=== PATIENT | female | born 1950 | race Caucasian/White ===

== ENCOUNTER → 2022-08-08 11:59 | Outpatient (CLI) | payer OTHER, SELFPAY | PROVIDERS: Visit Provider Registered Nurse | DX: R30.0 Dysuria (principal) | CPT/HCPCS: 87077; 87086; 87186 ==

== ENCOUNTER → 2022-08-22 11:23 | Outpatient (CLI) | payer OTHER, SELFPAY | PROVIDERS: Visit Provider Nurse Practitioner Family | DX: N39.0 Urinary tract infection, site not specified (principal); R30.0 Dysuria | CPT/HCPCS: 87086; 87210 ==

== ENCOUNTER 2022-08-23 12:19 | Observation (INO) | payer OTHER, SELFPAY ==
[2022-08-23] VITALS (126 sets, daily range): BP systolic 94–231; BP diastolic 51–109; PULSE 61–82; RESP 8–52; TEMP 37; O2SAT 91–100; BMI 25.7
--- NOTE | 2022-08-23 12:45 | DI.RAD.S_ITS ---
PROCEDURE: XR SHOULDER RT MIN 2V INDICATIONS: fall/pain/can't lift right arm TECHNIQUE: Two views of the shoulder were acquired. COMPARISON: None. FINDINGS: Bones: On the two given views of the shoulder, there are no visible fractures. Mild degenerative changes at the acromioclavicular joint. No mark glenohumeral joint dislocation. The visible right rib arcs are intact. Soft tissues: No suspicious soft tissue calcifications. IMPRESSION: No definite proximal humerus fracture on the two given views. Dictated by: Inna Wiley M.D. on 08/23/2022 at 12:49 Approved by: Inna Wiley M.D. on 08/23/2022 at 12:50
--- NOTE | 2022-08-23 12:55 | DI.RAD.S_ITS ---
PROCEDURE: XR WRIST RT MIN 3V INDICATIONS: fall with pain TECHNIQUE: Four views of the wrist were acquired. COMPARISON: None. FINDINGS: Bones: Decreased mineralization. No visible acute fractures. There is scapholunate interval widening of uncertain chronicity. There are severe arthritic changes at the 1st carpometacarpal joint with a significant osseous remodeling, subcortical cystic changes and joint space loss. Incidental note made of severe arthritic degeneration and spurring at the 3rd MCP joint. Scaphoid view: No definite scaphoid fracture. Soft tissues: No suspicious soft tissue calcifications. IMPRESSION: 1. No visible acute fractures. 2. Scapholunate interval widening is of uncertain chronicity. 3. Severe arthritic changes at the 1st CMC and 3rd MCP joints. Dictated by: Inna Wiley M.D. on 08/23/2022 at 12:50 Approved by: Inna Wiley M.D. on 08/23/2022 at 12:52
--- NOTE | 2022-08-23 12:55 | DI.RAD.S_ITS ---
PROCEDURE: XR ELBOW RT MIN 3V INDICATIONS: fall with pain TECHNIQUE: Three views of the elbow were acquired. COMPARISON: None. FINDINGS: Bones: Decreased mineralization. Soft tissues: No elbow joint effusion. No suspicious soft tissue calcifications. IMPRESSION: Intact right elbow. Dictated by: Inna Wiley M.D. on 08/23/2022 at 12:52 Approved by: Inna Wiley M.D. on 08/23/2022 at 12:53
--- NOTE | 2022-08-23 12:56 | ED.UPPEXIN ---
HPI - Extremity Injury (Upper) <DO Mayco Meyers Last Filed: 08/24/22 07:46> General Chief Complaint: Extremity Injury, Upper Stated Complaint: fell, rt shldr disloc Time Seen by Provider: 08/23/22 12:52 Source: patient Mode of arrival: Ambulatory History of Present Illness HPI narrative: 71F former smoker with noncontributory medical history presents for evaluation of injury suffered as a consequence of a fall just prior to arrival. She states that she is in a new house and was looking out her new blinds and did not see a chest in her way and tripped and fell over onto her right shoulder and now has shoulder, elbow and wrist pain. She denies any head neck or back pain. She denies prodromal symptoms such as dizziness, weakness or lightheadedness. She has severe pain in her right shoulder that is worse with range of motion and admits to pain in elbow and wrist also worse with range of motion. Related Data Home Medications Medication Instructions Recorded Confirmed doxycycline hyclate PO 08/08/22 08/08/22 fluticasone propionate 50 1 spray intranasal DAILY 08/08/22 08/08/22 mcg/actuation nasal spray,suspension hydroxyzine HCl 25 mg tablet 25 mg PO BID PRN 08/08/22 08/08/22 Previous Rx's Medication Instructions Recorded phenazopyridine 200 mg tablet 200 mg PO TID PRN pain 6 doses #6 08/08/22 (Pyridium) tabs Allergies Allergy/AdvReac Type Severity Reaction Status Date / Time hydrocodone Allergy Intermediate Hives Verified 08/23/22 14:18 hydrochlorothiazide Allergy Mild Hives Verified 08/08/22 12:08 Sulfa (Sulfonamide Allergy Mild Hives Verified 08/08/22 12:08 Antibiotics) doxycycline Allergy Hives Verified 08/23/22 12:40 cephalexin AdvReac Mild Verified 08/22/22 11:29 Review of Systems <DO Mayco Meyers Filed: 08/24/22 07:46> Review of Systems Narrative: GENERAL: Denies chills, fatigue, malaise, fever, sweats. HEENT: Denies sinus pain, ear pain, sore throat, difficulty swallowing, dizziness. RESPIRATORY: Denies dyspnea, cough, wheezing, hemoptysis, sputum. CARDIOVASCULAR: Denies chest pain, palpitations, orthopnea, edema, GASTROINTESTINAL: Denies nausea, vomiting, abdominal pain, diarrhea, constipation, melena. : Denies dysuria, frequency, incontinence, hematuria, urinary retention. MUSCULOSKELETAL: See HPI SKIN: Denies rash, skin lesions, or other NEUROLOGIC: Denies weakness, headache, numbness, change in speech, confusion, seizures, incoordination. PSYCHIATRIC: No concerning psychosocial issues. 12 point review of systems is negative except for those stated above Patient History <Mitchell Cano DO - Last Filed: 08/24/22 07:46> Medical History (Updated 08/24/22 @ 01:21 by ARELI BoydPURVI) Essential hypertension Johnathan's disease History of alcohol use History of tobacco abuse Hyperlipidemia Shoulder injury Surgical History (Updated 08/24/22 @ 01:21 by ANGEL Boyd) History of ankle surgery S/P CABG x 1 Family History (Updated 08/24/22 @ 01:25 by ANGEL Boyd) Father Hypertension Mother Hypertension CVA (cerebral vascular accident) Son Diabetes mellitus Social History (Updated 08/24/22 @ 01:26 by ANGEL Boyd) marital status: unmarried,living together details: Life partner household members: significant other housing: house Smoking Status: Former smoker alcohol intake: former substance use type: does not use well-balanced diet: daily or most days Smoking Status: Former smoker Substance Use Type: marijuana Exam <Mitchell Cano DO - Last Filed: 08/24/22 07:46> Narrative Exam Narrative: GENERAL: [71] year old patient appears stated age. Well-developed patient, in mild distress. GCS 15 HEAD: Atraumatic. Normocephalic. EYES: Pupils equal round and reactive. Extraocular motions intact. No scleral icterus. No injection or drainage. ENT: Nose without bleeding, purulent drainage. Throat without erythema, tonsillar hypertrophy or exudate. Airway patent. NECK: Trachea midline. Non tender CARDIOVASCULAR: Regular rate and rhythm without murmurs, gallops, or rubs. RESPIRATORY: Clear to auscultation. Breath sounds equal bilaterally. No wheezes, rales, or rhonchi. GASTROINTESTINAL: Abdomen soft, non-tender, nondistended. EXTREMITIES: Right posterior shoulder pain, no obvious deformity, tender to palpate, limited range of motion secondary to pain, right elbow pain and right wrist pain also tender to palpation no obvious deformity, closed, neurovascularly intact it BACK: Nontender without deformity or crepitance. No flank tenderness. NEURO: AOx3. SKIN: No rash or erythema of visible areas Initial Vital Signs Initial Vital Signs: Vital Signs Temperature 98.6 F 08/23/22 12:40 Pulse Rate 75 08/23/22 12:40 Respiratory Rate 18 08/23/22 12:40 Blood Pressure 223/109 H 08/23/22 12:40 Pulse Oximetry 99 08/23/22 12:40 Oxygen Delivery Method Room Air 08/23/22 12:40 <John Torres DO - Last Filed: 08/24/22 00:04> Initial Vital Signs Initial Vital Signs: Vital Signs Temperature 98.6 F 08/23/22 12:40 Pulse Rate 75 08/23/22 12:40 Respiratory Rate 18 08/23/22 12:40 Blood Pressure 223/109 H 08/23/22 12:40 Pulse Oximetry 99 08/23/22 12:40 Oxygen Delivery Method Room Air 08/23/22 12:40 Course <Mitchell Cano DO - Last Filed: 08/24/22 07:46> Orders Ordered: Acetaminophen (Acetaminophen 325 Mg Tablet) 650 mg PO Q6H PRN PRN Reason: Fever/Mild Pain (1-10 Al Hydrox/Mg Hydrox/Simethicone (Mag Hydrox/Alum/Simeth 30 Ml Udc) 30 ml PO Q6HR PRN PRN Reason: Dyspepsia Diclofenac Sodium (Diclofenac 1% Gel 100 Gm) 1 applic TOP QID PRN PRN Reason: Pain, (1-10 Hydralazine HCl (Hydralazine 20 Mg/Ml Vial) 20 mg IV Q6HR PRN PRN Reason: Hypertension Last Admin: 08/24/22 01:37 Dose: 20 mg Documented By: KASSANDRA Hydroxyzine Pamoate (Hydroxyzine Pamoate 25 Mg Capsule) 25 mg PO Q4HR PRN PRN Reason: Pain, Mild (1-3) Last Admin: 08/24/22 01:50 Dose: 25 mg Documented By: KASSANDRA Influenza Virus Vaccine (Influenza Hd Vaccine 0.7 Ml Syringe) 0.7 ml IM .ONCE ONE Stop: 08/24/22 09:01 Ketorolac Tromethamine (Ketorolac 10 Mg Tablet) 10 mg PO Q6HR PRN PRN Reason: Pain, Mild (1-3) Stop: 08/29/22 01:15 Labetalol HCl (Labetalol 20 Mg/4 Ml Syringe) 20 mg IV Q4HR PRN; Protocol PRN Reason: Hypertension Lidocaine (Lidocaine Patch 1 Each Adh..Patch) 1 each TOP DAILY PRN PRN Reason: Pain, Mild (1-10 Metoprolol Succinate (Metoprolol Er 25 Mg Tablet) 25 mg PO DAILY TU Morphine Sulfate (Morphine 2 Mg/Ml Inj) 2 mg IV Q4HR PRN PRN Reason: Pain, Moderate 5-10 Last Admin: 08/24/22 07:18 Dose: 2 mg Documented By: Naloxone HCl (Naloxone 0.4 Mg/Ml Vial) 0.2 mg IV Q2MIN PRN PRN Reason: Opiate Reversal Ondansetron HCl (Ondansetron 4 Mg Odt) 4 mg PO Q4HR PRN PRN Reason: Nausea And Vomiting Discontinued Medications Hydrocodone Bitart/Acetaminophen (Hydrocodone/Acet 5/325 Tablet) 1 tab PO NOW ONE Stop: 08/23/22 14:07 Last Admin: 08/23/22 14:19 Dose: Not Given Documented By: SHASHA Hydrocodone Bitart/Acetaminophen (Hydrocodone/Acet 5/325 Tablet) 1 tab PO Q4H PRN PRN Reason: Pain, Moderate (4-10 Nicardipine HCl 25 mg/ Sodium (Chloride) 250 mls @ 50 mls/hr IV TITRATE TU; Protocol Last Titration: 08/23/22 22:29 Dose: 0 mg/hr, 0 mls/hr Documented By: Titration: 08/23/22 18:23 Dose: 2.5 mg/hr, 25 mls/hr Documented By: Titration: 08/23/22 18:06 Dose: 2 mg/hr, 20 mls/hr Documented By: Titration: 08/23/22 17:50 Dose: 2.5 mg/hr, 25 mls/hr Documented By: Titration: 08/23/22 17:37 Dose: 0 mg/hr, 0 mls/hr Documented By: Titration: 08/23/22 17:07 Dose: 2.5 mg/hr, 25 mls/hr Documented By: Admin: 08/23/22 16:37 Dose: 5 mg/hr, 50 mls/hr Documented By: SHASHA Acetaminophen (Ofirmev) 1,000 mg in 100 mls @ 400 mls/hr IV NOW ONE Stop: 08/23/22 18:04 Last Infusion: 08/23/22 18:23 Dose: 0 mls/hr Documented By: Admin: 08/23/22 18:03 Dose: 400 mls/hr Documented By: RB Ketorolac Tromethamine (Ketorolac 30 Mg/Ml Vial) 30 mg IV NOW ONE Stop: 08/24/22 01:14 Last Admin: 08/24/22 01:37 Dose: 30 mg Documented By: KASSANDRA Labetalol HCl (Labetalol 20 Mg/4 Ml Syringe) 20 mg IV NOW ONE; Protocol Stop: 08/23/22 15:11 Last Admin: 08/23/22 15:31 Dose: 20 mg Documented By: SHASHA Morphine Sulfate (Morphine 2 Mg/Ml Inj) 2 mg IV NOW ONE Stop: 08/23/22 22:24 Last Admin: 08/23/22 22:42 Dose: 2 mg Documented By: SHASHA Ondansetron HCl (Ondansetron 4 Mg/2 Ml Inj) 4 mg IV NOW ONE Stop: 08/23/22 17:38 Last Admin: 08/23/22 17:45 Dose: 4 mg Documented By: ANDREA Reevaluation(s) Reevaluation #1: Patient becoming increasingly agitated and hypertensive, she is given labetalol 20 mg and has a brief improvement to the 180s but soon after rises back over 200 Consultations Consultation #1: Radiology called (Dr. Wiley) regarding head CT demonstrating questionable findings of acute intraparenchymal cerebral cortical contusion with punctate hemorrhage, no evidence of mass effect or subdural fluid collection Consultation #2: Upon receipt of head CT images pushed to [facility] and consultation performed with their stroke neurologist, images have been reviewed and recommendation is to repeat head CT in at least 6 hours, recommend blood pressure control below 160s Vital Signs Vital signs: Vital Signs - 8 hr 08/23/22 16:05 08/23/22 16:05 08/23/22 16:10 Pulse Rate 69 69 Respiratory Rate 13 12 Blood Pressure 230/106 H Pulse Oximetry 100 Oxygen Delivery Method 08/23/22 16:10 08/23/22 16:15 08/23/22 16:15 Pulse Rate 68 Respiratory Rate 18 Blood Pressure 209/101 H 222/108 H Pulse Oximetry 99 Oxygen Delivery Method 08/23/22 16:20 08/23/22 16:20 08/23/22 16:26 Pulse Rate 69 71 Respiratory Rate 21 13 Blood Pressure 228/109 H Pulse Oximetry 100 96 Oxygen Delivery Method 08/23/22 16:26 08/23/22 16:30 08/23/22 16:30 Pulse Rate 71 Respiratory Rate 12 Blood Pressure 203/95 H 209/101 H Pulse Oximetry 99 Oxygen Delivery Method 08/23/22 16:35 08/23/22 16:35 08/23/22 16:40 Pulse Rate 68 70 Respiratory Rate 19 19 Blood Pressure 213/108 H Pulse Oximetry 100 100 Oxygen Delivery Method 08/23/22 16:40 08/23/22 16:45 08/23/22 16:45 Pulse Rate 69 Respiratory Rate 25 H Blood Pressure 226/108 H 216/102 H Pulse Oximetry 100 Oxygen Delivery Method 08/23/22 16:54 08/23/22 16:54 08/23/22 17:00 Pulse Rate 73 82 Respiratory Rate 26 H Blood Pressure 217/98 H Pulse Oximetry 97 95 Oxygen Delivery Method 08/23/22 17:02 08/23/22 17:02 08/23/22 17:05 Pulse Rate 71 74 Respiratory Rate 26 H 25 H Blood Pressure 193/88 H Pulse Oximetry 99 100 Oxygen Delivery Method Room Air 08/23/22 17:05 08/23/22 17:10 08/23/22 17:15 Pulse Rate Respiratory Rate Blood Pressure 165/76 H 180/89 H 162/91 H Pulse Oximetry Oxygen Delivery Method 08/23/22 17:15 08/23/22 17:20 08/23/22 17:21 Pulse Rate 74 79 77 Respiratory Rate 23 25 H Blood Pressure Pulse Oximetry 100 99 99 Oxygen Delivery Method 08/23/22 17:21 08/23/22 17:25 08/23/22 17:26 Pulse Rate 72 Respiratory Rate 16 Blood Pressure 187/101 H 155/78 H Pulse Oximetry 99 Oxygen Delivery Method 08/23/22 17:26 08/23/22 17:30 08/23/22 17:30 Pulse Rate 73 66 Respiratory Rate 11 L Blood Pressure 123/74 Pulse Oximetry 100 100 Oxygen Delivery Method 08/23/22 17:35 08/23/22 17:35 08/23/22 17:39 Pulse Rate 72 68 Respiratory Rate Blood Pressure 101/57 L Pulse Oximetry 100 100 Oxygen Delivery Method 08/23/22 17:39 08/23/22 17:40 08/23/22 17:42 Pulse Rate 69 80 Respiratory Rate 26 H Blood Pressure 94/51 L Pulse Oximetry 99 99 Oxygen Delivery Method 08/23/22 17:42 08/23/22 17:45 08/23/22 17:45 Pulse Rate 70 Respiratory Rate 52 H Blood Pressure 124/66 171/75 H Pulse Oximetry 99 Oxygen Delivery Method 08/23/22 17:50 08/23/22 17:50 08/23/22 17:55 Pulse Rate 70 64 Respiratory Rate Blood Pressure 158/68 H Pulse Oximetry 99 99 Oxygen Delivery Method 08/23/22 17:58 08/23/22 17:58 08/23/22 18:00 Pulse Rate 65 Respiratory Rate 22 Blood Pressure 199/94 H 192/90 H Pulse Oximetry 100 Oxygen Delivery Method 08/23/22 18:00 08/23/22 18:05 08/23/22 18:06 Pulse Rate 66 65 65 Respiratory Rate 15 13 Blood Pressure Pulse Oximetry 100 100 100 Oxygen Delivery Method 08/23/22 18:06 08/23/22 18:10 08/23/22 18:10 Pulse Rate 67 Respiratory Rate 18 Blood Pressure 159/83 H 170/86 H Pulse Oximetry 91 Oxygen Delivery Method 08/23/22 18:15 08/23/22 18:16 08/23/22 18:16 Pulse Rate 70 68 Respiratory Rate 17 18 Blood Pressure 166/77 H Pulse Oximetry 92 94 Oxygen Delivery Method Room Air 08/23/22 18:20 08/23/22 18:20 08/23/22 18:25 Pulse Rate 67 Respiratory Rate 18 Blood Pressure 168/81 H 166/80 H Pulse Oximetry 99 Oxygen Delivery Method Room Air 08/23/22 18:25 08/23/22 18:30 08/23/22 18:30 Pulse Rate 68 67 Respiratory Rate 22 11 L Blood Pressure 157/78 H Pulse Oximetry 100 100 Oxygen Delivery Method 08/23/22 18:35 08/23/22 18:35 08/23/22 18:40 Pulse Rate 66 Respiratory Rate 20 Blood Pressure 159/81 H 165/87 H Pulse Oximetry 100 Oxygen Delivery Method 08/23/22 18:40 08/23/22 18:45 08/23/22 18:45 Pulse Rate 66 66 Respiratory Rate 11 L 13 Blood Pressure 161/84 H Pulse Oximetry 100 100 Oxygen Delivery Method 08/23/22 18:50 08/23/22 18:50 08/23/22 18:55 Pulse Rate 69 Respiratory Rate 17 Blood Pressure 147/75 H 156/80 H Pulse Oximetry 97 Oxygen Delivery Method 08/23/22 18:55 08/23/22 19:00 08/23/22 19:00 Pulse Rate 69 78 Respiratory Rate 21 22 Blood Pressure 156/77 H Pulse Oximetry 98 99 Oxygen Delivery Method 08/23/22 19:05 08/23/22 19:05 08/23/22 19:10 Pulse Rate 67 Respiratory Rate Blood Pressure 160/70 H 154/71 H Pulse Oximetry 100 Oxygen Delivery Method 08/23/22 19:10 08/23/22 19:15 08/23/22 19:16 Pulse Rate 71 68 69 Respiratory Rate 21 12 18 Blood Pressure Pulse Oximetry 98 99 98 Oxygen Delivery Method 08/23/22 19:16 08/23/22 19:20 08/23/22 19:20 Pulse Rate 72 Respiratory Rate 19 Blood Pressure 155/74 H 157/70 H Pulse Oximetry 97 Oxygen Delivery Method Room Air 08/23/22 19:25 08/23/22 19:25 08/23/22 19:30 Pulse Rate 69 Respiratory Rate 25 H Blood Pressure 143/65 H 139/70 Pulse Oximetry 99 Oxygen Delivery Method 08/23/22 19:30 08/23/22 19:35 08/23/22 19:35 Pulse Rate 71 72 Respiratory Rate 27 H 36 H Blood Pressure 141/70 H Pulse Oximetry 98 97 Oxygen Delivery Method 08/23/22 19:40 08/23/22 19:40 08/23/22 19:45 Pulse Rate 71 Respiratory Rate 12 Blood Pressure 145/73 H 147/74 H Pulse Oximetry 100 Oxygen Delivery Method 08/23/22 19:45 08/23/22 19:50 08/23/22 19:50 Pulse Rate 70 75 Respiratory Rate 15 22 Blood Pressure 140/72 Pulse Oximetry 98 98 Oxygen Delivery Method 08/23/22 19:55 08/23/22 19:55 08/23/22 20:17 Pulse Rate 75 72 Respiratory Rate 22 Blood Pressure 156/78 H Pulse Oximetry 99 Oxygen Delivery Method 08/23/22 20:19 08/23/22 20:19 08/23/22 20:20 Pulse Rate 75 Respiratory Rate 18 Blood Pressure 161/86 H 137/73 Pulse Oximetry 100 Oxygen Delivery Method 08/23/22 20:20 08/23/22 20:25 08/23/22 20:25 Pulse Rate 75 73 Respiratory Rate Blood Pressure 140/76 Pulse Oximetry 100 100 Oxygen Delivery Method 08/23/22 20:30 08/23/22 20:30 08/23/22 20:35 Pulse Rate 71 Respiratory Rate 12 Blood Pressure 140/74 175/80 H Pulse Oximetry 99 Oxygen Delivery Method 08/23/22 20:35 08/23/22 20:40 08/23/22 20:40 Pulse Rate 74 77 Respiratory Rate 16 Blood Pressure 174/79 H Pulse Oximetry 99 98 Oxygen Delivery Method 08/23/22 20:45 08/23/22 20:45 08/23/22 20:50 Pulse Rate 77 Respiratory Rate 17 Blood Pressure 154/71 H 151/81 H Pulse Oximetry 100 Oxygen Delivery Method 08/23/22 20:50 08/23/22 20:55 08/23/22 20:55 Pulse Rate 80 80 Respiratory Rate Blood Pressure 159/88 H Pulse Oximetry 100 100 Oxygen Delivery Method 08/23/22 21:00 08/23/22 21:00 08/23/22 21:05 Pulse Rate 70 Respiratory Rate 13 Blood Pressure 162/75 H 136/80 Pulse Oximetry 100 Oxygen Delivery Method 08/23/22 21:05 08/23/22 21:10 08/23/22 21:10 Pulse Rate 71 73 Respiratory Rate 8 L 15 Blood Pressure 139/78 Pulse Oximetry 99 100 Oxygen Delivery Method 08/23/22 21:15 08/23/22 21:15 08/23/22 21:20 Pulse Rate 71 Respiratory Rate 10 L Blood Pressure 135/77 161/80 H Pulse Oximetry 100 Oxygen Delivery Method 08/23/22 21:20 08/23/22 21:25 08/23/22 21:26 Pulse Rate 75 75 74 Respiratory Rate 11 L 19 24 Blood Pressure Pulse Oximetry 100 100 100 Oxygen Delivery Method 08/23/22 21:26 08/23/22 21:30 08/23/22 21:30 Pulse Rate 73 Respiratory Rate 18 Blood Pressure 158/76 H 163/75 H Pulse Oximetry 100 Oxygen Delivery Method 08/23/22 21:35 08/23/22 21:36 08/23/22 21:36 Pulse Rate 70 70 Respiratory Rate 16 11 L Blood Pressure 154/72 H Pulse Oximetry 100 100 Oxygen Delivery Method 08/23/22 21:40 08/23/22 21:40 08/23/22 21:45 Pulse Rate 74 Respiratory Rate 18 Blood Pressure 156/76 H 159/80 H Pulse Oximetry 98 Oxygen Delivery Method 08/23/22 21:45 08/23/22 21:50 08/23/22 21:50 Pulse Rate 75 74 Respiratory Rate 11 L 34 H Blood Pressure 161/83 H Pulse Oximetry 98 99 Oxygen Delivery Method 08/23/22 21:55 08/23/22 21:55 08/23/22 22:00 Pulse Rate 79 Respiratory Rate 34 H Blood Pressure 169/83 H 160/75 H Pulse Oximetry 100 Oxygen Delivery Method 08/23/22 22:00 08/23/22 22:05 08/23/22 22:05 Pulse Rate 78 74 Respiratory Rate 29 H 13 Blood Pressure 143/67 H Pulse Oximetry 100 97 Oxygen Delivery Method 08/23/22 22:10 08/23/22 22:10 08/23/22 22:15 Pulse Rate 72 Respiratory Rate Blood Pressure 151/74 H 160/80 H Pulse Oximetry 99 Oxygen Delivery Method 08/23/22 22:15 08/23/22 22:20 08/23/22 22:20 Pulse Rate 75 77 Respiratory Rate 17 14 Blood Pressure 154/79 H Pulse Oximetry 97 98 Oxygen Delivery Method 08/23/22 22:25 08/23/22 22:26 08/23/22 22:26 Pulse Rate 75 75 Respiratory Rate 13 18 Blood Pressure 151/90 H Pulse Oximetry 100 100 Oxygen Delivery Method 08/23/22 22:30 08/23/22 22:30 08/23/22 22:35 Pulse Rate 82 75 Respiratory Rate Blood Pressure 174/102 H Pulse Oximetry 100 99 Oxygen Delivery Method <John Torres DO - Last Filed: 08/24/22 00:04> Orders Ordered: Acetaminophen (Acetaminophen 325 Mg Tablet) 650 mg PO Q6H PRN PRN Reason: Fever/Mild Pain (1-10 Al Hydrox/Mg Hydrox/Simethicone (Mag Hydrox/Alum/Simeth 30 Ml Udc) 30 ml PO Q6HR PRN PRN Reason: Dyspepsia Diclofenac Sodium (Diclofenac 1% Gel 100 Gm) 1 applic TOP QID PRN PRN Reason: Pain, (1-10 Hydralazine HCl (Hydralazine 20 Mg/Ml Vial) 20 mg IV Q6HR PRN PRN Reason: Hypertension Last Admin: 08/24/22 01:37 Dose: 20 mg Documented By: KASSANDRA Hydroxyzine Pamoate (Hydroxyzine Pamoate 25 Mg Capsule) 25 mg PO Q4HR PRN PRN Reason: Pain, Mild (1-3) Last Admin: 08/24/22 01:50 Dose: 25 mg Documented By: KASSANDRA Influenza Virus Vaccine (Influenza Hd Vaccine 0.7 Ml Syringe) 0.7 ml IM .ONCE ONE Stop: 08/24/22 09:01 Ketorolac Tromethamine (Ketorolac 10 Mg Tablet) 10 mg PO Q6HR PRN PRN Reason: Pain, Mild (1-3) Stop: 08/29/22 01:15 Labetalol HCl (Labetalol 20 Mg/4 Ml Syringe) 20 mg IV Q4HR PRN; Protocol PRN Reason: Hypertension Lidocaine (Lidocaine Patch 1 Each Adh..Patch) 1 each TOP DAILY PRN PRN Reason: Pain, Mild (1-10 Metoprolol Succinate (Metoprolol Er 25 Mg Tablet) 25 mg PO DAILY TU Morphine Sulfate (Morphine 2 Mg/Ml Inj) 2 mg IV Q4HR PRN PRN Reason: Pain, Moderate 5-10 Last Admin: 08/24/22 07:18 Dose: 2 mg Documented By: Naloxone HCl (Naloxone 0.4 Mg/Ml Vial) 0.2 mg IV Q2MIN PRN PRN Reason: Opiate Reversal Ondansetron HCl (Ondansetron 4 Mg Odt) 4 mg PO Q4HR PRN PRN Reason: Nausea And Vomiting Discontinued Medications Hydrocodone Bitart/Acetaminophen (Hydrocodone/Acet 5/325 Tablet) 1 tab PO NOW ONE Stop: 08/23/22 14:07 Last Admin: 08/23/22 14:19 Dose: Not Given Documented By: SHASHA Hydrocodone Bitart/Acetaminophen (Hydrocodone/Acet 5/325 Tablet) 1 tab PO Q4H PRN PRN Reason: Pain, Moderate (4-10 Nicardipine HCl 25 mg/ Sodium (Chloride) 250 mls @ 50 mls/hr IV TITRATE TU; Protocol Last Titration: 08/23/22 22:29 Dose: 0 mg/hr, 0 mls/hr Documented By: Titration: 08/23/22 18:23 Dose: 2.5 mg/hr, 25 mls/hr Documented By: Titration: 08/23/22 18:06 Dose: 2 mg/hr, 20 mls/hr Documented By: Titration: 08/23/22 17:50 Dose: 2.5 mg/hr, 25 mls/hr Documented By: Titration: 08/23/22 17:37 Dose: 0 mg/hr, 0 mls/hr Documented By: Titration: 08/23/22 17:07 Dose: 2.5 mg/hr, 25 mls/hr Documented By: Admin: 08/23/22 16:37 Dose: 5 mg/hr, 50 mls/hr Documented By: SB Acetaminophen (Ofirmev) 1,000 mg in 100 mls @ 400 mls/hr IV NOW ONE Stop: 08/23/22 18:04 Last Infusion: 08/23/22 18:23 Dose: 0 mls/hr Documented By: Admin: 08/23/22 18:03 Dose: 400 mls/hr Documented By: RB Ketorolac Tromethamine (Ketorolac 30 Mg/Ml Vial) 30 mg IV NOW ONE Stop: 08/24/22 01:14 Last Admin: 08/24/22 01:37 Dose: 30 mg Documented By: KASSANDRA Labetalol HCl (Labetalol 20 Mg/4 Ml Syringe) 20 mg IV NOW ONE; Protocol Stop: 08/23/22 15:11 Last Admin: 08/23/22 15:31 Dose: 20 mg Documented By: SB Morphine Sulfate (Morphine 2 Mg/Ml Inj) 2 mg IV NOW ONE Stop: 08/23/22 22:24 Last Admin: 08/23/22 22:42 Dose: 2 mg Documented By: SB Ondansetron HCl (Ondansetron 4 Mg/2 Ml Inj) 4 mg IV NOW ONE Stop: 08/23/22 17:38 Last Admin: 08/23/22 17:45 Dose: 4 mg Documented By: RB Vital Signs Vital signs: Vital Signs - 8 hr 08/23/22 16:05 08/23/22 16:05 08/23/22 16:10 Pulse Rate 69 69 Respiratory Rate 13 12 Blood Pressure 230/106 H Pulse Oximetry 100 Oxygen Delivery Method 08/23/22 16:10 08/23/22 16:15 08/23/22 16:15 Pulse Rate 68 Respiratory Rate 18 Blood Pressure 209/101 H 222/108 H Pulse Oximetry 99 Oxygen Delivery Method 08/23/22 16:20 08/23/22 16:20 08/23/22 16:26 Pulse Rate 69 71 Respiratory Rate 21 13 Blood Pressure 228/109 H Pulse Oximetry 100 96 Oxygen Delivery Method 08/23/22 16:26 08/23/22 16:30 08/23/22 16:30 Pulse Rate 71 Respiratory Rate 12 Blood Pressure 203/95 H 209/101 H Pulse Oximetry 99 Oxygen Delivery Method 08/23/22 16:35 08/23/22 16:35 08/23/22 16:40 Pulse Rate 68 70 Respiratory Rate 19 19 Blood Pressure 213/108 H Pulse Oximetry 100 100 Oxygen Delivery Method 08/23/22 16:40 08/23/22 16:45 08/23/22 16:45 Pulse Rate 69 Respiratory Rate 25 H Blood Pressure 226/108 H 216/102 H Pulse Oximetry 100 Oxygen Delivery Method 08/23/22 16:54 08/23/22 16:54 08/23/22 17:00 Pulse Rate 73 82 Respiratory Rate 26 H Blood Pressure 217/98 H Pulse Oximetry 97 95 Oxygen Delivery Method 08/23/22 17:02 08/23/22 17:02 08/23/22 17:05 Pulse Rate 71 74 Respiratory Rate 26 H 25 H Blood Pressure 193/88 H Pulse Oximetry 99 100 Oxygen Delivery Method Room Air 08/23/22 17:05 08/23/22 17:10 08/23/22 17:15 Pulse Rate Respiratory Rate Blood Pressure 165/76 H 180/89 H 162/91 H Pulse Oximetry Oxygen Delivery Method 08/23/22 17:15 08/23/22 17:20 08/23/22 17:21 Pulse Rate 74 79 77 Respiratory Rate 23 25 H Blood Pressure Pulse Oximetry 100 99 99 Oxygen Delivery Method 08/23/22 17:21 08/23/22 17:25 08/23/22 17:26 Pulse Rate 72 Respiratory Rate 16 Blood Pressure 187/101 H 155/78 H Pulse Oximetry 99 Oxygen Delivery Method 08/23/22 17:26 08/23/22 17:30 08/23/22 17:30 Pulse Rate 73 66 Respiratory Rate 11 L Blood Pressure 123/74 Pulse Oximetry 100 100 Oxygen Delivery Method 08/23/22 17:35 08/23/22 17:35 08/23/22 17:39 Pulse Rate 72 68 Respiratory Rate Blood Pressure 101/57 L Pulse Oximetry 100 100 Oxygen Delivery Method 08/23/22 17:39 08/23/22 17:40 08/23/22 17:42 Pulse Rate 69 80 Respiratory Rate 26 H Blood Pressure 94/51 L Pulse Oximetry 99 99 Oxygen Delivery Method 08/23/22 17:42 08/23/22 17:45 08/23/22 17:45 Pulse Rate 70 Respiratory Rate 52 H Blood Pressure 124/66 171/75 H Pulse Oximetry 99 Oxygen Delivery Method 08/23/22 17:50 08/23/22 17:50 08/23/22 17:55 Pulse Rate 70 64 Respiratory Rate Blood Pressure 158/68 H Pulse Oximetry 99 99 Oxygen Delivery Method 08/23/22 17:58 08/23/22 17:58 08/23/22 18:00 Pulse Rate 65 Respiratory Rate 22 Blood Pressure 199/94 H 192/90 H Pulse Oximetry 100 Oxygen Delivery Method 08/23/22 18:00 08/23/22 18:05 08/23/22 18:06 Pulse Rate 66 65 65 Respiratory Rate 15 13 Blood Pressure Pulse Oximetry 100 100 100 Oxygen Delivery Method 08/23/22 18:06 08/23/22 18:10 08/23/22 18:10 Pulse Rate 67 Respiratory Rate 18 Blood Pressure 159/83 H 170/86 H Pulse Oximetry 91 Oxygen Delivery Method 08/23/22 18:15 08/23/22 18:16 08/23/22 18:16 Pulse Rate 70 68 Respiratory Rate 17 18 Blood Pressure 166/77 H Pulse Oximetry 92 94 Oxygen Delivery Method Room Air 08/23/22 18:20 08/23/22 18:20 08/23/22 18:25 Pulse Rate 67 Respiratory Rate 18 Blood Pressure 168/81 H 166/80 H Pulse Oximetry 99 Oxygen Delivery Method Room Air 08/23/22 18:25 08/23/22 18:30 08/23/22 18:30 Pulse Rate 68 67 Respiratory Rate 22 11 L Blood Pressure 157/78 H Pulse Oximetry 100 100 Oxygen Delivery Method 08/23/22 18:35 08/23/22 18:35 08/23/22 18:40 Pulse Rate 66 Respiratory Rate 20 Blood Pressure 159/81 H 165/87 H Pulse Oximetry 100 Oxygen Delivery Method 08/23/22 18:40 08/23/22 18:45 08/23/22 18:45 Pulse Rate 66 66 Respiratory Rate 11 L 13 Blood Pressure 161/84 H Pulse Oximetry 100 100 Oxygen Delivery Method 08/23/22 18:50 08/23/22 18:50 08/23/22 18:55 Pulse Rate 69 Respiratory Rate 17 Blood Pressure 147/75 H 156/80 H Pulse Oximetry 97 Oxygen Delivery Method 08/23/22 18:55 08/23/22 19:00 08/23/22 19:00 Pulse Rate 69 78 Respiratory Rate 21 22 Blood Pressure 156/77 H Pulse Oximetry 98 99 Oxygen Delivery Method 08/23/22 19:05 08/23/22 19:05 08/23/22 19:10 Pulse Rate 67 Respiratory Rate Blood Pressure 160/70 H 154/71 H Pulse Oximetry 100 Oxygen Delivery Method 08/23/22 19:10 08/23/22 19:15 08/23/22 19:16 Pulse Rate 71 68 69 Respiratory Rate 21 12 18 Blood Pressure Pulse Oximetry 98 99 98 Oxygen Delivery Method 08/23/22 19:16 08/23/22 19:20 08/23/22 19:20 Pulse Rate 72 Respiratory Rate 19 Blood Pressure 155/74 H 157/70 H Pulse Oximetry 97 Oxygen Delivery Method Room Air 08/23/22 19:25 08/23/22 19:25 08/23/22 19:30 Pulse Rate 69 Respiratory Rate 25 H Blood Pressure 143/65 H 139/70 Pulse Oximetry 99 Oxygen Delivery Method 08/23/22 19:30 08/23/22 19:35 08/23/22 19:35 Pulse Rate 71 72 Respiratory Rate 27 H 36 H Blood Pressure 141/70 H Pulse Oximetry 98 97 Oxygen Delivery Method 08/23/22 19:40 08/23/22 19:40 08/23/22 19:45 Pulse Rate 71 Respiratory Rate 12 Blood Pressure 145/73 H 147/74 H Pulse Oximetry 100 Oxygen Delivery Method 08/23/22 19:45 08/23/22 19:50 08/23/22 19:50 Pulse Rate 70 75 Respiratory Rate 15 22 Blood Pressure 140/72 Pulse Oximetry 98 98 Oxygen Delivery Method 08/23/22 19:55 08/23/22 19:55 08/23/22 20:17 Pulse Rate 75 72 Respiratory Rate 22 Blood Pressure 156/78 H Pulse Oximetry 99 Oxygen Delivery Method 08/23/22 20:19 08/23/22 20:19 08/23/22 20:20 Pulse Rate 75 Respiratory Rate 18 Blood Pressure 161/86 H 137/73 Pulse Oximetry 100 Oxygen Delivery Method 08/23/22 20:20 08/23/22 20:25 08/23/22 20:25 Pulse Rate 75 73 Respiratory Rate Blood Pressure 140/76 Pulse Oximetry 100 100 Oxygen Delivery Method 08/23/22 20:30 08/23/22 20:30 08/23/22 20:35 Pulse Rate 71 Respiratory Rate 12 Blood Pressure 140/74 175/80 H Pulse Oximetry 99 Oxygen Delivery Method 08/23/22 20:35 08/23/22 20:40 08/23/22 20:40 Pulse Rate 74 77 Respiratory Rate 16 Blood Pressure 174/79 H Pulse Oximetry 99 98 Oxygen Delivery Method 08/23/22 20:45 08/23/22 20:45 08/23/22 20:50 Pulse Rate 77 Respiratory Rate 17 Blood Pressure 154/71 H 151/81 H Pulse Oximetry 100 Oxygen Delivery Method 08/23/22 20:50 08/23/22 20:55 08/23/22 20:55 Pulse Rate 80 80 Respiratory Rate Blood Pressure 159/88 H Pulse Oximetry 100 100 Oxygen Delivery Method 08/23/22 21:00 08/23/22 21:00 08/23/22 21:05 Pulse Rate 70 Respiratory Rate 13 Blood Pressure 162/75 H 136/80 Pulse Oximetry 100 Oxygen Delivery Method 08/23/22 21:05 08/23/22 21:10 08/23/22 21:10 Pulse Rate 71 73 Respiratory Rate 8 L 15 Blood Pressure 139/78 Pulse Oximetry 99 100 Oxygen Delivery Method 08/23/22 21:15 08/23/22 21:15 08/23/22 21:20 Pulse Rate 71 Respiratory Rate 10 L Blood Pressure 135/77 161/80 H Pulse Oximetry 100 Oxygen Delivery Method 08/23/22 21:20 08/23/22 21:25 08/23/22 21:26 Pulse Rate 75 75 74 Respiratory Rate 11 L 19 24 Blood Pressure Pulse Oximetry 100 100 100 Oxygen Delivery Method 08/23/22 21:26 08/23/22 21:30 08/23/22 21:30 Pulse Rate 73 Respiratory Rate 18 Blood Pressure 158/76 H 163/75 H Pulse Oximetry 100 Oxygen Delivery Method 08/23/22 21:35 08/23/22 21:36 08/23/22 21:36 Pulse Rate 70 70 Respiratory Rate 16 11 L Blood Pressure 154/72 H Pulse Oximetry 100 100 Oxygen Delivery Method 08/23/22 21:40 08/23/22 21:40 08/23/22 21:45 Pulse Rate 74 Respiratory Rate 18 Blood Pressure 156/76 H 159/80 H Pulse Oximetry 98 Oxygen Delivery Method 08/23/22 21:45 08/23/22 21:50 08/23/22 21:50 Pulse Rate 75 74 Respiratory Rate 11 L 34 H Blood Pressure 161/83 H Pulse Oximetry 98 99 Oxygen Delivery Method 08/23/22 21:55 08/23/22 21:55 08/23/22 22:00 Pulse Rate 79 Respiratory Rate 34 H Blood Pressure 169/83 H 160/75 H Pulse Oximetry 100 Oxygen Delivery Method 08/23/22 22:00 08/23/22 22:05 08/23/22 22:05 Pulse Rate 78 74 Respiratory Rate 29 H 13 Blood Pressure 143/67 H Pulse Oximetry 100 97 Oxygen Delivery Method 08/23/22 22:10 08/23/22 22:10 08/23/22 22:15 Pulse Rate 72 Respiratory Rate Blood Pressure 151/74 H 160/80 H Pulse Oximetry 99 Oxygen Delivery Method 08/23/22 22:15 08/23/22 22:20 08/23/22 22:20 Pulse Rate 75 77 Respiratory Rate 17 14 Blood Pressure 154/79 H Pulse Oximetry 97 98 Oxygen Delivery Method 08/23/22 22:25 08/23/22 22:26 08/23/22 22:26 Pulse Rate 75 75 Respiratory Rate 13 18 Blood Pressure 151/90 H Pulse Oximetry 100 100 Oxygen Delivery Method 08/23/22 22:30 08/23/22 22:30 08/23/22 22:35 Pulse Rate 82 75 Respiratory Rate Blood Pressure 174/102 H Pulse Oximetry 100 99 Oxygen Delivery Method MDM - Extremity Injury (Upper) <Mitchell Jerome, DO - Last Filed: 08/24/22 07:46> Lab Data 08/24/22 04:00 08/24/22 04:00 Labs: Lab Results 08/23/22 08/23/22 Range/Units 15:18 15:18 WBC 7.0 (4.5-11.0) X10^3/uL RBC 4.22 (4.0-5.2) X10^6/uL Hgb 13.5 (12.0-16.0) g/dL Hct 39.1 (36-46) % MCV 92.7 (80-100) fL MCH 31.9 (26-34) PG MCHC 34.5 (30-36) % RDW 13.6 (11.6-14.8) % Plt Count 317 (150-400) X10^3/uL Neut % (Auto) 60.6 (50-75) % Lymph % (Auto) 28.3 (25-40) % [place] % (Auto) 7.0 (3-14) % Eos % (Auto) 3.0 (2-4) % Baso % (Auto) 1.1 (0-2) % Neut # (Auto) 4200 (6303-2379) /uL Lymph # (Auto) 2000 (3573-8344) /uL [place] # (Auto) 500 (0-900) /uL Eos # (Auto) 200 (0-450) /uL Baso # (Auto) 100 (0-100) /uL Sodium 138 (137-145) mmol/L Potassium 4.1 (3.4-5.1) mmol/L Chloride 105 (98-107) mmol/L Carbon Dioxide 29 (22-32) mmol/L BUN 20 H (7-17) mg/dL Creatinine 0.80 (0.52-1.04) mg/dL Estimated GFR > 60 (>60) mL/min BUN/Creatinine Ratio 25.0 H (6-22) Glucose 94 (80-110) mg/dL Calcium 10.4 H (8.4-10.2) mg/dL Magnesium 2.4 H (1.6-2.3) mg/dL Total Bilirubin 0.4 (0.2-1.3) mg/dL AST 29 (14-36) IU/L ALT 30 (<35) IU/L Alkaline Phosphatase 87 (38-126) U/L Total Creatine Kinase 94 (30-135) U/L CK-MB (CK-2) TNP CK-MB (CK-2) Rel Index TNP Troponin I < 0.012 (0.01-0.034) ng/mL NT-Pro-B Natriuret Pep 315 H (<125) pg/mL Total Protein 7.1 (6.3-8.2) g/dL Albumin 4.3 (3.5-5.0) g/dL Globulin 2.8 (1.7-4.1) g/dL Albumin/Globulin Ratio 1.5 (1.0-2.8) Lipase 153 (23-300) U/L Urine Dip Bedside Urine Glucose Negative Bedside Urine Bilirubin - Negative Bedside Urine Ketone - Negative Urine Specific [place] 1.005 Bedside Urine Occult Blood - Negative Bedside Urine pH 7.0 Bedside Urine Protein - Negative Bedside Urine Urobilinogen - Negative Bedside Urine Nitrite - Negative Bedside Urine Leukocytes - Negative Esterase <John Torres, - Last Filed: 08/24/22 00:04> Lab Data Labs: Lab Results 08/23/22 08/23/22 Range/Units 15:18 15:18 WBC 7.0 (4.5-11.0) X10^3/uL RBC 4.22 (4.0-5.2) X10^6/uL Hgb 13.5 (12.0-16.0) g/dL Hct 39.1 (36-46) % MCV 92.7 (80-100) fL MCH 31.9 (26-34) PG MCHC 34.5 (30-36) % RDW 13.6 (11.6-14.8) % Plt Count 317 (150-400) X10^3/uL Neut % (Auto) 60.6 (50-75) % Lymph % (Auto) 28.3 (25-40) % [place] % (Auto) 7.0 (3-14) % Eos % (Auto) 3.0 (2-4) % Baso % (Auto) 1.1 (0-2) % Neut # (Auto) 4200 (4128-1085) /uL Lymph # (Auto) 2000 (1327-9470) /uL [place] # (Auto) 500 (0-900) /uL Eos # (Auto) 200 (0-450) /uL Baso # (Auto) 100 (0-100) /uL Sodium 138 (137-145) mmol/L Potassium 4.1 (3.4-5.1) mmol/L Chloride 105 (98-107) mmol/L Carbon Dioxide 29 (22-32) mmol/L BUN 20 H (7-17) mg/dL Creatinine 0.80 (0.52-1.04) mg/dL Estimated GFR > 60 (>60) mL/min BUN/Creatinine Ratio 25.0 H (6-22) Glucose 94 (80-110) mg/dL Calcium 10.4 H (8.4-10.2) mg/dL Magnesium 2.4 H (1.6-2.3) mg/dL Total Bilirubin 0.4 (0.2-1.3) mg/dL AST 29 (14-36) IU/L ALT 30 (<35) IU/L Alkaline Phosphatase 87 (38-126) U/L Total Creatine Kinase 94 (30-135) U/L CK-MB (CK-2) TNP CK-MB (CK-2) Rel Index TNP Troponin I < 0.012 (0.01-0.034) ng/mL NT-Pro-B Natriuret Pep 315 H (<125) pg/mL Total Protein 7.1 (6.3-8.2) g/dL Albumin 4.3 (3.5-5.0) g/dL Globulin 2.8 (1.7-4.1) g/dL Albumin/Globulin Ratio 1.5 (1.0-2.8) Lipase 153 (23-300) U/L Urine Dip Bedside Urine Glucose Negative Bedside Urine Bilirubin - Negative Bedside Urine Ketone - Negative Urine Specific [place] 1.005 Bedside Urine Occult Blood - Negative Bedside Urine pH 7.0 Bedside Urine Protein - Negative Bedside Urine Urobilinogen - Negative Bedside Urine Nitrite - Negative Bedside Urine Leukocytes - Negative Esterase ECG Data Interpretation: PROCEDURE:? CT HEAD/BRAIN WO CON ? INDICATIONS:? repeat head CT to eval for bleed ? TECHNIQUE:? Noncontrast 4.5 mm thick angled axial sections acquired from the foramen magnum to the vertex, with coronal and sagittal reformats.? For radiation dose reduction, the following was used:? automated exposure control, adjustment of mA and/or kV according to patient size.? ? COMPARISON:? [facility], CT, CT HEAD/BRAIN WO FRANCISCO JAVIER, 08/23/2022, 14:14. ? FINDINGS:? Image quality:? Excellent.? ? CSF spaces:? Basal cisterns are patent.? No extra-axial fluid collections.? Ventricles are normal in size and shape.? ? Brain:? No midline shift.? Again seen is increased density in the left middle cranial fossa, (2/10), unchanged compared to earlier today at 2:14 p.m.? No area of hypodensity in a large vascular distribution to suggest acute infarction. Periventricular hypodensity consistent with chronic microvascular ischemic change. Age-related parenchymal loss. ? Skull and face:? Calvarium and visualized facial bones are intact, without suspicious lesions.? ? Sinuses:? Visualized sinuses and mastoids are clear.? ? IMPRESSION:? Stable increased density at the left middle cranial fossa.? This could represent a focus of intraparenchymal or subarachnoid hemorrhage. MDM Narrative Medical decision making narrative: Dr torres: Received turned over. Review patient's history and physical exam. Repeat head CT shows no change. I did discuss the case with Dr. Hernandez with stroke Neurology at [facility] who reviewed the images. Dr. Hernandez does think that this is potentially blood but it has not changed in size. The plan will be is to stop the nicardipine. Patient states she does have a history of high blood pressure and has been on blood pressure in the past but only take supplements for this now. She does not know what her blood pressure normally runs. We will admit the patient for observation overnight given the nature of her symptoms today and her blood pressure. I did discuss the case with JUAN Jin the night hospitalist who will admit for observation. Discussed the need for admission with the patient who expressed understanding and agreement as well. Critical Care Time <Mitchell Cano, DO - Last Filed: 08/24/22 07:46> Critical Care Time Critical Care Time: Yes Total Critical Care Time: 35 Attestation: Critical Care Time [35] minutes: Critical care time is separate from other billable procedures. This critical care time includes consultation with family and other consulting doctors, review of records, and interpretation of data from labs, EKGs, imaging, etc. Discharge Plan Departure Patient Disposition: Admitted as Observation Clinical Impression: Concussion, Contusion of right shoulder, Hypertension, Intracranial hemorrhage Admit Date/Time: 08/23/22 22:38 Admit Provider: Genia Jin
--- NOTE | 2022-08-23 14:02 | PC.NURSE ---
LS clear and equal bilaterally.
--- NOTE | 2022-08-23 14:06 | DI.CT.S_ITS ---
PROCEDURE: CT CERVICAL SPINE WO CON INDICATIONS: midline neck pain TECHNIQUE: Noncontrast 3 mm thick sections acquired from the skull base to the T4 level. Sagittal and coronal reformats were then constructed. For radiation dose reduction, the following was used: automated exposure control, adjustment of mA and/or kV according to patient size. COMPARISON: None. FINDINGS: Image quality: Excellent. Bones: No fractures or dislocations. Grade 1 anterolisthesis C3 on four and C4 on five. Moderate facet arthropathy at these levels. Trace retrolisthesis C5 on six. Moderate to severe disc height loss from C3 through C7. There are moderate degenerative changes at the atlantodental interval. Visualized superior ribs are intact. Soft tissues: Prevertebral soft tissues are normal in thickness. No paravertebral hematomas. No apical pneumothoraces. Paraseptal emphysematous changes are seen in the lungs. Moderate bilateral carotid bulb calcifications. IMPRESSION: 1. No CT evidence of acute cervical spine trauma. 2. Degenerative spondylosis and spondylolisthesis. Dictated by: Inna Wiley M.D. on 08/23/2022 at 14:37 Approved by: Inna Wiley M.D. on 08/23/2022 at 14:40
--- NOTE | 2022-08-23 14:06 | DI.CT.S_ITS ---
PROCEDURE: CT HEAD/BRAIN WO CON INDICATIONS: fall with possible head injury TECHNIQUE: Noncontrast 4.5 mm thick angled axial sections acquired from the foramen magnum to the vertex, with coronal and sagittal reformats. For radiation dose reduction, the following was used: automated exposure control, adjustment of mA and/or kV according to patient size. COMPARISON: None. FINDINGS: Image quality: Excellent. CSF spaces: Basal cisterns are patent. No extra-axial fluid collections. The ventricles are symmetric in size and shape. Brain: There is a small amount of cortical and subcortical hyperdensity in the left anterior temporal lobe. No subdural or other intraparenchymal hemorrhage. There are mild periventricular and deep white matter chronic small vessel ischemic changes. There is intracranial internal carotid artery atherosclerosis. Skull and face: Calvarium and visualized facial bones appear intact, without suspicious lesions. Sinuses: Visualized sinuses and mastoids are clear. IMPRESSION: 1. Questionable findings acute, intraparenchymal cerebral cortical contusion with punctate hemorrhage. No evidence mass effect or subdural fluid collection. Follow-up exam in 24 hours recommended to reassess extent. 2. Findings called to the emergency room at 14:34 hours [place] daylight time. Dictated by: Inna Wiley M.D. on 08/23/2022 at 14:30 Approved by: Inna Wiley M.D. on 08/23/2022 at 14:36
--- NOTE | 2022-08-23 14:20 | PC.NURSE ---
Pt placed in C-collar by this RN.
[2022-08-23 15:28] LABS: Add Manual Diff / Slide Review NO; Basophils Absolute Auto 100 /uL (0-100); Basophils Percent Auto 1.1 % (0-2); Eosinophils Absolute Auto 200 /uL (0-450); Hematocrit 39.1 % (36-46); Hemoglobin 13.5 g/dL (12.0-16.0); Lymphocytes Absolute Auto 2000 /uL (1100-4500); Lymphocytes Percent Auto 28.3 % (25-40); Mean Corpuscular HGB Conc 34.5 % (30-36); Mean Corpuscular Hemoglobin 31.9 PG (26-34); Mean Corpuscular Volume 92.7 fL (80-100); Monocytes Absolute Auto 500 /uL (0-900); Neutrophils Absolute Auto 4200 /uL (1500-7000); Neutrophils Percent Auto 60.6 % (50-75); Platelet Count 317 X10^3/uL (150-400); Red Blood Cell Count 4.22 X10^6/uL (4.0-5.2); Red Cell Distribution Width 13.6 % (11.6-14.8)
--- NOTE | 2022-08-23 15:28 | PC.NURSE ---
Pt calls out to this RN. States she has begun to have substernal chest pain that radiates to the back. EKG called. Provider made aware. New orders.
[2022-08-23] MEDS: LABETALOL 20 MG/4 ML SYRINGE IV (15:31)
[2022-08-23 15:37] LABS: Alanine Aminotransferase 30 IU/L (<35); Albumin 4.3 g/dL (3.5-5.0); Albumin Globulin Ratio 1.5 (1.0-2.8); Alkaline Phosphatase 87 U/L (38-126); Aspartate Aminotransferase 29 IU/L (14-36); Bilirubin Total 0.4 mg/dL (0.2-1.3); Blood Urea Nitrogen 20 mg/dL (7-17); Calcium 10.4 mg/dL (8.4-10.2); Carbon Dioxide 29 mmol/L (22-32); Chloride 105 mmol/L (98-107); Creatine Kinase 94 U/L (30-135); Estimated Glomerular Filt Rate > 60 mL/min (>60); Globulin 2.8 g/dL (1.7-4.1); Glucose 94 mg/dL (80-110); HEMOLYSIS 19 (0-50); Lipase 153 U/L (23-300); Magnesium 2.4 mg/dL (1.6-2.3); Potassium 4.1 mmol/L (3.4-5.1); Sodium 138 mmol/L (137-145); Total Protein 7.1 g/dL (6.3-8.2)
[2022-08-23 15:49] LABS: NT-proBNP (BNP-Adult 18+) 315 pg/mL (<125); Troponin I < 0.012 ng/mL (0.01-0.034)
--- NOTE | 2022-08-23 15:58 | PC.NURSE ---
Pt reporting frequency with voiding.
--- NOTE | 2022-08-23 16:16 | PC.NURSE ---
Provider OK to remove C-collar. C-collar removed.
[2022-08-23] MEDS: NICARDIPINE 25 MG in SODIUM CHLORIDE 0.9% 240 ML 50 MG IV (16:37)
--- NOTE | 2022-08-23 17:23 | PC.NURSE ---
Pt is feeling nauseous and pressure in stomach, like I have to use the bathroom, but I'm not going to. Provider made aware.
[2022-08-23] MEDS: ONDANSETRON 4 MG/2 ML INJ IV (17:45)
[2022-08-23] MEDS: ACETAMINOPHEN IV 1,000 MG/100 ML VIAL 400 MG IV (18:03)
--- NOTE | 2022-08-23 18:07 | PC.NURSE ---
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 Provider made aware.
--- NOTE | 2022-08-23 18:08 | PC.NURSE ---
This RN responded to call light for this patient at 1735. Upon entering the room patient is actively vomiting and profusely sweating. Patient is on nicardapine drip at 2.5mg/hr. This RN heard from provider telling this patient RN that goal was to keep patient below 160 systolic. Patient had blood pressure of 101/57. This RN immediately stopped the infusion and went to notify provider. This RN received verbal order to administer this patient 4mg IV zofran. This RN obtained and administered zofran. Patent spouse at bedside. Patient blood pressure dropped to 94/51 at next 5 minute pressure read. Next blood pressure reading increased. Patient adamant in refusal to restarting this nicardapine. This RN immediately asked provider to come in bedside. Provider was able to reassure patient and nicardapine drip restarted at 2.5mg/hr. This patient RN returns to room. Provider places order for IV Tylenol. Patient nurse places second line from verbal order from provider. This RN obtains IV Tylenol and administers this medication through new secondary line. Nicardapine dose lowered to 2mg/hr per provider to avoid rapid drop in pressure.
--- NOTE | 2022-08-23 18:25 | PC.NURSE ---
Nicardapine drip increased to 2.5mg/hr as patient blood pressure became stable. Provider communicated goal is to maintain patient on a blood pressure below 160 systolic. This patient RN notified and in room when this was done.
--- NOTE | 2022-08-23 19:48 | DI.CT.S_ITS ---
PROCEDURE: CT HEAD/BRAIN WO CON INDICATIONS: repeat head CT to eval for bleed TECHNIQUE: Noncontrast 4.5 mm thick angled axial sections acquired from the foramen magnum to the vertex, with coronal and sagittal reformats. For radiation dose reduction, the following was used: automated exposure control, adjustment of mA and/or kV according to patient size. COMPARISON: [facility], CT, CT HEAD/BRAIN WO CON, 08/23/2022, 14:14. FINDINGS: Image quality: Excellent. CSF spaces: Basal cisterns are patent. No extra-axial fluid collections. Ventricles are normal in size and shape. Brain: No midline shift. Again seen is increased density in the left middle cranial fossa, (2/10), unchanged compared to earlier today at 2:14 p.m. No area of hypodensity in a large vascular distribution to suggest acute infarction. Periventricular hypodensity consistent with chronic microvascular ischemic change. Age-related parenchymal loss. Skull and face: Calvarium and visualized facial bones are intact, without suspicious lesions. Sinuses: Visualized sinuses and mastoids are clear. IMPRESSION: Stable increased density at the left middle cranial fossa. This could represent a focus of intraparenchymal or subarachnoid hemorrhage. Dictated by: Bala Burnett M.D. on 08/23/2022 at 20:41 Approved by: Bala Burnett M.D. on 08/23/2022 at 20:47
--- NOTE | 2022-08-23 20:03 | PC.NURSE ---
This RN and MJ Hines notice left sided facial droop. Pt face is symetrical with smile. No change in vision. Provider aware. Pt headed to CT per orders.
--- NOTE | 2022-08-23 20:45 | PC.NURSE ---
Pt reports substernal chest pain worsening to 7/10 with pressure on right side of head, face and neck. Provider made aware. New order for stat EKG. RT called for EKG. At bedside now.
--- NOTE | 2022-08-23 22:32 | PC.NURSE ---
Provider verbal order to stop Nicardipine drip.
[2022-08-23] MEDS: MORPHINE 2 MG/ML INJ IV (22:42)
--- NOTE | 2022-08-23 23:07 | P.HP_ITS ---
History of Present Illness History of Present Illness Date Patient Seen: 08/23/22 Time Patient Seen: 23:07 Chief complaint: Concussion, possible brain hemorrhage, HTN urgency Narrative: Yina Castro is a 71-year-old female with a history of CABG stent x1 2020, Johnathan's disease, remote history of hypertension, morbid obesity, & HLD, who lost over 100lbs and no longer requires medications. Presented to the ED after a mechanical fall at home tripping over a piece of furniture landing on her right shoulder/right arm, and possibly hitting her head. In the ED patient had hypertensive urgency BP is 212/105, 223/109, 219/104. Initial head CT showed possible intraparenchymal cerebral cortical contusion with punctate. Dr. Wiley neuro stroke was initially consulted recommended patient be placed on nicardipine drip with repeat CT in [address]. [address] again possible intraparenchymal versus subarachnoid hemorrhage. Dr. Trevino at [facility] neuro stroke was consulted recommended the patient be admitted for observation to monitor for neuro status changes, stop Nicardipine drip. And that if the patient did not become symptomatic or any changes throughout the night no further imaging CTA or MRI is recommended. Dr. 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 On admit patient denies history of stroke, head injury, head bleed, head t rauma, chest pain, shortness in breath, headache, changes in vision, difficulty swallowing, speech impairment, weakness, numbness, tingling, difficulty with ambulation, recent LOC, fever, body aches, chills, cough, recent exposure to illness, abdominal pain, nausea, vomiting, urinary incontinence/retention, dysuria, frequency, urgency, hematuria, bowel changes, constipation, incontinence, melena, rashes, recent changes to medication, illness, or trauma. Patient does report that she takes 800 mg of ibuprofen with 650 mg of Tylenol q.4 hours everyday for the past year. 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 Patient's laboratory workup is all unremarkable with the exception of BUN of 20, and a BNP 315. I personally reviewed EKG all imaging: CXR, C-spine, rt shoulder, RT elbow, RT wrist were all negative for acute process. EKG: NSR at 75 anteroseptal infarct age undetermined. Patient to be admitted for mechanical fall resulting in concussion possible intraparenchymal versus subarachnoid hemorrhage, with hypertensive urgency. [facility] Medical History (Updated 08/24/22 @ 01:21 by ARELI Boyd-PURVI) Essential hypertension Johnathan's disease History of alcohol use History of tobacco abuse Hyperlipidemia Shoulder injury Surgical History (Updated 08/24/22 @ 01:21 by ARELI Boyd-PURVI) History of ankle surgery S/P CABG x 1 Family History (Updated 08/24/22 @ 01:25 by ARELI Boyd-PURVI) Father Hypertension Mother Hypertension CVA (cerebral vascular accident) Son Diabetes mellitus Social History (Updated 08/24/22 @ 01:26 by ARELI Boyd-PURVI) marital status: unmarried,living together details: Life partner household members: significant other housing: house Smoking Status: Former smoker alcohol intake: former substance use type: does not use well-balanced diet: daily or most days Comment: Quit smoking in 2014, 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 Meds Home Medications and Allergies Home Medications Medication Instructions Recorded Confirmed Type doxycycline hyclate PO 08/08/22 08/08/22 History fluticasone propionate 50 1 spray intranasal DAILY 08/08/22 08/08/22 History mcg/actuation nasal spray,suspension hydroxyzine HCl 25 mg tablet 25 mg PO BID PRN 08/08/22 08/08/22 History phenazopyridine 200 mg tablet 200 mg PO TID PRN pain 6 doses #6 08/08/22 08/08/22 Rx (Pyridium) tabs Allergies Allergy/AdvReac Type Severity Reaction Status Date / Time hydrocodone Allergy Intermediate Hives Verified 08/23/22 14:18 hydrochlorothiazide Allergy Mild Hives Verified 08/08/22 12:08 Sulfa (Sulfonamide Allergy Mild Hives Verified 08/08/22 12:08 Antibiotics) doxycycline Allergy Hives Verified 08/23/22 12:40 cephalexin AdvReac Mild Verified 08/22/22 11:29 Review of Systems Review of Systems Narrative: All 12 point systems reviewed with the patient and are negative except otherwise documented. Exam Vital Signs (past 8 hours): - 08/23/22 15:31 08/23/22 15:19 08/23/22 15:19 Pulse Rate 72 73 Respiratory Rate 18 Blood Pressure 219/104 H 214/103 H Pulse Oximetry 100 Oxygen Delivery Method 08/23/22 15:30 08/23/22 15:39 08/23/22 15:39 Pulse Rate 75 Respiratory Rate 21 Blood Pressure 219/104 H 210/104 H Pulse Oximetry 99 Oxygen Delivery Method 08/23/22 15:40 08/23/22 15:45 08/23/22 15:45 Pulse Rate 69 Respiratory Rate 12 Blood Pressure 212/105 H 204/104 H Pulse Oximetry 98 Oxygen Delivery Method 08/23/22 15:50 08/23/22 15:50 08/23/22 15:57 Pulse Rate 69 61 Respiratory Rate Blood Pressure 191/105 H 191/105 H Pulse Oximetry 98 Oxygen Delivery Method 08/23/22 15:56 08/23/22 15:56 08/23/22 16:00 Pulse Rate 69 Respiratory Rate 23 Blood Pressure 231/105 H 227/91 H Pulse Oximetry 99 Oxygen Delivery Method 08/23/22 16:00 08/23/22 16:05 08/23/22 16:05 Pulse Rate 69 69 Respiratory Rate 13 Blood Pressure 230/106 H Pulse Oximetry 98 100 Oxygen Delivery Method 08/23/22 16:10 08/23/22 16:10 08/23/22 16:15 Pulse Rate 69 68 Respiratory Rate 12 18 Blood Pressure 209/101 H Pulse Oximetry 99 Oxygen Delivery Method 08/23/22 16:15 08/23/22 16:20 08/23/22 16:20 Pulse Rate 69 Respiratory Rate 21 Blood Pressure 222/108 H 228/109 H Pulse Oximetry 100 Oxygen Delivery Method 08/23/22 16:26 08/23/22 16:26 08/23/22 16:30 Pulse Rate 71 Respiratory Rate 13 Blood Pressure 203/95 H 209/101 H Pulse Oximetry 96 Oxygen Delivery Method 08/23/22 16:30 08/23/22 16:35 08/23/22 16:35 Pulse Rate 71 68 Respiratory Rate 12 19 Blood Pressure 213/108 H Pulse Oximetry 99 100 Oxygen Delivery Method 08/23/22 16:40 08/23/22 16:40 08/23/22 16:45 Pulse Rate 70 69 Respiratory Rate 19 25 H Blood Pressure 226/108 H Pulse Oximetry 100 100 Oxygen Delivery Method 08/23/22 16:45 08/23/22 16:54 08/23/22 16:54 Pulse Rate 73 Respiratory Rate 26 H Blood Pressure 216/102 H 217/98 H Pulse Oximetry 97 Oxygen Delivery Method 08/23/22 17:00 08/23/22 17:02 08/23/22 17:02 Pulse Rate 82 71 Respiratory Rate 26 H Blood Pressure 193/88 H Pulse Oximetry 95 99 Oxygen Delivery Method 08/23/22 17:05 08/23/22 17:05 08/23/22 17:10 Pulse Rate 74 Respiratory Rate 25 H Blood Pressure 165/76 H 180/89 H Pulse Oximetry 100 Oxygen Delivery Method Room Air 08/23/22 17:15 08/23/22 17:15 08/23/22 17:20 Pulse Rate 74 79 Respiratory Rate 23 Blood Pressure 162/91 H Pulse Oximetry 100 99 Oxygen Delivery Method 08/23/22 17:21 08/23/22 17:21 08/23/22 17:25 Pulse Rate 77 72 Respiratory Rate 25 H 16 Blood Pressure 187/101 H Pulse Oximetry 99 99 Oxygen Delivery Method 08/23/22 17:26 08/23/22 17:26 08/23/22 17:30 Pulse Rate 73 Respiratory Rate Blood Pressure 155/78 H 123/74 Pulse Oximetry 100 Oxygen Delivery Method 08/23/22 17:30 08/23/22 17:35 08/23/22 17:35 Pulse Rate 66 72 Respiratory Rate 11 L Blood Pressure 101/57 L Pulse Oximetry 100 100 Oxygen Delivery Method 08/23/22 17:39 08/23/22 17:39 08/23/22 17:40 Pulse Rate 68 69 Respiratory Rate 26 H Blood Pressure 94/51 L Pulse Oximetry 100 99 Oxygen Delivery Method 08/23/22 17:42 08/23/22 17:42 08/23/22 17:45 Pulse Rate 80 Respiratory Rate Blood Pressure 124/66 171/75 H Pulse Oximetry 99 Oxygen Delivery Method 08/23/22 17:45 08/23/22 17:50 08/23/22 17:50 Pulse Rate 70 70 Respiratory Rate 52 H Blood Pressure 158/68 H Pulse Oximetry 99 99 Oxygen Delivery Method 08/23/22 17:55 08/23/22 17:58 08/23/22 17:58 Pulse Rate 64 65 Respiratory Rate 22 Blood Pressure 199/94 H Pulse Oximetry 99 100 Oxygen Delivery Method 08/23/22 18:00 08/23/22 18:00 08/23/22 18:05 Pulse Rate 66 65 Respiratory Rate 15 Blood Pressure 192/90 H Pulse Oximetry 100 100 Oxygen Delivery Method 08/23/22 18:06 08/23/22 18:06 08/23/22 18:10 Pulse Rate 65 Respiratory Rate 13 Blood Pressure 159/83 H 170/86 H Pulse Oximetry 100 Oxygen Delivery Method 08/23/22 18:10 08/23/22 18:15 08/23/22 18:16 Pulse Rate 67 70 68 Respiratory Rate 18 17 18 Blood Pressure Pulse Oximetry 91 92 94 Oxygen Delivery Method Room Air 08/23/22 18:16 08/23/22 18:20 08/23/22 18:20 Pulse Rate 67 Respiratory Rate 18 Blood Pressure 166/77 H 168/81 H Pulse Oximetry 99 Oxygen Delivery Method Room Air 08/23/22 18:25 08/23/22 18:25 08/23/22 18:30 Pulse Rate 68 Respiratory Rate 22 Blood Pressure 166/80 H 157/78 H Pulse Oximetry 100 Oxygen Delivery Method 08/23/22 18:30 08/23/22 18:35 08/23/22 18:35 Pulse Rate 67 66 Respiratory Rate 11 L 20 Blood Pressure 159/81 H Pulse Oximetry 100 100 Oxygen Delivery Method 08/23/22 18:40 08/23/22 18:40 08/23/22 18:45 Pulse Rate 66 Respiratory Rate 11 L Blood Pressure 165/87 H 161/84 H Pulse Oximetry 100 Oxygen Delivery Method 08/23/22 18:45 08/23/22 18:50 08/23/22 18:50 Pulse Rate 66 69 Respiratory Rate 13 17 Blood Pressure 147/75 H Pulse Oximetry 100 97 Oxygen Delivery Method 08/23/22 18:55 08/23/22 18:55 08/23/22 19:00 Pulse Rate 69 Respiratory Rate 21 Blood Pressure 156/80 H 156/77 H Pulse Oximetry 98 Oxygen Delivery Method 08/23/22 19:00 08/23/22 19:05 08/23/22 19:05 Pulse Rate 78 67 Respiratory Rate 22 Blood Pressure 160/70 H Pulse Oximetry 99 100 Oxygen Delivery Method 08/23/22 19:10 08/23/22 19:10 08/23/22 19:15 Pulse Rate 71 68 Respiratory Rate 21 12 Blood Pressure 154/71 H Pulse Oximetry 98 99 Oxygen Delivery Method 08/23/22 19:16 08/23/22 19:16 08/23/22 19:20 Pulse Rate 69 Respiratory Rate 18 Blood Pressure 155/74 H 157/70 H Pulse Oximetry 98 Oxygen Delivery Method 08/23/22 19:20 08/23/22 19:25 08/23/22 19:25 Pulse Rate 72 69 Respiratory Rate 19 25 H Blood Pressure 143/65 H Pulse Oximetry 97 99 Oxygen Delivery Method Room Air 08/23/22 19:30 08/23/22 19:30 08/23/22 19:35 Pulse Rate 71 Respiratory Rate 27 H Blood Pressure 139/70 141/70 H Pulse Oximetry 98 Oxygen Delivery Method 08/23/22 19:35 08/23/22 19:40 08/23/22 19:40 Pulse Rate 72 71 Respiratory Rate 36 H 12 Blood Pressure 145/73 H Pulse Oximetry 97 100 Oxygen Delivery Method 08/23/22 19:45 08/23/22 19:45 08/23/22 19:50 Pulse Rate 70 Respiratory Rate 15 Blood Pressure 147/74 H 140/72 Pulse Oximetry 98 Oxygen Delivery Method 08/23/22 19:50 08/23/22 19:55 08/23/22 19:55 Pulse Rate 75 75 Respiratory Rate 22 22 Blood Pressure 156/78 H Pulse Oximetry 98 99 Oxygen Delivery Method 08/23/22 20:17 08/23/22 20:19 08/23/22 20:19 Pulse Rate 72 75 Respiratory Rate 18 Blood Pressure 161/86 H Pulse Oximetry 100 Oxygen Delivery Method 08/23/22 20:20 08/23/22 20:20 08/23/22 20:25 Pulse Rate 75 Respiratory Rate Blood Pressure 137/73 140/76 Pulse Oximetry 100 Oxygen Delivery Method 08/23/22 20:25 08/23/22 20:30 08/23/22 20:30 Pulse Rate 73 71 Respiratory Rate 12 Blood Pressure 140/74 Pulse Oximetry 100 99 Oxygen Delivery Method 08/23/22 20:35 08/23/22 20:35 08/23/22 20:40 Pulse Rate 74 Respiratory Rate Blood Pressure 175/80 H 174/79 H Pulse Oximetry 99 Oxygen Delivery Method 08/23/22 20:40 08/23/22 20:45 08/23/22 20:45 Pulse Rate 77 77 Respiratory Rate 16 17 Blood Pressure 154/71 H Pulse Oximetry 98 100 Oxygen Delivery Method 08/23/22 20:50 08/23/22 20:50 08/23/22 20:55 Pulse Rate 80 Respiratory Rate Blood Pressure 151/81 H 159/88 H Pulse Oximetry 100 Oxygen Delivery Method 08/23/22 20:55 08/23/22 21:00 08/23/22 21:00 Pulse Rate 80 70 Respiratory Rate 13 Blood Pressure 162/75 H Pulse Oximetry 100 100 Oxygen Delivery Method 08/23/22 21:05 08/23/22 21:05 08/23/22 21:10 Pulse Rate 71 Respiratory Rate 8 L Blood Pressure 136/80 139/78 Pulse Oximetry 99 Oxygen Delivery Method 08/23/22 21:10 08/23/22 21:15 08/23/22 21:15 Pulse Rate 73 71 Respiratory Rate 15 10 L Blood Pressure 135/77 Pulse Oximetry 100 100 Oxygen Delivery Method 08/23/22 21:20 08/23/22 21:20 08/23/22 21:25 Pulse Rate 75 75 Respiratory Rate 11 L 19 Blood Pressure 161/80 H Pulse Oximetry 100 100 Oxygen Delivery Method 08/23/22 21:26 08/23/22 21:26 08/23/22 21:30 Pulse Rate 74 Respiratory Rate 24 Blood Pressure 158/76 H 163/75 H Pulse Oximetry 100 Oxygen Delivery Method 08/23/22 21:30 08/23/22 21:35 08/23/22 21:36 Pulse Rate 73 70 70 Respiratory Rate 18 16 11 L Blood Pressure Pulse Oximetry 100 100 100 Oxygen Delivery Method 08/23/22 21:36 08/23/22 21:40 08/23/22 21:40 Pulse Rate 74 Respiratory Rate 18 Blood Pressure 154/72 H 156/76 H Pulse Oximetry 98 Oxygen Delivery Method 08/23/22 21:45 08/23/22 21:45 08/23/22 21:50 Pulse Rate 75 Respiratory Rate 11 L Blood Pressure 159/80 H 161/83 H Pulse Oximetry 98 Oxygen Delivery Method 08/23/22 21:50 08/23/22 21:55 08/23/22 21:55 Pulse Rate 74 79 Respiratory Rate 34 H 34 H Blood Pressure 169/83 H Pulse Oximetry 99 100 Oxygen Delivery Method 08/23/22 22:00 08/23/22 22:00 08/23/22 22:05 Pulse Rate 78 Respiratory Rate 29 H Blood Pressure 160/75 H 143/67 H Pulse Oximetry 100 Oxygen Delivery Method 08/23/22 22:05 08/23/22 22:10 08/23/22 22:10 Pulse Rate 74 72 Respiratory Rate 13 Blood Pressure 151/74 H Pulse Oximetry 97 99 Oxygen Delivery Method 08/23/22 22:15 08/23/22 22:15 08/23/22 22:20 Pulse Rate 75 Respiratory Rate 17 Blood Pressure 160/80 H 154/79 H Pulse Oximetry 97 Oxygen Delivery Method 08/23/22 22:20 08/23/22 22:25 08/23/22 22:26 Pulse Rate 77 75 75 Respiratory Rate 14 13 18 Blood Pressure Pulse Oximetry 98 100 100 Oxygen Delivery Method 08/23/22 22:26 08/23/22 22:30 08/23/22 22:30 Pulse Rate 82 Respiratory Rate Blood Pressure 151/90 H 174/102 H Pulse Oximetry 100 Oxygen Delivery Method 08/23/22 22:35 08/23/22 22:40 08/23/22 22:45 Pulse Rate 75 70 68 Respiratory Rate 9 L 18 Blood Pressure Pulse Oximetry 99 98 100 Oxygen Delivery Method 08/23/22 22:46 08/23/22 22:46 08/23/22 22:50 Pulse Rate 69 68 Respiratory Rate 24 12 Blood Pressure 152/72 H Pulse Oximetry 100 100 Oxygen Delivery Method Room Air Oxygen Delivery Method Room Air Narrative Exam Narrative: General: Patient is a isai elderly female well-developed, well-nourished in no distress at this time. HEENT: Normocephalic, atraumatic, extraocular muscles intact, oral pharynx is clear and mucous membranes are moist. Neck is supple and symmetric, trachea is midline, no adenopathy, no thyroid enlargement, nontender, no masses palpated. Negative for JVD Chest: Normal AP diameter and contour without nasal flaring, retractions, t achypneic labored breathing Lungs: Auscultation of all lung stern are clear without adventitious sounds, wheezes, rhonchi, or rales. Cardio: Bradycardic regular rate and rhythm without murmur, rubs, or gallops, no carotid bruit, no cardiac pulsations present. Abdomen: Soft nontender, negative for organomegaly, or masses. Bowel sounds are present in all 4 quadrants without guarding or rebound, no CVA tenderness. Musculoskeletal: Muscle strength and tone appear equal, no deformity, crepitus, effusions, cyanosis, clubbing or edema present. intact radial and pedal pulses are normal. Right upper extremity noted inflammation over the knuckles of the right hand. Skin: Warm dry and intact without rashes, ulcerations or petechiae. Neuro: Alert and orientated x3, moves all extremities, sensation to touch intact, no gross deficits noted of cranial nerves. Psych: Patient has a well-kept appearance, appropriate affect, mental status attitude thought context and judgment are appropriate for age. Objective Labs 08/23/22 15:18 08/23/22 15:18 Labs: Laboratory Results - last 24 hr 08/23/22 08/23/22 15:18 15:18 WBC 7.0 RBC 4.22 Hgb 13.5 Hct 39.1 MCV 92.7 MCH 31.9 MCHC 34.5 RDW 13.6 Plt Count 317 Neut % (Auto) 60.6 Lymph % (Auto) 28.3 [place] % (Auto) 7.0 Eos % (Auto) 3.0 Baso % (Auto) 1.1 Neut # (Auto) 4200 Lymph # (Auto) 2000 [place] # (Auto) 500 Eos # (Auto) 200 Baso # (Auto) 100 Sodium 138 Potassium 4.1 Chloride 105 Carbon Dioxide 29 BUN 20 H Creatinine 0.80 Estimated GFR > 60 BUN/Creatinine Ratio 25.0 H Glucose 94 Calcium 10.4 H Magnesium 2.4 H Total Bilirubin 0.4 AST 29 ALT 30 Alkaline Phosphatase 87 Total Creatine Kinase 94 CK-MB (CK-2) TNP CK-MB (CK-2) Rel Index TNP Troponin I < 0.012 NT-Pro-B Natriuret Pep 315 H Total Protein 7.1 Albumin 4.3 Globulin 2.8 Albumin/Globulin Ratio 1.5 Lipase 153 Assessment & Plan Assessment & Plan narrative: Yina Castro is a 71-year-old female with a history of CABG x1, Johnathan's disease, dislocated left shoulder, and remote history of HTN, HLD, and morbid obesity which following a weight loss of 100 lb no longer requires medications who presented to the ED after a mechanical fall causing right shoulder/right arm injury with cocussion. Patient to be admitted for overnight observation for possible intraparenchymal versus subarachnoid bleed, monitoring neurological function, if patient becomes symptomatic we will consult Dr. Trevino Kell neuro stroke. Mechanical ground level fall resulting in concussion, right upper extremity injury, (shoulder, elbow, wrist, hand) acute, present on admission * Initial head CT showed possible intraparenchymal cerebral cortical contusion with punctate. * Consult #1DrDavid Wiley neuro stroke was initially consulted recommended patient be placed on nicardipine drip with repeat CT in 6 hours. * Repeat CT again possible intraparenchymal versus subarachnoid hemorrhage. * Consult #2 Dr. Trevino at [facility] neuro stroke was consulted recommended the patient be admitted for observation to monitor for neuro status changes, stop Nicardipine drip. * If the patient did not become symptomatic or any changes throughout the night no further imaging CTA or MRI is recommended. Dr. 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 * Neuro checks q.4 hours Hypertensive urgency with a remote history of hypertension, acute, present on admission * Patient is currently normotensive and asymptomatic, stable-143/67 * ED BP is 212/105, 223/109, 219/104 * Goal SBP per neuro stroke: <160 * Labetalol 20q4 as needed for BP>160/100 or hydralazine 20 q.4 hours ( if HRis <75) Right upper extremity injury (shoulder, elbow, wrist, hand) from ground level fall, acute, present on admission * CXR, C-spine, rt shoulder, RT elbow, RT wrist were all negative for acute process. Patient notes that she has a previous history of left shoulder displacement, resulting in limited range of motion * Pain management: Indications, ice, Voltaren, lidocaine, Toradol, morphine * PT/OT consult ordered Johnathan's disease, chronic, present on admission * Continue hydroxyzine Code status: Full Surrogate decision maker: Isaura Nguyen Life partner DVT/VTE prophylaxis: Hold medication due to risk of possible head bleed, SCDs only. Disposition: Patient admitted for observation to monitor for any neurological changes, and manage hypertensive urgency, patient's expected length of stay not to exceed 2 midnights. I have utilized all available immediate resources to obtain, update, or review the patient's current medications. I confirmed that the patient's advanced care plan is present, Code status is documented and/or surrogate decision maker is listed in the patient's medical record. I have personally reviewed patient's chart notes from PCP, specialists, diagnostic imaging, and laboratory results.
[2022-08-24] VITALS (31 sets, daily range): BP systolic 131–188; BP diastolic 65–88; PULSE 64–86; RESP 8–46; TEMP 36.4–36.9; O2SAT 97–100; BMI 25.7
[2022-08-24] MEDS: KETOROLAC 30 MG/ML VIAL IV (01:37)
[2022-08-24] MEDS: HYDRALAZINE 20 MG/ML VIAL IV (01:37)
[2022-08-24] MEDS: hydrOXYzine pamoate 25 MG CAPSULE PO (01:50)
[2022-08-24 02:26] LABS: MRSA (Nasal) PCR Not Detected (Not Detect)
[2022-08-24 04:56] LABS: Prothrombin Time 11.1 SECONDS (10.1-12.7)
[2022-08-24 05:00] LABS: BUN Creatinine Ratio 23.3 (6-22); Blood Urea Nitrogen 17 mg/dL (7-17); Calcium 9.6 mg/dL (8.4-10.2); Carbon Dioxide 25 mmol/L (22-32); Chloride 106 mmol/L (98-107); Estimated Glomerular Filt Rate > 60 mL/min (>60); Glucose 128 mg/dL (80-110); HEMOLYSIS < 15 (0-50); Potassium 3.6 mmol/L (3.4-5.1); Sodium 136 mmol/L (137-145)
[2022-08-24 05:06] LABS: Add Manual Diff / Slide Review NO; Basophils Absolute Auto 0 /uL (0-100); Basophils Percent Auto 0.4 % (0-2); Eosinophils Absolute Auto 200 /uL (0-450); Eosinophils Percent Auto 1.5 % (2-4); Hematocrit 38.3 % (36-46); Lymphocytes Absolute Auto 1700 /uL (1100-4500); Lymphocytes Percent Auto 15.7 % (25-40); Mean Corpuscular HGB Conc 33.9 % (30-36); Mean Corpuscular Hemoglobin 31.6 PG (26-34); Mean Corpuscular Volume 93.2 fL (80-100); Monocytes Absolute Auto 900 /uL (0-900); Monocytes Percent Auto 8.1 % (3-14); Neutrophils Absolute Auto 8200 /uL (1500-7000); Neutrophils Percent Auto 74.3 % (50-75); Platelet Count 288 X10^3/uL (150-400); Red Blood Cell Count 4.11 X10^6/uL (4.0-5.2); Red Cell Distribution Width 13.6 % (11.6-14.8)
[2022-08-24] MEDS: MORPHINE 2 MG/ML INJ IV (07:18)
[2022-08-24] MEDS: METOPROLOL ER 25 MG TABLET PO (07:48)
[2022-08-24] MEDS: INFLUENZA HD VACCINE 0.7 ML SYRINGE IM (09:49)
--- NOTE | 2022-08-24 10:31 | CM.DANOTE ---
DCP: Patient is a 71yo F here after suffering a concussion from a fall. Payer: [employer] and self pay PCP: none at this time. Patient reports she is switching insurance to be on her life partner's insurance and she is going to set up care with her PCP after. POURED CONCRETE WALL TECHNICIAN entered room and introduced self and role. Patient was A/Ox4 and was sitting up eating jello in bed. Patient reports being new to the [facility] and having recently moved here from [place]. Patient reports being excited to leave and get home to her dogVilma. Patient reports being independent at baseline with ADLs and drives. Patient lives at home with her life partner Leigh ([phone]). Patient reported that she does not currently have a PCP but is hoping to transition insurance and start services with her partner's PCP. Provider came in to the room during assessment to discuss allergic reactions to medication. Patient answered phone from partner, who reported being on the way to the hospital to come get patient. Patient reported on various traumas she's experienced throughout her life, and how she's in a much better place now emotionally and mentally than she was in the past. Plan: Patient will d/c today and leave with life partner in [facility]. CM team will follow as necessary. KENNEDI Burch Discharge Planning/Care Management CM Discharge Assessment Start: 08/24/22 10:28 Freq: Status: Active Protocol: Document 08/24/22 10:28 (Rec: 08/24/22 10:31 [id number]) Discharge Planning Assessment Assigned Flight Radio Operator KENNEDI Burch DPOA/Assigned Designee Name Leigh Vilchis (life partner) Contact Information [phone] Advance Directives? Yes Advance Directives on File No History Provided By Patient,Medical Record Has Patient been admitted in last 30 No days? Prior Living Arrangements House Household Members significant other Type of transporation used prior to Drives own vehicle admit Independent with ADL's Yes Is patient alert and oriented? Yes Discharge Plan Home Transportation Arrangement life partner will transport in PO Whiteboard Updated in Patient Room with Yes name and ext. # of Flight Radio Operator Review Status In Process Next Review Type Continued Stay Review
--- NOTE | 2022-08-24 13:59 | PM.DS.1 ---
History of Present Illness History of Present Illness Chief complaint: Concussion, possible brain hemorrhage, HTN urgency Narrative: Per history and physical: Isaura Castro is a 71-year-old female with a history of CABG stent x1 2020, Johnathan's disease, remote history of hypertension, morbid obesity, &? HLD, who lost over 100lbs and no longer requires medications. Presented to the ED after a mechanical fall at home tripping over a piece of furniture landing on her right shoulder/right arm, and possibly hitting her head.? In the ED patient had hypertensive urgency BP is 212/105, 223/109, 219/104.? Initial head CT showed possible intraparenchymal cerebral cortical contusion with punctate.? Dr. Wiley neuro stroke was initially consulted recommended patient be placed on nicardipine drip with repeat CT in [address] again possible intraparenchymal versus subarachnoid hemorrhage.? Dr. Trevino at [facility] neuro stroke was consulted recommended the patient be admitted for observation to monitor for neuro status changes, stop Nicardipine drip.? And that if the patient did not become symptomatic or any changes throughout the night no further imaging CTA or MRI is recommended.? Dr. Trevino advised that they will be telephone sales representative all night. ?On admit patient denies history of stroke, head injury, head bleed, head trauma,? chest pain, shortness in breath, headache, changes in vision, difficulty swallowing, speech impairment, weakness, numbness, tingling, difficulty with ambulation, recent LOC, fever, body aches, chills, cough, recent exposure to illness, abdominal pain, nausea, vomiting, urinary incontinence/retention, dysuria, frequency, urgency, hematuria, bowel changes, constipation, incontinence, melena, rashes, recent changes to medication, illness, or trauma.? Patient does report that she takes 800 mg of ibuprofen with 650 mg of Tylenol q.4 hours everyday for the past year.? 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 Patient's laboratory workup is all unremarkable with the exception of BUN of 20, and a BNP 315.? I personally reviewed EKG all imaging:? CXR, C-spine, rt shoulder, RT elbow, RT wrist were all negative for acute process.? EKG:? NSR at 75 anteroseptal infarct age undetermined.? Patient to be admitted for mechanical fall resulting in concussion possible intraparenchymal versus subarachnoid hemorrhage, with hypertensive urgency. Discharge Providers Provider Date of admission: 08/23/22 22:38 Discharge Date: 08/24/22 Primary care physician: Doctor Luis Alfredo MD Consults: 08/23/22 23:03 Consult to Occupational Therapy Evaluate & Treat Comment: fall concussion Physician Instructions: Evaluate and treat Consult to Physical Therapy Evaluate & Treat Comment: fall concussion Physician Instructions: Evaluate and Treat Discharge provider: Jennifer Quick MD Summary Hospital Course Discharge Diagnosis: 1. Left temporal lobe contusion with punctate hemorrhage 2. Hypertensive urgency 3. Right upper extremity musculoskeletal injury, no fracture identified 4. Bath's disease Hospital Course: Patient sustained a mechanical fall causing some injuries to her right upper extremities as well as a left temporal lobe contusion. She presented with hypertensive urgency. Neurosurgery was contacted with recommendation for nicardipine drip and repeat CT scan in [address] showed stability and nicardipine drip was discontinued. Blood pressure did improve overall but remained slightly above the systolic less than 160 recommended by Neurosurgery. Patient has a history of coronary artery disease with previous stent. Due to that history, I did recommend use of a beta-jai. Patient was receptive to trial it for the next 2 weeks, but was quite adamant she did not wish to take antihypertensive therapies on a prolonged basis. She is discharging home with her significant other who is a retired fire code inspector. They feel very comfortable with monitoring her at home. They have 2 blood pressure cuff and are able to monitor blood pressures as well. Patient has no residual neurologic symptoms. No headache. She is alert and oriented at the time of discharge. Status at Discharge Cognitive/behavioral status at discharge: at baseline, oriented Overall status at discharge: patient is progressing back to baseline Time Spent with Patient Time spent: Greater than 30 minutes (Approximately 40 minutes spent counseling the patient and her significant other, as well as coordinating discharge) Exam Vital Signs (past 8 hours): - 08/24/22 07:48 08/24/22 07:48 08/24/22 07:50 Temperature 98.4 F Pulse Rate 75 Respiratory Rate 18 Blood Pressure 157/80 H Pulse Oximetry 97 Oxygen Flow Rate 0 Oxygen Delivery Method Room Air Oxygen Flow Rate 0 Narrative Exam Narrative: GEN: Very pleasant middle-aged female, Alert and oriented x 3, NAD HEENT:NC, Face symmetric CHEST: Respiratory excursions symmetric, CTAB CV: RRR, no M/R/G ABD: Soft, NT/ND, BT present in all 4 quadrants, no organomegaly or masses EXTR: warm, well perfused, no C/C/E SKIN: warm and dry, no rash NEURO: Alert and oriented x 3, nonfocal Objective Labs 08/24/22 04:00 08/24/22 04:00 Labs: Laboratory Results - last 24 hr 08/23/22 08/23/22 08/24/22 15:18 15:18 00:40 WBC 7.0 RBC 4.22 Hgb 13.5 Hct 39.1 MCV 92.7 MCH 31.9 MCHC 34.5 RDW 13.6 Plt Count 317 Neut % (Auto) 60.6 Lymph % (Auto) 28.3 [place] % (Auto) 7.0 Eos % (Auto) 3.0 Baso % (Auto) 1.1 Neut # (Auto) 4200 Lymph # (Auto) 2000 [place] # (Auto) 500 Eos # (Auto) 200 Baso # (Auto) 100 PT INR Sodium 138 Potassium 4.1 Chloride 105 Carbon Dioxide 29 BUN 20 H Creatinine 0.80 Estimated GFR > 60 BUN/Creatinine Ratio 25.0 H Glucose 94 Calcium 10.4 H Magnesium 2.4 H Total Bilirubin 0.4 AST 29 ALT 30 Alkaline Phosphatase 87 Total Creatine Kinase 94 CK-MB (CK-2) TNP CK-MB (CK-2) Rel Index TNP Troponin I < 0.012 NT-Pro-B Natriuret Pep 315 H Total Protein 7.1 Albumin 4.3 Globulin 2.8 Albumin/Globulin Ratio 1.5 Lipase 153 Nasal Screen MRSA (PCR) Not detected 08/24/22 08/24/22 08/24/22 04:00 04:00 04:00 WBC 11.0 D RBC 4.11 Hgb 13.0 Hct 38.3 MCV 93.2 MCH 31.6 MCHC 33.9 RDW 13.6 Plt Count 288 Neut % (Auto) 74.3 Lymph % (Auto) 15.7 L [place] % (Auto) 8.1 Eos % (Auto) 1.5 L Baso % (Auto) 0.4 Neut # (Auto) 8200 H Lymph # (Auto) 1700 [place] # (Auto) 900 Eos # (Auto) 200 Baso # (Auto) 0 PT 11.1 INR 1.0 Sodium 136 L Potassium 3.6 Chloride 106 Carbon Dioxide 25 BUN 17 Creatinine 0.73 Estimated GFR > 60 BUN/Creatinine Ratio 23.3 H Glucose 128 H Calcium 9.6 Magnesium Total Bilirubin AST ALT Alkaline Phosphatase Total Creatine Kinase CK-MB (CK-2) CK-MB (CK-2) Rel Index Troponin I NT-Pro-B Natriuret Pep Total Protein Albumin Globulin Albumin/Globulin Ratio Lipase Nasal Screen MRSA (PCR) [facility] Medical History (Updated 08/24/22 @ 01:21 by ANGEL Boyd) Essential hypertension Bath's disease History of alcohol use History of tobacco abuse Hyperlipidemia Shoulder injury Surgical History (Updated 08/24/22 @ 01:21 by ANGEL Boyd) History of ankle surgery S/P CABG x 1 Family History (Updated 08/24/22 @ 01:25 by ANGEL Boyd) Father Hypertension Mother Hypertension CVA (cerebral vascular accident) Son Diabetes mellitus Social History (Updated 08/24/22 @ 01:26 by ANGEL Boyd) marital status: unmarried,living together details: Life partner household members: significant other housing: house Smoking Status: Former smoker alcohol intake: former substance use type: does not use well-balanced diet: daily or most days Discharge Plan Discharge Plan Patient Disposition: Home Provider Discharge Comment: With your fall and hitting your head, you sustained a contusion (bruise) to the left temporal lobe. it is important that you have good control of your blood pressure. Often, after a neurologic insult, blood pressure runs higher than usual. Therefore, I have prescribed metoprolol extended release once a day. Please continue to take this for the next 2 weeks. The goal is for your systolic blood pressure (top number) to be as close to normal as possible, but definitely less than 160. Do not take any aspirin, ibuprofen, or naproxen. It is okay to take Tylenol. If you develop low blood pressure ( systolic blood pressure less than 100), stop the metoprolol. Return to the ED: Increasing headaches, confusion, or neurologic symptoms. Nausea and vomiting with inability to hold down food or fluids. Recurrent falls. Discharge orders & Medications Prescriptions: New acetaminophen 325 mg Tablet 650 mg PO Q6H PRN (Reason: Fever/Mild Pain (1-10) Qty: 30 0RF metoprolol succinate 25 mg Tablet Extended Release 24 Hr 25 mg PO DAILY Qty: 14 0RF hydroxyzine pamoate 25 mg Capsule 25 mg PO Q4HR PRN (Reason: Pain, Mild (1-3)) Qty: 30 0RF oxycodone 5 mg tablet 5 mg PO Q6H PRN (Reason: pain) Qty: 20 0RF Rx Instructions: Take 1/2 to 1 tablet every 6 hours as needed for pain; if you develop hives/blisters, stop the medication Continued fluticasone propionate 50 mcg/actuation spray,suspension 1 spray intranasal DAILY Rx Instructions: administer into each nostril phenazopyridine [Pyridium] 200 mg tablet 200 mg PO TID PRN (Reason: pain) Qty: 6 0RF Follow up/Referrals: Luis Alfredo,Doctor, MD [Primary Care Provider] - Discharge Health Status Multidrug resistant organism: No MDRO Diet/Activity/Treatments Diet: Diet as Tolerated and Regular Activity: As tolerated; use ice/heat as needed for discomfort Oxygen: N/A Visit Report/Discharge Packet Instructions: Concussion, High Blood Pressure, DI for Prescription Opioid Use Stand Alone Forms: Patient Portal/API, Stroke Signs & Symptoms Discharge Data Primary Care Provider: Doctor Luis Alfreod Attending Provider: Genia Jin Admit Date/Time: 08/23/22 22:38 Discharges patient from system. Discharge Date/Time: 08/24/22 11:08
== END 2022-08-24 11:08 | disposition home or self-care (01) ==
LOC: ED 22:38 → AC 22:39 → ICU 23:57
PROVIDERS: Emergency Medicine; Admitting Provider Nurse Practitioner Family; Emergency Provider Emergency Medicine; Referring Provider Emergency Medicine; Visit Provider Nurse Practitioner Family
DX: S06.2X0A Diffuse traumatic brain injury without loss of consciousness, initial encounter (principal); I16.0 Hypertensive urgency; M25.511 Pain in right shoulder; M25.521 Pain in right elbow; M79.641 Pain in right hand; W01.0XXA Fall on same level from slipping, tripping and stumbling without subsequent striking against object, initial encounter; Y93.89 Activity, other specified; Y92.009 Unspecified place in unspecified non-institutional (private) residence as the place of occurrence of the external cause; Z95.1 Presence of aortocoronary bypass graft; I10 Essential (primary) hypertension; L11.1 Transient acantholytic dermatosis [Grover]; Z23 Encounter for immunization
CPT/HCPCS: 36415; 70450; 72125; 73030; 73080; 73110; 80048; 80053; 81003; 82550; 83690; 83735; 83880; 84484; 85025; 85610; 87797; 90471; 90662; 93005; 93010; 96365; 96366; 96368; 96375; 96376; 99284; 99285; G0378; J0131; J0360; J1885; J2270; J2405

== ENCOUNTER → 2022-10-31 14:55 | Outpatient (CLI) | payer MEDICARE, OTHER, SELFPAY ==
[2022-08-24 01:16] VITALS: BMI 25.7
== END ==
PROVIDERS: Referring Provider Physician Assistant; Visit Provider Physician Assistant
DX: R30.0 Dysuria (principal)
CPT/HCPCS: 87086

== ENCOUNTER → 2023-01-06 10:35 | Outpatient (CLI) | payer MEDICARE, OTHER, SELFPAY ==
[2022-08-24 01:16] VITALS: BMI 25.7
--- NOTE | 2023-01-06 | DI.CT.S_ITS ---
PROCEDURE: CT SINUS SCREEN WO CON INDICATIONS: Chronic pansinusitis TECHNIQUE: Noncontrast 3.0 mm axial images acquired from the frontal sinuses to the mid-sella, with coronal and sagittal reformats. For radiation dose reduction, the following was used: automated exposure control, adjustment of mA and/or kV according to patient size. COMPARISON: [facility], CT, CT HEAD/BRAIN WO CON, 08/23/2022, 20:10. FINDINGS: Image quality: Excellent. Maxillary Sinuses: No bony remodeling or destruction. Ethmoid Air Cells: There is demineralization of portions of the superior medial wilson of the maxillary sinuses. Mild mucosal thickening and mild air-fluid levels can be seen within the maxillary sinuses. Sphenoid Sinuses: No bony remodeling or destruction. Sinuses are clear. Frontal Sinuses: No bony remodeling or destruction. Sinuses are clear. Ostiomeatal Complexes: The ostiomeatal complexes are patent, yet they are highly constitutionally narrowed, right worse than left. There are bilateral Elsy cells. The ostiomeatal complexes are demineralized. Miscellaneous: Visualized intra-orbital contents are normal. No maxx bullosa or paradoxical turbinate curvature. There is mild rightward nasal septal deviation. Incidental note is made of hyperostosis frontalis. This is not considered to be pathologic in a woman of this age. IMPRESSION: Focal maxillary sinus disease. Highly constitutionally narrowed ostiomeatal complexes, with bilateral Elsy cells. Areas of bony demineralization are seen, which are consistent with chronic sinusitis. There is mild rightward nasal septal deviation. Dictated by: Raudel García M.D. on 01/06/2023 at 10:41 Approved by: Raudel García M.D. on 01/06/2023 at 10:45
== END ==
PROVIDERS: Referring Provider Physician Assistant; Visit Provider Physician Assistant
DX: J32.4 Chronic pansinusitis (principal); J34.2 Deviated nasal septum
CPT/HCPCS: 70486

== ENCOUNTER 2023-01-08 19:51 | Observation (INO) | payer MEDICARE, OTHER, SELFPAY ==
[2022-08-24 01:16] VITALS: BMI 25.7
[2023-01-08] VITALS (17 sets, daily range): BP systolic 121–240; BP diastolic 61–112; PULSE 70–106; RESP 10–40; TEMP 36.8; O2SAT 95–99; BMI 26.5
--- NOTE | 2023-01-08 20:03 | DI.RAD.S_ITS ---
PROCEDURE: XR CHEST 1V INDICATIONS: chest pain TECHNIQUE: One view of the chest was acquired. COMPARISON: None. FINDINGS: Surgical changes and devices: None. Lungs and pleura: Lungs are clear. No pleural effusions or pneumothorax. Mediastinum: Mediastinal contours appear normal. Heart size is enlarged. Bones and chest wall: No suspicious bony lesions. Overlying soft tissues appear unremarkable. IMPRESSION: No acute cardiopulmonary pathology. Dictated by: Trevor Díaz M.D. on 01/08/2023 at 20:51 Approved by: Trevor Díaz M.D. on 01/08/2023 at 20:52
[2023-01-08] MEDS: ASPIRIN 81 MG CHEW TAB 324 MG PO (20:19)
[2023-01-08 20:25] LABS: Add Manual Diff / Slide Review NO; Basophils Absolute Auto 100 /uL (0-100); Basophils Percent Auto 0.7 % (0-2); Eosinophils Absolute Auto 100 /uL (0-450); Eosinophils Percent Auto 0.8 % (2-4); Hematocrit 39.5 % (36-46); Hemoglobin 13.9 g/dL (12.0-16.0); Lymphocytes Absolute Auto 1600 /uL (1100-4500); Lymphocytes Percent Auto 20.8 % (25-40); Mean Corpuscular HGB Conc 35.1 % (30-36); Mean Corpuscular Hemoglobin 32.6 PG (26-34); Mean Corpuscular Volume 92.7 fL (80-100); Monocytes Absolute Auto 600 /uL (0-900); Monocytes Percent Auto 8.2 % (3-14); Neutrophils Absolute Auto 5300 /uL (1500-7000); Neutrophils Percent Auto 69.5 % (50-75); Platelet Count 276 X10^3/uL (150-400); Red Blood Cell Count 4.26 X10^6/uL (4.0-5.2); Red Cell Distribution Width 12.8 % (11.6-14.8); White Blood Cell Count 7.6 X10^3/uL (4.5-11.0)
[2023-01-08 20:34] LABS: PTT Partial Thromboplastin Tim 30 SECONDS (26-36)
[2023-01-08 20:37] LABS: Alanine Aminotransferase 23 IU/L (<35); Albumin 4.3 g/dL (3.5-5.0); Albumin Globulin Ratio 1.4 (1.0-2.8); Alkaline Phosphatase 74 U/L (38-126); Aspartate Aminotransferase 25 IU/L (14-36); BUN Creatinine Ratio 19.4 (6-22); Bilirubin Total 0.3 mg/dL (0.2-1.3); Blood Urea Nitrogen 18 mg/dL (7-17); Calcium 10.5 mg/dL (8.4-10.2); Carbon Dioxide 26 mmol/L (22-32); Chloride 103 mmol/L (98-107); Creatine Kinase 67 U/L (30-135); Estimated Glomerular Filt Rate > 60 mL/min (>60); Glucose 138 mg/dL (80-110); HEMOLYSIS < 15 (0-50); Lipase 66 U/L (23-300); Magnesium 2.1 mg/dL (1.6-2.3); Potassium 4.1 mmol/L (3.4-5.1); Sodium 138 mmol/L (137-145); Total Protein 7.3 g/dL (6.3-8.2)
[2023-01-08 20:47] LABS: Troponin I < 0.012 ng/mL (0.01-0.034)
--- NOTE | 2023-01-08 21:10 | ED.CHESTPAIN ---
HPI - Chest Pain General Chief Complaint: Chest Pain Stated Complaint: hIGH bp Time Seen by Provider: 01/08/23 20:08 Source: patient Mode of arrival: Ambulatory Limitations: no limitations History of Present Illness HPI narrative: Patient is a 72-year-old female. Has a history of coronary artery disease. Has had a coronary stent placed many years ago. Has not had a stress test many years. Also has a history of hypertension. She is here for evaluation of elevated blood pressure and several days of chest discomfort. She states this does feel different than the chest discomfort that she had in the past which led to her stent placed. She is taking all her medications as directed. Chest pain is not worse with movement or breathing. She recently was started on doxycycline for antibiotics. She is also recently new to the area and does not have a structural engineering project manager locally but does have a primary doctor. Related Data Home Medications Medication Instructions Recorded Confirmed fluticasone propionate 50 1 spray intranasal DAILY 08/08/22 01/09/23 mcg/actuation nasal spray,suspension doxycycline hyclate 100 mg capsule 100 mg PO BID 01/09/23 01/09/23 Previous Rx's Medication Instructions Recorded acetaminophen 325 mg tablet 650 mg (2 x 325 mg) PO Q6H PRN 08/24/22 Fever/Mild Pain (1-10 #30 tabs hydroxyzine pamoate 25 mg capsule 25 mg PO Q4HR PRN Pain, Mild (1-3) 08/24/22 #30 caps Allergies Allergy/AdvReac Type Severity Reaction Status Date / Time hydrocodone Allergy Intermediate Hives Verified 01/08/23 19:59 hydrochlorothiazide Allergy Mild Hives Verified 01/08/23 19:59 Sulfa (Sulfonamide Allergy Mild Hives Verified 01/08/23 19:59 Antibiotics) doxycycline Allergy Hives Verified 01/08/23 19:59 amoxicillin AdvReac Mild Verified 01/08/23 19:59 cephalexin AdvReac Mild Verified 01/08/23 19:59 Review of Systems Constitutional Constitutional: Reports system reviewed and no additional complaints, except as documented Cardiovascular Cardiovascular: Reports system reviewed and no additional complaints, except as documented Respiratory Respiratory: Reports system reviewed and no additional complaints, except as documented Gastrointestinal Gastrointestinal: Reports system reviewed and no additional complaints, except as documented Musculoskeletal Musculoskeletal: Reports system reviewed and no additional complaints, except as documented Neurologic Neurologic: Reports system reviewed and no additional complaints, except as documented Patient History Medical History Hematite's disease Shoulder injury History of alcohol use History of tobacco abuse Hyperlipidemia Essential hypertension Surgical History History of ankle surgery S/P CABG x 1 Family History Father Hypertension Mother Hypertension CVA (cerebral vascular accident) Son Diabetes mellitus Social History marital status: unmarried,living together details: Life partner household members: significant other housing: house Smoking Status: Former smoker alcohol intake: former substance use type: does not use well-balanced diet: daily or most days Smoking Status: Former smoker Substance Use Type: marijuana Exam Initial Vital Signs Initial Vital Signs: Vital Signs Temperature 98.2 F 01/08/23 19:53 Pulse Rate 106 H 01/08/23 19:53 Respiratory Rate 20 01/08/23 19:53 Blood Pressure 240/112 H 01/08/23 19:53 Pulse Oximetry 98 01/08/23 19:53 Oxygen Delivery Method Room Air 01/08/23 19:53 HENMT Head: normal to inspection and normocephalic Chest Chest: normal inspection of the chest Resp Effort & Inspection: normal respiratory effort Auscultation: clear to auscultation bilaterally Cardio Rate: regular rate Rhythm: regular rhythm GI Inspection: normal to inspection Skin General: no rashes or lesions noted Neuro General: patient alert, patient awake and moves all extremities Extrem General: capillary refill normal Scores HEART Score Heart Score history: Moderately Suspicious Heart Score EKG: Non-Specific repolarization disturbance Heart Score Age: > or = 65 years old Heart Score risk factors: > 3 risk factors or hx of atherosclerotic disease Heart Score troponin: < or = to normal limit Heart Score Total: 6 Course Orders Ordered: ED Orders 01/08/23 20:03 XR chest 1V Stat 01/08/23 20:12 EKG-12 Lead Stat 01/08/23 20:20 Complete Blood Count AUTO DIFF Stat Comprehensive Metabolic Panel Stat Lipase Stat Magnesium Stat PTT Partial Thromboplastin [place] Stat Prothrombin Time INR Stat Troponin & CK Cardiac Panel Stat 01/08/23 21:11 EKG-12 Lead Stat 01/08/23 22:36 Troponin & CK Cardiac Panel Stat Acetaminophen (Acetaminophen 325 Mg Tablet) 650 mg PO Q6H PRN PRN Reason: Fever/Mild Pain (1-3) Al Hydrox/Mg Hydrox/Simethicone (Mag Hydrox/Alum/Simeth 30 Ml Udc) 30 ml PO Q6HR PRN PRN Reason: Dyspepsia Enoxaparin Sodium (Enoxaparin 40 Mg/0.4 Ml Syringe) 40 mg SUBCUT DAILY TU Hydralazine HCl (Hydralazine 20 Mg/Ml Vial) 10 mg IV Q2H PRN PRN Reason: SBP>170 Metoprolol Tartrate (Metoprolol Ir 25 Mg Tablet) 25 mg PO BID TU Metoprolol Tartrate (Metoprolol Tartrate 5 Mg/5 Ml Inj) 5 mg IV Q2HR PRN PRN Reason: SBP>170 Naloxone HCl (Naloxone 0.4 Mg/Ml Vial) 0.2 mg IV Q2MIN PRN PRN Reason: Opiate Reversal Nitroglycerin (Nitroglycerin 0.4 Mg Sl Tab) 0.4 mg SL [id number] PRN PRN Reason: Chest Pain Ondansetron HCl (Ondansetron 4 Mg/2 Ml Inj) 4 mg IV Q2HR PRN PRN Reason: nausea Discontinued Medications Aspirin (Aspirin 81 Mg Chew Tab) 324 mg PO NOW ONE Stop: 01/08/23 20:04 Last Admin: 01/08/23 20:19 Dose: 324 mg Documented By: HARESH Nitroglycerin (Nitroglycerin 0.4 Mg Sl Tab) 0.4 mg SL [id number] PRN PRN Reason: Chest Pain Last Admin: 01/08/23 21:35 Dose: 0.4 mg Documented By: Admin: 01/08/23 21:26 Dose: 0.4 mg Documented By: Admin: 01/08/23 21:14 Dose: 0.4 mg Documented By: HARESH Ondansetron HCl (Ondansetron 4 Mg/2 Ml Inj) 4 mg IV NOW ONE Stop: 01/08/23 21:38 Last Admin: 01/08/23 21:39 Dose: 4 mg Documented By: HARESH Vital Signs Vital signs: Vital Signs - 8 hr 01/08/23 19:53 01/08/23 20:05 01/08/23 20:05 Temperature 98.2 F Pulse Rate 106 H 84 Respiratory Rate 20 20 Blood Pressure 240/112 H 187/95 H Pulse Oximetry 98 98 Oxygen Delivery Method Room Air 01/08/23 20:30 01/08/23 20:31 01/08/23 20:31 Temperature Pulse Rate 72 71 Respiratory Rate 24 24 Blood Pressure 187/91 H Pulse Oximetry 99 99 Oxygen Delivery Method 01/08/23 21:00 01/08/23 21:00 01/08/23 21:14 Temperature Pulse Rate 73 70 Respiratory Rate 14 Blood Pressure 187/91 H 187/81 H Pulse Oximetry 97 Oxygen Delivery Method 01/08/23 21:21 01/08/23 21:21 01/08/23 21:26 Temperature Pulse Rate 80 75 Respiratory Rate 12 Blood Pressure 162/87 H 172/84 H Pulse Oximetry 96 Oxygen Delivery Method 01/08/23 21:26 01/08/23 21:26 01/08/23 21:30 Temperature Pulse Rate 77 79 Respiratory Rate 19 10 L Blood Pressure 174/82 H Pulse Oximetry 98 95 Oxygen Delivery Method 01/08/23 21:30 01/08/23 21:35 01/08/23 21:35 Temperature Pulse Rate 80 Respiratory Rate Blood Pressure 149/68 H 152/79 H 152/79 H Pulse Oximetry Oxygen Delivery Method 01/08/23 21:35 01/08/23 21:40 01/08/23 21:40 Temperature Pulse Rate 81 81 Respiratory Rate 12 11 L Blood Pressure 134/77 Pulse Oximetry 98 96 Oxygen Delivery Method 01/08/23 21:45 01/08/23 21:45 01/08/23 22:00 Temperature Pulse Rate 78 80 Respiratory Rate 11 L 16 Blood Pressure 156/79 H Pulse Oximetry 95 98 Oxygen Delivery Method 01/08/23 22:00 01/08/23 22:15 01/08/23 22:15 Temperature Pulse Rate 77 Respiratory Rate 40 H Blood Pressure 129/66 132/67 Pulse Oximetry 97 Oxygen Delivery Method 01/08/23 22:30 01/08/23 22:30 01/08/23 23:00 Temperature Pulse Rate 75 80 Respiratory Rate 16 20 Blood Pressure 128/70 Pulse Oximetry 95 98 Oxygen Delivery Method 01/08/23 23:00 01/08/23 23:30 01/08/23 23:30 Temperature Pulse Rate 79 Respiratory Rate 16 Blood Pressure 121/61 135/69 Pulse Oximetry 99 Oxygen Delivery Method MDM - Chest Pain Lab Data Attestation: I reviewed the patient's lab results. 01/08/23 20:20 01/08/23 20:20 Labs: Lab Results 01/08/23 01/08/23 Range/Units 20:20 22:36 WBC 7.6 (4.5-11.0) X10^3/uL RBC 4.26 (4.0-5.2) X10^6/uL Hgb 13.9 (12.0-16.0) g/dL Hct 39.5 (36-46) % MCV 92.7 (80-100) fL MCH 32.6 (26-34) PG MCHC 35.1 (30-36) % RDW 12.8 (11.6-14.8) % Plt Count 276 (150-400) X10^3/uL Neut % (Auto) 69.5 (50-75) % Lymph % (Auto) 20.8 L (25-40) % [place] % (Auto) 8.2 (3-14) % Eos % (Auto) 0.8 L (2-4) % Baso % (Auto) 0.7 (0-2) % Neut # (Auto) 5300 (1318-0312) /uL Lymph # (Auto) 1600 (6182-3601) /uL [place] # (Auto) 600 (0-900) /uL Eos # (Auto) 100 (0-450) /uL Baso # (Auto) 100 (0-100) /uL PT 12.0 (10.1-12.7) SECONDS INR 1.0 (0.9-1.3) APTT 30 (26-36) SECONDS Sodium 138 (137-145) mmol/L Potassium 4.1 (3.4-5.1) mmol/L Chloride 103 (98-107) mmol/L Carbon Dioxide 26 (22-32) mmol/L BUN 18 H (7-17) mg/dL Creatinine 0.93 (0.52-1.04) mg/dL Estimated GFR > 60 (>60) mL/min BUN/Creatinine Ratio 19.4 (6-22) Glucose 138 H (80-110) mg/dL Calcium 10.5 H (8.4-10.2) mg/dL Magnesium 2.1 (1.6-2.3) mg/dL Total Bilirubin 0.3 (0.2-1.3) mg/dL AST 25 (14-36) IU/L ALT 23 (<35) IU/L Alkaline Phosphatase 74 (38-126) U/L Total Creatine Kinase 67 57 (30-135) U/L Troponin I < 0.012 < 0.012 (0.01-0.034) ng/mL Total Protein 7.3 (6.3-8.2) g/dL Albumin 4.3 (3.5-5.0) g/dL Globulin 3.0 (1.7-4.1) g/dL Albumin/Globulin Ratio 1.4 (1.0-2.8) Lipase 66 (23-300) U/L Imaging Data Chest x-ray: Radiologist's Impression: PROCEDURE: XR CHEST 1V INDICATIONS: chest pain TECHNIQUE: One view of the chest was acquired. COMPARISON: None. FINDINGS: Surgical changes and devices: None. Lungs and pleura: Lungs are clear. No pleural effusions or pneumothorax. Mediastinum: Mediastinal contours appear normal. Heart size is enlarged. Bones and chest wall: No suspicious bony lesions. Overlying soft tissues appear unremarkable. IMPRESSION: No acute cardiopulmonary pathology. ECG Data Interpretation: Sinus rhythm Ventricular rate is 79 Normal axis LVH Inverted T-waves V1 V2 V3 and lead [address] T wave changes Repeat EKG Sinus rhythm Ventricular rate is 67 One Pac LVH Similar in appearance to presentation EKG MDM Narrative Medical decision making narrative: Patient was significantly hypertensive upon arrival and this did improve somewhat without specific intervention. She would a return of her chest pain and a repeat EKG does not show much difference. She does have nonspecific ST T wave changes. She is a known history of coronary artery disease. She was given nitroglycerin which improved her blood pressure even more. Chest x-ray is unremarkable and does have 2 negative troponins. Score is 6. Plan will be to admit to the hospital for further risk stratification. Discussed the need for admission with the patient. Also discussed need for admission with the night hospitalist. We will admit for further evaluation and treatment. Discharge Plan Departure Patient Disposition: Admitted as Observation Clinical Impression: Chest pain, Hypertension Admit Date/Time: 01/08/23 23:49 Admit Provider: Juan Carlos Evasn
[2023-01-08] MEDS: NITROGLYCERIN 0.4 MG SL TAB SL ×3 (21:14→21:35)
[2023-01-08] MEDS: ONDANSETRON 4 MG/2 ML INJ IV (21:39)
[2023-01-08 22:53] LABS: Creatine Kinase 57 U/L (30-135)
[2023-01-08 23:06] LABS: Troponin I < 0.012 ng/mL (0.01-0.034)
--- NOTE | 2023-01-08 23:55 | DI.ECHO.S_ITS ---
[place] [facility] +---------+ : : [address] : [address] : : : : [id number] : : : : Phone: [phone]+ Echocardiogram Report + + :Name: STERLING GARCIA Study Date: 01/09/2023 Height: 63 in : :[facility] ReadingLocation: Weight: 150 lb : : Gender: Female BSA: 1.7 m2 : :: 1950 Age: 72 yrs BP: 135/69 mmHg: :Reason For Study: CHEST PAIN, CAD : :Ordering Physician: RIMMA, : :GAEL Da Silva MD Performed By: Mirtha Friedman : :Referring: GAEL SHANKS MD : + + Interpretation Summary The left ventricle is normal in size and wall thickness. Left ventricular systolic function appears normal without focal wall motion abnormalities. The ejection fraction is estimated to be 60-65%. Diastolic parameters suggest a relaxation abnormality of the left ventricle, consistent with probable normal filling pressures. The right ventricle is normal in size and function. The left atrium is mildly dilated. The thickening of interatrial septum suggests lipomatous hypertrophy. There is no Doppler evidence for an interatrial shunt. There is no significant valvular heart disease. The aortic root is normal size. Procedure: A two-dimensional transthoracic echocardiogram with color flow and Doppler was performed. The study quality was technically adequate. There is no prior echocardiogram noted for this patient. The patient was in sinus rhythm with heart rates between 53-71 bpm during the exam. Left Ventricle: The left ventricle is normal in size and wall thickness. Left ventricular systolic function appears normal without focal wall motion abnormalities. The ejection fraction is estimated to be 60-65%. Diastolic parameters suggest a relaxation abnormality of the left ventricle, consistent with probable normal filling pressures. Right Ventricle: The right ventricle is normal in size and function. Atria: The left atrium is mildly dilated. Right atrial size is normal. There is no Doppler evidence for an interatrial shunt. The thickening of interatrial septum suggests lipomatous hypertrophy. Mitral Valve: The mitral valve is normal in structure and function. There is mild mitral regurgitation. Aortic Valve: The aortic valve is trileaflet. The aortic valve opens well. There is no aortic valve stenosis. No aortic regurgitation is present. Tricuspid Valve: The tricuspid valve is normal in structure and function. There is trace tricuspid regurgitation. Pulmonic Valve: The pulmonic valve leaflets are thin and pliable; valve motion is normal. There is trace pulmonic regurgitation. There is no significant valvular heart disease. Great Vessels: The aortic root is normal size. The dimensions of the ascending aorta are normal. The IVC is of normal diameter and collapses greater than 50% with a sniff. This suggests a low right atrial pressure of 3 mm Hg. Pericardium/ Pleura There is no pericardial effusion. There is no pleural effusion. MMode/2D Measurements & Calculations LVIDd: 5.1 cm LVOT diam: 1.9 cm LVIDs: 3.0 cm Ao root diam: 2.7 cm FS: 39.8 % asc Aorta Diam: 3.3 cm EPSS: 0.51 cm Ao Arch Diam (Prox Trans): 2.6 cm IVSd: 0.83 cm LVPWd: 0.89 cm LV martinez. diameter/BSA (cm/m^2): 3.0 LV sys. diameter/BSA (cm/m^2): 1.8 LA A2 area: 20.6 cm2 RA long axis: 5.9 cm LA A4 area: 21.1 cm2 RA area: 16.8 cm2 LA length (vol): 5.4 cm RA vol: 40.4 ml LA vol: 69.0 ml RA : 23.6 ml/m2 LA vol index: 40.3 ml/m2 IVC diam: 1.7 cm RVD1 (basal): 3.1 cm RVD2 (mid): 2.7 cm TAPSE: 2.1 cm Doppler Measurements & Calculations Ao V2 max: 169.9 cm/sec LVOT Max Aravind: 122.1 cm/sec Ao V2 mean: 119.8 cm/sec LV V1 max P.0 mmHg Ao max P.6 mmHg LV V1 VTI: 26.2 cm Ao mean P.3 mmHg SERA(I,D): 1.9 cm2 Ao V2 VTI: 36.9 cm SERA(V,D): 2.0 cm2 sev ratio: 0.71 SERA indexed to BSA (cm^2/m^2): 1.1 MV E max aravind: 104.8 cm/sec PA V2 max: 102.5 cm/sec MV A max aravind: 129.9 cm/sec PA V2 mean: 70.6 cm/sec MV E/A: 0.81 PA mean P.3 mmHg Med Peak E' Aravind: 5.7 cm/sec PA pr(Accel): 27.6 mmHg E/E' med: 18.4 Lat Peak E' Aravind: 5.5 cm/sec E/E' lat: 19.1 E/e' average: 18.8 MV dec time: 0.28 sec SV(LVOT): 71.9 ml Reading Physician:08:47 AM
[2023-01-09 00:04] VITALS: BMI 28.1
--- NOTE | 2023-01-09 04:08 | PC.ADMIT ---
[address] Admission Note: Patient arrived to AC unit from ED at 00:50, transferred by stretcher. Alert and oriented x 4, able to make needs known. Denies chest pain, shortness of breath, nausea or pain of any kind. Oriented to room and call light. Placed on tele, tele box #[id number], ICU notified. Independent in room. Bed in low and locked position and call light within reach. Dr. Dotson did assessment with patient and spoke to her about blood pressure medications. Once assessment completed, patient stated I'm not taking any medications for blood pressure, they can prescribe them, I just won't tell them I'm not taking them. My blood pressure usually runs in the 130's, I just don't see any need to take them. The patient,Isaura Castro,72 y/o, was given written information regarding hospital policies, unit procedures and contact persons. Patient's smoking status: Former smoker. Vital Signs - 8 hr 01/08/23 20:30 01/08/23 20:31 01/08/23 20:31 Pulse Rate 72 71 Respiratory Rate 24 24 Blood Pressure 187/91 H Pulse Oximetry 99 99 Oxygen Delivery Method 01/08/23 21:00 01/08/23 21:00 01/08/23 21:14 Pulse Rate 73 70 Respiratory Rate 14 Blood Pressure 187/91 H 187/81 H Pulse Oximetry 97 Oxygen Delivery Method 01/08/23 21:21 01/08/23 21:21 01/08/23 21:26 Pulse Rate 80 75 Respiratory Rate 12 Blood Pressure 162/87 H 172/84 H Pulse Oximetry 96 Oxygen Delivery Method 01/08/23 21:26 01/08/23 21:26 01/08/23 21:30 Pulse Rate 77 79 Respiratory Rate 19 10 L Blood Pressure 174/82 H Pulse Oximetry 98 95 Oxygen Delivery Method 01/08/23 21:30 01/08/23 21:35 01/08/23 21:35 Pulse Rate 80 Respiratory Rate Blood Pressure 149/68 H 152/79 H 152/79 H Pulse Oximetry Oxygen Delivery Method 01/08/23 21:35 01/08/23 21:40 01/08/23 21:40 Pulse Rate 81 81 Respiratory Rate 12 11 L Blood Pressure 134/77 Pulse Oximetry 98 96 Oxygen Delivery Method 01/08/23 21:45 01/08/23 21:45 01/08/23 22:00 Pulse Rate 78 80 Respiratory Rate 11 L 16 Blood Pressure 156/79 H Pulse Oximetry 95 98 Oxygen Delivery Method 01/08/23 22:00 01/08/23 22:15 01/08/23 22:15 Pulse Rate 77 Respiratory Rate 40 H Blood Pressure 129/66 132/67 Pulse Oximetry 97 Oxygen Delivery Method 01/08/23 22:30 01/08/23 22:30 01/08/23 23:00 Pulse Rate 75 80 Respiratory Rate 16 20 Blood Pressure 128/70 Pulse Oximetry 95 98 Oxygen Delivery Method 01/08/23 23:00 01/08/23 23:30 01/08/23 23:30 Pulse Rate 79 Respiratory Rate 16 Blood Pressure 121/61 135/69 Pulse Oximetry 99 Oxygen Delivery Method 01/09/23 00:04 Pulse Rate Respiratory Rate Blood Pressure Pulse Oximetry Oxygen Delivery Method Room Air
--- NOTE | 2023-01-09 05:20 | PM.HP.1 ---
History of Present Illness History of Present Illness Date Patient Seen: 01/08/23 Chief complaint: chest pain Narrative: 72 y/o with PMH of CAD, s/p LAD stent few yrs ago in [place], who recently moved to the area and was seen by new PCP a day before, bryon with complaints on chest pressure, several episodes since few days ago, w/o associated dyspnea, diaphoresis, nausea, dizziness. She has a history of HTN but is on no medications at present. She is not even on ASA or statin after she had LAD stent for 99% occlusion. Claims allergies to multiple medications as those apparently make her obscure skin disorder worse. She is refusing ASA, BB, ACEI, HCTZ. On arrival to ED her SBP > 200. Improved afer NTG 0.4 x 1 SL. In July this year, she was hospitalized for observation after sh accidentally tripped over something and fell hitting the head. She had coonsussion and after short observation she was discharged home. She had only punctuate microhemorrhages then She was frossly hypertensive, she had to be talked into BB, considering her CAD Hx, she was reluctant but agreed to take it, not for a long time, however. At the time of my admission, she is w/o chest pain and her BP is lower then on arrival. [facility] Medical History (Updated 01/09/23 @ 05:35 by Juan Carlos Evans MD) [place]'s disease Shoulder injury History of alcohol use History of tobacco abuse Hyperlipidemia Essential hypertension Surgical History (Updated 01/09/23 @ 05:35 by Juan Carlos Evans MD) History of ankle surgery Family History Father Hypertension Mother Hypertension CVA (cerebral vascular accident) Son Diabetes mellitus Social History marital status: unmarried,living together details: Life partner household members: significant other housing: house Smoking Status: Former smoker alcohol intake: former substance use type: does not use well-balanced diet: daily or most days Meds Home Medications and Allergies Home Medications Medication Instructions Recorded Confirmed Type fluticasone propionate 50 1 spray intranasal DAILY 08/08/22 01/09/23 History mcg/actuation nasal spray,suspension acetaminophen 325 mg tablet 650 mg (2 x 325 mg) PO Q6H PRN 08/24/22 01/09/23 Rx Fever/Mild Pain (1-10 #30 tabs hydroxyzine pamoate 25 mg capsule 25 mg PO Q4HR PRN Pain, Mild (1-3) 08/24/22 01/09/23 Rx #30 caps doxycycline hyclate 100 mg capsule 100 mg PO BID 01/09/23 01/09/23 History Allergies Allergy/AdvReac Type Severity Reaction Status Date / Time hydrocodone Allergy Intermediate Hives Verified 01/08/23 19:59 hydrochlorothiazide Allergy Mild Hives Verified 01/08/23 19:59 metoprolol Allergy Mild Hives Verified 01/09/23 02:16 Sulfa (Sulfonamide Allergy Mild Hives Verified 01/08/23 19:59 Antibiotics) doxycycline Allergy Hives Verified 01/08/23 19:59 amoxicillin AdvReac Mild Verified 01/08/23 19:59 cephalexin AdvReac Mild Verified 01/08/23 19:59 Review of Systems Constitutional Comments: w/o fever, chills, sweats Eyes Comments: w/o recent vision changes Cardiovascular Comments: chest pressure, episodic, since some time ago Respiratory Comments: w/o cough or dyspnea Gastrointestinal Comments: w/o complaints Genitourinary Comments: w/o dysuria Musculoskeletal Comments: Lt shoulder pain, decreased ROM, chronic injury Integumentary/Breasts Comments: has [place]'s disease - episodic eruptions of skin rash - followed by gel coater in the past Neurologic Comments: w/o focal weakness, humbness, headache, nausea Psychiatric Comments: denies anxiety Hematologic/Lymphatic Comments: w/o easy bruising or bleeding Exam Vital Signs (past 8 hours): - 01/08/23 21:21 01/08/23 21:21 01/08/23 21:26 Pulse Rate 80 75 Respiratory Rate 12 Blood Pressure 162/87 H 172/84 H Pulse Oximetry 96 Oxygen Delivery Method 01/08/23 21:26 01/08/23 21:26 01/08/23 21:30 Pulse Rate 77 79 Respiratory Rate 19 10 L Blood Pressure 174/82 H Pulse Oximetry 98 95 Oxygen Delivery Method 01/08/23 21:30 01/08/23 21:35 01/08/23 21:35 Pulse Rate 80 Respiratory Rate Blood Pressure 149/68 H 152/79 H 152/79 H Pulse Oximetry Oxygen Delivery Method 01/08/23 21:35 01/08/23 21:40 01/08/23 21:40 Pulse Rate 81 81 Respiratory Rate 12 11 L Blood Pressure 134/77 Pulse Oximetry 98 96 Oxygen Delivery Method 01/08/23 21:45 01/08/23 21:45 01/08/23 22:00 Pulse Rate 78 80 Respiratory Rate 11 L 16 Blood Pressure 156/79 H Pulse Oximetry 95 98 Oxygen Delivery Method 01/08/23 22:00 01/08/23 22:15 01/08/23 22:15 Pulse Rate 77 Respiratory Rate 40 H Blood Pressure 129/66 132/67 Pulse Oximetry 97 Oxygen Delivery Method 01/08/23 22:30 01/08/23 22:30 01/08/23 23:00 Pulse Rate 75 80 Respiratory Rate 16 20 Blood Pressure 128/70 Pulse Oximetry 95 98 Oxygen Delivery Method 01/08/23 23:00 01/08/23 23:30 01/08/23 23:30 Pulse Rate 79 Respiratory Rate 16 Blood Pressure 121/61 135/69 Pulse Oximetry 99 Oxygen Delivery Method 01/09/23 00:04 Pulse Rate Respiratory Rate Blood Pressure Pulse Oximetry Oxygen Delivery Method Room Air Oxygen Delivery Method Room Air Const Other: sitting in bed in no distress Eyes Other: codey, eomi Neck Other: supple, no swelling Resp Other: CTA Cardio Other: RRR, VENITA on Rt upper sternum GI Other: not distended Skin Other: w/o obvious rashes Neuro Other: w/o focal deficits Extrem Other: w/o swelling Lt shoulder - decreased ROM Psych Other: appropriate mood and affect questionable insight and judgement Objective ECG Impression: non-specific T changes in inferior wall NSR Labs 01/08/23 20:20 01/08/23 20:20 Labs: Laboratory Results - last 24 hr 01/08/23 01/08/23 20:20 22:36 WBC 7.6 RBC 4.26 Hgb 13.9 Hct 39.5 MCV 92.7 MCH 32.6 MCHC 35.1 RDW 12.8 Plt Count 276 Neut % (Auto) 69.5 Lymph % (Auto) 20.8 L [place] % (Auto) 8.2 Eos % (Auto) 0.8 L Baso % (Auto) 0.7 Neut # (Auto) 5300 Lymph # (Auto) 1600 [place] # (Auto) 600 Eos # (Auto) 100 Baso # (Auto) 100 PT 12.0 INR 1.0 APTT 30 Sodium 138 Potassium 4.1 Chloride 103 Carbon Dioxide 26 BUN 18 H Creatinine 0.93 Estimated GFR > 60 BUN/Creatinine Ratio 19.4 Glucose 138 H Calcium 10.5 H Magnesium 2.1 Total Bilirubin 0.3 AST 25 ALT 23 Alkaline Phosphatase 74 Total Creatine Kinase 67 57 Troponin I < 0.012 < 0.012 Total Protein 7.3 Albumin 4.3 Globulin 3.0 Albumin/Globulin Ratio 1.4 Lipase 66 Assessment & Plan Assessment and plan (1) Chest pain: Status: Acute Plan: Initial workup w/o obvious ACS, has non-specific EKG changes, uncontrolled HTN and known severe CAD w/o BB, statin or ASA - placed in observation - NTG prn - BP control - ECHO pending - telemetry monitore - refused BB, ASA, statin - pending : A1C, TSH, lipid panel - referral to cardiology (2) Hypertensive urgency: Status: Acute Plan: Placed in observation to try to achive control with medications that she considers safe - refusing BB, ACEI, CCB - I will start Norvasc - prn hydralazine (3) Johnathan's disease: Status: Acute Plan: prn hydroxyzine for prurirus - needs to f/u with dermatology (4) Hyperlipidemia: Status: Acute Plan: check lipids - refusing statins (5) 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
[2023-01-09 07:43] LABS: Cholesterol 208 mg/dL (140-199); HDL Cholesterol 57 mg/dL (40-60); LDL Cholesterol Calculated 133 mg/dL (<100); Triglycerides 88 mg/dL (35-150)
[2023-01-09 07:47] LABS: Hemoglobin A1C% w Est Avg Glu 4.9 % (4.0-6.0)
[2023-01-09 08:14] LABS: TSH w/ Reflex to FT4 2.47 uIU/mL (0.47-4.68)
[2023-01-09 08:17] VITALS: BP 154/79; PULSE 68; RESP 18; TEMP 36.6; O2SAT 99
--- NOTE | 2023-01-09 08:18 | PM.DS.1 ---
History of Present Illness History of Present Illness Date Patient Seen: 01/09/23 Time Patient Seen: 08:18 Chief complaint: chest pain Narrative: Per admitting provider, 72 y/o with PMH of CAD, s/p LAD stent few yrs ago in [place], who recently moved to the area and was seen by new PCP a day before, prenets with complaints on chest pressure, several episodes since few days ago, w/o associated dyspnea, diaphoresis, nausea, dizziness. She has a history of HTN but is on no medications at present. She is not even on ASA or statin after she had LAD stent for 99% occlusion. Claims allergies to multiple medications as those apparently make her obscure skin disorder worse. She is refusing ASA, BB, ACEI, HCTZ. On arrival to ED her SBP > 200. Improved afer NTG 0.4 x 1 SL. In July this year, she was hospitalized for observation after sh accidentally tripped over something and fell hitting the head. She had coonsussion and after short observation she was discharged home. She had only punctuate microhemorrhages then She was frossly hypertensive, she had to be talked into BB, considering her CAD Hx, she was reluctant but agreed to take it, not for a long time, however. At the time of my admission, she is w/o chest pain and her BP is lower then on arrival. Discharge Providers Provider Date of admission: 01/08/23 23:49 Discharge Date: 01/09/23 Primary care physician: Doctor Luis Alfredo MD Discharge provider: Misbah Epperson DO Summary Hospital Course Discharge Diagnosis: (1) Chest pain: (2) Hypertensive urgency: (3) Hyperlipidemia: (4) History of alcohol use: (5) History of tobacco abuse: Hospital Course: This is a 72 year old female with PMH of known CAD, HTN, HLD, prior tobacco and EtOH use who presented with an episode of chest pressure. Troponins were negative x2 and EKG showed no acute changes concerning for acute ischemia. She was hypertensive, but this imrpoved and her chest symptoms did not recur. She had stopped taking aspirin and reports statin allergy. The patient was not open to medication changes at this time after counseling, though was agreeable to resuming aspirin. In this setting where patient has strong beliefs about medications and reports previous interactions, and does not wish to start statin therapy or make further changes to her BP medications at this time, there was no benefit for continued observation for possible stress testing as she is not a cath candidate until she can reliably take recommended medications. She also has known CAD and has a high pretest probability. Her cholesterol was notably high and was conuseled on this. Given no acute ACS after negative troponins, she was discharged home. Time Spent with Patient Time spent: Greater than 30 minutes Exam Vital Signs (past 8 hours): - 01/09/23 08:17 Temperature 98 F Pulse Rate 68 Respiratory Rate 18 Blood Pressure 154/79 H Pulse Oximetry 99 Oxygen Flow Rate 0 Oxygen Delivery Method Room Air Oxygen Flow Rate 0 Narrative Exam Narrative: Gen: WDWN female in no acute distress CV RRR Pulm: CTA b/l Abd: S ND Ext: no edema. Objective Labs 01/08/23 20:20 01/08/23 20:20 Labs: Laboratory Results - last 24 hr 01/08/23 01/08/23 01/09/23 20:20 22:36 06:55 WBC 7.6 RBC 4.26 Hgb 13.9 Hct 39.5 MCV 92.7 MCH 32.6 MCHC 35.1 RDW 12.8 Plt Count 276 Neut % (Auto) 69.5 Lymph % (Auto) 20.8 L [place] % (Auto) 8.2 Eos % (Auto) 0.8 L Baso % (Auto) 0.7 Neut # (Auto) 5300 Lymph # (Auto) 1600 [place] # (Auto) 600 Eos # (Auto) 100 Baso # (Auto) 100 PT 12.0 INR 1.0 APTT 30 Sodium 138 Potassium 4.1 Chloride 103 Carbon Dioxide 26 BUN 18 H Creatinine 0.93 Estimated GFR > 60 BUN/Creatinine Ratio 19.4 Glucose 138 H Hemoglobin A1c 4.9 Calcium 10.5 H Magnesium 2.1 Total Bilirubin 0.3 AST 25 ALT 23 Alkaline Phosphatase 74 Total Creatine Kinase 67 57 Troponin I < 0.012 < 0.012 Total Protein 7.3 Albumin 4.3 Globulin 3.0 Albumin/Globulin Ratio 1.4 Triglycerides 88 Cholesterol 208 H LDL Cholesterol, Calc 133 H HDL Cholesterol 57 Lipase 66 [facility] Medical History (Updated 01/09/23 @ 05:35 by Juan Carlos Evans MD) [place]'s disease Shoulder injury History of alcohol use History of tobacco abuse Hyperlipidemia Essential hypertension Surgical History (Updated 01/09/23 @ 05:35 by Juan Carlos Evans MD) History of ankle surgery Family History Father Hypertension Mother Hypertension CVA (cerebral vascular accident) Son Diabetes mellitus Social History marital status: unmarried,living together details: Life partner household members: significant other housing: house Smoking Status: Former smoker alcohol intake: former substance use type: does not use well-balanced diet: daily or most days Discharge Plan Discharge Plan Patient Disposition: Home Provider Discharge Comment: You came to the hospital with chest pain. Because of your statin intolerance, there are no further evaluations necessary. I do recommend a baby aspirin, this is designed to reduce the likelihood of a new blockage. Your cholesterol is elevated, with your LDL (bad cholesterol) of 133, while goal in someone with a stent is <70. Please continue to follow up with primary care, and discuss medication options for management of your cholesterol. Discharge orders & Medications Prescriptions: New aspirin [Adult Aspirin Regimen] 81 mg tablet,delayed release (DR/EC) 81 mg PO DAILY Qty: 30 0RF Continued fluticasone propionate 50 mcg/actuation spray,suspension 1 spray intranasal DAILY Rx Instructions: administer into each nostril acetaminophen 325 mg Tablet 650 mg PO Q6H PRN (Reason: Fever/Mild Pain (1-10) Qty: 30 0RF hydroxyzine pamoate 25 mg Capsule 25 mg PO Q4HR PRN (Reason: Pain, Mild (1-3)) Qty: 30 0RF doxycycline hyclate 100 mg capsule 100 mg PO BID Follow up/Referrals: Luis Alfredo,MD [place] [Primary Care Provider] - Diet/Activity/Treatments Diet: Diet as Tolerated Activity: As tolerated, no restrictions. Visit Report/Discharge Packet Instructions: High Cholesterol, DI for Chest Pain, DI for High Cholesterol-Adult Stand Alone Forms: Patient Portal/API, Stroke Signs & Symptoms Discharge Data Primary Care Provider: Doctor Luis Alfredo Attending Provider: Juan Carlos Evans Admit Date/Time: 01/08/23 23:49 Discharges patient from system. Discharge Date/Time: 01/09/23 09:29
[2023-01-09] MEDS: FLUTICASONE 120 SPRAY/16 GM SPRAY.SUSP NASAL (08:28)
[2023-01-09] MEDS: DOXYCYCLINE HYCLATE 100 MG TABLET PO (08:29)
[2023-01-09] MEDS: ACETAMINOPHEN 325 MG TABLET 650 MG PO (08:29)
--- NOTE | 2023-01-09 09:20 | PC.NURSE ---
Day shift: Paperwork signed and all questions answered. Left unit at approx 0925. Ambulated to main entrance with this publicity writer. Tolerated well. Also denied any chest pain today. Pt has all personal belongings. Friend is on there way to oyster picker Pt. Pt did not want to wait in room.
--- NOTE | 2023-01-09 09:25 | CM.DANOTE ---
DCP: Case received, EMR reviewed and met with patient. Introduced self and role. Was able to obtain information regarding patient'sbaseline activity status prior to hospitalization. DCP assessment completed with information currently available. Patient is a 72 year old female who admitted yesterday evening to the care of the hospitalist team. PCP: Dr. Ramirez ([facility]). Payer: confirmed: Sujit Patient came to the hospital via private vehicle secondary to having some chest discomfort, high blood pressure. Notes indicate that upon arrival, patient was hypertensive, but did improve without specific intervention. Patient had been given nitroglycerin. Patient was admitted for evaluation of blood pressure, medications, and chest pain. Met with patient in her room. She was sitting up in bed, pleasant and talkative, alert. [place] [facility] [place] [facility] [place], Isaura Vilch[place]. She is independent at her bedside. She has lived in this area for about 6 months. She has a condo in [place] that she is renting out. Stated, she moved up here because of her partner. Patient started to converse about her life, stated, my one son that I gave to at 18 took advantage of my trust, left me in debt. Stated that she does not trust certain doctors, one doctor had recommended that she see a psychiatrist, and put her on meds that she could not tolerate. She had mentioned being in part of AA in her past for alcohol use. Asked her if she was interested in seeking counseling, stated, if you know of any, as long as they are not a psychiatrist. Gave her some information that she could look up on line, for psychologists. She was appreciative, in a hurry to leave. She indicated, she just is emotionally stressed out. She did state, she is happy living up here with her partner. Patient does not want a stress test, wants to leave here as soon as possible. P: Patient discharged home today. Tania Sotomayor RN/Tactical Debriefer Discharge Planning/Care Management CM Discharge Assessment Start: 01/09/23 09:23 Freq: Status: Active Protocol: Document 01/09/23 09:24 (Rec: 01/09/23 09:25 [id number]) Discharge Planning Assessment Assigned Firewall Engineer Tania Sotomayor RN/Tactical Debriefer Advance Directives? Yes Advance Directives on File No History Provided By Patient,Medical Record Prior Living Arrangements House Household Members significant other Type of transporation used prior to Drives own vehicle admit Independent with ADL's Yes Is patient alert and oriented? Yes Caregiver for Another No Barriers to Discharge No Discharge Plan Home Transportation Arrangement life partner will transport in POV Referrals Initiated None needed Whiteboard Updated in Patient Room with Yes name and ext. # of Firewall Engineer Review Status In Process Next Review Type Continued Stay Review
== END 2023-01-09 09:29 | disposition home or self-care (01) ==
LOC: ED 23:29 → AC 23:49
PROVIDERS: Admitting Provider Internal Medicine; Emergency Provider Emergency Medicine; Referring Provider Emergency Medicine; Visit Provider Internal Medicine
DX: I16.0 Hypertensive urgency (principal); E78.5 Hyperlipidemia, unspecified; R10.9 Unspecified abdominal pain; I25.10 Atherosclerotic heart disease of native coronary artery without angina pectoris; I10 Essential (primary) hypertension
CPT/HCPCS: 36415; 71045; 80053; 80061; 82550; 83036; 83690; 83735; 84443; 84484; 85025; 85610; 85730; 93005; 93306; 96374; 99284; G0378; J2405

== ENCOUNTER 2023-04-20 12:18 | Emergency (ER) | payer MEDICARE, OTHER, SELFPAY ==
[2023-04-20] VITALS (19 sets, daily range): BP systolic 132–224; BP diastolic 68–102; PULSE 60–98; RESP 14–29; O2SAT 91–100; BMI 27.4
--- NOTE | 2023-04-20 12:34 | DI.RAD.S_ITS ---
PROCEDURE: XR CHEST 1V INDICATIONS: chest pain TECHNIQUE: One view of the chest was acquired. COMPARISON: [facility], CR, XR CHEST 1V, 01/08/2023, 20:19. FINDINGS: Surgical changes and devices: None. Lungs and pleura: Lungs are clear. No pleural effusions or pneumothorax. Mediastinum: Mediastinal contours appear normal. Heart size is normal. Bones and chest wall: No suspicious bony lesions. Overlying soft tissues appear unremarkable. IMPRESSION: No acute cardiopulmonary abnormality is seen. Dictated by: Traecy Croft M.D. on 04/20/2023 at 13:55 Approved by: Tracey Croft M.D. on 04/20/2023 at 13:56
[2023-04-20 12:46] LABS: Add Manual Diff / Slide Review NO; Basophils Absolute Auto 100 /uL (0-100); Basophils Percent Auto 0.7 % (0-2); Eosinophils Absolute Auto 200 /uL (0-450); Eosinophils Percent Auto 2.2 % (2-4); Hematocrit 41.7 % (36-46); Hemoglobin 14.3 g/dL (12.0-16.0); Lymphocytes Absolute Auto 2500 /uL (1100-4500); Lymphocytes Percent Auto 31.3 % (25-40); Mean Corpuscular HGB Conc 34.2 % (30-36); Mean Corpuscular Hemoglobin 31.9 PG (26-34); Mean Corpuscular Volume 93.4 fL (80-100); Monocytes Absolute Auto 700 /uL (0-900); Monocytes Percent Auto 9.3 % (3-14); Neutrophils Absolute Auto 4500 /uL (1500-7000); Neutrophils Percent Auto 56.5 % (50-75); Platelet Count 284 X10^3/uL (150-400); Red Blood Cell Count 4.47 X10^6/uL (4.0-5.2); Red Cell Distribution Width 13.3 % (11.6-14.8); White Blood Cell Count 7.9 X10^3/uL (4.5-11.0)
[2023-04-20 12:57] LABS: INR 0.9 (0.9-1.3); Prothrombin Time 10.4 SECONDS (9.4-12.5)
[2023-04-20 13:00] LABS: PTT Partial Thromboplastin Tim 28 SECONDS (25.1-36.5)
[2023-04-20 13:03] LABS: Alanine Aminotransferase 19 IU/L (<35); Albumin 4.4 g/dL (3.5-5.0); Albumin Globulin Ratio 1.5 (1.0-2.8); Alkaline Phosphatase 85 U/L (38-126); Aspartate Aminotransferase 23 IU/L (14-36); BUN Creatinine Ratio 17.7 (6-22); Bilirubin Total 0.6 mg/dL (0.2-1.3); Blood Urea Nitrogen 14 mg/dL (7-17); Calcium 10.1 mg/dL (8.4-10.2); Carbon Dioxide 24 mmol/L (22-32); Chloride 102 mmol/L (98-107); Creatine Kinase 48 U/L (30-135); Estimated Glomerular Filt Rate > 60 mL/min (>60); Glucose 113 mg/dL (80-110); HEMOLYSIS < 15 (0-50); Lipase 87 U/L (23-300); Magnesium 2.1 mg/dL (1.6-2.3); Sodium 134 mmol/L (137-145); Total Protein 7.4 g/dL (6.3-8.2)
[2023-04-20] MEDS: ASPIRIN 81 MG CHEW TAB 324 MG PO (13:05)
--- NOTE | 2023-04-20 13:07 | ED_ITS ---
HPI - Chest Pain General Chief Complaint: Chest Pain Stated Complaint: chest burning, hbp Time Seen by Provider: 04/20/23 12:21 Source: patient Mode of arrival: Ambulatory Limitations: no limitations History of Present Illness HPI narrative: 72-year-old female with history of hypertension, anxiety, coronary disease status post stent in 2020 presents for burning chest pain that began after drinking coffee on an empty stomach. Patient states that for the last week she has had intermittent chest burning that seems to come and go without reason. Patient states she has a history of hypertension but does not take any medications because she prefers to treat her conditions holistically. Blood pressure yesterday at home systolic 250. Related Data Home Medications Medication Instructions Recorded Confirmed fluticasone propionate 50 1 spray intranasal DAILY 08/08/22 01/09/23 mcg/actuation nasal spray,suspension doxycycline hyclate 100 mg capsule 100 mg PO BID 01/09/23 01/09/23 Previous Rx's Medication Instructions Recorded acetaminophen 325 mg tablet 650 mg (2 x 325 mg) PO Q6H PRN 08/24/22 Fever/Mild Pain (1-10 #30 tabs hydroxyzine pamoate 25 mg capsule 25 mg PO Q4HR PRN Pain, Mild (1-3) 08/24/22 #30 caps aspirin 81 mg tablet,delayed 81 mg PO DAILY #30 tabs 01/09/23 release (Adult Aspirin Regimen) sucralfate 1 gram tablet (Carafate) 1 g PO QACHS #60 tabs 04/20/23 valsartan 40 mg tablet 20 mg (1/2 x 40 mg) PO BID #60 tabs 04/20/23 Allergies Allergy/AdvReac Type Severity Reaction Status Date / Time hydrocodone Allergy Intermediate Hives Verified 01/08/23 19:59 hydrochlorothiazide Allergy Mild Hives Verified 01/08/23 19:59 metoprolol Allergy Mild Hives Verified 01/09/23 02:16 Sulfa (Sulfonamide Allergy Mild Hives Verified 01/08/23 19:59 Antibiotics) doxycycline Allergy Hives Verified 01/08/23 19:59 amoxicillin AdvReac Mild Verified 01/08/23 19:59 cephalexin AdvReac Mild Verified 01/08/23 19:59 Review of Systems Review of Systems Narrative: Negative except as noted above Patient History Medical History [place]'s disease Shoulder injury History of alcohol use History of tobacco abuse Hyperlipidemia Essential hypertension Surgical History History of ankle surgery Family History Father Hypertension Mother Hypertension CVA (cerebral vascular accident) Son Diabetes mellitus Social History marital status: unmarried,living together details: Life partner household members: significant other housing: house Smoking Status: Former smoker alcohol intake: former substance use type: does not use well-balanced diet: daily or most days Smoking Status: Former smoker Substance Use Type: marijuana Exam Initial Vital Signs Initial Vital Signs: Vital Signs Pulse Rate 90 04/20/23 12:28 Respiratory Rate 21 04/20/23 12:28 Pulse Oximetry 100 04/20/23 12:28 Const: Awake, alert, no acute distress, nontoxic appearing Cardiac: regular rate, regular rhythm RESP: unlabored, clear bilaterally, no wheezing GI: Atraumatic, soft, nontender, nondistended, no rebound, no guarding MSK: Atraumatic, full range of motion, pulses equal Skin: Warm, Dry, intact, no rashes Neuro: AO x3, CN II-XII grossly intact, moves all extremities Psych: Anxious affect, mood normal, not suicidal, not homicidal Course Orders Ordered: ED Orders 04/20/23 12:34 XR chest 1V Stat EKG-12 Lead Stat 04/20/23 12:37 BNP [NT-proBNP (BNP-Adult 18+)] Stat Complete Blood Count AUTO DIFF Stat Comprehensive Metabolic Panel Stat D Dimer Stat Lipase Stat Magnesium Stat PTT Partial Thromboplastin Adrian Stat Prothrombin Time INR Stat Troponin & CK Cardiac Panel Stat Discontinued Medications Al Hydrox/Mg Hydrox/Simethicone (Mag Hydrox/Alum/Simeth 30 Ml Udc) 30 ml PO NOW ONE Stop: 04/20/23 13:31 Last Admin: 04/20/23 13:38 Dose: 30 ml Documented By: EILEEN Aspirin (Aspirin 81 Mg Chew Tab) 324 mg PO NOW ONE Stop: 04/20/23 12:35 Last Admin: 04/20/23 13:05 Dose: 324 mg Documented By: EILEEN Hydralazine HCl (Hydralazine 20 Mg/Ml Vial) 20 mg IV NOW ONE Stop: 04/20/23 13:09 Last Admin: 04/20/23 13:25 Dose: 20 mg Documented By: EILEEN Lidocaine HCl (Lidocaine Viscous 2% 15 Ml Solution) 15 ml PO NOW ONE Stop: 04/20/23 13:31 Last Admin: 04/20/23 13:37 Dose: 15 ml Documented By: EILEEN Morphine Sulfate (Morphine 4 Mg/Ml Inj) 4 mg IV NOW ONE Stop: 04/20/23 13:31 Last Admin: 04/20/23 13:57 Dose: Not Given Documented By: EILEEN Vital Signs Vital signs: Vital Signs - 8 hr 04/20/23 12:28 04/20/23 12:30 04/20/23 12:30 Pulse Rate 90 85 Respiratory Rate 21 20 Blood Pressure 203/102 H Pulse Oximetry 100 99 Oxygen Delivery Method 04/20/23 12:31 04/20/23 13:00 04/20/23 13:01 Pulse Rate 98 H 75 73 Respiratory Rate 18 18 24 Blood Pressure 215/102 H Pulse Oximetry 98 99 100 Oxygen Delivery Method Room Air 04/20/23 13:01 04/20/23 13:10 04/20/23 13:10 Pulse Rate 67 Respiratory Rate 24 Blood Pressure 224/102 H 193/86 H Pulse Oximetry 97 Oxygen Delivery Method 04/20/23 13:20 04/20/23 13:20 04/20/23 13:25 Pulse Rate 74 66 Respiratory Rate 28 H Blood Pressure 203/89 H 203/89 H Pulse Oximetry 99 Oxygen Delivery Method 04/20/23 13:30 04/20/23 13:31 04/20/23 13:31 Pulse Rate 68 66 Respiratory Rate 21 20 Blood Pressure 197/97 H Pulse Oximetry 91 93 Oxygen Delivery Method 04/20/23 13:41 04/20/23 13:41 04/20/23 13:50 Pulse Rate 86 Respiratory Rate 28 H Blood Pressure 179/82 H 161/75 H Pulse Oximetry 99 Oxygen Delivery Method 04/20/23 13:50 04/20/23 14:00 04/20/23 14:00 Pulse Rate 77 76 Respiratory Rate 18 29 H Blood Pressure 156/76 H Pulse Oximetry 97 100 Oxygen Delivery Method 04/20/23 14:10 04/20/23 14:10 04/20/23 14:14 Pulse Rate 82 70 Respiratory Rate 29 H Blood Pressure 143/71 H 143/71 H Pulse Oximetry 99 Oxygen Delivery Method 04/20/23 14:20 04/20/23 14:20 04/20/23 14:30 Pulse Rate 80 Respiratory Rate 28 H Blood Pressure 140/68 133/77 Pulse Oximetry 97 Oxygen Delivery Method 04/20/23 14:30 04/20/23 15:00 04/20/23 15:17 Pulse Rate 78 80 60 Respiratory Rate 25 H 25 H 14 Blood Pressure 132/87 Pulse Oximetry 100 98 98 Oxygen Delivery Method Room Air MDM - Chest Pain Differential Diagnosis Differential diagnosis: Likely unstable angina pectoris, atypical chest pain, st elevation myocardial infarction and costochondritis Lab Data 04/20/23 12:37 04/20/23 12:37 Labs: Lab Results 04/20/23 Range/Units 12:37 WBC 7.9 (4.5-11.0) X10^3/uL RBC 4.47 (4.0-5.2) X10^6/uL Hgb 14.3 (12.0-16.0) g/dL Hct 41.7 (36-46) % MCV 93.4 (80-100) fL MCH 31.9 (26-34) PG MCHC 34.2 (30-36) % RDW 13.3 (11.6-14.8) % Plt Count 284 (150-400) X10^3/uL Neut % (Auto) 56.5 (50-75) % Lymph % (Auto) 31.3 (25-40) % [place] % (Auto) 9.3 (3-14) % Eos % (Auto) 2.2 (2-4) % Baso % (Auto) 0.7 (0-2) % Neut # (Auto) 4500 (5068-0588) /uL Lymph # (Auto) 2500 (8860-4530) /uL [place] # (Auto) 700 (0-900) /uL Eos # (Auto) 200 (0-450) /uL Baso # (Auto) 100 (0-100) /uL PT 10.4 (9.4-12.5) SECONDS INR 0.9 (0.9-1.3) APTT 28 (25.1-36.5) SECONDS D-Dimer 868 H (<500) ng/ml Sodium 134 L (137-145) mmol/L Potassium 4.0 (3.4-5.1) mmol/L Chloride 102 (98-107) mmol/L Carbon Dioxide 24 (22-32) mmol/L BUN 14 (7-17) mg/dL Creatinine 0.79 (0.52-1.04) mg/dL Estimated GFR > 60 (>60) mL/min BUN/Creatinine Ratio 17.7 (6-22) Glucose 113 H (80-110) mg/dL Calcium 10.1 (8.4-10.2) mg/dL Magnesium 2.1 (1.6-2.3) mg/dL Total Bilirubin 0.6 (0.2-1.3) mg/dL AST 23 (14-36) IU/L ALT 19 (<35) IU/L Alkaline Phosphatase 85 (38-126) U/L Total Creatine Kinase 48 (30-135) U/L Troponin I < 0.012 (0.01-0.034) ng/mL NT-Pro-B Natriuret Pep 405 H (<125) pg/mL Total Protein 7.4 (6.3-8.2) g/dL Albumin 4.4 (3.5-5.0) g/dL Globulin 3.0 (1.7-4.1) g/dL Albumin/Globulin Ratio 1.5 (1.0-2.8) Lipase 87 (23-300) U/L MDM Narrative Medical decision making narrative: Well-appearing patient with hypertension and chest burning. Patient extremely hypertensive on arrival, she states that she has a history of hypertension but does not take any medications as she prefers more natural remedies to taking different medications. Patient does have a history of coronary artery disease and does have stent in place. Initial EKG shows normal sinus rhythm without concerning ischemic findings, no T-wave inversions. We will give GI cocktail and hydralazine for blood pressure control as patient's heart rate is 66 beats per minute. Pain resolved with GI cocktail. Patient's laboratory work is significant for troponin less than 0.012, BNP 400, normal kidney function, normal hemoglobin, normal white blood cell count. Chest x-ray negative for acute process. Blood pressure improved with IV hydralazine. Patient's D-dimer is 868, which is slightly outside the range of normal when adjusted for patient's age. Unfortunately our CT scanner is unable to perform angiography at this time. Shared decision-making obtained with patient and her partner at bedside. Patient states that she is feeling much better and is eager to go home. I did recommend that patient start taking medication for her blood pressure. She states that in the past she is taken valsartan f with good control of her blood pressure. Patient could not remember the dose of valsartan she was on previously. Low dose of valsartan sent to pharmacy of choice with instructions on how patient may titrate her medication upwards for desired blood pressure control. Patient states that if she is continuing to feel symptoms she will return to the emergency department to see if CT angio can be performed at that time. Discharge Plan Departure Patient Disposition: Home Clinical Impression: Hypertension, Chest pain Instructions: High Blood Pressure, DI for Chest Pain Activity Restrictions/Additional Instructions: YOUR EKG, CHEST X-RAY, AND HEART ENZYMES TODAY WERE NORMAL. YOU DID HAVE A LAB TEST CALLED A D-DIMER TODAY THAT WAS SLIGHTLY OUTSIDE OF NORMAL RANGE, HOWEVER OUR CT SCANNER IS NOT ABLE TO PERFORM AN ANGIOGRAPHY TODAY. IF YOU CONTINUE TO EXPERIENCE SYMPTOMS I WOULD RETURN TO THE EMERGENCY DEPARTMENT TO SEE IF THIS TEST IS NEEDED. VALSARTAN AND CARAFATE (FOR THE STOMACH) HAVE BEEN SENT TO THE [facility] IN [place]. YOU MAY INCREASE THE DOSE OF VALSARTAN TO 40 MG TWICE DAILY IF YOUR BLOOD PRESSURE IS NOT IMPROVED WITH THE INITIAL DOSE. THE REFERRAL IN YOUR PAPERWORK IS TO GASTROENTEROLOGY. Prescriptions: New valsartan 40 mg tablet 20 mg PO BID Qty: 60 0RF sucralfate [Carafate] 1 gram tablet 1 g PO QACHS Qty: 60 0RF No Action fluticasone propionate 50 mcg/actuation spray,suspension 1 spray intranasal DAILY Rx Instructions: administer into each nostril acetaminophen 325 mg Tablet 650 mg PO Q6H PRN (Reason: Fever/Mild Pain (1-10) Qty: 30 0RF hydroxyzine pamoate 25 mg Capsule 25 mg PO Q4HR PRN (Reason: Pain, Mild (1-3)) Qty: 30 0RF doxycycline hyclate 100 mg capsule 100 mg PO BID aspirin [Adult Aspirin Regimen] 81 mg tablet,delayed release (DR/EC) 81 mg PO DAILY Qty: 30 0RF Referrals: Parvez Lundy MD [Non-Staff] - Miscellaneous,MD Montserrat [Non-Staff] - Stand Alone Forms: Patient Portal/API
[2023-04-20 13:15] LABS: Troponin I < 0.012 ng/mL (0.01-0.034)
[2023-04-20] MEDS: HYDRALAZINE 20 MG/ML VIAL IV (13:25)
[2023-04-20] MEDS: LIDOCAINE VISCOUS 2% 15 ML SOLUTION PO (13:37)
[2023-04-20] MEDS: MAG HYDROX/ALUM/SIMETH 30 ML UDC PO (13:38)
[2023-04-20 13:45] LABS: D Dimer 868 ng/ml (<500)
--- NOTE | 2023-04-20 13:56 | PC.NURSE ---
patient reports feeling great after GI cocktail. Provider aware. Morphine not given.
--- NOTE | 2023-04-20 14:40 | PC.NURSE ---
pt walked to the restroom with a steady gait
[2023-04-20 14:57] LABS: NT-proBNP (BNP-Adult 18+) 405 pg/mL (<125)
== END 2023-04-20 15:21 | disposition home or self-care (01) ==
PROVIDERS: Emergency Provider Emergency Medicine; PCP Family Medicine
DX: I10 Essential (primary) hypertension (principal); R07.9 Chest pain, unspecified
CPT/HCPCS: 71045; 80053; 82550; 83690; 83735; 83880; 84484; 85025; 85379; 85610; 85730; 93005; J0360

== ENCOUNTER 2023-04-20 17:30 | Observation (INO) | payer MEDICARE, OTHER, SELFPAY ==
[2023-04-20] VITALS (48 sets, daily range): BP systolic 103–181; BP diastolic 58–94; PULSE 69–94; RESP 12–31; TEMP 37.1; O2SAT 92–100
[2023-04-20 17:47] LABS: Add Manual Diff / Slide Review NO; Basophils Absolute Auto 100 /uL (0-100); Basophils Percent Auto 0.8 % (0-2); Eosinophils Absolute Auto 200 /uL (0-450); Eosinophils Percent Auto 2.1 % (2-4); Hematocrit 42.6 % (36-46); Hemoglobin 14.4 g/dL (12.0-16.0); Lymphocytes Absolute Auto 3400 /uL (1100-4500); Lymphocytes Percent Auto 36.2 % (25-40); Mean Corpuscular HGB Conc 33.8 % (30-36); Mean Corpuscular Hemoglobin 31.3 PG (26-34); Mean Corpuscular Volume 92.5 fL (80-100); Monocytes Absolute Auto 800 /uL (0-900); Monocytes Percent Auto 8.3 % (3-14); Neutrophils Absolute Auto 5000 /uL (1500-7000); Neutrophils Percent Auto 52.6 % (50-75); Platelet Count 332 X10^3/uL (150-400); Red Blood Cell Count 4.61 X10^6/uL (4.0-5.2); Red Cell Distribution Width 13.2 % (11.6-14.8); White Blood Cell Count 9.5 X10^3/uL (4.5-11.0)
[2023-04-20 18:11] LABS: Alanine Aminotransferase 19 IU/L (<35); Albumin 4.4 g/dL (3.5-5.0); Albumin Globulin Ratio 1.7 (1.0-2.8); Alkaline Phosphatase 70 U/L (38-126); Aspartate Aminotransferase 24 IU/L (14-36); BUN Creatinine Ratio 17.7 (6-22); Bilirubin Total 0.6 mg/dL (0.2-1.3); Blood Urea Nitrogen 14 mg/dL (7-17); Calcium 10.6 mg/dL (8.4-10.2); Carbon Dioxide 23 mmol/L (22-32); Chloride 102 mmol/L (98-107); Creatine Kinase 47 U/L (30-135); Estimated Glomerular Filt Rate > 60 mL/min (>60); Globulin 2.6 g/dL (1.7-4.1); Glucose 128 mg/dL (80-110); HEMOLYSIS 17 (0-50); Potassium 4.3 mmol/L (3.4-5.1); Sodium 136 mmol/L (137-145)
[2023-04-20 18:23] LABS: NT-proBNP (BNP-Adult 18+) 472 pg/mL (<125); Troponin I < 0.012 ng/mL (0.01-0.034)
[2023-04-20] MEDS: NITROGLYCERIN 0.4 MG SL TAB SL ×3 (19:13→19:31)
--- NOTE | 2023-04-20 19:15 | PC.NURSE ---
Pt reports staring an estrogen patch last week. Provider made aware.
--- NOTE | 2023-04-20 19:19 | PC.NURSE ---
Pt. reports significant decrease in L. ant. lower CP/pressure following initial SL NTG admin. Repeat dose administered.
[2023-04-20] MEDS: MORPHINE 2 MG/ML INJ IV (20:04)
[2023-04-20] MEDS: NITROGLYCERIN 50 MG/250 ML INFUS..BTL IV (20:10)
--- NOTE | 2023-04-20 20:24 | ED.SYNCOPE ---
HPI - Syncope General Chief Complaint: Syncope Stated Complaint: Syncope Time Seen by Provider: 04/20/23 17:40 Source: patient and EMS Mode of arrival: EMS Limitations: no limitations History of Present Illness HPI narrative: This is a 72-year-old female who arrives by ambulance. EMS records were reviewed, is also present in contributes to history. Patient was seen earlier today in this department for chest pain, labs from that visit were reviewed as well. Patient says that for last couple of weeks she has been having episodes of chest pain left-sided sometimes stabbing in character sometimes pressure in character. It may be provoked by exertion. She had similar symptoms a couple of years ago, was seen at [facility] and had a cardiac stent. Has not been having summary chest pain up until the last couple of weeks. She was seen in this department for chest pain earlier in the day had a negative troponin and discharge. Says that after this she went out to a restaurant, began having chest pain again and was trying to walk out to her car when she had a syncopal episode. She did not have palpitations she does not recall hitting the ground. She has not had shortness of breath with this, she has had some diaphoresis she has not had nausea. She has not been having fevers. When seen she is having some chest pain and is noted to be hypertensive. Additionally, the patient reports a history of deep vein thrombosis previously. She says that she was anticoagulated for that but reports that medications for anticoagulation and medications for coronary disease cause unfavorable reactions therefore she is stopped all of them. By her description she was previously on a statin. It has not clear whether or not her deep vein thrombosis was provoked. She has not had any history of brain aneurysms or GI bleeding. Related Data Home Medications Medication Instructions Recorded Confirmed fluticasone propionate 50 1 spray intranasal DAILY 08/08/22 01/09/23 mcg/actuation nasal spray,suspension doxycycline hyclate 100 mg capsule 100 mg PO BID 01/09/23 01/09/23 Previous Rx's Medication Instructions Recorded acetaminophen 325 mg tablet 650 mg (2 x 325 mg) PO Q6H PRN 08/24/22 Fever/Mild Pain (1-10 #30 tabs hydroxyzine pamoate 25 mg capsule 25 mg PO Q4HR PRN Pain, Mild (1-3) 08/24/22 #30 caps aspirin 81 mg tablet,delayed 81 mg PO DAILY #30 tabs 01/09/23 release (Adult Aspirin Regimen) sucralfate 1 gram tablet (Carafate) 1 g PO QACHS #60 tabs 04/20/23 valsartan 40 mg tablet 20 mg (1/2 x 40 mg) PO BID #60 tabs 04/20/23 Allergies Allergy/AdvReac Type Severity Reaction Status Date / Time hydrocodone Allergy Intermediate Hives Verified 01/08/23 19:59 hydrochlorothiazide Allergy Mild Hives Verified 01/08/23 19:59 metoprolol Allergy Mild Hives Verified 01/09/23 02:16 Sulfa (Sulfonamide Allergy Mild Hives Verified 01/08/23 19:59 Antibiotics) doxycycline Allergy Hives Verified 01/08/23 19:59 amoxicillin AdvReac Mild Verified 01/08/23 19:59 cephalexin AdvReac Mild Verified 01/08/23 19:59 Patient History Medical History Johnathan's disease Shoulder injury History of alcohol use History of tobacco abuse Hyperlipidemia Essential hypertension Surgical History History of ankle surgery Family History Father Hypertension Mother Hypertension CVA (cerebral vascular accident) Son Diabetes mellitus Social History marital status: unmarried,living together details: Life partner household members: significant other housing: house Smoking Status: Former smoker alcohol intake: former substance use type: does not use well-balanced diet: daily or most days Smoking Status: Former smoker Substance Use Type: marijuana Exam Narrative Exam Narrative: Alert, no acute distress HEENT: Normocephalic, atraumaitic moist mucus membranes Neck: Supple no midline tenderness Lungs: Clear to ascultaion, no respiratory distress Heart: Regular rhythm and rate no murmur Abdomen: Normal bowel sounds, soft and nontender Extremeties: Full range of motion no deformity no cords Neuro: Alert and oriented, normal speech moves x4 Initial Vital Signs Initial Vital Signs: Vital Signs Pulse Rate 80 04/20/23 17:31 Course Orders Ordered: ED Orders 04/20/23 20:33 Trop I [Troponin I] Stat 04/21/23 02:52 EKG-12 Lead Stat 04/21/23 03:02 Education, smoking cessation ONGOING 04/21/23 03:08 Trop I [Troponin I] Stat 04/21/23 07:00 Comprehensive Metabolic Panel DAILY 04/22/23 07:00 Comprehensive Metabolic Panel DAILY 04/23/23 07:00 Comprehensive Metabolic Panel DAILY Acetaminophen (Acetaminophen 325 Mg Tablet) 650 mg PO Q6H PRN PRN Reason: Fever/Mild Pain (1-10 Acetaminophen (Acetaminophen 325 Mg Tablet) 650 mg PO Q6H PRN PRN Reason: Fever/Mild Pain (1-3) Hydrocodone Bitart/Acetaminophen (Hydrocodone/Acet 5/325 Tablet) 1 tab PO Q4H PRN PRN Reason: Pain, Moderate (4-6) Albuterol (Albuterol 2.5 Mg/3 Ml Neb (Adult)) 2.5 mg INH [id number] PRN PRN Reason: Dyspnea Aspirin (Aspirin Ec 81 Mg Tablet) 81 mg PO DAILY TU Fluticasone Propionate (Fluticasone 120 [place]/16 Gm Selby.Susp) 1 spray NASAL DAILY TU Hydralazine HCl (Hydralazine 25 Mg Tablet) 25 mg PO Q6HR PRN PRN Reason: Hypertension Hydroxyzine Pamoate (Hydroxyzine Pamoate 25 Mg Capsule) 25 mg PO Q4HR PRN PRN Reason: Pain, Mild (1-3) Nitroglycerin (Nitroglycerin) 50 mg in 250 mls @ 1.5 mls/hr IV TITRATE TU; Protocol Last Titration: 04/21/23 03:30 Dose: 10 mcg/min, 3 mls/hr Documented By: Titration: 04/21/23 00:13 Dose: 20 mcg/min, 6 mls/hr Documented By: Titration: 04/20/23 23:36 Dose: 20 mcg/min, 6 mls/hr Documented By: Titration: 04/20/23 21:28 Dose: 15 mcg/min, 4.5 mls/hr Documented By: Titration: 04/20/23 20:40 Dose: 10 mcg/min, 3 mls/hr Documented By: Admin: 04/20/23 20:10 Dose: 5 mcg/min, 1.5 mls/hr Documented By: EVELYN Lorazepam (Lorazepam 2 Mg/Ml Inj) 0.25 mg IV Q4HR PRN PRN Reason: Anxiety Morphine Sulfate (Morphine 4 Mg/Ml Inj) 3 mg IV Q2HR TU Naloxone HCl (Naloxone 0.4 Mg/Ml Vial) 0.2 mg IV Q2MIN PRN PRN Reason: Opiate Reversal Ondansetron HCl (Ondansetron 4 Mg/2 Ml Inj) 4 mg IV Q8HR PRN PRN Reason: Nausea And Vomiting Sucralfate (Sucralfate 1 Gm Tablet) 1 gm PO ACHS TU Valsartan (Valsartan 80 Mg Tablet) 20 mg PO BID TU Discontinued Medications Morphine Sulfate (Morphine 2 Mg/Ml Inj) 2 mg IV NOW ONE Stop: 04/20/23 19:46 Last Admin: 04/20/23 20:04 Dose: 2 mg Documented By: EVELYN Morphine Sulfate (Morphine 2 Mg/Ml Inj) 2 mg IV Q2HR PRN PRN Reason: Pain, Moderate (4-6) Last Admin: 04/21/23 02:03 Dose: 2 mg Documented By: DAYRON Nitroglycerin (Nitroglycerin 0.4 Mg Sl Tab) 0.4 mg SL [id number] PRN PRN Reason: Chest Pain Last Admin: 04/20/23 19:31 Dose: 0.4 mg Documented By: Admin: 04/20/23 19:19 Dose: 0.4 mg Documented By: Admin: 04/20/23 19:13 Dose: 0.4 mg Documented By: EVELYN Reevaluation(s) Reevaluation #1: At 21:55-still having chest pain but is improved. Troponins are normal x3 today. She has had 2 EKGs that do not show ischemic changes. We have been unable to find a location to transfer her to to obtain a CT angiogram, I am going to explore transport [place] for CT with return to this facility. Consultations Consultation #1: D/W hospitalist, Dr Leal, accepts admission Vital Signs Vital signs: Vital Signs - 8 hr 04/20/23 20:00 04/20/23 20:00 04/20/23 20:06 Temperature Pulse Rate 90 Respiratory Rate Blood Pressure 103/58 L 128/66 Pulse Oximetry 98 Oxygen Delivery Method 04/20/23 20:06 04/20/23 20:10 04/20/23 20:10 Temperature Pulse Rate 83 81 83 Respiratory Rate 20 14 Blood Pressure 131/63 Pulse Oximetry 98 98 Oxygen Delivery Method Room Air 04/20/23 20:10 04/20/23 20:15 04/20/23 20:15 Temperature Pulse Rate 81 Respiratory Rate 14 Blood Pressure 131/63 120/58 L Pulse Oximetry 94 Oxygen Delivery Method 04/20/23 20:20 04/20/23 20:20 04/20/23 20:25 Temperature Pulse Rate 80 Respiratory Rate 15 Blood Pressure 115/63 124/65 Pulse Oximetry 95 Oxygen Delivery Method Room Air 04/20/23 20:25 04/20/23 20:30 04/20/23 20:30 Temperature Pulse Rate 82 80 Respiratory Rate 17 Blood Pressure 130/66 Pulse Oximetry 96 96 Oxygen Delivery Method 04/20/23 20:36 04/20/23 20:36 04/20/23 20:40 Temperature Pulse Rate 79 Respiratory Rate 14 Blood Pressure 121/71 133/78 Pulse Oximetry 97 Oxygen Delivery Method Room Air 04/20/23 20:40 04/20/23 20:45 04/20/23 20:45 Temperature Pulse Rate 75 78 Respiratory Rate 18 Blood Pressure 134/74 Pulse Oximetry 96 95 Oxygen Delivery Method 04/20/23 20:50 04/20/23 20:50 04/20/23 20:55 Temperature Pulse Rate 78 79 Respiratory Rate 23 22 Blood Pressure 127/72 Pulse Oximetry 96 96 Oxygen Delivery Method 04/20/23 20:55 04/20/23 21:00 04/20/23 21:00 Temperature Pulse Rate 76 Respiratory Rate Blood Pressure 127/61 131/65 Pulse Oximetry 94 Oxygen Delivery Method 04/20/23 21:05 04/20/23 21:05 04/20/23 21:13 Temperature Pulse Rate 82 81 Respiratory Rate 17 Blood Pressure 134/72 Pulse Oximetry 96 96 Oxygen Delivery Method Room Air 04/20/23 21:13 04/20/23 21:15 04/20/23 21:15 Temperature Pulse Rate 84 Respiratory Rate 24 Blood Pressure 139/73 141/73 H Pulse Oximetry 95 Oxygen Delivery Method 04/20/23 21:20 04/20/23 21:20 04/20/23 21:25 Temperature Pulse Rate 73 Respiratory Rate 14 Blood Pressure 133/63 133/67 Pulse Oximetry 95 Oxygen Delivery Method 04/20/23 21:25 04/20/23 21:30 04/20/23 21:30 Temperature Pulse Rate 75 73 Respiratory Rate 24 14 Blood Pressure 134/67 Pulse Oximetry 95 95 Oxygen Delivery Method Room Air 04/20/23 21:42 04/20/23 21:45 04/20/23 21:45 Temperature 98.7 F Pulse Rate 79 Respiratory Rate 24 Blood Pressure 140/75 Pulse Oximetry 93 Oxygen Delivery Method 04/20/23 22:00 04/20/23 22:00 04/20/23 22:15 Temperature Pulse Rate 80 Respiratory Rate Blood Pressure 113/62 122/69 Pulse Oximetry 95 Oxygen Delivery Method Room Air 04/20/23 22:15 04/20/23 22:29 04/20/23 22:30 Temperature Pulse Rate 78 86 Respiratory Rate 15 Blood Pressure 120/70 Pulse Oximetry 92 93 Oxygen Delivery Method Room Air 04/20/23 22:31 04/20/23 22:45 04/20/23 22:45 Temperature Pulse Rate 81 79 Respiratory Rate 17 16 Blood Pressure 142/64 H Pulse Oximetry 97 97 Oxygen Delivery Method 04/20/23 23:00 04/20/23 23:00 04/20/23 23:15 Temperature Pulse Rate 77 Respiratory Rate 23 Blood Pressure 127/65 124/67 Pulse Oximetry 97 Oxygen Delivery Method Room Air 04/20/23 23:15 04/20/23 23:30 04/20/23 23:30 Temperature Pulse Rate 81 76 Respiratory Rate 17 20 Blood Pressure 153/72 H Pulse Oximetry 97 97 Oxygen Delivery Method Room Air Room Air 04/20/23 23:44 04/20/23 23:45 04/20/23 23:45 Temperature Pulse Rate 73 75 Respiratory Rate 17 22 Blood Pressure 147/73 H Pulse Oximetry 97 95 Oxygen Delivery Method Room Air Room Air 04/21/23 00:00 04/21/23 00:00 04/21/23 00:14 Temperature Pulse Rate 74 77 Respiratory Rate 20 17 Blood Pressure 148/78 H Pulse Oximetry 94 97 Oxygen Delivery Method 04/21/23 00:15 04/21/23 01:55 04/21/23 02:00 Temperature Pulse Rate 79 75 Respiratory Rate Blood Pressure 142/72 H Pulse Oximetry 98 98 Oxygen Delivery Method 04/21/23 02:30 04/21/23 02:30 04/21/23 03:00 Temperature Pulse Rate 69 77 Respiratory Rate 10 L 9 L Blood Pressure 133/63 Pulse Oximetry 98 Oxygen Delivery Method MDM - Syncope Lab Data Lab results narrative: Troponins are normal x2, CBC is unremarkable, CMP is unremarkable. D-dimer was previously elevated and not repeated. Pro BNP mildly elevated at 472 04/20/23 17:39 04/20/23 17:39 Labs: Lab Results 04/20/23 04/20/23 04/21/23 Range/Units 17:39 20:33 03:08 WBC 9.5 (4.5-11.0) X10^3/uL RBC 4.61 (4.0-5.2) X10^6/uL Hgb 14.4 (12.0-16.0) g/dL Hct 42.6 (36-46) % MCV 92.5 (80-100) fL MCH 31.3 (26-34) PG MCHC 33.8 (30-36) % RDW 13.2 (11.6-14.8) % Plt Count 332 (150-400) X10^3/uL Neut % (Auto) 52.6 (50-75) % Lymph % (Auto) 36.2 (25-40) % [place] % (Auto) 8.3 (3-14) % Eos % (Auto) 2.1 (2-4) % Baso % (Auto) 0.8 (0-2) % Neut # (Auto) 5000 (2728-7914) /uL Lymph # (Auto) 3400 (6423-6557) /uL [place] # (Auto) 800 (0-900) /uL Eos # (Auto) 200 (0-450) /uL Baso # (Auto) 100 (0-100) /uL Sodium 136 L (137-145) mmol/L Potassium 4.3 (3.4-5.1) mmol/L Chloride 102 (98-107) mmol/L Carbon Dioxide 23 (22-32) mmol/L BUN 14 (7-17) mg/dL Creatinine 0.79 (0.52-1.04) mg/dL Estimated GFR > 60 (>60) mL/min BUN/Creatinine Ratio 17.7 (6-22) Glucose 128 H (80-110) mg/dL Calcium 10.6 H (8.4-10.2) mg/dL Total Bilirubin 0.6 (0.2-1.3) mg/dL AST 24 (14-36) IU/L ALT 19 (<35) IU/L Alkaline Phosphatase 70 (38-126) U/L Total Creatine Kinase 47 (30-135) U/L Troponin I < 0.012 < 0.012 < 0.012 (0.01-0.034) ng/mL NT-Pro-B Natriuret Pep 472 H (<125) pg/mL Total Protein 7.0 (6.3-8.2) g/dL Albumin 4.4 (3.5-5.0) g/dL Globulin 2.6 (1.7-4.1) g/dL Albumin/Globulin Ratio 1.7 (1.0-2.8) Imaging Data CT angio chest: Radiologist's Impression: Because of equipment failure at this facility we are unable to do a CT angiogram of her chest here. She was therefore transported to [facility] where CT angio PE protocol was performed and she was brought back to this facility after that. Radiology impression from this is ?1. No pulmonary embolism 2. Bilateral subpleural septal thickening and pulmonary fibrosis predominantly involving upper lobes. 3. Mild cardiomegaly and moderate coronary atherosclerosis. ? ECG Data Interpretation: ECG from her previous visit was performed at 12:33 p.m.. Showed normal sinus rhythm at 71 Q's in 3 and V1 V2 and V3 without acute ST elevation. Nonspecific ST changes laterally ECG from this visit obtained at 1801 shows cues in 3 and V1 through V3. No acute ST segment elevation. No ST segment changes. ECG was ordered in about 3:15 a.m., she refused EKG MDM Narrative Medical decision making narrative: 72-year-old female with a history of coronary artery disease and deep vein thrombosis who has not anticoagulated and not presently taking her statins. She presents today with chest pain and syncope. Does not have ischemic ECG changes and troponins are normal times 2 with the 3rd pending. She did not achieve resolution of her chest pain with nitrates and was also given morphine. She had a previously elevated D-dimer, therefore CT angio of the chest was obtained and pulmonary embolism was excluded. This required the patient to be transported to [facility] in return. Differential diagnosis would include acute coronary syndrome, pulmonary embolism, pneumonia, chest wall pain. ACS and pulmonary embolism were not supported by the current workup. I would expect CT angio to show aortic pathology if it was present. She is received aspirin, she was on a nitro drip which did improve her blood pressure I have elected not to heparinize her given her lack of objective findings for ACS today. Given her multiple risk factors I think admission is appropriate. Discharge Plan Departure Patient Disposition: Admitted As Inpatient Clinical Impression: Chest pain Qualifiers: Chest pain type: unspecified Qualified Code(s): R07.9 - Chest pain, unspecified Syncope Qualifiers: Syncope type: unspecified Qualified Code(s): R55 - Syncope and collapse Admit Date/Time: 04/21/23 03:17 Admit Provider: Bunny Leal
[2023-04-20 21:07] LABS: Troponin I < 0.012 ng/mL (0.01-0.034)
[2023-04-21] VITALS (16 sets, daily range): BP systolic 133–182; BP diastolic 63–100; PULSE 62–81; RESP 9–20; TEMP 36.1–36.3; O2SAT 94–100; BMI 26.6
--- NOTE | 2023-04-21 00:21 | PC.NURSE ---
CT down for angio at [facility]. A to transport patient to [facility]iology at provider direction. Report given to LANDON Godoy from [facility]. Transfer of care to [facility] at 0013. Pt belongings in possession with patient for transport.
--- NOTE | 2023-04-21 00:38 | PC.NURSE ---
Pt placed on lists at, [facility],,[facility] no beds available. Rona @ [facility] working on placement
--- NOTE | 2023-04-21 01:50 | PC.NURSE ---
pt returned from [facility] and placed on a hospital bed continues to c/o pain, NTG infusing and pt placed on the monitor with SR noted
[2023-04-21] MEDS: MORPHINE 2 MG/ML INJ IV (02:03)
--- NOTE | 2023-04-21 02:05 | PC.NURSE ---
pt medicated for pain, and lights dimmed for comfort call jarquin in reach
[2023-04-21 03:36] LABS: Troponin I < 0.012 ng/mL (0.01-0.034)
--- NOTE | 2023-04-21 03:56 | PC.NURSE ---
pt continues without c/p at this time, is feeling better
[2023-04-21] MEDS: SUCRALFATE 1 GM TABLET PO ×2 (05:45→09:56)
--- NOTE | 2023-04-21 06:04 | PM.HP.1 ---
History of Present Illness History of Present Illness Chief complaint: Syncope Narrative: 72 years old female with history of hypertension, hyperlipidemia, DVT in the past, CAD, status post LAD stent in 2020, presented to the ER with chest pain since yesterday. The patient has this chest pain on and off for the last several weeks. Hospitalized 1 week ago with negative workup. She also had another visit in the ED with negative workup earlier yesterday. The pain was described as related, stabbing, provoked by exertion, relieved by morphine, associated with diaphoresis and nausea, similar to the chest pain when she had stent placed. She also reports syncope earlier today with some dizziness prior. Denies any other symptoms. Reports some remote history of blood clots. During her last hospitalization the patient refused aspirin, statins and beta-blockers due to multiple side effects. Her initial labs were unremarkable except D-dimer 868, sodium 136, glucose 128, BNP 472, troponins x [address] angiogram of the chest done at outside hospital was negative for PE. EKG x 2 negative for any ischemic changes. [facility] Medical History Johnathan's disease Shoulder injury History of alcohol use History of tobacco abuse Hyperlipidemia Essential hypertension Surgical History History of ankle surgery Family History Father Hypertension Mother Hypertension CVA (cerebral vascular accident) Son Diabetes mellitus Social History marital status: unmarried,living together details: Life partner household members: significant other housing: house Smoking Status: Former smoker alcohol intake: former substance use type: does not use well-balanced diet: daily or most days Meds Home Medications and Allergies Home Medications Medication Instructions Recorded Confirmed Type fluticasone propionate 50 1 spray intranasal DAILY 08/08/22 01/09/23 History mcg/actuation nasal spray,suspension acetaminophen 325 mg tablet 650 mg (2 x 325 mg) PO Q6H PRN 08/24/22 01/09/23 Rx Fever/Mild Pain (1-10 #30 tabs hydroxyzine pamoate 25 mg capsule 25 mg PO Q4HR PRN Pain, Mild (1-3) 08/24/22 01/09/23 Rx #30 caps aspirin 81 mg tablet,delayed 81 mg PO DAILY #30 tabs 01/09/23 Rx release (Adult Aspirin Regimen) doxycycline hyclate 100 mg capsule 100 mg PO BID 01/09/23 01/09/23 History sucralfate 1 gram tablet (Carafate) 1 g PO QACHS #60 tabs 04/20/23 Rx valsartan 40 mg tablet 20 mg (1/2 x 40 mg) PO BID #60 tabs 04/20/23 Rx Allergies Allergy/AdvReac Type Severity Reaction Status Date / Time hydrocodone Allergy Intermediate Hives Verified 01/08/23 19:59 hydrochlorothiazide Allergy Mild Hives Verified 01/08/23 19:59 metoprolol Allergy Mild Hives Verified 01/09/23 02:16 Sulfa (Sulfonamide Allergy Mild Hives Verified 01/08/23 19:59 Antibiotics) doxycycline Allergy Hives Verified 01/08/23 19:59 amoxicillin AdvReac Mild Verified 01/08/23 19:59 cephalexin AdvReac Mild Verified 01/08/23 19:59 Review of Systems Review of Systems ROS: Yes All systems reviewed with the patient and are negative except as otherwise documented Constitutional Constitutional: Reports as per HPI and Reports system reviewed and no additional complaints, except as documented Eyes Eyes: Reports as per HPI and Reports system reviewed and no additional complaints, except as documented ENT Ears, Nose, Mouth, and Throat: Yes as per HPI and Yes system reviewed and no additional complaints, except as documented Cardiovascular Cardiovascular: Reports system reviewed and no additional complaints, except as documented Respiratory Respiratory: Reports system reviewed and no additional complaints, except as documented Gastrointestinal Gastrointestinal: Reports system reviewed and no additional complaints, except as documented Genitourinary Genitourinary: Reports system reviewed and no additional complaints, except as documented Musculoskeletal Musculoskeletal: Reports system reviewed and no additional complaints, except as documented, Reports abnormal gait and Reports numbness Neurologic Neurologic: Reports system reviewed and no additional complaints, except as documented, Reports abnormal gait, Reports confusion and Reports numbness Psychiatric Psychiatric: Reports system reviewed and no additional complaints, except as documented and Reports confusion Exam Vital Signs (past 8 hours): - 04/20/23 22:15 04/20/23 22:15 04/20/23 22:29 Pulse Rate 78 86 Respiratory Rate 15 Blood Pressure 122/69 Pulse Oximetry 92 93 Oxygen Delivery Method Room Air Oxygen Flow Rate 04/20/23 22:30 04/20/23 22:31 04/20/23 22:45 Pulse Rate 81 Respiratory Rate 17 Blood Pressure 120/70 142/64 H Pulse Oximetry 97 Oxygen Delivery Method Oxygen Flow Rate 04/20/23 22:45 04/20/23 23:00 04/20/23 23:00 Pulse Rate 79 77 Respiratory Rate 16 23 Blood Pressure 127/65 Pulse Oximetry 97 97 Oxygen Delivery Method Room Air Oxygen Flow Rate 04/20/23 23:15 04/20/23 23:15 04/20/23 23:30 Pulse Rate 81 Respiratory Rate 17 Blood Pressure 124/67 153/72 H Pulse Oximetry 97 Oxygen Delivery Method Room Air Oxygen Flow Rate 04/20/23 23:30 04/20/23 23:44 04/20/23 23:45 Pulse Rate 76 73 Respiratory Rate 20 17 Blood Pressure 147/73 H Pulse Oximetry 97 97 Oxygen Delivery Method Room Air Room Air Oxygen Flow Rate 04/20/23 23:45 04/21/23 00:00 04/21/23 00:00 Pulse Rate 75 74 Respiratory Rate 22 20 Blood Pressure 148/78 H Pulse Oximetry 95 94 Oxygen Delivery Method Room Air Oxygen Flow Rate 04/21/23 00:14 04/21/23 00:15 04/21/23 01:55 Pulse Rate 77 79 Respiratory Rate 17 Blood Pressure 142/72 H Pulse Oximetry 97 98 Oxygen Delivery Method Oxygen Flow Rate 04/21/23 02:00 04/21/23 02:30 04/21/23 02:30 Pulse Rate 75 69 Respiratory Rate 10 L Blood Pressure 133/63 Pulse Oximetry 98 98 Oxygen Delivery Method Oxygen Flow Rate 04/21/23 03:00 04/21/23 03:30 04/21/23 04:00 Pulse Rate 77 70 62 Respiratory Rate 9 L 16 11 L Blood Pressure Pulse Oximetry 99 100 Oxygen Delivery Method Nasal Cannula Oxygen Flow Rate 2 04/21/23 04:30 04/21/23 05:00 04/21/23 05:30 Pulse Rate 70 81 72 Respiratory Rate 17 18 19 Blood Pressure Pulse Oximetry 100 96 99 Oxygen Delivery Method Oxygen Flow Rate Oxygen Delivery Method Nasal Cannula Oxygen Flow Rate 2 Const General: cooperative, comfortable and well developed Orientation: alert and oriented x3 HENMT Head: normal to inspection, normocephalic and atraumatic Face and sinus: normal facial exam Mouth: oral mucosae normal and moist mucous membranes Throat: posterior oropharynx normal Eyes General: appearance normal, both eyes and all related structures Pupils: PERRL EOM: EOM intact bilaterally Neck Neck: normal visual inspection and full ROM Chest Chest: normal inspection of the chest Resp Effort & Inspection: normal respiratory effort and able to speak in complete sentences Auscultation: clear to auscultation bilaterally Cardio Palpation: normal PMI Rate: regular rate Rhythm: regular rhythm Heart Sounds: S1 normal and S2 normal GI Inspection: normal to inspection Palpation: soft and no hepatosplenomegaly Auscultation: normal bowel sounds Skin General: no rashes or lesions noted Lesions: no lesions Rashes: no rashes Trauma: no lacerations or abrasions Neuro General: patient alert, patient awake, patient oriented x3 and no focal motor deficits Cranial Nerves: CN's II-XI intact bilaterally Cognition: normal cognition Speech: speech normal Gait: normal gait Motor: muscle tone normal throughout Sensory Exam: no sensory deficits noted Extrem General: full ROM and no calf tenderness Psych Appearance: grossly normal Mental Status: mental status grossly normal Speech and Movement: speech and movement normal Objective Labs 04/20/23 17:39 04/20/23 17:39 Labs: Laboratory Results - last 24 hr 04/20/23 04/20/23 04/21/23 17:39 20:33 03:08 WBC 9.5 RBC 4.61 Hgb 14.4 Hct 42.6 MCV 92.5 MCH 31.3 MCHC 33.8 RDW 13.2 Plt Count 332 Neut % (Auto) 52.6 Lymph % (Auto) 36.2 [place] % (Auto) 8.3 Eos % (Auto) 2.1 Baso % (Auto) 0.8 Neut # (Auto) 5000 Lymph # (Auto) 3400 [place] # (Auto) 800 Eos # (Auto) 200 Baso # (Auto) 100 Sodium 136 L Potassium 4.3 Chloride 102 Carbon Dioxide 23 BUN 14 Creatinine 0.79 Estimated GFR > 60 BUN/Creatinine Ratio 17.7 Glucose 128 H Calcium 10.6 H Total Bilirubin 0.6 AST 24 ALT 19 Alkaline Phosphatase 70 Total Creatine Kinase 47 Troponin I < 0.012 < 0.012 < 0.012 NT-Pro-B Natriuret Pep 472 H Total Protein 7.0 Albumin 4.4 Globulin 2.6 Albumin/Globulin Ratio 1.7 Assessment & Plan Assessment & Plan narrative: Atypical chest pain: Will admit for trending trops and rule out ACS. -Admit for observation -ASA, nitro sl prn; oxygen prn; morphine as needed -Tele-monitoring, -Xanax as needed for anxiety -Start Lipitor. Cholesterol 2.8, LDH 133, HDL 57. TSH 2.47. A1c 4.9 Hypertension. Uncontrolled in the ER. -Restart Valsartan -Hydralazine as needed Time Spent With Patient Time with patient: 50 to 69 minutes with 50% spent counseling/coordinating care Quality VTE Deep Vein Thrombosis/Pulmonary Embolism Present on Admission: No MIPS - Admit I confirm the patient?s Advance Care Plan is present, Code status is documented, Surrogate decision maker is in patient?s record [If Yes, STOP here]: Yes MIPS - Meds 'Current medications' to include all prescriptions, [id number] products, herbals, cannabis/cannabidiol products, and vitamin/mineral/dietary (nutritional) supplements. I have utilized all available resources to obtain, update, or review the patient?s current medications. [If Yes, STOP here]: Yes
[2023-04-21 06:11] LABS: Alanine Aminotransferase 17 IU/L (<35); Albumin 3.8 g/dL (3.5-5.0); Albumin Globulin Ratio 1.4 (1.0-2.8); Alkaline Phosphatase 70 U/L (38-126); Aspartate Aminotransferase 22 IU/L (14-36); BUN Creatinine Ratio 18.3 (6-22); Bilirubin Total 0.7 mg/dL (0.2-1.3); Blood Urea Nitrogen 13 mg/dL (7-17); Carbon Dioxide 26 mmol/L (22-32); Chloride 106 mmol/L (98-107); Estimated Glomerular Filt Rate > 60 mL/min (>60); Globulin 2.7 g/dL (1.7-4.1); Glucose 115 mg/dL (80-110); HEMOLYSIS < 15 (0-50); Potassium 3.9 mmol/L (3.4-5.1); Sodium 136 mmol/L (137-145); Total Protein 6.5 g/dL (6.3-8.2)
[2023-04-21] MEDS: MORPHINE 2 MG/ML INJ 3 MG IV ×2 (07:45→10:06)
[2023-04-21 09:05] LABS: Troponin I < 0.012 ng/mL (0.01-0.034)
[2023-04-21] MEDS: FAMOTIDINE 20 MG TABLET PO (09:56)
[2023-04-21] MEDS: VALSARTAN 80 MG TABLET 20 MG PO (09:56)
[2023-04-21] MEDS: ASPIRIN EC 81 MG TABLET PO (09:56)
[2023-04-21] MEDS: FLUTICASONE 120 SPRAY/16 GM SPRAY.SUSP NASAL (10:06)
--- NOTE | 2023-04-21 11:42 | CM.DANOTE ---
DCP Assessment Note Pt is a 72yo F here following chest pain. Stress test planned for today. PCP Shan Barrera, [facility] Payer Medicare and Sujit KOLB reviewed EMR. Per provider in rounds, pending results of stress test likely home later today with OP cardiology follow up. Per chart review, pt had stint placed two years ago in [place]. Per chart review, when pt was here in Dec 2022, pt dc home no CM needs. CABLE RESPOOLER entered room and introduced self and role. Pt resting in bed. Pt lives with partner (Rica martin [phone]) in [place]. A/I at baseline. Came in due to intense pain. Does not currently have a chinchilla farmer. Pt concerned about getting her pain managed prior to leaving here- lengthy discussion about how in the past she's felt like doctor's do not take her seriously and take her pain seriously. Provider entered room during dcp convo. Provider and pt in agreement with stress test and f/u with chinchilla farmer referral. Pt reports no needs from CM team. Plan: home with partner when medically stable, likely later today potentially tomorrow. No CM needs identified. CM team will follow as needed. KENNEDI Burch Discharge Planning/Care Management CM Discharge Assessment Start: 04/21/23 11:32 Freq: Status: Active Protocol: Document 04/21/23 11:32 SL (Rec: 04/21/23 11:39 [id number]) Discharge Planning Assessment Assigned Possum Trapper KENNEDI Campbell DPOA/Assigned Designee Name Rica Vilchis (life partner) Contact Information [phone] Advance Directives? Yes Advance Directives on File No History Provided By Patient,Medical Record Prior Living Arrangements House Household Members significant other Type of transporation used prior to Drives own vehicle admit Independent with ADL's Yes Is patient alert and oriented? Yes Barriers to Discharge No Discharge Plan Home Transportation Arrangement life partner will transport in POV Referrals Initiated None needed Whiteboard Updated in Patient Room with Yes name and ext. # of Possum Trapper Review Status In Process Next Review Type Continued Stay Review
--- NOTE | 2023-04-21 12:30 | P.HP_ITS ---
History of Present Illness History of Present Illness Date Patient Seen: 04/21/23 Time Patient Seen: 12:31 Date of Onset of Symptoms: 04/21/23 Chief complaint: Syncope Narrative: The patient is a 72-year-old female with history of hypertension, hyperlipidemia, remote DVT, and CAD with a LAD stent in 2020. She presented to the emergency department with chest pain since yesterday. The patient has moved to the [place] from [facility] as of last May. She has primary care at [facility], but has not established with Cardiology since moving up here. She was evaluated multiple times in the last several weeks including a emergency department workup of week ago and a prior admission to this hospital several months ago. Upon arrival she had a nonacute 12 lead and a dimer of 868. The patient has had a recent CT pulmonary angiogram said to be negative for PE. She denies exertional component of chest pain or a recent history of exertional dyspnea. There seemed to be no associated symptoms of nausea or diaphoresis. She has not had a stress test since moving to [facility]. She notes having multiple normal studies in the past. That led up to her ultimate angiogram with PCI of the LAD. She also states her LAD had a 99% stenosis and then a stress test preceding this was unremarkable. She does note a lot of personal stress which relates to financial matters and conflicts with family members. She lives with her partner in [place]. Outside records were requested from [facility] for PCI and angiogram report however all received back from that request was a CT pulmonary angiogram. This was negative for pulmonary emboli, notable for borderline cardiomegaly and a mild aortic calcification. This was dated January 2021. [facility] Medical History Johnathan's disease Shoulder injury History of alcohol use History of tobacco abuse Hyperlipidemia Essential hypertension Surgical History History of ankle surgery Family History Father Hypertension Mother Hypertension CVA (cerebral vascular accident) Son Diabetes mellitus Social History marital status: unmarried,living together details: Life partner household members: significant other housing: house Smoking Status: Former smoker alcohol intake: former substance use type: does not use well-balanced diet: daily or most days Meds Home Medications and Allergies Home Medications Medication Instructions Recorded Confirmed Type fluticasone propionate 50 1 spray intranasal DAILY 08/08/22 04/21/23 History mcg/actuation nasal spray,suspension acetaminophen 325 mg tablet 650 mg (2 x 325 mg) PO Q6H PRN 08/24/22 04/21/23 Rx Fever/Mild Pain (1-10 #30 tabs hydroxyzine pamoate 25 mg capsule 25 mg PO Q4HR PRN Pain, Mild (1-3) 08/24/22 04/21/23 Rx #30 caps aspirin 81 mg tablet,delayed 81 mg PO DAILY #30 tabs 01/09/23 04/21/23 Rx release (Adult Aspirin Regimen) estradiol 0.025 mg/24 hr weekly 1 patch transdermal WEEKLY 04/21/23 04/21/23 History transdermal patch Allergies Allergy/AdvReac Type Severity Reaction Status Date / Time hydrocodone Allergy Intermediate Hives Verified 01/08/23 19:59 hydrochlorothiazide Allergy Mild Hives Verified 01/08/23 19:59 metoprolol Allergy Mild Hives Verified 01/09/23 02:16 Sulfa (Sulfonamide Allergy Mild Hives Verified 01/08/23 19:59 Antibiotics) doxycycline Allergy Hives Verified 01/08/23 19:59 amoxicillin AdvReac Mild Verified 01/08/23 19:59 cephalexin AdvReac Mild Verified 01/08/23 19:59 Review of Systems Review of Systems Narrative: All else reviewed and otherwise unremarkable except as noted in history and physical. Exam Vital Signs (past 8 hours): - 04/21/23 05:00 04/21/23 05:30 04/21/23 05:55 Temperature 97.0 F L Pulse Rate 81 72 67 Respiratory Rate 18 19 18 Blood Pressure 164/82 H Blood Pressure [Orthostatic Lying] Blood Pressure [Orthostatic Sitting] Blood Pressure [Orthostatic Standing] Pulse Oximetry 96 99 99 Oxygen Delivery Method Oxygen Flow Rate 04/21/23 06:30 04/21/23 06:50 04/21/23 08:00 Temperature 97.4 F L Pulse Rate 75 Respiratory Rate 16 Blood Pressure 182/89 H Blood Pressure [Orthostatic Lying] 145/67 H Blood Pressure [Orthostatic Sitting] 169/89 H Blood Pressure [Orthostatic Standing] 178/100 H Pulse Oximetry 97 Oxygen Delivery Method Room Air Oxygen Flow Rate 0 04/21/23 08:00 Temperature Pulse Rate Respiratory Rate Blood Pressure Blood Pressure [Orthostatic Lying] Blood Pressure [Orthostatic Sitting] Blood Pressure [Orthostatic Standing] Pulse Oximetry Oxygen Delivery Method Room Air Oxygen Flow Rate Oxygen Delivery Method Room Air Oxygen Flow Rate 0 Narrative Exam Narrative: NAD, alert and oriented x3. Fluent speech. Somewhat anxious. EOMI, pupils symmetric, gaze conjugate. Nose and oropharynx unremarkable. Normocephalic skull. Anicteric sclera. Neck supple, midline trachea, no adenopathy. Lungs are clear with normal rate and effort. Heart is regular without murmur. Abdomen is soft, nontender. Extremities are free of edema, good pedal pulses. Skin appears to be grossly free of rash or lesions or bruises. Joints are unremarkable. Motor strength appears to be 5/5 grossly in all extremities. Objective ECG Impression: NSR, with PAC. No ischemic changes. Imaging Chest x-ray: My impression: Clear, no infiltrates. Radiologist's impression: IMPRESSION: No acute cardiopulmonary abnormality is seen. Echo: Radiologist's impression: Recent ECHO The left ventricle is normal in size and wall thickness. Left ventricular systolic function appears normal without focal wall motion abnormalities. The ejection fraction is estimated to be 60-65%. Diastolic parameters suggest a relaxation abnormality of the left ventricle, consistent with probable normal filling pressures. The right ventricle is normal in size and function. The left atrium is mildly dilated. The thickening of interatrial septum suggests lipomatous hypertrophy. There is no Doppler evidence for an interatrial shunt. There is no significant valvular heart disease. The aortic root is normal size. Study Date: 01/09/2023 Labs 04/20/23 17:39 04/21/23 05:46 Labs: Laboratory Results - last 24 hr 04/20/23 04/20/23 04/21/23 17:39 20:33 03:08 WBC 9.5 RBC 4.61 Hgb 14.4 Hct 42.6 MCV 92.5 MCH 31.3 MCHC 33.8 RDW 13.2 Plt Count 332 Neut % (Auto) 52.6 Lymph % (Auto) 36.2 [place] % (Auto) 8.3 Eos % (Auto) 2.1 Baso % (Auto) 0.8 Neut # (Auto) 5000 Lymph # (Auto) 3400 [place] # (Auto) 800 Eos # (Auto) 200 Baso # (Auto) 100 Sodium 136 L Potassium 4.3 Chloride 102 Carbon Dioxide 23 BUN 14 Creatinine 0.79 Estimated GFR > 60 BUN/Creatinine Ratio 17.7 Glucose 128 H Calcium 10.6 H Total Bilirubin 0.6 AST 24 ALT 19 Alkaline Phosphatase 70 Total Creatine Kinase 47 Troponin I < 0.012 < 0.012 < 0.012 NT-Pro-B Natriuret Pep 472 H Total Protein 7.0 Albumin 4.4 Globulin 2.6 Albumin/Globulin Ratio 1.7 04/21/23 04/21/23 05:46 08:32 WBC RBC Hgb Hct MCV MCH MCHC RDW Plt Count Neut % (Auto) Lymph % (Auto) [place] % (Auto) Eos % (Auto) Baso % (Auto) Neut # (Auto) Lymph # (Auto) [place] # (Auto) Eos # (Auto) Baso # (Auto) Sodium 136 L Potassium 3.9 Chloride 106 Carbon Dioxide 26 BUN 13 Creatinine 0.71 Estimated GFR > 60 BUN/Creatinine Ratio 18.3 Glucose 115 H Calcium 10.0 Total Bilirubin 0.7 AST 22 ALT 17 Alkaline Phosphatase 70 Total Creatine Kinase Troponin I < 0.012 NT-Pro-B Natriuret Pep Total Protein 6.5 Albumin 3.8 Globulin 2.7 Albumin/Globulin Ratio 1.4 Assessment & Plan Assessment & Plan narrative: 1. Recurrent atypical chest pain, present on admission and active. 2. Known CAD with a LAD stent in 2020, present on admission and stable. 3. Hypertension, present on admission and active. Plan: -exercise stress test -continue antiplatelet agent, restart Lipitor, we will also restart valsartan and likely add a beta blockade. -anticipate discussion with [facility] and a referral for primary cardiology care now that she is moved to the area. She is full resuscitation. Her partner is her proxy decision maker. Time Spent With Patient Time with patient: 30 to 49 minutes with 50% spent counseling/coordinating care Quality VTE Deep Vein Thrombosis/Pulmonary Embolism Present on Admission: No MIPS - Admit I confirm the patient?s Advance Care Plan is present, Code status is documented, Surrogate decision maker is in patient?s record [If Yes, STOP here]: Yes
--- NOTE | 2023-04-21 13:12 | DI.NM.S_ITS ---
DATE OF SERVICE: 04/21/2023 STUDY: Pharmacological perfusion study. INDICATION: Chest pain with known history of LAD stenting, hypertension, hyperlipidemia. RADIOPHARMACEUTICAL: 27.5 millicurie technetium-99m Myoview IV was injected at stress and 11.7 millicurie technetium-99m Myoview IV was injected at rest. CARDIAC STRESS: The patient underwent IV Lexiscan perfusion study under the supervision of an attending staff as per standard protocol. The patient remained hemodynamically stable. Baseline blood pressure 128/86. Baseline rhythm sinus with nonspecific ST-T changes including slight ST depression in inferolateral leads. During early recovery, there was slight worsening of ST depression in inferolateral leads. Occasional PACs. No significant arrhythmias. The patient has baseline chest discomfort on the left side, which was on a scale of 1 to 10, seven intensity without any worsening during Lexiscan. The patient experienced nausea and gagging with Lexiscan. Given 100 mg of intravenous aminophylline. RAW DATA: Breast shadow was seen. GATED STUDY: Stress LV ejection fraction 73% without any obvious wall motion abnormalities. Resting end-diastolic volume 100 mL. TID ratio 1.11, which is within normal limits. Lung/heart ratio 0.30, which is within normal limits. MYOCARDIAL PERFUSION SCAN: Stress supine and resting supine images were compared to each other. There are no stress prone images. Stress supine and stress prone images revealed normal myocardial perfusion. I do not see any convincing ischemia or infarction pattern. CONCLUSION: This is a normal myocardial perfusion study without any convincing ischemia or infarction of perfusion scan. Preserved left ventricular function. No wall motion abnormalities. Overall, low-risk myocardial perfusion scan. Isaura Coronado - COLIN/isai/edda doc#: [id number]/job#: [id number] dd: 04/21/2023 12:45:00 dt: 04/21/2023 13:06:00 DICTATING MD/COPIES TO: Majo Peraza MD COPIES MNE: TOMMY;
[2023-04-21] MEDS: diazePAM 5 MG TABLET PO (13:16)
--- NOTE | 2023-04-21 14:28 | PM.DS.1 ---
History of Present Illness History of Present Illness Chief complaint: Syncope Narrative: The patient is a 72-year-old female with history of hypertension, hyperlipidemia, remote DVT, and CAD with a LAD stent in 2020. She presented to the emergency department with chest pain since yesterday. The patient has moved to the [facility] from [facility] as of last May. She has primary care at [facility], but has not established with Cardiology since moving up here. She was evaluated multiple times in the last several weeks including a emergency department workup of week ago and a prior admission to this hospital several months ago. Upon arrival she had a nonacute 12 lead and a dimer of 868. The patient has had a recent CT pulmonary angiogram said to be negative for PE. She denies exertional component of chest pain or a recent history of exertional dyspnea. There seemed to be no associated symptoms of nausea or diaphoresis. She has not had a stress test since moving to [facility]. She notes having multiple normal studies in the past. That led up to her ultimate angiogram with PCI of the LAD. She also states her LAD had a 99% stenosis and then a stress test preceding this was unremarkable. She does note a lot of personal stress which relates to financial matters and conflicts with family members. She lives with her partner in [place]. Outside records were requested from [facility] for PCI and angiogram report however all received back from that request was a CT pulmonary angiogram. This was negative for pulmonary emboli, notable for borderline cardiomegaly and a mild aortic calcification. This was dated January 2021. Discharge Providers Provider Date of admission: 04/21/23 03:17 Discharge Date: 04/21/23 Primary care physician: Shan Barrera DO Consults: None Discharge provider: Salvatore Castanon MD Summary Hospital Course Discharge Diagnosis: 1. Atypical chest pain with normal stress test and myocardial perfusion scan. 2. Hypertension. 3. Remote tobacco use. 4. Essential hypertension. 5. Possible GERD. 6. Situational anxiety. Hospital Course: The patient was admitted for atypical chest pain which has been a recurrent issue. She had a LAD stent placed in 2020 at [facility] in [place]. Outside records were obtained and indicate that she had a mid RCA lesion as well at that time which was not intervened upon. The RCA is a large caliber dominant vessel which gives off an acute marginal branch and continues into the posterior descending artery. There was noted mild diffuse disease in the proximal RCA with a intermediate focal stenosis in the mid RCA. The left circumflex artery was fairly unremarkable. The patient underwent stress test which was unremarkable. Her chest pain is quite atypical in description. She has noted a lot of stress relating to current family dynamics and financial issues with her son. 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 She has not take a statin because she is very allergic to these and does not take a beta-jai because she can not tolerate these. She has not been taking aspirin either. She is asked to restart aspirin and was started on Diovan by the emergency department several days ago and will continue this as well. She is also wanting to take a proton pump inhibitor and Carafate for the next several weeks to see if it alleviates her symptoms at all. She is urged to follow up with her primary care and set up a referral and appointment as soon as possible [facility] Cardiology. see Cardiology does have outpatient appointments available in [facility] which would be quite convenient for her given that she lives there. Status at Discharge Cognitive/behavioral status at discharge: oriented Functional status at discharge: independent ambulation Overall status at discharge: patient is back to baseline Time Spent with Patient Time spent: Greater than 30 minutes Exam Vital Signs (past 8 hours): - 04/21/23 06:30 04/21/23 06:50 04/21/23 08:00 Temperature 97.4 F L Pulse Rate 75 Respiratory Rate 16 Blood Pressure 182/89 H Blood Pressure [Orthostatic Lying] 145/67 H Blood Pressure [Orthostatic Sitting] 169/89 H Blood Pressure [Orthostatic Standing] 178/100 H Pulse Oximetry 97 Oxygen Delivery Method Room Air Oxygen Flow Rate 0 04/21/23 08:00 04/21/23 12:00 Temperature 97 F L Pulse Rate 69 Respiratory Rate 16 Blood Pressure 167/84 H Blood Pressure [Orthostatic Lying] Blood Pressure [Orthostatic Sitting] Blood Pressure [Orthostatic Standing] Pulse Oximetry 100 Oxygen Delivery Method Room Air Oxygen Flow Rate 0 Oxygen Delivery Method Room Air Oxygen Flow Rate 0 Narrative Exam Narrative: Seen and examined on the day of discharge. Somewhat anxious. Lungs are clear with normal effort. Heart is regular. No murmur. Abdomen is soft, and non tender. Extremities are free of edema. Objective ECG Impression: NSR, with PAC. No ischemic changes. Imaging Echo: Radiologist's impression: Recent ECHO The left ventricle is normal in size and wall thickness. Left ventricular systolic function appears normal without focal wall motion abnormalities. The ejection fraction is estimated to be 60-65%. Diastolic parameters suggest a relaxation abnormality of the left ventricle, consistent with probable normal filling pressures. The right ventricle is normal in size and function. The left atrium is mildly dilated. The thickening of interatrial septum suggests lipomatous hypertrophy. There is no Doppler evidence for an interatrial shunt. There is no significant valvular heart disease. The aortic root is normal size. Study Date: 01/09/2023 Chest x-ray: Radiologist's impression: IMPRESSION: No acute cardiopulmonary abnormality is seen. Labs 04/20/23 17:39 04/21/23 05:46 Labs: Laboratory Results - last 24 hr 04/20/23 04/20/23 04/21/23 17:39 20:33 03:08 WBC 9.5 RBC 4.61 Hgb 14.4 Hct 42.6 MCV 92.5 MCH 31.3 MCHC 33.8 RDW 13.2 Plt Count 332 Neut % (Auto) 52.6 Lymph % (Auto) 36.2 [place] % (Auto) 8.3 Eos % (Auto) 2.1 Baso % (Auto) 0.8 Neut # (Auto) 5000 Lymph # (Auto) 3400 [place] # (Auto) 800 Eos # (Auto) 200 Baso # (Auto) 100 Sodium 136 L Potassium 4.3 Chloride 102 Carbon Dioxide 23 BUN 14 Creatinine 0.79 Estimated GFR > 60 BUN/Creatinine Ratio 17.7 Glucose 128 H Calcium 10.6 H Total Bilirubin 0.6 AST 24 ALT 19 Alkaline Phosphatase 70 Total Creatine Kinase 47 Troponin I < 0.012 < 0.012 < 0.012 NT-Pro-B Natriuret Pep 472 H Total Protein 7.0 Albumin 4.4 Globulin 2.6 Albumin/Globulin Ratio 1.7 04/21/23 04/21/23 05:46 08:32 WBC RBC Hgb Hct MCV MCH MCHC RDW Plt Count Neut % (Auto) Lymph % (Auto) [place] % (Auto) Eos % (Auto) Baso % (Auto) Neut # (Auto) Lymph # (Auto) [place] # (Auto) Eos # (Auto) Baso # (Auto) Sodium 136 L Potassium 3.9 Chloride 106 Carbon Dioxide 26 BUN 13 Creatinine 0.71 Estimated GFR > 60 BUN/Creatinine Ratio 18.3 Glucose 115 H Calcium 10.0 Total Bilirubin 0.7 AST 22 ALT 17 Alkaline Phosphatase 70 Total Creatine Kinase Troponin I < 0.012 NT-Pro-B Natriuret Pep Total Protein 6.5 Albumin 3.8 Globulin 2.7 Albumin/Globulin Ratio 1.4 PFSH Medical History [place]'s disease Shoulder injury History of alcohol use History of tobacco abuse Hyperlipidemia Essential hypertension Surgical History History of ankle surgery Family History Father Hypertension Mother Hypertension CVA (cerebral vascular accident) Son Diabetes mellitus Social History marital status: unmarried,living together details: Life partner household members: significant other housing: house Smoking Status: Former smoker alcohol intake: former substance use type: does not use well-balanced diet: daily or most days Discharge Assessment & Plan Assessment and Plan Assessment: 1. Atypical chest pain with normal stress test and myocardial perfusion scan. 2. Remote tobacco use. 3. Essential hypertension. 4. Possible GERD. 5. Situational anxiety. Plan of Treatment: Discharge home, urged to set up an appointment with cardiology locally as soon as possible. Urged to restart aspirin and take Diovan. Given a small number of lorazepam and Percocet for pain and anxiety. Also instructed that these are not long-term solutions and that other approaches for anxiety will be recommended by primary care. Discharge Plan Discharge Plan Patient Disposition: Home Provider Discharge Comment: Stable for discharge with close cardiology follow-up. Discharge orders & Medications Prescriptions: New sucralfate 1 gram Tablet 1 gm PO ACHS Qty: 30 0RF valsartan [Diovan] 80 mg Tablet 20 mg PO BID Qty: 30 3RF aspirin 81 mg Tablet,Delayed Release (Dr/Ec) 81 mg PO DAILY Qty: 30 3RF lorazepam [Ativan] 1 mg tablet 1 mg PO TID PRN (Reason: anxiety) Qty: 20 0RF oxycodone-acetaminophen [Percocet] 5-325 mg tablet 1 tab PO TID PRN (Reason: pain) Qty: 20 0RF pantoprazole [Protonix] 20 mg tablet,delayed release (DR/EC) 20 mg PO DAILY Qty: 30 2RF Continued fluticasone propionate 50 mcg/actuation spray,suspension 1 spray intranasal DAILY Rx Instructions: administer into each nostril acetaminophen 325 mg Tablet 650 mg PO Q6H PRN (Reason: Fever/Mild Pain (1-10) Qty: 30 0RF estradiol 0.025 mg/24 hr patch weekly 1 patch transdermal WEEKLY hydroxyzine pamoate 25 mg Capsule 25 mg PO Q4HR PRN (Reason: Pain, Mild (1-3)) Qty: 30 1RF Patient Comments: patient states she takes for a skin rash and when it is bad she takes 100mg Discontinued aspirin [Adult Aspirin Regimen] 81 mg tablet,delayed release (DR/EC) 81 mg PO DAILY Qty: 30 0RF Medication counseling provided by Pharmacist: No Follow up/Referrals: Shan Barrera, DO [Primary Care Provider] - Discharge Health Status Multidrug resistant organism: No MDRO Diet/Activity/Treatments Diet: Diet as Tolerated Visit Report/Discharge Packet Instructions: DI for Prescription Opioid Use Stand Alone Forms: Patient Portal/API Discharge Data Primary Care Provider: Shan Barrera Attending Provider: Bunny Leal Admit Date/Time: 04/21/23 03:17 Quality VTE Deep Vein Thrombosis/Pulmonary Embolism Present on Admission: No
== END 2023-04-21 16:00 | disposition home or self-care (01) ==
LOC: ED 04-21 02:52 → AC 04-21 03:37
PROVIDERS: Emergency Medicine; Admitting Provider Internal Medicine; Emergency Provider Emergency Medicine; PCP Family Medicine; Referring Provider Emergency Medicine; Visit Provider Internal Medicine
DX: R55 Syncope and collapse (principal); R07.89 Other chest pain; I10 Essential (primary) hypertension; I25.10 Atherosclerotic heart disease of native coronary artery without angina pectoris; Z95.818 Presence of other cardiac implants and grafts; Z86.718 Personal history of other venous thrombosis and embolism; Z87.891 Personal history of nicotine dependence; F41.9 Anxiety disorder, unspecified; R07.9 Chest pain, unspecified
CPT/HCPCS: 36415; 71045; 78452; 80053; 82550; 83690; 83735; 83880; 84484; 85025; 85379; 85610; 85730; 93005; 93017; 96365; 96366; 96374; 96375; 96376; 99284; 99285; G0378; A9270; A9502; J0360; J2270; J2785

== ENCOUNTER 2023-04-25 12:11 | Emergency (ER) | payer MEDICARE, OTHER, SELFPAY ==
[2023-04-21 03:23] VITALS: BMI 26.6
[2023-04-25] VITALS (39 sets, daily range): BP systolic 149–223; BP diastolic 72–137; PULSE 64–86; RESP 13–32; TEMP 36.4; O2SAT 93–100; BMI 29.5
--- NOTE | 2023-04-25 12:17 | DI.RAD.S_ITS ---
PROCEDURE: XR FOREARM LT 2V INDICATIONS: fall, + deformity TECHNIQUE: 2 views of the forearm were acquired. COMPARISON: [facility], CR, XR WRIST LT MIN 3V, 04/25/2023, 12:24. FINDINGS: Bones: Comminuted impacted as well as angulated distal radial fracture. Cannot exclude intra-articular extension. Ulna styloid fracture is present. Soft tissues: No suspicious soft tissue calcifications or masses. IMPRESSION: Comminuted and impacted distal radial fracture with angulation. Ulna styloid fracture. Dictated by: Bruna Rene M.D. on 04/25/2023 at 12:48 Approved by: Bruna Rene M.D. on 04/25/2023 at 12:49
--- NOTE | 2023-04-25 12:17 | DI.RAD.S_ITS ---
PROCEDURE: XR WRIST LT MIN 3V INDICATIONS: fall, + deformity TECHNIQUE: 4 views of the wrist were acquired. COMPARISON: [facility], CR, XR WRIST RT MIN 3V, 08/23/2022, 13:08. [facility], CR, XR FOREARM LT 2V, 04/25/2023, 12:24. FINDINGS: Bones: There is a comminuted and impacted distal radial fracture. There is dorsal angulation of the distal fragment. Questionable fracture lucencies extend to the joint space. Ulna styloid fracture is present. Soft tissues: No suspicious soft tissue calcifications. IMPRESSION: Comminuted and angulated distal radial fracture. Dictated by: Bruna Rene M.D. on 04/25/2023 at 12:47 Approved by: Bruna Rene M.D. on 04/25/2023 at 12:48
--- NOTE | 2023-04-25 12:22 | ED_ITS ---
HPI - General Adult General Chief complaint: Extremity Injury, Upper Stated complaint: GLF L arm deformity Time Seen by Provider: 04/25/23 12:12 Source: patient and EMS Mode of arrival: EMS History of Present Illness HPI narrative: 72-year-old female who states that she slipped and fell while at home today. Landed on her left wrist. Had pain in her left wrist. No other injuries from the event. Arrived by EMS. Received 100 mcg of fentanyl prior to arrival. Is in a volar splint and a sling. Related Data Home Medications Medication Instructions Recorded Confirmed fluticasone propionate 50 1 spray intranasal DAILY 08/08/22 04/21/23 mcg/actuation nasal spray,suspension estradiol 0.025 mg/24 hr weekly 1 patch transdermal WEEKLY 04/21/23 04/21/23 transdermal patch Previous Rx's Medication Instructions Recorded acetaminophen 325 mg tablet 650 mg (2 x 325 mg) PO Q6H PRN 08/24/22 Fever/Mild Pain (1-10 #30 tabs aspirin 81 mg tablet,delayed 81 mg PO DAILY #30 tabs 04/21/23 release hydroxyzine pamoate 25 mg capsule 25 mg PO Q4HR PRN Pain, Mild (1-3) 04/21/23 #30 caps lorazepam 1 mg tablet (Ativan) 1 mg PO TID PRN anxiety #20 tabs 04/21/23 oxycodone-acetaminophen 5 mg-325 1 tab PO TID PRN pain #20 tabs 04/21/23 mg tablet (Percocet) pantoprazole 20 mg tablet,delayed 20 mg PO DAILY #30 tabs 04/21/23 release (Protonix) sucralfate 1 gram tablet 1 gm PO ACHS #30 tabs 04/21/23 valsartan 80 mg tablet (Diovan) 20 mg (1/4 x 80 mg) PO BID #30 tabs 04/21/23 oxycodone-acetaminophen 5 mg-325 1 tab PO Q4-6H PRN pain #20 tabs 04/25/23 mg tablet (Percocet) Allergies Allergy/AdvReac Type Severity Reaction Status Date / Time hydrocodone Allergy Intermediate Hives Verified 04/25/23 12:21 hydrochlorothiazide Allergy Mild Hives Verified 04/25/23 12:21 metoprolol Allergy Mild Hives Verified 04/25/23 12:21 Sulfa (Sulfonamide Allergy Mild Hives Verified 04/25/23 12:21 Antibiotics) doxycycline Allergy Hives Verified 04/25/23 12:21 amoxicillin AdvReac Mild Verified 04/25/23 12:21 cephalexin AdvReac Mild Verified 04/25/23 12:21 Review of Systems Constitutional Constitutional: Reports system reviewed and no additional complaints, except as documented Musculoskeletal Musculoskeletal: Reports system reviewed and no additional complaints, except as documented Integumentary/Breasts Skin/Breast: Reports system reviewed and no additional complaints, except as documented Neurologic Neurologic: Reports system reviewed and no additional complaints, except as documented Hematologic/Lymphatic On Anticoagulants: No Patient History Medical History Johnathan's disease Shoulder injury History of alcohol use History of tobacco abuse Hyperlipidemia Essential hypertension Surgical History History of ankle surgery Family History Father Hypertension Mother Hypertension CVA (cerebral vascular accident) Son Diabetes mellitus Social History marital status: unmarried,living together details: Life partner household members: significant other housing: house Smoking Status: Former smoker alcohol intake: former substance use type: does not use well-balanced diet: daily or most days Smoking Status: Former smoker alcohol intake frequency: 0-2 drinks per day Substance Use Type: marijuana Exam Initial Vital Signs Initial Vital Signs: Vital Signs Temperature 97.6 F 04/25/23 12:10 Pulse Rate 86 04/25/23 12:10 Respiratory Rate 14 04/25/23 12:10 Blood Pressure 169/76 H 04/25/23 12:10 Pulse Oximetry 99 04/25/23 12:10 Oxygen Delivery Method Room Air 04/25/23 12:10 Const General: cooperative and comfortable Cardio Pulses: radial pulses present on the left Neuro Sensory Exam: no sensory deficits noted Extrem Other: Obvious deformity of the left wrist with tenderness to palpation. Unable to flex or extend or pronate and supinate. Also has tenderness to palpation left forearm. Left elbows unremarkable. Procedures Orthopedic Fracture Reduction Fracture #1: Time Out Performed: Yes Side: left Fracture Reduction Location: other (Wrist) Analgesia: procedural sedation Technique: direct manipulation Post Reduction X-rays Demonstrate: acceptable reduction Post-reduction neuro exam: intact Splint Applied: Yes Patient Tolerated Procedure: No complications Orthopedic Splinting/Casting Injury #1: Side: left Upper Extremity Injury Location: wrist Upper Extremity Immobilizer: sugar tong splint Post splinting neuro exam: no change Post splinting vascular exam: no change Placed by: Provider Procedural Sedation Consent signed: Yes Time out performed: Yes Indication: fracture/dislocation reduction ASA Class: II Mallampati Airway Classification: Class II Preparation: hospital monitor applied, pulse oximeter, capnometry used, supplemental O2 applied, suction/airway equipment at bedside and IV secured IV Propofol dose (mg): 60 Intraservice time/total sedation time (min): 15 ED Sedation Level: Moderate (Concious) Patient Tolerated Procedure: No complications Complications: none Course Orders Ordered: ED Orders 04/25/23 12:17 XR forearm LT 2V Stat XR wrist LT min 3V Stat 04/25/23 13:31 XR wrist LT 2V Stat Discontinued Medications Oxycodone/Acetaminophen (Oxycodone/Acetaminophen 5/325 Tablet) 1 tab PO NOW ONE Stop: 04/25/23 14:36 Propofol (Propofol 200 Mg/20 Ml Vial) 100 mg IV NOW ONE Stop: 04/25/23 13:10 Last Admin: 04/25/23 13:40 Dose: 60 mg Documented By: ABRAHAM Vital Signs Vital signs: Vital Signs - 8 hr 04/25/23 12:10 04/25/23 12:17 04/25/23 12:20 Temperature 97.6 F Pulse Rate 86 79 80 Pulse Rate [Left Radial] Respiratory Rate 14 Blood Pressure 169/76 H Pulse Oximetry 99 95 94 Oxygen Delivery Method Room Air 04/25/23 12:21 04/25/23 12:22 04/25/23 12:30 Temperature Pulse Rate 79 Pulse Rate [Left Radial] 80 Respiratory Rate Blood Pressure 149/72 H Pulse Oximetry 93 Oxygen Delivery Method 04/25/23 12:37 04/25/23 12:40 04/25/23 12:45 Temperature Pulse Rate 78 77 77 Pulse Rate [Left Radial] Respiratory Rate Blood Pressure Pulse Oximetry 95 95 95 Oxygen Delivery Method 04/25/23 12:50 04/25/23 13:00 04/25/23 13:00 Temperature Pulse Rate 78 78 Pulse Rate [Left Radial] Respiratory Rate 18 Blood Pressure 185/100 H Pulse Oximetry 93 96 Oxygen Delivery Method 04/25/23 13:05 04/25/23 13:05 04/25/23 13:10 Temperature Pulse Rate 74 Pulse Rate [Left Radial] Respiratory Rate 19 Blood Pressure 185/102 H 183/104 H Pulse Oximetry 99 Oxygen Delivery Method 04/25/23 13:10 04/25/23 13:15 04/25/23 13:15 Temperature Pulse Rate 75 71 Pulse Rate [Left Radial] Respiratory Rate 19 23 Blood Pressure 188/107 H Pulse Oximetry 99 99 Oxygen Delivery Method 04/25/23 13:20 04/25/23 13:20 04/25/23 13:22 Temperature Pulse Rate 73 70 Pulse Rate [Left Radial] Respiratory Rate 20 13 Blood Pressure 223/102 H Pulse Oximetry 98 98 Oxygen Delivery Method 04/25/23 13:24 04/25/23 13:24 04/25/23 13:25 Temperature Pulse Rate 71 72 Pulse Rate [Left Radial] Respiratory Rate 15 16 Blood Pressure 216/110 H Pulse Oximetry 100 100 Oxygen Delivery Method Room Air 04/25/23 13:26 04/25/23 13:26 04/25/23 13:30 Temperature Pulse Rate 71 Pulse Rate [Left Radial] Respiratory Rate 17 Blood Pressure 205/115 H 186/99 H Pulse Oximetry 100 Oxygen Delivery Method 04/25/23 13:30 04/25/23 13:35 04/25/23 13:35 Temperature Pulse Rate 72 71 Pulse Rate [Left Radial] Respiratory Rate 17 16 Blood Pressure 198/109 H Pulse Oximetry 100 100 Oxygen Delivery Method 04/25/23 13:40 04/25/23 13:40 04/25/23 13:45 Temperature Pulse Rate 64 65 Pulse Rate [Left Radial] Respiratory Rate 19 20 Blood Pressure 194/112 H Pulse Oximetry 99 100 Oxygen Delivery Method 04/25/23 13:45 04/25/23 13:50 04/25/23 13:50 Temperature Pulse Rate 66 Pulse Rate [Left Radial] Respiratory Rate Blood Pressure 182/98 H 183/109 H Pulse Oximetry 100 Oxygen Delivery Method Room Air 04/25/23 13:55 04/25/23 13:55 04/25/23 14:00 Temperature Pulse Rate 68 Pulse Rate [Left Radial] Respiratory Rate 17 Blood Pressure 206/104 H 181/84 H Pulse Oximetry 100 Oxygen Delivery Method 04/25/23 14:00 Temperature Pulse Rate 71 Pulse Rate [Left Radial] Respiratory Rate 15 Blood Pressure Pulse Oximetry 100 Oxygen Delivery Method Medical Decision Making Lab Data Labs: Point of Care Testing Test Results Not applicable Point of care testing: Point of Care Testing Test Results Not applicable Imaging Data Extremity x-ray #1: Radiologist's Impression: PROCEDURE: XR FOREARM LT 2V INDICATIONS: fall, + deformity TECHNIQUE: 2 views of the forearm were acquired. COMPARISON: [facility], XR WRIST LT MIN 3V, 04/25/2023, 12:24. FINDINGS: Bones: Comminuted impacted as well as angulated distal radial fracture. Cannot exclude intra-articular extension. Ulna styloid fracture is present. Soft tissues: No suspicious soft tissue calcifications or masses. IMPRESSION: Comminuted and impacted distal radial fracture with angulation. Ulna styloid fracture. Extremity x-ray #2: Radiologist's Impression: PROCEDURE: XR WRIST LT MIN 3V INDICATIONS: fall, + deformity TECHNIQUE: 4 views of the wrist were acquired. COMPARISON: [facility], XR WRIST RT MIN 3V, 08/23/2022, 13:08. [facility], XR FOREARM LT 2V, 04/25/2023, 12:24. FINDINGS: Bones: There is a comminuted and impacted distal radial fracture. There is dorsal angulation of the distal fragment. Questionable fracture lucencies extend to the joint space. Ulna styloid fracture is present. Soft tissues: No suspicious soft tissue calcifications. IMPRESSION: Comminuted and angulated distal radial fracture Postreduction x-ray: Radiologist's Impression: PROCEDURE: XR WRIST LT 2V INDICATIONS: post reduction TECHNIQUE: 2 views of the wrist were acquired. COMPARISON: [facility], XR WRIST LT MIN 3V, 04/25/2023, 12:24. FINDINGS: Bones: Interval reduction previous angulated and comminuted distal radial fracture. There is near anatomic alignment. Ulna styloid fracture is present. Soft tissues: No suspicious soft tissue calcifications. IMPRESSION: Interval reduction of distal radial fracture. Ulna styloid fracture. MDM Narrative Medical decision making narrative: Patient does have a left wrist fracture. She was sedated in the fracture was reduced as described above. Neurovascularly intact. No other injuries from the event. Was placed in a splint. Was given follow-up instructions and return precautions. She expressed understanding and agreement. Discharge Plan Departure Patient Disposition: Home Clinical Impression: Left wrist fracture Instructions: DI for Wrist Fracture, How to Take Care of Your Splint Activity Restrictions/Additional Instructions: The splint that was placed today needs to be treated like a cast. You need to keep it on and keep it clean keep it dry. Use the pain medication has directed. Return to the emergency department for new symptoms. Contact the Orthopedic Department at the number provided below on Thursday morning for follow-up next week. Prescriptions: New oxycodone-acetaminophen [Percocet] 5-325 mg tablet 1 tab PO Q4-6H PRN (Reason: pain) Qty: 20 0RF No Action fluticasone propionate 50 mcg/actuation spray,suspension 1 spray intranasal DAILY Rx Instructions: administer into each nostril acetaminophen 325 mg Tablet 650 mg PO Q6H PRN (Reason: Fever/Mild Pain (1-10) Qty: 30 0RF estradiol 0.025 mg/24 hr patch weekly 1 patch transdermal WEEKLY sucralfate 1 gram Tablet 1 gm PO ACHS Qty: 30 0RF valsartan [Diovan] 80 mg Tablet 20 mg PO BID Qty: 30 3RF aspirin 81 mg Tablet,Delayed Release (Dr/Ec) 81 mg PO DAILY Qty: 30 3RF hydroxyzine pamoate 25 mg Capsule 25 mg PO Q4HR PRN (Reason: Pain, Mild (1-3)) Qty: 30 1RF Patient Comments: patient states she takes for a skin rash and when it is bad she takes 100mg lorazepam [Ativan] 1 mg tablet 1 mg PO TID PRN (Reason: anxiety) Qty: 20 0RF oxycodone-acetaminophen [Percocet] 5-325 mg tablet 1 tab PO TID PRN (Reason: pain) Qty: 20 0RF pantoprazole [Protonix] 20 mg tablet,delayed release (DR/EC) 20 mg PO DAILY Qty: 30 2RF Referrals: Shan Barrera DO [Primary Care Provider] - Mela Mcfarlane MD [Physician] - Stand Alone Forms: Patient Portal/API
--- NOTE | 2023-04-25 13:31 | DI.RAD.S_ITS ---
PROCEDURE: XR WRIST LT 2V INDICATIONS: post reduction TECHNIQUE: 2 views of the wrist were acquired. COMPARISON: [facility], CR, XR WRIST LT MIN 3V, 04/25/2023, 12:24. FINDINGS: Bones: Interval reduction previous angulated and comminuted distal radial fracture. There is near anatomic alignment. Ulna styloid fracture is present. Soft tissues: No suspicious soft tissue calcifications. IMPRESSION: Interval reduction of distal radial fracture. Ulna styloid fracture. Dictated by: Bruna Rene M.D. on 04/25/2023 at 14:24 Approved by: Bruna Rene M.D. on 04/25/2023 at 14:25
[2023-04-25] MEDS: propofoL 200 MG/20 ML VIAL 100 MG IV (13:40)
[2023-04-25] MEDS: OXYCODONE/ACETAMINOPHEN 5/325 TABLET 1 TAB PO (14:50)
== END 2023-04-25 15:18 | disposition home or self-care (01) ==
PROVIDERS: Emergency Provider Emergency Medicine; PCP Family Medicine
DX: S52.502A Unspecified fracture of the lower end of left radius, initial encounter for closed fracture (principal); W01.0XXA Fall on same level from slipping, tripping and stumbling without subsequent striking against object, initial encounter
CPT/HCPCS: 25605; 29105; 73090; 73100; 73110; 99152; 99284; 99285; J2704

== ENCOUNTER → 2023-05-21 12:50 | Outpatient (CLI) | payer MEDICARE, OTHER, SELFPAY ==
[2023-04-21 03:23] VITALS: BMI 26.6
[2023-05-21 13:30] LABS: Add Manual Diff / Slide Review NO; Basophils Absolute Auto 100 /uL (0-100); Basophils Percent Auto 0.9 % (0-2); Eosinophils Absolute Auto 400 /uL (0-450); Eosinophils Percent Auto 4.9 % (2-4); Hematocrit 39.7 % (36-46); Hemoglobin 13.3 g/dL (12.0-16.0); Lymphocytes Absolute Auto 2300 /uL (1100-4500); Lymphocytes Percent Auto 31.9 % (25-40); Mean Corpuscular HGB Conc 33.6 % (30-36); Mean Corpuscular Hemoglobin 31.4 PG (26-34); Mean Corpuscular Volume 93.4 fL (80-100); Monocytes Absolute Auto 700 /uL (0-900); Monocytes Percent Auto 8.9 % (3-14); Neutrophils Absolute Auto 3900 /uL (1500-7000); Neutrophils Percent Auto 53.4 % (50-75); Platelet Count 339 X10^3/uL (150-400); Red Blood Cell Count 4.25 X10^6/uL (4.0-5.2); Red Cell Distribution Width 13.3 % (11.6-14.8); White Blood Cell Count 7.3 X10^3/uL (4.5-11.0)
[2023-05-21 13:56] LABS: BUN Creatinine Ratio 21.4 (6-22); Blood Urea Nitrogen 18 mg/dL (7-17); Calcium 10.1 mg/dL (8.4-10.2); Carbon Dioxide 22 mmol/L (22-32); Chloride 103 mmol/L (98-107); Estimated Glomerular Filt Rate > 60 mL/min (>60); Glucose 93 mg/dL (80-110); HEMOLYSIS < 15 (0-50); Potassium 4.9 mmol/L (3.4-5.1); Sodium 134 mmol/L (137-145)
[2023-05-21 15:01] LABS: Appearance Urine UA CLEAR; Bilirubin Urine UA NEGATIVE (NEGATIVE); Color Urine UA YELLOW; Glucose Urine UA NEGATIVE (Negative); Ketones Urine UA NEGATIVE (NEGATIVE); Leukocyte Esterase Urine UA NEGATIVE (NEGATIVE); Nitrite Urine UA NEGATIVE (Negative); Occult Blood Urine UA NEGATIVE (Negative); Protein Urine UA NEGATIVE (Negative); Urobilinogen Urine UA 0.2 E.U./dL (0.2)
[2023-05-21 15:53] LABS: Bacteria Urine None Seen; RBC Urine None Seen (0-5/HPF); Urine Volume 10mL (spun); WBC Urine None Seen (0-5/HPF)
[2023-05-21 15:54] LABS: Culture Indicated Urine Cult Not Indicated; Squamous Epithelial Cell Urine >30 /HPF (0-5/HPF)
== END ==
PROVIDERS: PCP Family Medicine; Referring Provider Orthopaedic Surgery; Visit Provider Orthopaedic Surgery
DX: Z01.812 Encounter for preprocedural laboratory examination (principal); N39.0 Urinary tract infection, site not specified
CPT/HCPCS: 36415; 80048; 81001; 85025

== ENCOUNTER → 2023-05-29 11:36 | Outpatient (CLI) | payer MEDICARE, OTHER, SELFPAY ==
[2023-04-21 03:23] VITALS: BMI 26.6
--- NOTE | 2023-05-29 11:40 | DI.CT.S_ITS ---
PROCEDURE: CT SHOULDER LEFT WITHOUT CON INDICATIONS: Primary osteoarthritis, left shoulder TECHNIQUE: Noncontrast 0.75 mm thick sections acquired from the acromioclavicular joint to the inferior scapula, with coronal and sagittal reformatting. COMPARISON: None. FINDINGS: Image quality: Excellent. Bones: There is [id number]-kddnkswh acromioclavicular joint osteoarthritis with joint space narrowing, subchondral sclerosis and downward osteophyte formation depressing the musculotendinous junction of supraspinatus. Severe glenohumeral joint osteoarthritic changes are seen with complete loss of joint space, extensive subchondral sclerosis and cystic changes and prominent inferior marginal osteophyte formation. No acute shoulder fracture or dislocation. No suspicious bony lesions. No gross abnormality is seen in visualized left upper to mid ribs and left thoracic spine. Soft tissues: There is no gross full-thickness rotator cuff tendon rupture. No significant rotator cuff muscle atrophy is seen on sagittal images. No abnormal soft tissue calcifications are seen. Moderate to large joint effusion and subacromial subdeltoid bursal fluid is seen. Large amount of subcoracoid bursal fluid is also noted. No calcified intra-articular loose bodies. The visualized left lung field is clear. IMPRESSION: 1. Mzos-zc-bywifped acromioclavicular joint osteoarthritis and severe glenohumeral joint osteoarthritis. No shoulder fracture or dislocation. No suspicious bony lesions. 2. No full-thickness rotator cuff tendon rupture. No significant rotator cuff muscle atrophy. No abnormal soft tissue calcifications. 3. Moderate to large joint effusion, subacromial subdeltoid bursal fluid and subcoracoid bursal fluid. No gross calcified intra-articular loose bodies. Dictated by: Trevor Díaz M.D. on 05/29/2023 at 13:54 Approved by: Trevor Díaz M.D. on 05/29/2023 at 14:09
== END ==
PROVIDERS: PCP Family Medicine; Referring Provider Orthopaedic Surgery; Visit Provider Orthopaedic Surgery
DX: M19.012 Primary osteoarthritis, left shoulder (principal)
CPT/HCPCS: 73200

== ENCOUNTER 2023-06-03 08:51 | Emergency (ER) | payer MEDICARE, OTHER, SELFPAY ==
[2023-04-21 03:23] VITALS: BMI 26.6
[2023-06-03] VITALS (7 sets, daily range): BP systolic 193–237; BP diastolic 95–110; PULSE 65–82; RESP 15; TEMP 36.7; O2SAT 99–100; BMI 27.4
--- NOTE | 2023-06-03 09:13 | DI.RAD.S_ITS ---
PROCEDURE: XR FOOT RT MIN 3V INDICATIONS: foot injury TECHNIQUE: 3 views of the foot were acquired. COMPARISON: None. FINDINGS: Bones: No fractures or dislocations. No suspicious bony lesions. Soft tissues: No tibiotalar joint effusion. Achilles tendon appears normal. IMPRESSION: No acute fracture. No osseous lesion. If symptoms and/or clinical suspicion for pathology persist, further assessment with repeat, or advanced imaging (e.g., CT, MRI, or bone scan) may be helpful for further assessment. Dictated by: Tracey Croft M.D. on 06/03/2023 at 9:43 Approved by: Tracey Croft M.D. on 06/03/2023 at 9:44
--- NOTE | 2023-06-03 09:13 | DI.RAD.S_ITS ---
PROCEDURE: XR ANKLE RT MIN 3V INDICATIONS: foot injury TECHNIQUE: 3 views of the ankle were acquired. COMPARISON: None. FINDINGS: Bones: No fractures or dislocations. Ankle mortise is normally aligned. No suspicious bony lesions. Soft tissues: No tibiotalar joint effusion. Achilles tendon appears normal. IMPRESSION: No acute fracture. No osseous lesion. If symptoms and/or clinical suspicion for pathology persist, further assessment with repeat, or advanced imaging (e.g., CT, MRI, or bone scan) may be helpful for further assessment. Dictated by: Tracey Croft M.D. on 06/03/2023 at 9:42 Approved by: Tracey Croft M.D. on 06/03/2023 at 9:43
--- NOTE | 2023-06-03 10:33 | ED.LOWEXIN ---
HPI - Extremity Injury (Lower) General Chief Complaint: Extremity Injury, Lower Stated Complaint: rt foot injury, poss fracture per pt Time Seen by Provider: 06/03/23 10:24 Source: patient Mode of arrival: Wheelchair History of Present Illness HPI Narrative: Patient here with partner. Comes in from home for injury to the right foot. A very heavy owl statue fell on it this morning. Patient is scheduled for orthopedic surgery in the next week. Just had left wrist surgery. Patient sees local orthopedic services. Patient denies any other injuries. Blood pressure noted. This is not new according to patient. This will eventually go down she states. She states she is just in pain right now. It will resolve when she gets home she states. She has not allergic to oxycodone. She has had this in the past. She is scheduled for surgery next week. She has not started her prescription pain medication yet. Patient needs Tdap updated. Has abrasion to the proximal lateral dorsal foot/right foot. No numbness tingling or weakness. Related Data Home Medications Medication Instructions Recorded Confirmed fluticasone propionate 50 1 spray intranasal DAILY 08/08/22 04/21/23 mcg/actuation nasal spray,suspension estradiol 0.025 mg/24 hr weekly 1 patch transdermal WEEKLY 04/21/23 04/21/23 transdermal patch Previous Rx's Medication Instructions Recorded acetaminophen 325 mg tablet 650 mg (2 x 325 mg) PO Q6H PRN 08/24/22 Fever/Mild Pain (1-10 #30 tabs aspirin 81 mg tablet,delayed 81 mg PO DAILY #30 tabs 04/21/23 release hydroxyzine pamoate 25 mg capsule 25 mg PO Q4HR PRN Pain, Mild (1-3) 04/21/23 #30 caps lorazepam 1 mg tablet (Ativan) 1 mg PO TID PRN anxiety #20 tabs 04/21/23 oxycodone-acetaminophen 5 mg-325 1 tab PO TID PRN pain #20 tabs 04/21/23 mg tablet (Percocet) pantoprazole 20 mg tablet,delayed 20 mg PO DAILY #30 tabs 04/21/23 release (Protonix) sucralfate 1 gram tablet 1 gm PO ACHS #30 tabs 04/21/23 valsartan 80 mg tablet (Diovan) 20 mg (1/4 x 80 mg) PO BID #30 tabs 04/21/23 oxycodone-acetaminophen 5 mg-325 1 tab PO Q4-6H PRN pain #20 tabs 04/25/23 mg tablet (Percocet) oxycodone-acetaminophen 5 mg-325 1 tab PO Q4-6H PRN pain #20 tabs 06/03/23 mg tablet (Percocet) Allergies Allergy/AdvReac Type Severity Reaction Status Date / Time hydrocodone Allergy Intermediate Hives Verified 06/03/23 09:14 hydrochlorothiazide Allergy Mild Hives Verified 06/03/23 09:14 metoprolol Allergy Mild Hives Verified 06/03/23 09:14 Sulfa (Sulfonamide Allergy Mild Hives Verified 06/03/23 09:14 Antibiotics) doxycycline Allergy Hives Verified 06/03/23 09:14 amoxicillin AdvReac Mild Verified 06/03/23 09:14 cephalexin AdvReac Mild Verified 06/03/23 09:14 Review of Systems Review of Systems Narrative: GENERAL: negative chills, fatigue, malaise, fever, sweats. HEENT: negative sinus pain, ear pain, sore throat RESPIRATORY: negative dyspnea, cough CARDIOVASCULAR: negative chest pain, palpitations GASTROINTESTINAL: negative nausea, vomiting, abdominal pain : negative dysuria, frequency, hematuria MUSCULOSKELETAL: Positive muscle or bony pain SKIN: negative rash, skin lesions positive skin injury NEUROLOGIC: negative weakness, numbness ROS Unobtainable: All systems reviewed & are unremarkable except as noted in HPI and below Patient History Medical History Johnathan's disease Shoulder injury History of alcohol use History of tobacco abuse Hyperlipidemia Essential hypertension Surgical History History of ankle surgery Family History Father Hypertension Mother Hypertension CVA (cerebral vascular accident) Son Diabetes mellitus Social History marital status: unmarried,living together details: Life partner household members: significant other housing: house Smoking Status: Former smoker alcohol intake: former substance use type: does not use well-balanced diet: daily or most days Smoking Status: Former smoker alcohol intake frequency: 0-2 drinks per day Substance Use Type: marijuana Exam Narrative Exam Narrative: GENERAL: in no distress, not toxic not dyspneic HEAD: Normocephalic. EYES: Pupils equal round EXTREMITIES: Examination right lower extremity. Ankle and foot exposed. There is moderate edema to the proximal lateral right foot. Abrasion to the lateral aspect of the foot as well. Ankle nontender. Wiggles toes. Brisk cap refills light touch intact to foot and toes. Tenderness overlying the edema. NEURO: AOx4. SKIN: Warm and dry PSYCH: Not anxious, is cooperative Initial Vital Signs Initial Vital Signs: Vital Signs Temperature 98.0 F 06/03/23 09:05 Pulse Rate 70 06/03/23 09:05 Respiratory Rate 15 06/03/23 09:05 Blood Pressure 204/107 H 06/03/23 09:05 Pulse Oximetry 100 06/03/23 09:05 Oxygen Delivery Method Room Air 06/03/23 09:05 Procedures Orthopedic Splinting/Casting Injury #1: Time of procedure: 10:43 Side: right Lower Extremity Injury Location: foot (Right foot contusion) Lower Extremity Immobilizer: boot orthosis Other Orthopedic Equipment: walker Post splinting neuro exam: no change Post splinting vascular exam: no change Placed by: Nursing Course Orders Ordered: ED Orders 06/03/23 09:13 XR ankle RT min 3V Stat XR foot RT min 3V Stat Discontinued Medications Bacitracin (Bacitracin Oint 0.9 Gm Pckt) 1 applic TOP NOW ONE Stop: 06/03/23 10:37 Diphtheria/Tetanus/Acell Pertussis (Tet,Diph,Pertuss(Acell),Vac/Pf 0.5 Ml Syringe) 0.5 ml IM .ONCE ONE Stop: 06/03/23 10:36 Oxycodone/Acetaminophen (Oxycodone/Acetaminophen 5/325 Tablet) 2 tab PO NOW ONE Stop: 06/03/23 10:33 Vital Signs Vital signs: Vital Signs - 8 hr 06/03/23 09:05 06/03/23 09:19 06/03/23 09:30 Temperature 98.0 F Pulse Rate 70 67 Respiratory Rate 15 Blood Pressure 204/107 H 193/95 H Pulse Oximetry 100 100 Oxygen Delivery Method Room Air 06/03/23 09:30 06/03/23 09:45 06/03/23 09:45 Temperature Pulse Rate 71 71 Respiratory Rate Blood Pressure 195/101 H Pulse Oximetry 100 99 Oxygen Delivery Method 06/03/23 10:00 06/03/23 10:00 06/03/23 10:14 Temperature Pulse Rate 65 82 Respiratory Rate Blood Pressure 203/98 H Pulse Oximetry 100 99 Oxygen Delivery Method 06/03/23 10:16 Temperature Pulse Rate Respiratory Rate Blood Pressure 237/110 H Pulse Oximetry Oxygen Delivery Method MDM - Extremity Injury (Lower) Imaging Data Extremity x-ray #1: Radiologist's Impression: [address] [address] XRay Report Signed Patient: Isaura Coronado MR#: [id number] : 1950 Acct:[id number] Age/Sex: 72 / F Date of Service: 06/03/23 Loc: ED Accession Number: [id number] Procedure: XR foot RT min 3V Ordering Provider: Tripp Torres MD PROCEDURE: XR FOOT RT MIN 3V INDICATIONS: foot injury TECHNIQUE: 3 views of the foot were acquired. COMPARISON: None. FINDINGS: Bones: No fractures or dislocations. No suspicious bony lesions. Soft tissues: No tibiotalar joint effusion. Achilles tendon appears normal. IMPRESSION: No acute fracture. No osseous lesion. If symptoms and/or clinical suspicion for pathology persist, further assessment with repeat, or advanced imaging (e.g., CT, MRI, or bone scan) may be helpful for further assessment. Dictated by: Tracey Croft M.D. on 06/03/2023 at 9:43 Approved by: Tracey Croft M.D. on 06/03/2023 at 9:44 Extremity x-ray #2: Radiologist's Impression: [address] [address] XRay Report Signed Patient: Isaura Coronado MR#: [id number] : 1950 Acct:[id number] Age/Sex: 72 / F Date of Service: 06/03/23 Loc: ED Accession Number: [id number] Procedure: XR ankle RT min 3V Ordering Provider: Tripp Torres MD PROCEDURE: XR ANKLE RT MIN 3V INDICATIONS: foot injury TECHNIQUE: 3 views of the ankle were acquired. COMPARISON: None. FINDINGS: Bones: No fractures or dislocations. Ankle mortise is normally aligned. No suspicious bony lesions. Soft tissues: No tibiotalar joint effusion. Achilles tendon appears normal. IMPRESSION: No acute fracture. No osseous lesion. If symptoms and/or clinical suspicion for pathology persist, further assessment with repeat, or advanced imaging (e.g., CT, MRI, or bone scan) may be helpful for further assessment. Dictated by: Tracey Croft M.D. on 06/03/2023 at 9:42 Approved by: Tracey Croft M.D. on 06/03/2023 at 9:43 [facility] Narrative Medical decision making narrative: Patient here with partner. Comes in from home for injury to the right foot. A very heavy owl statue fell on it this morning. Patient is scheduled for orthopedic surgery in the next week. Just had left wrist surgery. Patient sees local orthopedic services. Patient denies any other injuries. Blood pressure noted. This is not new according to patient. This will eventually go down she states. She states she is just in pain right now. It will resolve when she gets home she states. She has not allergic to oxycodone. She has had this in the past. She is scheduled for surgery next week. She has not started her prescription pain medication yet. Patient needs Tdap updated. Has abrasion to the proximal lateral dorsal foot/right foot. No numbness tingling or weakness. After history and exam x-ray right foot and ankle Percocet ice pack Tdap bacitracin [facility] CC: Foot injury Complicating co-morbidities: None Data collected from: Patient and partner Medical records reviewed: No recent visit for this complaint Differential considered: Includes but not limited to foot fracture contusion Exam documented above, pertinent findings include: Edema tenderness to the foot Imaging studies independently reviewed: X-ray right foot and ankle soft tissue swelling otherwise no fracture or dislocation Consultations: None indicated at this time patient has established orthopedic services Treatments: Tdap Percocet ice pack splint Re-evaluations: Reviewed with patient and partner exam and imaging results. Understands repeat imaging if not improving 7-10 days. Patient has established orthopedic provider to see. Return precautions reviewed. Nontoxic at discharge. She desires discharge home Discussion: Appropriate for discharge home. Patient has established orthopedic services. Patient tolerated splinting very well. Not toxic at discharge. Return precautions reviewed. Partner is driving. Pain is controlled. Prescription for Percocet provided. Patient has multiple allergies. Blood pressure noted and patient does not want this addressed, this is not new for her. It will go down she states. She has multiple allergies to blood pressure medications she states. Patient does understand risk of heart attack stroke kidney failure with elevated blood pressures. She does have primary care that is her. She does not want any blood pressure medications or this matter to be addressed. She does understand to clean skin injury daily with warm soap and water and apply a thin layer of topical antibiotic Diagnosis: Foot contusion Discharge Plan Departure Patient Disposition: Home Clinical Impression: Contusion of foot, right Qualifiers: Encounter type: initial encounter Qualified Code(s): S90.31XA - Contusion of right foot, initial encounter Instructions: DI for Contusion, DI for Abrasion Activity Restrictions/Additional Instructions: Please contact your orthopedic provider regarding your foot injury. May need repeat imaging/x-ray/MRI or CT if not improving 7-10 days. No driving operating machinery until cleared by Orthopedics. Short course of pain medication has been provided for you. Elevate your foot at rest to reduce swelling. May use cool pack 20 minutes at a time as needed for pain and swelling. Use walking boot when ambulating. Return if worse if any questions or concerns Prescriptions: New oxycodone-acetaminophen [Percocet] 5-325 mg tablet 1 tab PO Q4-6H PRN (Reason: pain) Qty: 20 0RF No Action fluticasone propionate 50 mcg/actuation spray,suspension 1 spray intranasal DAILY Rx Instructions: administer into each nostril acetaminophen 325 mg Tablet 650 mg PO Q6H PRN (Reason: Fever/Mild Pain (1-10) Qty: 30 0RF estradiol 0.025 mg/24 hr patch weekly 1 patch transdermal WEEKLY sucralfate 1 gram Tablet 1 gm PO ACHS Qty: 30 0RF valsartan [Diovan] 80 mg Tablet 20 mg PO BID Qty: 30 3RF aspirin 81 mg Tablet,Delayed Release (Dr/Ec) 81 mg PO DAILY Qty: 30 3RF hydroxyzine pamoate 25 mg Capsule 25 mg PO Q4HR PRN (Reason: Pain, Mild (1-3)) Qty: 30 1RF Patient Comments: patient states she takes for a skin rash and when it is bad she takes 100mg lorazepam [Ativan] 1 mg tablet 1 mg PO TID PRN (Reason: anxiety) Qty: 20 0RF oxycodone-acetaminophen [Percocet] 5-325 mg tablet 1 tab PO TID PRN (Reason: pain) Qty: 20 0RF pantoprazole [Protonix] 20 mg tablet,delayed release (DR/EC) 20 mg PO DAILY Qty: 30 2RF oxycodone-acetaminophen [Percocet] 5-325 mg tablet 1 tab PO Q4-6H PRN (Reason: pain) Qty: 20 0RF Referrals: Shan Barrera DO [Primary Care Provider] - Stand Alone Forms: Patient Portal/API
--- NOTE | 2023-06-03 10:48 | PC.NURSE ---
Pt sent home with walker.
== END 2023-06-03 10:50 | disposition home or self-care (01) ==
PROVIDERS: Emergency Provider Emergency Medicine; PCP Family Medicine
DX: S90.31XA Contusion of right foot, initial encounter (principal); W22.8XXA Striking against or struck by other objects, initial encounter
CPT/HCPCS: 73610; 73630; 99282; 99283

== ENCOUNTER → 2023-07-12 16:02 | Outpatient (CLI) | payer MEDICARE, OTHER, SELFPAY ==
[2023-04-21 03:23] VITALS: BMI 26.6
[2023-07-12 16:43] LABS: Appearance Urine UA CLEAR; Bilirubin Urine UA NEGATIVE (NEGATIVE); Color Urine UA YELLOW; Glucose Urine UA NEGATIVE (Negative); Ketones Urine UA NEGATIVE (NEGATIVE); Leukocyte Esterase Urine UA 1+ (NEGATIVE); Nitrite Urine UA POSITIVE (Negative); Occult Blood Urine UA TRACE-INTACT (Negative); Protein Urine UA TRACE (Negative); Specific Gravity Urine UA 1.025 (1.000-1.035); pH Urine UA 5.5 (4.5-8.0)
[2023-07-12 16:53] LABS: Bacteria Urine Many (>30); Culture Indicated Urine Cult Not Indicated; RBC Urine None Seen (0-5/HPF); Squamous Epithelial Cell Urine 5-10 /HPF (0-5/HPF); Urine Volume 10mL (spun); WBC Urine 30-100/HPF (0-5/HPF)
== END ==
PROVIDERS: PCP Family Medicine; Visit Provider Physician Assistant Medical
DX: R35.0 Frequency of micturition (principal)
CPT/HCPCS: 81001; 87077; 87086; 87186

== ENCOUNTER → 2023-09-03 15:23 | Outpatient (CLI) | payer MEDICARE, OTHER, SELFPAY ==
[2023-04-21 03:23] VITALS: BMI 26.6
== END ==
PROVIDERS: PCP Family Medicine; Visit Provider Nurse Practitioner Family
DX: R30.0 Dysuria (principal)
CPT/HCPCS: 87086

== ENCOUNTER → 2023-09-04 10:53 | Outpatient (CLI) | payer MEDICARE, OTHER, SELFPAY ==
[2023-04-21 03:23] VITALS: BMI 26.6
== END ==
PROVIDERS: PCP Family Medicine; Referring Provider Nurse Practitioner Family; Visit Provider Nurse Practitioner Family
DX: R30.0 Dysuria (principal)
CPT/HCPCS: 87210

== ENCOUNTER 2023-09-22 11:44 | Emergency (ER) | payer MEDICARE, OTHER, SELFPAY ==
[2023-04-21 03:23] VITALS: BMI 26.6
[2023-09-22] VITALS (35 sets, daily range): BP systolic 131–208; BP diastolic 63–117; PULSE 70–90; RESP 12–23; TEMP 36.6; O2SAT 94–100; BMI 28.3
--- NOTE | 2023-09-22 11:58 | EKG_ITS ---
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
--- NOTE | 2023-09-22 12:01 | DI.RAD.S_ITS ---
PROCEDURE: XR CHEST 1V INDICATIONS: chest pain TECHNIQUE: One view of the chest was acquired. COMPARISON: [facility], CR, XR CHEST 1V, 04/20/2023, 12:42. FINDINGS: Surgical changes and devices: Left shoulder reverse arthroplasty. Lungs and pleura: Lungs are clear. No pleural effusions or pneumothorax. Mediastinum: Mediastinal contours appear normal. Heart size is normal. Bones and chest wall: No suspicious bony lesions. Overlying soft tissues appear unremarkable. IMPRESSION: No acute cardiopulmonary abnormality is seen. Dictated by: Sarahi Falcon MD, PhD on 09/22/2023 at 12:57 Approved by: Sarahi Falocn MD, PhD on 09/22/2023 at 12:58
[2023-09-22] MEDS: ASPIRIN 81 MG CHEW TAB 324 MG PO (12:09)
[2023-09-22 12:18] LABS: Add Manual Diff / Slide Review NO; Basophils Absolute Auto 0 /uL (0-100); Basophils Percent Auto 0.5 % (0-2); Eosinophils Absolute Auto 200 /uL (0-450); Hematocrit 43.5 % (36-46); Hemoglobin 14.8 g/dL (12.0-16.0); Lymphocytes Absolute Auto 2000 /uL (1100-4500); Mean Corpuscular HGB Conc 34.1 % (30-36); Mean Corpuscular Hemoglobin 30.7 PG (26-34); Mean Corpuscular Volume 90.1 fL (80-100); Monocytes Absolute Auto 700 /uL (0-900); Monocytes Percent Auto 8.8 % (3-14); Neutrophils Absolute Auto 5100 /uL (1500-7000); Neutrophils Percent Auto 63.7 % (50-75); Platelet Count 331 X10^3/uL (150-400); Red Blood Cell Count 4.83 X10^6/uL (4.0-5.2); Red Cell Distribution Width 13.9 % (11.6-14.8)
--- NOTE | 2023-09-22 12:23 | ED.CHESTPAIN ---
HPI - Chest Pain General Chief Complaint: Chest Pain Stated Complaint: heart attack symptoms Time Seen by Provider: 09/22/23 11:58 Source: patient Mode of arrival: Ambulatory History of Present Illness HPI narrative: Patient is a 73-year-old female with known coronary artery disease and LAD stent placed in 2020 who does not take any medication except for occasionally aspirin. She presents today with chest pressure and heaviness. She says it started this morning it radiates into her back and into her jaw. Unclear if it is worse with exertion but it certainly is not going away. She reports that they did not find her LAD blockage until the cardiac catheterization lab so she does not remember symptoms. She reports she is currently on doxycycline for something on her face and skin. Denies any sort of abdominal pain nausea or vomiting. Does look like she had a nuclear stress test back in 04/21/2023 which is reported as a normal perfusion study without ischemia. Related Data Home Medications Medication Instructions Recorded Confirmed fluticasone propionate 50 1 spray intranasal DAILY 08/08/22 09/03/23 mcg/actuation nasal spray,suspension estradiol 0.025 mg/24 hr weekly 1 patch transdermal WEEKLY 04/21/23 07/12/23 transdermal patch Previous Rx's Medication Instructions Recorded acetaminophen 325 mg tablet 650 mg (2 x 325 mg) PO Q6H PRN 08/24/22 Fever/Mild Pain (1-10 #30 tabs aspirin 81 mg tablet,delayed 81 mg PO DAILY #30 tabs 04/21/23 release hydroxyzine pamoate 25 mg capsule 25 mg PO Q4HR PRN Pain, Mild (1-3) 04/21/23 #30 caps lorazepam 1 mg tablet (Ativan) 1 mg PO TID PRN anxiety #20 tabs 04/21/23 oxycodone-acetaminophen 5 mg-325 1 tab PO TID PRN pain #20 tabs 04/21/23 mg tablet (Percocet) pantoprazole 20 mg tablet,delayed 20 mg PO DAILY #30 tabs 04/21/23 release (Protonix) sucralfate 1 gram tablet 1 gm PO ACHS #30 tabs 04/21/23 valsartan 80 mg tablet (Diovan) 20 mg (1/4 x 80 mg) PO BID #30 tabs 04/21/23 oxycodone-acetaminophen 5 mg-325 1 tab PO Q4-6H PRN pain #20 tabs 04/25/23 mg tablet (Percocet) oxycodone-acetaminophen 5 mg-325 1 tab PO Q4-6H PRN pain #20 tabs 06/03/23 mg tablet (Percocet) ciprofloxacin HCl 500 mg tablet 500 mg PO BID #10 tabs 07/12/23 phenazopyridine 200 mg tablet 200 mg PO TID 6 doses #6 tabs 09/03/23 (Pyridium) Allergies Allergy/AdvReac Type Severity Reaction Status Date / Time hydrocodone Allergy Intermediate Hives Verified 09/22/23 12:00 hydrochlorothiazide Allergy Mild Hives Verified 09/22/23 12:00 metoprolol Allergy Mild Hives Verified 09/22/23 12:00 Sulfa (Sulfonamide Allergy Mild Hives Verified 09/22/23 12:00 Antibiotics) acetaminophen [From Tylenol] Allergy Hives Verified 09/22/23 12:46 doxycycline Allergy Hives Verified 09/22/23 12:00 amoxicillin AdvReac Mild Verified 09/22/23 12:00 cephalexin AdvReac Mild Verified 09/22/23 12:00 Patient History Medical History Altair's disease Shoulder injury History of alcohol use History of tobacco abuse Hyperlipidemia Essential hypertension Surgical History History of ankle surgery Family History Father Hypertension Mother Hypertension CVA (cerebral vascular accident) Son Diabetes mellitus Social History marital status: unmarried,living together details: Life partner household members: significant other housing: house Smoking Status: Former smoker alcohol intake: former substance use type: does not use well-balanced diet: daily or most days Smoking Status: Former smoker alcohol intake frequency: 0-2 drinks per day Substance Use Type: marijuana Exam Initial Vital Signs Initial Vital Signs: Vital Signs Pulse Rate 84 09/22/23 11:53 GENERAL: Alert 73-year-old female and in [no acute] distress. HEENT: Head atraumatic,EOMI, pupils reactive, face symmetric, [moist] mucous membranes CARDIOVASCULAR: Regular rate and rhythm without murmurs, rubs or gallops. RESPIRATORY: Breath sounds equal bilaterally, no wheezes rales or rhonchi. ABDOMEN: Soft, nontender. Normoactive bowel sounds all 4 quadrants. No guarding or rebound. EXTREMITIES: Normal range of motion, no clubbing or edema. Neurovascularly intact NEUROLOGICAL: Alert and oriented x4.Normal gait and speech. SKIN: Warm, dry, no laceration, no petechiae, no rashes or lesions. Course Orders Ordered: ED Orders 09/22/23 12:01 XR chest 1V Stat EKG-12 Lead Stat 09/22/23 12:03 Complete Blood Count AUTO DIFF Stat Comprehensive Metabolic Panel Stat Lipase Stat Magnesium Stat PTT Partial Thromboplastin Adrian Stat Prothrombin Time INR Stat Troponin & CK Cardiac Panel Stat 09/22/23 12:34 CT angio chest abdomen pelvis Stat 09/22/23 12:38 XR elbow LT min 3V Stat XR shoulder LT min 2V Stat 09/22/23 13:51 EKG-12 Lead Stat 09/22/23 14:01 Trop I [Troponin I] Stat Discontinued Medications Acetaminophen (Acetaminophen 325 Mg Tablet) 975 mg PO NOW ONE Stop: 09/22/23 12:35 Last Admin: 09/22/23 12:45 Dose: Not Given Documented By: Aspirin (Aspirin 81 Mg Chew Tab) 324 mg PO NOW ONE Stop: 09/22/23 12:02 Last Admin: 09/22/23 12:09 Dose: 324 mg Documented By: Heparin Sodium (Porcine) (Heparin 5,000 Unit/Ml Vial) 4,500 unit 60 unit/kg (4500 unit) IV NOW ONE Stop: 09/22/23 15:10 Heparin Sodium/Dextrose (Heparin Drip) 25,000 unit in 500 mls @ 17.418 mls/hr IV CONT TU; Protocol Nitroglycerin (Nitroglycerin 0.4 Mg Sl Tab) 0.4 mg SL [id number] PRN PRN Reason: Chest Pain Last Admin: 09/22/23 13:26 Dose: 0.4 mg Documented By: Admin: 09/22/23 12:52 Dose: 0.4 mg Documented By: Admin: 09/22/23 12:43 Dose: 0.4 mg Documented By: Vital Signs Vital signs: Vital Signs - 8 hr 09/22/23 11:53 09/22/23 11:57 09/22/23 12:00 Temperature 98 F Pulse Rate 84 84 80 Respiratory Rate 17 22 Blood Pressure Pulse Oximetry 100 100 Oxygen Delivery Method Room Air 09/22/23 12:00 09/22/23 12:30 09/22/23 12:44 Temperature Pulse Rate 73 70 Respiratory Rate 19 Blood Pressure 208/108 H Pulse Oximetry 99 99 Oxygen Delivery Method 09/22/23 12:44 09/22/23 12:45 09/22/23 12:45 Temperature Pulse Rate 70 Respiratory Rate 14 Blood Pressure 194/117 H 195/93 H Pulse Oximetry 99 Oxygen Delivery Method 09/22/23 12:50 09/22/23 12:55 09/22/23 12:55 Temperature Pulse Rate 81 86 Respiratory Rate 13 12 Blood Pressure 155/91 H 161/89 H Pulse Oximetry 97 98 Oxygen Delivery Method 09/22/23 13:22 09/22/23 13:23 09/22/23 13:24 Temperature Pulse Rate 74 72 Respiratory Rate 18 Blood Pressure 161/78 H Pulse Oximetry 100 Oxygen Delivery Method 09/22/23 13:25 09/22/23 13:25 09/22/23 13:30 Temperature Pulse Rate 80 Respiratory Rate Blood Pressure 169/79 H 153/63 H Pulse Oximetry 100 Oxygen Delivery Method 09/22/23 13:30 09/22/23 13:35 09/22/23 13:40 Temperature Pulse Rate 87 86 85 Respiratory Rate 18 21 Blood Pressure Pulse Oximetry 96 96 96 Oxygen Delivery Method 09/22/23 13:45 09/22/23 13:50 09/22/23 13:55 Temperature Pulse Rate 79 81 80 Respiratory Rate Blood Pressure Pulse Oximetry 96 96 94 Oxygen Delivery Method 09/22/23 14:00 09/22/23 14:00 09/22/23 14:05 Temperature Pulse Rate 72 77 Respiratory Rate 23 16 Blood Pressure 157/70 H Pulse Oximetry 99 96 Oxygen Delivery Method 09/22/23 14:10 09/22/23 14:15 09/22/23 14:30 Temperature Pulse Rate 79 78 83 Respiratory Rate 22 22 Blood Pressure 163/82 H Pulse Oximetry 100 99 Oxygen Delivery Method 09/22/23 14:45 09/22/23 14:50 09/22/23 14:55 Temperature Pulse Rate 84 84 89 Respiratory Rate Blood Pressure Pulse Oximetry 100 99 99 Oxygen Delivery Method 09/22/23 15:00 06/25/24 15:00 09/22/23 15:05 Temperature Pulse Rate 84 87 Respiratory Rate 20 Blood Pressure 131/63 Pulse Oximetry 98 100 Oxygen Delivery Method 09/22/23 15:10 09/22/23 15:15 09/22/23 15:20 Temperature Pulse Rate 87 90 90 Respiratory Rate Blood Pressure Pulse Oximetry 99 99 99 Oxygen Delivery Method 09/22/23 15:25 09/22/23 15:30 09/22/23 15:31 Temperature Pulse Rate 88 89 Respiratory Rate Blood Pressure 134/78 Pulse Oximetry 100 99 Oxygen Delivery Method 09/22/23 15:31 09/22/23 15:35 Temperature Pulse Rate 88 90 Respiratory Rate 19 Blood Pressure Pulse Oximetry 99 98 Oxygen Delivery Method MDM - Chest Pain Lab Data 09/22/23 12:03 09/22/23 12:03 Labs: Lab Results 09/22/23 09/22/23 Range/Units 12:03 14:01 WBC 8.0 (4.5-11.0) X10^3/uL RBC 4.83 (4.0-5.2) X10^6/uL Hgb 14.8 (12.0-16.0) g/dL Hct 43.5 (36-46) % MCV 90.1 (80-100) fL MCH 30.7 (26-34) PG MCHC 34.1 (30-36) % RDW 13.9 (11.6-14.8) % Plt Count 331 (150-400) X10^3/uL Neut % (Auto) 63.7 (50-75) % Lymph % (Auto) 25.0 (25-40) % [place] % (Auto) 8.8 (3-14) % Eos % (Auto) 2.0 (2-4) % Baso % (Auto) 0.5 (0-2) % Neut # (Auto) 5100 (9254-8745) /uL Lymph # (Auto) 2000 (9887-7162) /uL [place] # (Auto) 700 (0-900) /uL Eos # (Auto) 200 (0-450) /uL Baso # (Auto) 0 (0-100) /uL PT 10.3 (9.4-12.5) SECONDS INR 0.9 (0.9-1.3) APTT 34 (25.1-36.5) SECONDS Sodium 136 L (137-145) mmol/L Potassium 4.3 (3.4-5.1) mmol/L Chloride 106 (98-107) mmol/L Carbon Dioxide 25 (22-32) mmol/L BUN 13 (7-17) mg/dL Creatinine 0.80 (0.52-1.04) mg/dL Estimated GFR > 60 (>60) mL/min BUN/Creatinine Ratio 16.3 (6-22) Glucose 113 H (80-110) mg/dL Calcium 9.9 (8.4-10.2) mg/dL Magnesium 2.1 (1.6-2.3) mg/dL Total Bilirubin 0.6 (0.2-1.3) mg/dL AST 30 (14-36) IU/L ALT 21 (<35) IU/L Alkaline Phosphatase 97 (38-126) U/L Total Creatine Kinase 86 (30-135) U/L Troponin I < 0.012 < 0.012 (0.01-0.034) ng/mL Total Protein 7.7 (6.3-8.2) g/dL Albumin 4.5 (3.5-5.0) g/dL Globulin 3.2 (1.7-4.1) g/dL Albumin/Globulin Ratio 1.4 (1.0-2.8) Lipase 96 (23-300) U/L Imaging Data Chest x-ray: Radiologist's Impression: PROCEDURE: XR CHEST 1V INDICATIONS: chest pain TECHNIQUE: One view of the chest was acquired. COMPARISON: [facility], , XR CHEST 1V, 04/20/2023, 12:42. FINDINGS: Surgical changes and devices: Left shoulder reverse arthroplasty. Lungs and pleura: Lungs are clear. No pleural effusions or pneumothorax. Mediastinum: Mediastinal contours appear normal. Heart size is normal. Bones and chest wall: No suspicious bony lesions. Overlying soft tissues appear unremarkable. IMPRESSION: No acute cardiopulmonary abnormality is seen. Dictated by: Sarahi Falcon MD, PhD on 09/22/2023 at 12:57 Extremity x-ray #1: Radiologist's Impression: PROCEDURE: XR ELBOW LT MIN 3V INDICATIONS: fall TECHNIQUE: 3 views of the elbow were acquired. COMPARISON: None. FINDINGS: Bones: No acute displaced fracture or dislocation. There are minimal degenerative changes. Soft tissues: Olecranon enthesopathy. Possible additional small bone density seen adjacent to the olecranon and proximal ulna medially. IV in place. IMPRESSION: Possible small bones density seen adjacent to the olecranon and proximal ulna medially, correlate with point tenderness. Enthesopathy is also present. Otherwise no acute displaced fracture or dislocation. If there is high concern for occult injury, consider repeat radiography or cross-sectional imaging. Dictated by: Devan Meredith M.D. on 09/22/2023 at 13:56 Extremity x-ray #2: Radiologist's Impression: PROCEDURE: XR SHOULDER LT MIN 2V INDICATIONS: fall TECHNIQUE: 2 views of the shoulder were acquired. COMPARISON: [facility], CR, XR SHOULDER 2+ VIEWS LEFT, 09/09/2023, 9:17. [facility], CR, XR SHOULDER RT MIN 2V, 08/23/2022, 13:08. FINDINGS: Bones: A left shoulder arthroplasty is present. A bone density is seen adjacent to the greater tuberosity. Soft tissues: No suspicious calcifications elsewhere. IMPRESSION: Left reverse shoulder arthroplasty. A small bone density is seen adjacent to the greater tuberosity, correlate with tenderness. Consider cross-sectional imaging if further evaluation is desired. Dictated by: Devan Meredith M.D. on 09/22/2023 at 13:58 CT scan - chest: Radiologist's Impression: PROCEDURE: CT ANGIO CHEST ABDOMEN PELVIS INDICATIONS: chest pain TECHNIQUE: Precontrast 5 mm thick sections acquired from the lung apices to the iliac crests. After the administration of intravenous contrast, 2.5 mm thick sections again acquired from the lung apices to the iliac crests. Maximum intensity projection (MIP) oblique sagittal and coronal reformats were then acquired. For radiation dose reduction, the following was used: automated exposure control. COMPARISON: [facility], CT, CT ANGIO CHEST PE, 04/21/2023, 1:06. FINDINGS: Image quality: Diagnostic Lungs and pleura: Peripheral cystic changes, particularly in the upper lobes and costophrenic angles. There may be a component emphysema. Peripheral reticulation. No dense airspace disease or drainable pleural effusions. There are small pulmonary nodules, most notably in the subpleural region on the right image measuring up to 6 mm, seen previously. Mediastinum, heart, and esophagus: On precontrast images, there is no evidence of acute intramural hematoma. Atherosclerotic calcifications are present. There is coronary disease. No central pulmonary embolism. There is lipomatous hypertrophy of the interatrial septum. Overall heart size is within normal limits no pathologic lymph nodes by size criteria. On post contrast images, no aortic dissection is identified. There is atherosclerotic disease. Chest wall and thyroid: Unremarkable Liver: No hypervascular lesion identified. Gallbladder and biliary system: Unremarkable, nondilated Pancreas: Mild parenchymal atrophy. No ductal dilation Spleen: Nonenlarged Adrenals: No discrete nodules Kidneys: No hydronephrosis. No contour deforming solid mass. Subcentimeter lesions are too small to characterize, usually cysts. Vessels and lymph nodes: 4.1 cm infrarenal abdominal aortic aneurysm is present, with mild laminar thrombus. Small aneurysm also seen in the right common iliac artery measuring up to 2.1 cm in transverse dimension. No pathologic lymph nodes by size criteria. Bowel and peritoneum: No evidence of small bowel obstruction. No pathologic ascites. Colonic diverticula are present. Body wall: Unremarkable Pelvis: Bladder is unremarkable. Uterus is absent. Bones: There are degenerative changes. No acute or suspicious findings. Left shoulder arthroplasty. IMPRESSION: No evidence of acute dissection or intramural hematoma. Infrarenal abdominal aortic aneurysm up to 4.1 cm in AP dimension, with mild laminar thrombus. 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 Coronary artery disease. 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 There also nodules as described above, consider follow-up high-resolution chest CT if clinically indicated. Presumed lipomatous hypertrophy of the interatrial septum. Other findings above. Dictated by: Devan Meredith M.D. on 09/22/2023 at 14:02 ECG Data Attestation: I personally reviewed and interpreted this ECG as follows: Prior ECG tracings: available for review Interpretation: Normal sinus rhythm rate 73 GA interval 194 QRS 84 QTC 12 Q-wave noted in anterior leads without ST elevation depression or T-wave inversions similar to prior EKG 2. Sinus rhythm persistent Q-waves unchanged from prior MDM Narrative Medical decision making narrative: MDM CC: Chest pain Complicating co-morbidities: Cardiac stent coronary artery disease noncompliant with medication Medical records reviewed: Prior ED visits Differential considered: Unstable angina acute coronary syndrome dissection Exam documented above, pertinent findings include: Patient is slightly anxious not diaphoretic not in acute distress Lab Test results independently reviewed as above. Pertinent findings: Troponin negative x2 Independently reviewed EKG as above no ischemic changes Imaging studies independently reviewed: Children elbow x-rays do not show any fracture abnormalities, CT angio does show coronary artery disease along with pulmonary fibrotic changes and infrarenal aneurysm as well but no evidence of acute aortic dissection. Consultations: 15:15 updated on patient's symptoms and test results recommends starting heparin drip and transferring to [facility] or other appropriate facility. Treatments: Nitro, aspirin, Heparin ordered but patient refused Re-evaluations: Patient's pain completely resolved after nitroglycerin Discussion: Patient does have known coronary artery disease with stent she is noncompliant with medication concerning symptoms today with chest pressure and heaviness relieved with nitroglycerin. No evidence of NSTEMI with symptoms are consistent with unstable angina. Call your cardiology recommended heparin and transfer for further evaluation. 1540 : Patient updated on cardiology recommendations along with heparin drip. Symptoms have completely resolved and she at this time is refusing medication and transfer. She thinks that she had an argument with her partner and felt like she was extremely stressed at that time. She understands that she should be taking medication which she is not she does not want to take medication he has a it causes significant rash and irritation. She understands that she could have a cardiac event which could lead to . She also understands that she will leave against medical advice. Aslo recommended that she may and should return to any ED at any time if she changes her mind. The patient is clinically sober, free from distracting injury, appears to have intact insight, judgment and reason. Does not meet criteria for involuntary hospitalization. Patient has the capacity to make decisions. The patient is also not under any duress to leave the hospital. In this scenario, it would be battery to subject the patient to treatment against his/her will. I have voiced my concerns for the patient's health given that a full evaluation and treatment had not occurred. I have discussed the need for continued evaluation to determine if there symptoms are caused by a condition that present risk of or morbidity. Risk including but not limited to , permanent disability, prolonged hospitalization, prolonged illness, were discussed. I tried offering alternative options in hopes that the patient might be amenable to partial evaluation and treatment which would be medically beneficial to the patient, though the patient declined my options and insisted on leaving. Because I have been unable to convince the patient to stay I answered all of their questions about the condition and ask them to return to the ED as soon as possible to complete their evaluation, especially if their symptoms worsen or do not improve. I emphasized that leaving against medical advice did not preclude returning here for further evaluation. I asked the patient to return if they change their mind about the further evaluation and treatment. I strongly encouraged the patient to return to this emergency department or any emergency department at any time, particularly with worsening symptoms. Discharge Plan Departure Patient Disposition: Left Against Medical Advice Clinical Impression: Unstable angina Instructions: Angina, Acute Coronary Syndrome Activity Restrictions/Additional Instructions: You have unstable angina At this time it was recommended that you be transferred to a hospital for cardiac catheterization and further heart workup. You declined this You may return to any emergency department any time if you should have increasing chest heaviness or chest pain I do strongly recommend that you take aspirin 81 mg daily along with your other medications Please follow-up with your primary care provider in the next 2-3 I also recommend that you follow-up and see a database designer as well. Prescriptions: No Action ciprofloxacin HCl 500 mg tablet 500 mg PO BID Qty: 10 0RF phenazopyridine [Pyridium] 200 mg tablet 200 mg PO TID 0 Days Qty: 6 0RF fluticasone propionate 50 mcg/actuation spray,suspension 1 spray intranasal DAILY Rx Instructions: administer into each nostril acetaminophen 325 mg Tablet 650 mg PO Q6H PRN (Reason: Fever/Mild Pain (1-10) Qty: 30 0RF estradiol 0.025 mg/24 hr patch weekly 1 patch transdermal WEEKLY sucralfate 1 gram Tablet 1 gm PO ACHS Qty: 30 0RF valsartan [Diovan] 80 mg Tablet 20 mg PO BID Qty: 30 3RF aspirin 81 mg Tablet,Delayed Release (Dr/Ec) 81 mg PO DAILY Qty: 30 3RF hydroxyzine pamoate 25 mg Capsule 25 mg PO Q4HR PRN (Reason: Pain, Mild (1-3)) Qty: 30 1RF Patient Comments: patient states she takes for a skin rash and when it is bad she takes 100mg lorazepam [Ativan] 1 mg tablet 1 mg PO TID PRN (Reason: anxiety) Qty: 20 0RF oxycodone-acetaminophen [Percocet] 5-325 mg tablet 1 tab PO TID PRN (Reason: pain) Qty: 20 0RF pantoprazole [Protonix] 20 mg tablet,delayed release (DR/EC) 20 mg PO DAILY Qty: 30 2RF oxycodone-acetaminophen [Percocet] 5-325 mg tablet 1 tab PO Q4-6H PRN (Reason: pain) Qty: 20 0RF oxycodone-acetaminophen [Percocet] 5-325 mg tablet 1 tab PO Q4-6H PRN (Reason: pain) Qty: 20 0RF Referrals: Shan Barrera DO [Primary Care Provider] - Stand Alone Forms: Patient Portal/API, Against Medical Advice
[2023-09-22 12:30] LABS: INR 0.9 (0.9-1.3); Prothrombin Time 10.3 SECONDS (9.4-12.5)
[2023-09-22 12:32] LABS: PTT Partial Thromboplastin Tim 34 SECONDS (25.1-36.5)
--- NOTE | 2023-09-22 12:34 | DI.CT.S_ITS ---
PROCEDURE: CT ANGIO CHEST ABDOMEN PELVIS INDICATIONS: chest pain TECHNIQUE: Precontrast 5 mm thick sections acquired from the lung apices to the iliac crests. After the administration of intravenous contrast, 2.5 mm thick sections again acquired from the lung apices to the iliac crests. Maximum intensity projection (MIP) oblique sagittal and coronal reformats were then acquired. For radiation dose reduction, the following was used: automated exposure control. COMPARISON: [facility], CT, CT ANGIO CHEST PE, 04/21/2023, 1:06. FINDINGS: Image quality: Diagnostic Lungs and pleura: Peripheral cystic changes, particularly in the upper lobes and costophrenic angles. There may be a component emphysema. Peripheral reticulation. No dense airspace disease or drainable pleural effusions. There are small pulmonary nodules, most notably in the subpleural region on the right image 6/161 measuring up to 6 mm, seen previously. Mediastinum, heart, and esophagus: On precontrast images, there is no evidence of acute intramural hematoma. Atherosclerotic calcifications are present. There is coronary disease. No central pulmonary embolism. There is lipomatous hypertrophy of the interatrial septum. Overall heart size is within normal limits no pathologic lymph nodes by size criteria. On post contrast images, no aortic dissection is identified. There is atherosclerotic disease. Chest wall and thyroid: Unremarkable Liver: No hypervascular lesion identified. Gallbladder and biliary system: Unremarkable, nondilated Pancreas: Mild parenchymal atrophy. No ductal dilation Spleen: Nonenlarged Adrenals: No discrete nodules Kidneys: No hydronephrosis. No contour deforming solid mass. Subcentimeter lesions are too small to characterize, usually cysts. Vessels and lymph nodes: 4.1 cm infrarenal abdominal aortic aneurysm is present, with mild laminar thrombus. Small aneurysm also seen in the right common iliac artery measuring up to 2.1 cm in transverse dimension. No pathologic lymph nodes by size criteria. Bowel and peritoneum: No evidence of small bowel obstruction. No pathologic ascites. Colonic diverticula are present. Body wall: Unremarkable Pelvis: Bladder is unremarkable. Uterus is absent. Bones: There are degenerative changes. No acute or suspicious findings. Left shoulder arthroplasty. IMPRESSION: No evidence of acute dissection or intramural hematoma. Infrarenal abdominal aortic aneurysm up to 4.1 cm in AP dimension, with mild laminar thrombus. 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 Coronary artery disease. 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 There also nodules as described above, consider follow-up high-resolution chest CT if clinically indicated. Presumed lipomatous hypertrophy of the interatrial septum. Other findings above. Dictated by: Devan Meredith M.D. on 09/22/2023 at 14:02 Approved by: Devan Meredith M.D. on 09/22/2023 at 14:10
[2023-09-22 12:35] LABS: Alanine Aminotransferase 21 IU/L (<35); Albumin 4.5 g/dL (3.5-5.0); Albumin Globulin Ratio 1.4 (1.0-2.8); Alkaline Phosphatase 97 U/L (38-126); Aspartate Aminotransferase 30 IU/L (14-36); BUN Creatinine Ratio 16.3 (6-22); Bilirubin Total 0.6 mg/dL (0.2-1.3); Blood Urea Nitrogen 13 mg/dL (7-17); Calcium 9.9 mg/dL (8.4-10.2); Carbon Dioxide 25 mmol/L (22-32); Chloride 106 mmol/L (98-107); Creatine Kinase 86 U/L (30-135); Estimated Glomerular Filt Rate > 60 mL/min (>60); Globulin 3.2 g/dL (1.7-4.1); Glucose 113 mg/dL (80-110); HEMOLYSIS 18 (0-50); Lipase 96 U/L (23-300); Magnesium 2.1 mg/dL (1.6-2.3); Potassium 4.3 mmol/L (3.4-5.1); Sodium 136 mmol/L (137-145); Total Protein 7.7 g/dL (6.3-8.2)
--- NOTE | 2023-09-22 12:38 | DI.RAD.S_ITS ---
PROCEDURE: XR ELBOW LT MIN 3V INDICATIONS: fall TECHNIQUE: 3 views of the elbow were acquired. COMPARISON: None. FINDINGS: Bones: No acute displaced fracture or dislocation. There are minimal degenerative changes. Soft tissues: Olecranon enthesopathy. Possible additional small bone density seen adjacent to the olecranon and proximal ulna medially. IV in place. IMPRESSION: Possible small bones density seen adjacent to the olecranon and proximal ulna medially, correlate with point tenderness. Enthesopathy is also present. Otherwise no acute displaced fracture or dislocation. If there is high concern for occult injury, consider repeat radiography or cross-sectional imaging. Dictated by: Devan Meredith M.D. on 09/22/2023 at 13:56 Approved by: Devan Meredith M.D. on 09/22/2023 at 13:58
--- NOTE | 2023-09-22 12:38 | DI.RAD.S_ITS ---
PROCEDURE: XR SHOULDER LT MIN 2V INDICATIONS: fall TECHNIQUE: 2 views of the shoulder were acquired. COMPARISON: [facility], CR, XR SHOULDER 2+ VIEWS LEFT, 09/09/2023, 9:17. [facility], CR, XR SHOULDER RT MIN 2V, 08/23/2022, 13:08. FINDINGS: Bones: A left shoulder arthroplasty is present. A bone density is seen adjacent to the greater tuberosity. Soft tissues: No suspicious calcifications elsewhere. IMPRESSION: Left reverse shoulder arthroplasty. A small bone density is seen adjacent to the greater tuberosity, correlate with tenderness. Consider cross-sectional imaging if further evaluation is desired. Dictated by: Devan Meredith M.D. on 09/22/2023 at 13:58 Approved by: Devan Meredith M.D. on 09/22/2023 at 13:59
[2023-09-22] MEDS: NITROGLYCERIN 0.4 MG SL TAB SL ×3 (12:43→13:26)
[2023-09-22 12:46] LABS: Troponin I < 0.012 ng/mL (0.01-0.034)
--- NOTE | 2023-09-22 13:58 | EKG_ITS ---
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
[2023-09-22 14:31] LABS: Troponin I < 0.012 ng/mL (0.01-0.034)
== END 2023-09-22 15:47 | disposition left against medical advice (07) ==
PROVIDERS: Emergency Provider Emergency Medicine; PCP Family Medicine
DX: I25.110 Atherosclerotic heart disease of native coronary artery with unstable angina pectoris (principal); Z95.5 Presence of coronary angioplasty implant and graft; Z91.148 Patient's other noncompliance with medication regimen for other reason; Z53.29 Procedure and treatment not carried out because of patient's decision for other reasons; Z87.891 Personal history of nicotine dependence
CPT/HCPCS: 36415; 71045; 71275; 73030; 73080; 74174; 80053; 82550; 83690; 83735; 84484; 85025; 85610; 85730; 93005; 99284; 99285; Q9967

== ENCOUNTER 2023-10-24 10:38 | Emergency (ER) | payer MEDICARE, OTHER, SELFPAY ==
[2023-04-21 03:23] VITALS: BMI 26.6
[2023-10-24] VITALS (11 sets, daily range): BP systolic 181–236; BP diastolic 82–112; PULSE 60–72; RESP 12–35; TEMP 36.7; O2SAT 96–100; BMI 29.2
--- NOTE | 2023-10-24 11:02 | DI.RAD.S_ITS ---
PROCEDURE: XR CHEST 1V INDICATIONS: chest pain TECHNIQUE: One view of the chest was acquired. COMPARISON: [facility], CR, XR CHEST 1V, 09/22/2023, 12:08. FINDINGS: Surgical changes and devices: Left shoulder prosthesis Lungs and pleura: Lungs are clear. No pleural effusions or pneumothorax. Chronic interstitial changes right upper lobe Mediastinum: Mediastinal contours appear normal. Heart size is normal. Bones and chest wall: No suspicious bony lesions. Overlying soft tissues appear unremarkable. IMPRESSION: No acute cardiopulmonary abnormality is seen. Approved by: Rito Rivera M.D. on 10/24/2023 at 10:34
--- NOTE | 2023-10-24 11:05 | EKG_ITS ---
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
--- NOTE | 2023-10-24 11:20 | ED.GENADULT ---
HPI - General Adult General Chief complaint: Hypertension Stated complaint: headache, high bp, sent by [facility] Time Seen by Provider: 10/24/23 11:20 Source: patient, RN notes reviewed and old records reviewed Mode of arrival: Ambulatory Limitations: no limitations History of Present Illness HPI narrative: 73-year-old female with history of hypertension, anxiety and known coronary artery disease and LAD stent placed in 2020 on aspirin. Patient reports she does not take anything for blood pressure because she has had issues with medications causing outbreaks of [place]'s disease in the past. States she would rather live a shorter life than have to deal with the pain of that. She presents today with complaint of pain over the bridge of her nose she has 2 small red areas of ulceration on each side which she states some blisters raised and then drain this has been going on for some time. She has been following with Dermatology for the past month in his currently on doxycycline, permethrin cream and a medical wash or soap that she is using daily which he states has been somewhat helpful. She also presents with complaint of pain behind her right knee with some redness and induration. She notes that she did have what sounds like phlebitis several years ago she does not recall if she had any anticoagulants if there was no treatment. She notes that she knows her blood pressure is high but she states that is because her nose hurts. She denies any new chest pain or shortness of breath, no nausea or vomiting, no new bowel issues, some chronic urinary incontinence. No fevers or chills. Denies any other swelling or pain in her lower extremities. She states she has been able to walk. She states in the past Motrin and oxycodone has been helpful to control her pain. She has not taking any pain medications currently. She states she can not tolerate Tylenol. She does have a beer at least daily if not more. Denies active tobacco use. Denies any recreational drugs other than marijuana. She is accompanied by her partner. Related Data Home Medications Medication Instructions Recorded Confirmed fluticasone propionate 50 1 spray intranasal DAILY 08/08/22 10/24/23 mcg/actuation nasal spray,suspension estradiol 0.025 mg/24 hr weekly 1 patch transdermal WEEKLY 04/21/23 10/24/23 transdermal patch Previous Rx's Medication Instructions Recorded acetaminophen 325 mg tablet 650 mg (2 x 325 mg) PO Q6H PRN 08/24/22 Fever/Mild Pain (1-10 #30 tabs aspirin 81 mg tablet,delayed 81 mg PO DAILY #30 tabs 04/21/23 release hydroxyzine pamoate 25 mg capsule 25 mg PO Q4HR PRN Pain, Mild (1-3) 04/21/23 #30 caps lorazepam 1 mg tablet (Ativan) 1 mg PO TID PRN anxiety #20 tabs 04/21/23 pantoprazole 20 mg tablet,delayed 20 mg PO DAILY #30 tabs 04/21/23 release (Protonix) sucralfate 1 gram tablet 1 gm PO ACHS #30 tabs 04/21/23 valsartan 80 mg tablet (Diovan) 20 mg (/ x 80 mg) PO BID #30 tabs 04/21/23 phenazopyridine 200 mg tablet 200 mg PO TID 6 doses #6 tabs 09/03/23 (Pyridium) hydroxyzine HCl 25 mg tablet 25 mg PO TID PRN nausea and 10/24/23 vomiting #10 tabs oxycodone 5 mg tablet 5 mg PO Q6H PRN pain #7 tabs 10/24/23 rivaroxaban 15 mg (42)-20 mg (9) See Rx Instructions PO .COMPLEX 10/24/23 tablets in a starter pack #51 ea Allergies Allergy/AdvReac Type Severity Reaction Status Date / Time hydrocodone Allergy Intermediate Hives Verified 10/24/23 11:13 hydrochlorothiazide Allergy Mild Hives Verified 10/24/23 11:13 metoprolol Allergy Mild Hives Verified 10/24/23 11:13 Sulfa (Sulfonamide Allergy Mild Hives Verified 10/24/23 11:13 Antibiotics) acetaminophen [From Tylenol] Allergy Hives Verified 10/24/23 11:13 doxycycline Allergy Hives Verified 10/24/23 11:13 amoxicillin AdvReac Mild Verified 10/24/23 11:13 cephalexin AdvReac Mild Verified 10/24/23 11:13 Review of Systems Review of Systems ROS Unobtainable: All systems reviewed & are unremarkable except as noted in HPI and below Patient History Medical History Johnathan's disease Shoulder injury History of alcohol use History of tobacco abuse Hyperlipidemia Essential hypertension Surgical History History of ankle surgery Family History Father Hypertension Mother Hypertension CVA (cerebral vascular accident) Son Diabetes mellitus Social History marital status: unmarried,living together details: Life partner household members: significant other housing: house Smoking Status: Former smoker alcohol intake: former substance use type: does not use well-balanced diet: daily or most days Smoking Status: Former smoker alcohol intake frequency: 3 or more drinks per day Substance Use Type: marijuana Exam Narrative Exam Narrative: GEN: well nourished, well appearing female, alert and oriented x 3, patient appears to be in mild distress. HEENT: Atraumatic, pupils are equal round reactive to light, extraocular movements are intact, nares are clear, TMs are clear with no fluid, there is no conjunctival pallor. Throat is clear without any exudates, erythema, tonsillar enlargement or uvular deviation, patient has 2 areas ulceration just through the very top layer of skin on each side of her nasal bridge that proximally cm in size, there is no subcutaneous exposure, they are slightly erythematous there was no blisters or surrounding fluid vesicles. There is no swelling, erythema or other skin changes surrounding. HEART: Regular rate and rhythm without murmur, clicks, rubs. No carotid bruits, pulses are equal in upper and lower extremities LUNGS:Lungs clear to auscultation, no wheezes, rales, crackles, chest moves symmetrically ABD:bowel sounds normal, soft, non-tender, no guarding, rebound, rigidity, no masses noted, no hepatosplenomegaly :No CVA tenderness MSCL: Patient has some slight erythema on the inner medial crease of her right knee, there is some slight fullness. Very mildly tender patient has full range of motion. Does not have any other bony tenderness. No swelling of the calf. No tenderness with squeeze of the calf. Patient has 2+ pulses bilateral lower extremities with normal sensation throughout. no muscle atrophy, muscles strength 5/5 upper and lower extremities, full range of motion, normal gait NEURO:CN 2-12 intact, sensation normal. Initial Vital Signs Initial Vital Signs: Vital Signs Temperature 98.1 F 10/24/23 10:50 Pulse Rate 72 10/24/23 10:50 Respiratory Rate 18 10/24/23 10:50 Blood Pressure 236/112 H 10/24/23 10:50 Pulse Oximetry 99 10/24/23 10:50 Oxygen Delivery Method Room Air 10/24/23 10:50 Course Orders Ordered: ED Orders 10/24/23 11:02 XR chest 1V Stat EKG-12 Lead Stat 10/24/23 11:18 Complete Blood Count AUTO DIFF Stat Comprehensive Metabolic Panel Stat ETOH [Ethanol (ETOH)] Stat Lipase Stat Magnesium Stat NT-proBNP (BNP-Adult 18+) Stat PTT Partial Thromboplastin Adrian Stat Prothrombin Time INR Stat Troponin & CK Cardiac Panel Stat 10/24/23 11:47 US periph venous low extrem rt Stat Discontinued Medications Oxycodone HCl (Oxycodone Ir 5 Mg Tablet) 5 mg PO NOW ONE Stop: 10/24/23 11:48 Last Admin: 10/24/23 11:53 Dose: 5 mg Documented By: MARYJANE Rivaroxaban (Rivaroxaban 10 Mg Tablet) 15 mg PO NOW ONE Stop: 10/24/23 13:07 Last Admin: 10/24/23 13:18 Dose: 15 mg Documented By: ABRAHAM Vital Signs Vital signs: Vital Signs - 8 hr 10/24/23 10:50 10/24/23 11:02 10/24/23 11:23 Temperature 98.1 F Pulse Rate 72 68 Respiratory Rate 18 13 Blood Pressure 236/112 H Pulse Oximetry 99 100 98 Oxygen Delivery Method Room Air 10/24/23 11:23 10/24/23 11:30 10/24/23 11:30 Temperature Pulse Rate 67 Respiratory Rate 12 Blood Pressure 211/98 H 200/82 H Pulse Oximetry 98 Oxygen Delivery Method Room Air 10/24/23 12:00 10/24/23 12:01 10/24/23 12:01 Temperature Pulse Rate 62 64 Respiratory Rate 18 Blood Pressure 181/89 H Pulse Oximetry 99 96 Oxygen Delivery Method 10/24/23 12:30 10/24/23 12:31 10/24/23 12:31 Temperature Pulse Rate 62 60 Respiratory Rate 15 16 Blood Pressure 203/96 H Pulse Oximetry 100 100 Oxygen Delivery Method 10/24/23 13:00 10/24/23 13:01 10/24/23 13:01 Temperature Pulse Rate 71 68 Respiratory Rate 35 H 26 H Blood Pressure 219/101 H Pulse Oximetry 99 100 Oxygen Delivery Method Room Air 10/24/23 13:22 10/24/23 13:22 Temperature Pulse Rate 66 Respiratory Rate 24 Blood Pressure 188/92 H Pulse Oximetry 97 Oxygen Delivery Method Medical Decision Making Lab Data 10/24/23 11:18 10/24/23 11:18 Labs: Lab Results 10/24/23 Range/Units 11:18 WBC 7.7 (4.5-11.0) X10^3/uL RBC 4.60 (4.0-5.2) X10^6/uL Hgb 14.4 (12.0-16.0) g/dL Hct 42.7 (36-46) % MCV 92.9 (80-100) fL MCH 31.3 (26-34) PG MCHC 33.7 (30-36) % RDW 14.4 (11.6-14.8) % Plt Count 244 (150-400) X10^3/uL Neut % (Auto) 62.0 (50-75) % Lymph % (Auto) 24.3 L (25-40) % Barren % (Auto) 10.1 (3-14) % Eos % (Auto) 2.8 (2-4) % Baso % (Auto) 0.8 (0-2) % Neut # (Auto) 4800 (1435-4654) /uL Lymph # (Auto) 1900 (2179-6483) /uL Barren # (Auto) 800 (0-900) /uL Eos # (Auto) 200 (0-450) /uL Baso # (Auto) 100 (0-100) /uL PT 10.4 (9.4-12.5) SECONDS INR 0.9 (0.9-1.3) APTT 33 (25.1-36.5) SECONDS Sodium 138 (137-145) mmol/L Potassium 4.3 (3.4-5.1) mmol/L Chloride 107 (98-107) mmol/L Carbon Dioxide 24 (22-32) mmol/L BUN 16 (7-17) mg/dL Creatinine 0.90 (0.52-1.04) mg/dL Estimated GFR > 60 (>60) mL/min BUN/Creatinine Ratio 17.8 (6-22) Glucose 122 H (80-110) mg/dL Calcium 10.0 (8.4-10.2) mg/dL Magnesium 2.3 (1.6-2.3) mg/dL Total Bilirubin 0.9 (0.2-1.3) mg/dL AST 33 (14-36) IU/L ALT 30 (<35) IU/L Alkaline Phosphatase 121 (38-126) U/L Total Creatine Kinase 68 (30-135) U/L Troponin I < 0.012 (0.01-0.034) ng/mL NT-Pro-B Natriuret Pep 516 H (<125) pg/mL Total Protein 7.3 (6.3-8.2) g/dL Albumin 4.3 (3.5-5.0) g/dL Globulin 3.0 (1.7-4.1) g/dL Albumin/Globulin Ratio 1.4 (1.0-2.8) Lipase 62 (23-300) U/L Ethyl Alcohol < 10 ( - 10) mg/dL Imaging Data Chest x-ray: Radiologist's Impression: Isaura Coronado??73??F??1950 ? Allergy/Adv: hydrocodone, hydrochlorothiazide, metoprolol, Sulfa (Sulfonamide Antibiotics), acetaminophen, doxycycline, amoxicillin, cephalexin (More??) Close Chest X-Ray (Signed) Rito Rivera - 10/24/23 Shoulder X-Ray (Signed) Devan Meredith - 09/22/23 Elbow X-Ray (Signed) Devan Meredith - 09/22/23 Chest/Abdomen/Pelvis CTA (Signed) Masoud,Devan - 09/22/23 Chest X-Ray (Signed) Sarahi Falcon - 09/22/23 Foot X-Ray (Signed) Tracey Croft - 06/03/23 Ankle X-Ray (Signed) Tracey Croft - 06/03/[address] (Signed) Trevor Díaz - 05/29/23 Wrist X-Ray (Signed) Bruna Rene - 04/25/23 Wrist X-Ray (Signed) Bruna Rene - 04/25/23 Forearm X-Ray (Signed) Bruna Rene - 04/25/23 Radiology Report (Cancelled) Majo Peraza - 04/21/23 Myocardial Perfusion Scan Nuc Med (Signed) Majo Peraza - 04/21/23 Outside DI 04/21/23 Telemetry Strips 04/21/23 Chest X-Ray (Signed) Tracey Croft - 04/20/23 Echocardiogram Ultrasound (Signed) CaitieJude - 01/08/23 Telemetry Strips 01/08/23 Chest X-Ray (Signed) Trevor Díaz - 01/08/[address] (Signed) Raudel García - 01/06/23 Telemetry Strips 08/23/[address] (Signed) Ata Burnettwn - 08/23/[address] (Signed) Saurabh,Inna - 08/23/[address] (Signed) Saurabh,Inna - 08/23/22 Wrist X-Ray (Signed) Saurabh,Inna - 08/23/22 Elbow X-Ray (Signed) Saurabh,Inna - 08/23/22 Shoulder X-Ray (Signed) Saurabh,Inna - 08/23/22 Launch?[place] [address] XRay Report Signed Patient: Isaura Coronado MR#: [id number] : 1950 Acct:[id number] Age/Sex: 73 / F Date of Service: 10/24/23 Loc: ED Accession Number: [id number] Procedure: XR chest 1V Ordering Provider: Lorraine Masterson D.O. PROCEDURE: XR CHEST 1V INDICATIONS: chest pain TECHNIQUE: One view of the chest was acquired. COMPARISON: [facility], , XR CHEST 1V, 09/22/2023, 12:08. FINDINGS: Surgical changes and devices: Left shoulder prosthesis Lungs and pleura: Lungs are clear. No pleural effusions or pneumothorax. Chronic interstitial changes right upper lobe Mediastinum: Mediastinal contours appear normal. Heart size is normal. Bones and chest wall: No suspicious bony lesions. Overlying soft tissues appear unremarkable. IMPRESSION: No acute cardiopulmonary abnormality is seen. Approved by: Rito Rivera M.D. on 10/24/2023 at 10:34 US - DVT: Radiologist's Impression: Close Vascular Ultrasound (Signed) Rito Rivera - 10/24/23 Chest X-Ray (Signed) Rito Rivera - 10/24/23 Launch?[address] [address] Ultrasound Report Signed Patient: Isaura Coronado MR#: [id number] : 1950 Acct:[id number] Age/Sex: 73 / F Date of Service: 10/24/23 Loc: ED Accession Number: [id number] Procedure: US perip venous low extrem rt Ordering Provider: Lorraine Masterson D.O. PROCEDURE: US PERIP VENOUS LOW EXTREM RT INDICATIONS: swelling redness, right posterior knee medial TECHNIQUE: Real-time imaging, as well as color and pulse Doppler interrogation, were performed of the lower extremity deep veins from the inguinal ligament to the popliteal fossa, with documentation of the visualized calf veins. COMPARISON: None. FINDINGS: The common femoral, femoral, popliteal, and the visualized calf veins are normally compressible, and free of intraluminal thrombus. Color and pulse Doppler demonstrate normal phasic intraluminal flow. There is normal augmentation response to distal compression maneuver. Additionally, there is internal echoes and noncompressibility involving the greater saphenous vein extending to within 5 cm of the common femoral junction IMPRESSION: No evidence of deep venous thrombosis. There is venous thrombosis involving the superficial system. Greater saphenous vein is thrombosed extending to 5 cm from the junction with the greater femoral vein Approved by: Rito Rivera M.D. on 10/24/2023 at 11:45 ECG Data Attestation: I personally reviewed and interpreted this ECG as follows: Prior ECG tracings: available for review Interpretation: Sinus rhythm rate of 70 OH 180 QRS of 96 QTC 438, creatinine 3 and AVF, patient has prior EKGs from 09/22/2019 which was similar. MDM Narrative Medical decision making narrative: Labs show white count of 7.7, hemoglobin of 14 platelets of 244, coags are negative, electrolytes are appropriate creatinine 0.9 glucose is 122, LFTs are otherwise negative, troponins less than 0.012 BNP is 516. ETOH is negative. Chest x-ray shows no acute change EKG shows sinus rhythm with no acute ST elevation or depression appears similar to prior from August. DVT ultrasound right lower extremity shows no DVT but venous thrombosis involving greater saphenous vein is extending to 5 cm with a in the junction of the greater femoral vein. Based on these findings it is recommended that patient be started on anticoagulation to prevent further extension and into the deep vein system. Discussed with patient recommendations was given prescription. Patient also given a short course of narcotic pain medication was her main complaint is knee pain over her nose. Patient's nose does show 2 areas of almost ulceration but just through the superficial skin she is under care Dermatology they do not appear to be superinfected. Reviewed findings with patient, she is agreeable to start anticoagulation. She is on aspirin daily told her stop her aspirin although sounds like she has not totally adherent with this. Did start oral anticoagulants prevent further propagation and DVT switch can lead to PEs and . Patient expresses her understanding. Was given 1st dose here in the department with a prescription recommendation to follow up with primary care. Skin on her nose overall does not appear infected she has appropriate follow up with Dermatology. Was given a short course of pain medication and hydroxyzine she states she will follow up Thursday with primary care. Patient continues to be hypertensive but she is adamant about not taking blood pressure medication. No end-organ damage was appreciated on her workup today. Discharge Plan Departure Patient Disposition: Home Clinical Impression: Thrombosis of saphenous vein Instructions: Risk for Deep Vein Thrombosis May Be Increased With Prolonged Periods of Si Activity Restrictions/Additional Instructions: Your workup today does not show any evidence of a DVT or deep venous thrombosis but you do have thrombosis or a clot in the greater saphenous vein this is close enough to the deep system that it is recommended that you be on anticoagulation to prevent the clot from propagating or growing into the deep system. Follow up with your physician in the next week for recheck in his discussed how long you should continue anticoagulation and a refill. Please take anticoagulants as prescribed. You may take oxycodone 1-2 tablets every 6 hours as needed for pain. This medication can make you sleepy do not drive, perform hazardous activities or make any major decisions while taking it. This medication will make you constipated please take a stool softener once to twice daily until stools are soft and regular. Prescription sent to [facility] in [place]. Prescriptions: New rivaroxaban 15 mg (42)- 20 mg (9) tablets,dose pack See Rx Instructions .ROUTE .COMPLEX Qty: 51 0RF Rx Instructions: take one-15 mg tablet twice daily for 21 days, then one-20 mg tablet once daily; must take with meal/food oxycodone 5 mg tablet 5 mg PO Q6H PRN (Reason: pain) Qty: 7 0RF hydroxyzine HCl 25 mg tablet 25 mg PO TID PRN (Reason: nausea and vomiting) Qty: 10 0RF No Action phenazopyridine [Pyridium] 200 mg tablet 200 mg PO TID 0 Days Qty: 6 0RF fluticasone propionate 50 mcg/actuation spray,suspension 1 spray intranasal DAILY Rx Instructions: administer into each nostril acetaminophen 325 mg Tablet 650 mg PO Q6H PRN (Reason: Fever/Mild Pain (1-10) Qty: 30 0RF estradiol 0.025 mg/24 hr patch weekly 1 patch transdermal WEEKLY sucralfate 1 gram Tablet 1 gm PO ACHS Qty: 30 0RF valsartan [Diovan] 80 mg Tablet 20 mg PO BID Qty: 30 3RF aspirin 81 mg Tablet,Delayed Release (Dr/Ec) 81 mg PO DAILY Qty: 30 3RF hydroxyzine pamoate 25 mg Capsule 25 mg PO Q4HR PRN (Reason: Pain, Mild (1-3)) Qty: 30 1RF Patient Comments: patient states she takes for a skin rash and when it is bad she takes 100mg lorazepam [Ativan] 1 mg tablet 1 mg PO TID PRN (Reason: anxiety) Qty: 20 0RF pantoprazole [Protonix] 20 mg tablet,delayed release (DR/EC) 20 mg PO DAILY Qty: 30 2RF Referrals: Shan Barrera DO [Primary Care Provider] - Stand Alone Forms: Patient Portal/API
--- NOTE | 2023-10-24 11:24 | PC.NURSE ---
CHESTER mainly on left side of head?, concern for blood clot behind left knee, pt is emotional about numerous health complications, pt does not take bp medicines, pt states when she is not in pain her bp is 130/80, pt states she also has a rash of sorts on her nose that she is being treated by a packer dried beef for that she says is painful. denies cp and sob
[2023-10-24 11:29] LABS: Add Manual Diff / Slide Review NO; Basophils Absolute Auto 100 /uL (0-100); Basophils Percent Auto 0.8 % (0-2); Eosinophils Absolute Auto 200 /uL (0-450); Eosinophils Percent Auto 2.8 % (2-4); Hematocrit 42.7 % (36-46); Hemoglobin 14.4 g/dL (12.0-16.0); Lymphocytes Absolute Auto 1900 /uL (1100-4500); Lymphocytes Percent Auto 24.3 % (25-40); Mean Corpuscular HGB Conc 33.7 % (30-36); Mean Corpuscular Hemoglobin 31.3 PG (26-34); Mean Corpuscular Volume 92.9 fL (80-100); Monocytes Absolute Auto 800 /uL (0-900); Monocytes Percent Auto 10.1 % (3-14); Neutrophils Absolute Auto 4800 /uL (1500-7000); Platelet Count 244 X10^3/uL (150-400); Red Cell Distribution Width 14.4 % (11.6-14.8); White Blood Cell Count 7.7 X10^3/uL (4.5-11.0)
[2023-10-24 11:34] LABS: INR 0.9 (0.9-1.3); Prothrombin Time 10.4 SECONDS (9.4-12.5)
[2023-10-24 11:37] LABS: PTT Partial Thromboplastin Tim 33 SECONDS (25.1-36.5)
[2023-10-24 11:38] LABS: Alanine Aminotransferase 30 IU/L (<35); Albumin 4.3 g/dL (3.5-5.0); Albumin Globulin Ratio 1.4 (1.0-2.8); Alkaline Phosphatase 121 U/L (38-126); Aspartate Aminotransferase 33 IU/L (14-36); BUN Creatinine Ratio 17.8 (6-22); Bilirubin Total 0.9 mg/dL (0.2-1.3); Blood Urea Nitrogen 16 mg/dL (7-17); Carbon Dioxide 24 mmol/L (22-32); Chloride 107 mmol/L (98-107); Creatine Kinase 68 U/L (30-135); Estimated Glomerular Filt Rate > 60 mL/min (>60); Glucose 122 mg/dL (80-110); HEMOLYSIS < 15 (0-50); Lipase 62 U/L (23-300); Magnesium 2.3 mg/dL (1.6-2.3); Potassium 4.3 mmol/L (3.4-5.1); Sodium 138 mmol/L (137-145); Total Protein 7.3 g/dL (6.3-8.2)
[2023-10-24 11:39] LABS: Ethanol (ETOH) < 10 mg/dL
--- NOTE | 2023-10-24 11:47 | DI.US.S_ITS ---
PROCEDURE: US PERIPH VENOUS LOW EXTREM RT INDICATIONS: swelling redness, right posterior knee medial TECHNIQUE: Real-time imaging, as well as color and pulse Doppler interrogation, were performed of the lower extremity deep veins from the inguinal ligament to the popliteal fossa, with documentation of the visualized calf veins. COMPARISON: None. FINDINGS: The common femoral, femoral, popliteal, and the visualized calf veins are normally compressible, and free of intraluminal thrombus. Color and pulse Doppler demonstrate normal phasic intraluminal flow. There is normal augmentation response to distal compression maneuver. Additionally, there is internal echoes and noncompressibility involving the greater saphenous vein extending to within 5 cm of the common femoral junction IMPRESSION: No evidence of deep venous thrombosis. There is venous thrombosis involving the superficial system. Greater saphenous vein is thrombosed extending to 5 cm from the junction with the greater femoral vein Approved by: Rito Rivera M.D. on 10/24/2023 at 11:45
[2023-10-24 11:50] LABS: NT-proBNP (BNP-Adult 18+) 516 pg/mL (<125); Troponin I < 0.012 ng/mL (0.01-0.034)
[2023-10-24] MEDS: OXYCODONE IR 5 MG TABLET PO (11:53)
[2023-10-24] MEDS: RIVAROXABAN 10 MG TABLET 15 MG PO (13:18)
== END 2023-10-24 13:39 | disposition home or self-care (01) ==
PROVIDERS: Emergency Provider Emergency Medicine; PCP Family Medicine
DX: I82.811 Embolism and thrombosis of superficial veins of right lower extremity (principal); R51.9 Headache, unspecified; R07.9 Chest pain, unspecified; Z79.899 Other long term (current) drug therapy
CPT/HCPCS: 36415; 71045; 80053; 80320; 82550; 83690; 83735; 83880; 84484; 85025; 85610; 85730; 93005; 93971; 99284

== ENCOUNTER 2023-10-28 10:57 | Emergency (ER) | payer MEDICARE, OTHER, SELFPAY ==
[2023-04-21 03:23] VITALS: BMI 26.6
[2023-10-28] VITALS (11 sets, daily range): BP systolic 198–251; BP diastolic 90–119; PULSE 70–81; RESP 16–18; TEMP 36.6–37; O2SAT 93–100; BMI 29.2
--- NOTE | 2023-10-28 11:55 | DI.CT.S_ITS ---
PROCEDURE: CT SOFT TISSUE NECK W CON INDICATIONS: Right facial swelling TECHNIQUE: After the administration of intravenous contrast, 3.0 mm axial sections acquired from the sella to the aortic arch. Additional oblique axial 3.0 mm sections acquired through the pharynx. 3 mm thick coronal and sagittal reformats were generated. For radiation dose reduction, the following was used: automated exposure control. COMPARISON: None. FINDINGS: Image quality: Excellent. Lymph nodes: No enlarged lymph nodes seen throughout the neck. Vessels: Visualized vasculature appears patent. Neck spaces: The oropharynx, nasopharynx, and pharynx demonstrate no mucosal lesions. The vocal cords, false vocal cords, pyriform sinuses, epiglottis, vallecula, and tongue base all appear normal. Extramucosal spaces appear unremarkable. Glands: Marker is placed over the right parotid gland. The right parotid gland is mildly more prominent than the left, however otherwise appears normal. The submandibular glands appear normal. Thyroid gland demonstrates no significant abnormality. Miscellaneous: Visualized brain and orbits appear normal. Paraseptal emphysematous changes of the lung apices. Superficial soft tissues appear normal. Bones: No suspicious bony lesions. Multilevel degenerative changes of the spine. Visualized sinuses and mastoids appear unremarkable. IMPRESSION: Marker is placed over the right parotid gland. The right parotid gland may be mildly more prominent left, however it is otherwise normal in appearance. No enlarged lymph nodes or masses within the neck. Dictated by: Wellington Harrell M.D. on 10/28/2023 at 14:22 Approved by: Wellington Harrell M.D. on 10/28/2023 at 14:25
--- NOTE | 2023-10-28 11:58 | ED.HA ---
HPI - Headache General Chief Complaint: Headache Stated Complaint: Left side face swelling , neck and head Pressure Time Seen by Provider: 10/28/23 11:48 Mode of arrival: Ambulatory History of Present Illness HPI Narrative: Patient complains of right facial swelling. She has a lesion in the right nose that is not not new. Dermatology has been following this for the past 5 years. She is here for right mandibular swelling that started this morning. She is actively being treated by Dermatology with antiparasitic cream she states for the nose. She has no new nose complaints. Has had right facial pain and swelling. Has cotton mouth/dry mouth sensation and different tasting sensation since the swelling occurred. Blood pressure noted. She states her blood pressure goes up when her pain goes up. This is not not not new. Related Data Home Medications Medication Instructions Recorded Confirmed fluticasone propionate 50 1 spray intranasal DAILY 08/08/22 10/24/23 mcg/actuation nasal spray,suspension estradiol 0.025 mg/24 hr weekly 1 patch transdermal WEEKLY 04/21/23 10/24/23 transdermal patch Previous Rx's Medication Instructions Recorded acetaminophen 325 mg tablet 650 mg (2 x 325 mg) PO Q6H PRN 08/24/22 Fever/Mild Pain (1-10 #30 tabs aspirin 81 mg tablet,delayed 81 mg PO DAILY #30 tabs 04/21/23 release hydroxyzine pamoate 25 mg capsule 25 mg PO Q4HR PRN Pain, Mild (1-3) 04/21/23 #30 caps lorazepam 1 mg tablet (Ativan) 1 mg PO TID PRN anxiety #20 tabs 04/21/23 pantoprazole 20 mg tablet,delayed 20 mg PO DAILY #30 tabs 04/21/23 release (Protonix) sucralfate 1 gram tablet 1 gm PO ACHS #30 tabs 04/21/23 valsartan 80 mg tablet (Diovan) 20 mg (1/4 x 80 mg) PO BID #30 tabs 04/21/23 phenazopyridine 200 mg tablet 200 mg PO TID 6 doses #6 tabs 09/03/23 (Pyridium) hydroxyzine HCl 25 mg tablet 25 mg PO TID PRN nausea and 10/24/23 vomiting #10 tabs oxycodone 5 mg tablet 5 mg PO Q6H PRN pain #7 tabs 10/24/23 rivaroxaban 15 mg (42)-20 mg (9) See Rx Instructions PO .COMPLEX 10/24/23 tablets in a starter pack #51 ea cephalexin 500 mg capsule 500 mg PO QID #20 caps 10/28/23 hydrocodone 5 mg-acetaminophen 325 1 tab PO Q4-6H PRN pain #10 tabs 10/28/23 mg tablet hydroxyzine HCl 25 mg tablet 25 mg PO TID PRN itching #14 tabs 10/28/23 Allergies Allergy/AdvReac Type Severity Reaction Status Date / Time hydrocodone Allergy Intermediate Hives Verified 10/28/23 11:14 hydrochlorothiazide Allergy Mild Hives Verified 10/28/23 11:14 metoprolol Allergy Mild Hives Verified 10/28/23 11:14 Sulfa (Sulfonamide Allergy Mild Hives Verified 10/28/23 11:14 Antibiotics) acetaminophen [From Tylenol] Allergy Hives Verified 10/28/23 11:14 doxycycline Allergy Hives Verified 10/28/23 11:14 amoxicillin AdvReac Mild Verified 10/28/23 11:14 cephalexin AdvReac Mild Verified 10/28/23 11:14 Review of Systems Review of Systems Narrative: GENERAL: negative chills, fatigue, malaise, fever, sweats. HEENT: negative sinus pain, ear pain, sore throat, positive jaw pain, positive dry mouth RESPIRATORY: negative dyspnea, cough CARDIOVASCULAR: negative chest pain, palpitations GASTROINTESTINAL: negative nausea, vomiting, abdominal pain : negative dysuria, frequency, hematuria MUSCULOSKELETAL: negative muscle or bony pain SKIN: negative rash, skin lesions NEUROLOGIC: negative weakness, numbness ROS Unobtainable: All systems reviewed & are unremarkable except as noted in HPI and below Patient History Medical History Johnathan's disease Shoulder injury History of alcohol use History of tobacco abuse Hyperlipidemia Essential hypertension Surgical History History of ankle surgery Family History Father Hypertension Mother Hypertension CVA (cerebral vascular accident) Son Diabetes mellitus Social History marital status: unmarried,living together details: Life partner household members: significant other housing: house Smoking Status: Former smoker alcohol intake: former substance use type: does not use well-balanced diet: daily or most days Smoking Status: Former smoker alcohol intake frequency: 3 or more drinks per day Substance Use Type: marijuana Exam Narrative Exam Narrative: GENERAL: in no distress, not toxic not dyspneic HEAD: Normocephalic. EYES: Pupils equal round PERRLA, no pain with eye movements. ENT: Mucous membranes moist. No dental tenderness. There is edema at the right parotid gland area. No fluctuance., mild tenderness to touch. No malocclusion or trismus. No tongue elevation or drooling. No dental tenderness or palpable abscess in the upper or lower back teeth. No sinus tenderness bilateral frontal and ethmoid and maxillary NECK: Trachea midline. CARDIOVASCULAR: Regular rate and rhythm RESPIRATORY: Clear to auscultation. Breath sounds equal bilaterally. No wheezes, rales, or rhonchi. GASTROINTESTINAL: Abdomen soft, non-tender EXTREMITIES: No gross deformities. BACK: No flank tenderness. NEURO: AOx4. SKIN: Warm and dry PSYCH: Not anxious, is cooperative Initial Vital Signs Initial Vital Signs: Vital Signs Temperature 97.8 F 10/28/23 11:05 Pulse Rate 79 10/28/23 11:05 Respiratory Rate 18 10/28/23 11:05 Blood Pressure 241/114 H 10/28/23 11:05 Pulse Oximetry 100 10/28/23 11:05 Oxygen Delivery Method Room Air 10/28/23 11:05 Course Orders Ordered: Discontinued Medications Cephalexin HCl (Cephalexin 250 Mg Capsule) 500 mg PO NOW ONE Stop: 10/28/23 15:06 Last Admin: 10/28/23 15:27 Dose: 500 mg Documented By: PHUONG Hydromorphone HCl (Hydromorphone 1 Mg Inj) 1 mg IV NOW ONE Stop: 10/28/23 11:55 Last Admin: 10/28/23 12:37 Dose: 1 mg Documented By: MPO Hydromorphone HCl (Hydromorphone 1 Mg Inj) 1 mg IV NOW ONE Stop: 10/28/23 15:06 Last Admin: 10/28/23 15:26 Dose: 1 mg Documented By: PHUONG Sodium Chloride (Normal Saline 0.9%) 500 mls @ 1,000 mls/hr IV BOLUS ONE Stop: 10/28/23 12:23 Last Infusion: 10/28/23 14:07 Dose: Infused Documented By: Admin: 10/28/23 12:36 Dose: 1,000 mls/hr Documented By: PHUONG Ondansetron HCl (Ondansetron 4 Mg/2 Ml Inj) 4 mg IV NOW ONE Stop: 10/28/23 11:55 Last Admin: 10/28/23 12:37 Dose: Not Given Documented By: PHUONG Vital Signs Vital signs: Vital Signs - 8 hr 10/28/23 11:05 10/28/23 11:45 10/28/23 12:41 Temperature 97.8 F Pulse Rate 79 Respiratory Rate 18 Blood Pressure 241/114 H 234/111 H Pulse Oximetry 100 98 Oxygen Delivery Method Room Air 10/28/23 12:42 10/28/23 12:42 10/28/23 13:04 Temperature Pulse Rate 71 72 Respiratory Rate Blood Pressure 251/119 H Pulse Oximetry 93 98 Oxygen Delivery Method 10/28/23 13:05 10/28/23 13:05 10/28/23 13:30 Temperature Pulse Rate 71 78 Respiratory Rate Blood Pressure 229/106 H Pulse Oximetry 98 94 Oxygen Delivery Method 10/28/23 13:31 10/28/23 13:31 10/28/23 14:02 Temperature Pulse Rate 70 Respiratory Rate 16 Blood Pressure 198/90 H 223/91 H Pulse Oximetry 94 Oxygen Delivery Method Room Air 10/28/23 14:02 10/28/23 14:30 Temperature Pulse Rate 81 75 Respiratory Rate Blood Pressure Pulse Oximetry 100 97 Oxygen Delivery Method MDM - Headache Lab Data 10/28/23 12:22 10/28/23 12:22 Labs: Lab Results 10/28/23 Range/Units 12:22 WBC 6.0 (4.5-11.0) X10^3/uL RBC 4.33 (4.0-5.2) X10^6/uL Hgb 13.6 (12.0-16.0) g/dL Hct 40.0 (36-46) % MCV 92.2 (80-100) fL MCH 31.5 (26-34) PG MCHC 34.1 (30-36) % RDW 13.9 (11.6-14.8) % Plt Count 273 (150-400) X10^3/uL Neut % (Auto) 63.5 (50-75) % Lymph % (Auto) 26.7 (25-40) % [place] % (Auto) 7.3 (3-14) % Eos % (Auto) 1.6 L (2-4) % Baso % (Auto) 0.9 (0-2) % Neut # (Auto) 3800 (4699-5188) /uL Lymph # (Auto) 1600 (4148-2369) /uL [place] # (Auto) 400 (0-900) /uL Eos # (Auto) 100 (0-450) /uL Baso # (Auto) 100 (0-100) /uL Sodium 135 L (137-145) mmol/L Potassium 4.6 (3.4-5.1) mmol/L Chloride 106 (98-107) mmol/L Carbon Dioxide 24 (22-32) mmol/L BUN 12 (7-17) mg/dL Creatinine 0.79 (0.52-1.04) mg/dL Estimated GFR > 60 (>60) mL/min BUN/Creatinine Ratio 15.2 (6-22) Glucose 97 (80-110) mg/dL Calcium 9.4 (8.4-10.2) mg/dL Total Bilirubin 0.5 (0.2-1.3) mg/dL AST 34 (14-36) IU/L ALT 25 (<35) IU/L Alkaline Phosphatase 109 (38-126) U/L Total Protein 7.0 (6.3-8.2) g/dL Albumin 4.2 (3.5-5.0) g/dL Globulin 2.8 (1.7-4.1) g/dL Albumin/Globulin Ratio 1.5 (1.0-2.8) Amylase 65 (30-110) U/L Imaging Data CT soft tissue neck: Radiologist's Impression: [address] [address] [address] Scan Report Signed Patient: Isaura Coronado MR#: [id number] : 1950 Acct:[id number] Age/Sex: 73 / F Date of Service: 10/28/23 Loc: ED Accession Number: [id number] Procedure: CT soft tissue neck w con Ordering Provider: Tripp Torres MD PROCEDURE: CT SOFT TISSUE NECK W CON INDICATIONS: Right facial swelling TECHNIQUE: After the administration of intravenous contrast, 3.0 mm axial sections acquired from the sella to the aortic arch. Additional oblique axial 3.0 mm sections acquired through the pharynx. 3 mm thick coronal and sagittal reformats were generated. For radiation dose reduction, the following was used: automated exposure control. COMPARISON: None. FINDINGS: Image quality: Excellent. Lymph nodes: No enlarged lymph nodes seen throughout the neck. Vessels: Visualized vasculature appears patent. Neck spaces: The oropharynx, nasopharynx, and pharynx demonstrate no mucosal lesions. The vocal cords, false vocal cords, pyriform sinuses, epiglottis, vallecula, and tongue base all appear normal. Extramucosal spaces appear unremarkable. Glands: Marker is placed over the right parotid gland. The right parotid gland is mildly more prominent than the left, however otherwise appears normal. The submandibular glands appear normal. Thyroid gland demonstrates no significant abnormality. Miscellaneous: Visualized brain and orbits appear normal. Paraseptal emphysematous changes of the lung apices. Superficial soft tissues appear normal. Bones: No suspicious bony lesions. Multilevel degenerative changes of the spine. Visualized sinuses and mastoids appear unremarkable. IMPRESSION: Marker is placed over the right parotid gland. The right parotid gland may be mildly more prominent left, however it is otherwise normal in appearance. No enlarged lymph nodes or masses within the neck. Dictated by: Wellington Harrell M.D. on 10/28/2023 at 14:22 Approved by: Wellington Harrell M.D. on 10/28/2023 at 14:25 [facility] Narrative Medical decision making narrative: Patient complains of right facial swelling. She has a lesion in the right nose that is not not new. Dermatology has been following this for the past 5 years. She is here for right mandibular swelling that started this morning. She is actively being treated by Dermatology with antiparasitic cream she states for the nose. She has no new nose complaints. Has had right facial pain and swelling. Has cotton mouth/dry mouth sensation and different tasting sensation since the swelling occurred. Blood pressure noted. She states her blood pressure goes up when her pain goes up. This is not not not new. After history and exam CBC CMP CT soft tissue neck Dilaudid Zofran normal saline [facility] Medical records reviewed: No recent visit for this complaint Differential considered: Includes but not limited to parotitis parotid abscess gingivitis dental abscess, cavernous sinus thrombosis Lab Test results independently reviewed as above. Pertinent findings: WBC 6.0 Imaging studies independently reviewed: CT soft tissue neck enlarged parotid gland Consultations: None indicated at this time Treatments: Dilaudid Zofran normal saline Re-evaluations: 3:21 p.m.. Reviewed results with patient she is feeling much better. She would like 1 more dose of pain medication. She states she can tolerate any antibiotic as well as pain medication pills. Hydrocodone and Vistaril and Keflex is preferred by her. Discussion: Appropriate for discharge home for parotitis. Blood pressure has improved. Pain has improved. Antibiotics have been started. Return precautions reviewed. She desires discharge home. Referral for ENT provided. Diagnosis: Parotitis Discharge Plan Departure Patient Disposition: Home Clinical Impression: Acute parotitis Instructions: DI for Parotitis-Adult Activity Restrictions/Additional Instructions: No driving operating machinery today or when taking prescribed pain medication. You are being treated for parotitis. Inflammation of the salivary gland. Please call provided Ear Nose Throat service/office today for office appointment in a week. Return if worse if any questions or concerns. Prescriptions: New hydroxyzine HCl 25 mg tablet 25 mg PO TID PRN (Reason: itching) Qty: 14 0RF hydrocodone-acetaminophen 5-325 mg tablet 1 tab PO Q4-6H PRN (Reason: pain) Qty: 10 0RF cephalexin 500 mg capsule 500 mg PO QID Qty: 20 0RF No Action phenazopyridine [Pyridium] 200 mg tablet 200 mg PO TID 0 Days Qty: 6 0RF fluticasone propionate 50 mcg/actuation spray,suspension 1 spray intranasal DAILY Rx Instructions: administer into each nostril rivaroxaban 15 mg (42)- 20 mg (9) tablets,dose pack See Rx Instructions .ROUTE .COMPLEX Qty: 51 0RF Rx Instructions: take one-15 mg tablet twice daily for 21 days, then one-20 mg tablet once daily; must take with meal/food oxycodone 5 mg tablet 5 mg PO Q6H PRN (Reason: pain) Qty: 7 0RF hydroxyzine HCl 25 mg tablet 25 mg PO TID PRN (Reason: nausea and vomiting) Qty: 10 0RF acetaminophen 325 mg Tablet 650 mg PO Q6H PRN (Reason: Fever/Mild Pain (1-10) Qty: 30 0RF estradiol 0.025 mg/24 hr patch weekly 1 patch transdermal WEEKLY sucralfate 1 gram Tablet 1 gm PO ACHS Qty: 30 0RF valsartan [Diovan] 80 mg Tablet 20 mg PO BID Qty: 30 3RF aspirin 81 mg Tablet,Delayed Release (Dr/Ec) 81 mg PO DAILY Qty: 30 3RF hydroxyzine pamoate 25 mg Capsule 25 mg PO Q4HR PRN (Reason: Pain, Mild (1-3)) Qty: 30 1RF Patient Comments: patient states she takes for a skin rash and when it is bad she takes 100mg lorazepam [Ativan] 1 mg tablet 1 mg PO TID PRN (Reason: anxiety) Qty: 20 0RF pantoprazole [Protonix] 20 mg tablet,delayed release (DR/EC) 20 mg PO DAILY Qty: 30 2RF Referrals: Shan Barrera DO [Primary Care Provider] - John Lawson MD [Physician] - Stand Alone Forms: Patient Portal/API
[2023-10-28] MEDS: SODIUM CHLORIDE 0.9% 500 ML 1000 ML IV (12:36)
[2023-10-28] MEDS: HYDROMORPHONE 1 MG INJ IV ×2 (12:37→15:26)
[2023-10-28 12:38] LABS: Add Manual Diff / Slide Review NO; Basophils Absolute Auto 100 /uL (0-100); Basophils Percent Auto 0.9 % (0-2); Eosinophils Absolute Auto 100 /uL (0-450); Eosinophils Percent Auto 1.6 % (2-4); Hemoglobin 13.6 g/dL (12.0-16.0); Lymphocytes Absolute Auto 1600 /uL (1100-4500); Lymphocytes Percent Auto 26.7 % (25-40); Mean Corpuscular HGB Conc 34.1 % (30-36); Mean Corpuscular Hemoglobin 31.5 PG (26-34); Mean Corpuscular Volume 92.2 fL (80-100); Monocytes Absolute Auto 400 /uL (0-900); Monocytes Percent Auto 7.3 % (3-14); Neutrophils Absolute Auto 3800 /uL (1500-7000); Neutrophils Percent Auto 63.5 % (50-75); Platelet Count 273 X10^3/uL (150-400); Red Blood Cell Count 4.33 X10^6/uL (4.0-5.2); Red Cell Distribution Width 13.9 % (11.6-14.8)
[2023-10-28 12:48] LABS: Alanine Aminotransferase 25 IU/L (<35); Albumin 4.2 g/dL (3.5-5.0); Albumin Globulin Ratio 1.5 (1.0-2.8); Alkaline Phosphatase 109 U/L (38-126); Amylase 65 U/L (30-110); Aspartate Aminotransferase 34 IU/L (14-36); BUN Creatinine Ratio 15.2 (6-22); Bilirubin Total 0.5 mg/dL (0.2-1.3); Blood Urea Nitrogen 12 mg/dL (7-17); Calcium 9.4 mg/dL (8.4-10.2); Carbon Dioxide 24 mmol/L (22-32); Chloride 106 mmol/L (98-107); Estimated Glomerular Filt Rate > 60 mL/min (>60); Globulin 2.8 g/dL (1.7-4.1); Glucose 97 mg/dL (80-110); HEMOLYSIS 18 (0-50); Potassium 4.6 mmol/L (3.4-5.1); Sodium 135 mmol/L (137-145)
[2023-10-28] MEDS: cephALEXin 250 MG CAPSULE 500 MG PO (15:27)
== END 2023-10-28 15:48 | disposition home or self-care (01) ==
PROVIDERS: Emergency Provider Emergency Medicine; PCP Family Medicine
DX: K11.21 Acute sialoadenitis (principal)
CPT/HCPCS: 36415; 70491; 80053; 82150; 85025; 96361; 96374; 96376; 99284; J1170; Q9967

== ENCOUNTER 2023-11-22 09:56 | Inpatient (IN) | payer MEDICARE, OTHER, SELFPAY ==
[2023-04-21 03:23] VITALS: BMI 26.6
[2023-11-22] VITALS (81 sets, daily range): BP systolic 100–259; BP diastolic 54–129; PULSE 73–94; RESP 13–67; TEMP 36.2–36.7; O2SAT 75–100; BMI 30.9; BMI 31.0
--- NOTE | 2023-11-22 10:01 | DI.RAD.S_ITS ---
PROCEDURE: XR CHEST 1V INDICATIONS: chest pain TECHNIQUE: One view of the chest was acquired. COMPARISON: [facility], CR, XR CHEST 1V, 09/22/2023, 12:08. [facility], CT, CT ANGIO CHEST ABDOMEN PELVIS, 09/22/2023, 13:03. [facility], CR, XR CHEST 1V, 10/24/2023, 11:03. FINDINGS: Surgical changes and devices: Left shoulder postoperative hardware is seen. Lungs and pleura: An incomplete inspiratory result is noted, causing a crowded appearance to the lung markings. No focal infiltrates are seen. No pneumothorax or significant pleural effusions are seen. Mediastinum: Mediastinal contours appear normal. Heart size is normal. Atherosclerotic calcification of the aortic arch is noted. Bones and chest wall: No suspicious bony lesions. Age-appropriate bony degenerative changes are seen. Overlying soft tissues appear unremarkable. IMPRESSION: Low lung volumes, without an acute abnormality seen by plain film. Dictated by: Raudel García M.D. on 11/22/2023 at 9:47 Approved by: Raudel García M.D. on 11/22/2023 at 9:48
--- NOTE | 2023-11-22 10:07 | EKG_ITS ---
[address] [address] Test Date: 2023-11-22 Pat Name: Isaura Castro Department: [facility] Room: Gender: Female [employer]: DELILAH : 1950 Requested By: Order Number: [id number] Reading MD: Salvatore Castanon Measurements Intervals [place] Rate: 90 P: 41 UT: 178 QRS: -2 QRSD: 92 T: 51 QT: 366 QTc: 447 Interpretive Statements Sinus rhythm with premature atrial complexes Possible Left atrial enlargement Inferior infarct , age undetermined Anteroseptal infarct , age undetermined Electronically Signed On 11-23-2023 15:25:56 PDT by Salvatore Castanon
--- NOTE | 2023-11-22 10:16 | ED_ITS ---
HPI - Chest Pain General Chief Complaint: Chest Pain Stated Complaint: thinks she's having heart attack, high bp Time Seen by Provider: 11/22/23 10:16 History of Present Illness HPI narrative: 73-year-old woman with a history of coronary artery disease post LAD stenting in [place] in 2020, hypertension currently controlled with diet and exercise finds multiple allergies and blood pressure medications difficult to take, recently diagnosed with a DVT and started on Xarelto which she states she is taking. went to bed last night and had a tightness heaviness in the lower part of her chest. She would just taken an antibiotic pill and assumed that it simply had not gone all the way down. She had some emesis that was mostly phlegm. She had a glass of wine to see if this might help, this seemed to cause more vomiting. She was able to get some crackers down. Symptoms abated enough that she was able to rest much of the night. When she awoke this morning she had a severe right-sided chest pain radiating diagonally down toward her heart associated with significant pain in his sensation that her heart was beating too fast and something was wrong. Blood pressure was significantly elevated who is having some difficulty thinking and processing and her partner brought her in for further evaluation. She states that these are symptoms similar to what she experienced with her chest pain that led to the LAD stenting. Related Data Home Medications Medication Instructions Recorded Confirmed fluticasone propionate 50 1 spray intranasal DAILY 08/08/22 10/24/23 mcg/actuation nasal spray,suspension estradiol 0.025 mg/24 hr weekly 1 patch transdermal WEEKLY 04/21/23 10/24/23 transdermal patch Previous Rx's Medication Instructions Recorded acetaminophen 325 mg tablet 650 mg (2 x 325 mg) PO Q6H PRN 08/24/22 Fever/Mild Pain (1-10 #30 tabs aspirin 81 mg tablet,delayed 81 mg PO DAILY #30 tabs 04/21/23 release hydroxyzine pamoate 25 mg capsule 25 mg PO Q4HR PRN Pain, Mild (1-3) 04/21/23 #30 caps lorazepam 1 mg tablet (Ativan) 1 mg PO TID PRN anxiety #20 tabs 04/21/23 pantoprazole 20 mg tablet,delayed 20 mg PO DAILY #30 tabs 04/21/23 release (Protonix) sucralfate 1 gram tablet 1 gm PO ACHS #30 tabs 04/21/23 valsartan 80 mg tablet (Diovan) 20 mg (1/4 x 80 mg) PO BID #30 tabs 04/21/23 phenazopyridine 200 mg tablet 200 mg PO TID 6 doses #6 tabs 09/03/23 (Pyridium) hydroxyzine HCl 25 mg tablet 25 mg PO TID PRN nausea and 10/24/23 vomiting #10 tabs oxycodone 5 mg tablet 5 mg PO Q6H PRN pain #7 tabs 10/24/23 rivaroxaban 15 mg (42)-20 mg (9) See Rx Instructions PO .COMPLEX 10/24/23 tablets in a starter pack #51 ea cephalexin 500 mg capsule 500 mg PO QID #20 caps 10/28/23 hydrocodone 5 mg-acetaminophen 325 1 tab PO Q4-6H PRN pain #10 tabs 10/28/23 mg tablet hydroxyzine HCl 25 mg tablet 25 mg PO TID PRN itching #14 tabs 10/28/23 Allergies Allergy/AdvReac Type Severity Reaction Status Date / Time hydrocodone Allergy Intermediate Hives Verified 10/28/23 11:14 hydrochlorothiazide Allergy Mild Hives Verified 10/28/23 11:14 metoprolol Allergy Mild Hives Verified 10/28/23 11:14 Sulfa (Sulfonamide Allergy Mild Hives Verified 10/28/23 11:14 Antibiotics) acetaminophen [From Tylenol] Allergy Hives Verified 10/28/23 11:14 doxycycline Allergy Hives Verified 10/28/23 11:14 amoxicillin AdvReac Mild Verified 10/28/23 11:14 cephalexin AdvReac Mild Verified 10/28/23 11:14 Review of Systems Review of Systems Narrative: Pertinent positive and negative findings as per HPI Patient History Medical History Johnathan's disease Shoulder injury History of alcohol use History of tobacco abuse Hyperlipidemia Essential hypertension Surgical History History of ankle surgery Family History Father Hypertension Mother Hypertension CVA (cerebral vascular accident) Son Diabetes mellitus Social History (Reviewed 10/24/23 @ 11:51 by PRABHAKAR Mckenna marital status: unmarried,living together details: Life partner household members: significant other housing: house Smoking Status: Former smoker alcohol intake: former substance use type: does not use well-balanced diet: daily or most days Smoking Status: Former smoker alcohol intake frequency: 3 or more drinks per day Substance Use Type: marijuana Exam Initial Vital Signs Initial Vital Signs: Vital Signs Temperature 98.1 F 11/22/23 10:01 Pulse Rate 93 H 11/22/23 10:01 Respiratory Rate 20 11/22/23 10:01 Blood Pressure 259/129 H 11/22/23 10:01 Pulse Oximetry 100 11/22/23 10:01 Oxygen Delivery Method Room Air 11/22/23 10:01 General: Chronically ill appearing, in no acute distress. Able to give a complete and coherent history. HEENT: Moist mucous membranes, normal sclera with reactive pupils, small Band- Aid to the side of her nose Neck: No JVD, supple Respiratory: Lungs are clear to auscultation, no wheezing no rales no rhonchi. Full and symmetrical air movement Cardiac: Regular rate and rhythm, 2/6 systolic murmur Abdomen: Soft, nontender, good bowel tones, no flank pain Skin: Warm and dry, no rashes Neurologic: Grossly neurologically intact with no obvious asymmetries or abnormalities Extremities: No trauma, well perfused Psych: Cooperative, complaining of confusion Course Orders Ordered: ED Orders 11/22/23 10:01 XR chest 1V Stat EKG-12 Lead Stat 11/22/23 10:15 Complete Blood Count AUTO DIFF Stat Comprehensive Metabolic Panel Stat Lipase Stat Magnesium Stat NT-proBNP (BNP-Adult 18+) Stat PTT Partial Thromboplastin Adrian Stat Prothrombin Time INR Stat Troponin & CK Cardiac Panel Stat 11/22/23 10:26 EKG-12 Lead Stat 11/22/23 10:28 CT angio chest abdomen pelvis Stat 11/22/23 12:33 Trop I [Troponin I] Stat 11/22/23 12:45 EKG-12 Lead Stat 11/22/23 16:45 PTT Partial Thromboplastin Adrian Stat 11/23/23 05:00 Hemoglobin and Hematocrit DAILY Platelet Count DAILY 11/24/23 05:00 Hemoglobin and Hematocrit DAILY Platelet Count DAILY Nitroglycerin (Nitroglycerin) 50 mg in 250 mls @ 1.5 mls/hr IV TITRATE TU; Protocol Last Titration: 11/22/23 11:47 Dose: 15 mcg/min, 4.5 mls/hr Documented By: Titration: 11/22/23 11:33 Dose: 10 mcg/min, 3 mls/hr Documented By: Admin: 11/22/23 10:46 Dose: 5 mcg/min, 1.5 mls/hr Documented By: RB Heparin Sodium/Dextrose (Heparin Drip) 25,000 unit in 500 mls @ 19.051 mls/hr IV CONT TU; Protocol Last Admin: 11/22/23 10:43 Dose: 12 units/kg/hr, 19.051 mls/hr Documented By: RB Co-signed By: ABRAHAM Morphine Sulfate (Morphine 2 Mg/Ml Inj) 2 mg IV Q30MIN PRN PRN Reason: Pain, Moderate (4-6) Last Admin: 11/22/23 12:03 Dose: 2 mg Documented By: ROSETTA Discontinued Medications Aspirin (Aspirin 81 Mg Chew Tab) 324 mg PO NOW ONE Stop: 11/22/23 10:02 Last Admin: 11/22/23 10:30 Dose: 324 mg Documented By: ABRAHAM Al Hydrox/Mg Hydrox/Simethicone 20 ml/ Lidocaine HCl 15 ml 0 ml PO NOW ONE Stop: 11/22/23 11:56 Last Admin: 11/22/23 12:03 Dose: 20 ml Documented By: ROSETTA Heparin Sodium (Porcine) (Heparin 5,000 Unit/Ml Vial) 5,000 unit 60 unit/kg (5000 unit) IV NOW ONE Stop: 11/22/23 10:27 Last Admin: 11/22/23 10:42 Dose: 5,000 unit Documented By: RB Nitroglycerin (Nitroglycerin 0.4 Mg Sl Tab) 0.4 mg SL [id number] PRN PRN Reason: Chest Pain Last Admin: 11/22/23 10:54 Dose: 0.4 mg Documented By: Admin: 11/22/23 10:45 Dose: 0.4 mg Documented By: Admin: 11/22/23 10:35 Dose: 0.4 mg Documented By: RB Vital Signs Vital signs: Vital Signs - 8 hr 11/22/23 10:01 11/22/23 10:20 11/22/23 10:30 Temperature 98.1 F Pulse Rate 93 H 81 79 Respiratory Rate 20 21 27 H Blood Pressure 259/129 H Pulse Oximetry 100 100 98 Oxygen Delivery Method Room Air 11/22/23 10:31 11/22/23 10:31 11/22/23 10:35 Temperature Pulse Rate 78 80 Respiratory Rate 24 Blood Pressure 191/107 H 191/107 H Pulse Oximetry 98 Oxygen Delivery Method 11/22/23 10:45 11/22/23 10:46 11/22/23 10:46 Temperature Pulse Rate 81 88 Respiratory Rate Blood Pressure 186/95 H 186/95 H 186/95 H Pulse Oximetry Oxygen Delivery Method 11/22/23 10:46 11/22/23 10:51 11/22/23 10:51 Temperature Pulse Rate 85 87 Respiratory Rate 13 19 Blood Pressure 158/73 H Pulse Oximetry 96 95 Oxygen Delivery Method 11/22/23 10:54 11/22/23 10:54 11/22/23 10:54 Temperature Pulse Rate 84 84 Respiratory Rate 22 Blood Pressure 168/79 H 168/79 H Pulse Oximetry 96 Oxygen Delivery Method 11/22/23 11:00 11/22/23 11:00 11/22/23 11:05 Temperature Pulse Rate 90 81 Respiratory Rate 24 25 H Blood Pressure 144/78 H Pulse Oximetry 94 96 Oxygen Delivery Method 11/22/23 11:10 11/22/23 11:10 11/22/23 11:15 Temperature Pulse Rate 80 83 Respiratory Rate 19 20 Blood Pressure 138/76 Pulse Oximetry 94 97 Oxygen Delivery Method 11/22/23 11:20 11/22/23 11:20 11/22/23 11:25 Temperature Pulse Rate 82 82 Respiratory Rate 34 H 17 Blood Pressure 149/91 H Pulse Oximetry 96 98 Oxygen Delivery Method 11/22/23 11:27 11/22/23 11:27 11/22/23 11:30 Temperature Pulse Rate 79 Respiratory Rate 22 Blood Pressure 147/80 H 182/81 H Pulse Oximetry 98 Oxygen Delivery Method 11/22/23 11:30 11/22/23 11:32 11/22/23 11:32 Temperature Pulse Rate 76 78 Respiratory Rate 47 H 22 Blood Pressure 178/94 H Pulse Oximetry 97 98 Oxygen Delivery Method 11/22/23 11:35 11/22/23 11:36 11/22/23 11:36 Temperature Pulse Rate 75 78 Respiratory Rate 26 H 21 Blood Pressure 149/79 H Pulse Oximetry 99 99 Oxygen Delivery Method 11/22/23 11:40 11/22/23 11:40 11/22/23 11:45 Temperature Pulse Rate 82 Respiratory Rate 31 H Blood Pressure 158/74 H 154/80 H Pulse Oximetry 98 Oxygen Delivery Method 11/22/23 11:45 11/22/23 11:50 11/22/23 11:50 Temperature Pulse Rate 80 80 Respiratory Rate 20 14 Blood Pressure 148/85 H Pulse Oximetry 98 97 Oxygen Delivery Method 11/22/23 11:55 11/22/23 11:55 11/22/23 12:00 Temperature Pulse Rate 81 Respiratory Rate 27 H Blood Pressure 152/84 H 150/88 H Pulse Oximetry 94 Oxygen Delivery Method 11/22/23 12:00 11/22/23 12:05 11/22/23 12:05 Temperature Pulse Rate 84 86 Respiratory Rate 23 32 H Blood Pressure 138/83 Pulse Oximetry 94 92 Oxygen Delivery Method 11/22/23 12:09 11/22/23 12:10 Temperature Pulse Rate 94 H Respiratory Rate 67 H Blood Pressure 139/78 Pulse Oximetry 97 Oxygen Delivery Method MDM - Chest Pain Lab Data 11/22/23 10:15 11/22/23 10:15 Labs: Lab Results 11/22/23 11/22/23 Range/Units 10:15 12:33 WBC 8.1 (4.5-11.0) X10^3/uL RBC 4.66 (4.0-5.2) X10^6/uL Hgb 14.6 (12.0-16.0) g/dL Hct 43.1 (36-46) % MCV 92.5 (80-100) fL MCH 31.4 (26-34) PG MCHC 33.9 (30-36) % RDW 14.1 (11.6-14.8) % Plt Count 314 (150-400) X10^3/uL Neut % (Auto) 60.0 (50-75) % Lymph % (Auto) 28.4 (25-40) % [place] % (Auto) 8.9 (3-14) % Eos % (Auto) 2.2 (2-4) % Baso % (Auto) 0.5 (0-2) % Neut # (Auto) 4900 (9808-2227) /uL Lymph # (Auto) 2300 (1302-0145) /uL [place] # (Auto) 700 (0-900) /uL Eos # (Auto) 200 (0-450) /uL Baso # (Auto) 0 (0-100) /uL PT 11.5 (9.4-12.5) SECONDS INR 1.0 (0.9-1.3) APTT 37 H (25.1-36.5) SECONDS Sodium 134 L (137-145) mmol/L Potassium 4.2 (3.4-5.1) mmol/L Chloride 101 (98-107) mmol/L Carbon Dioxide 26 (22-32) mmol/L BUN 17 (7-17) mg/dL Creatinine 0.87 (0.52-1.04) mg/dL Estimated GFR > 60 (>60) mL/min BUN/Creatinine Ratio 19.5 (6-22) Glucose 129 H (80-110) mg/dL Calcium 10.5 H (8.4-10.2) mg/dL Magnesium 2.1 (1.6-2.3) mg/dL Total Bilirubin 0.8 (0.2-1.3) mg/dL AST 34 (14-36) IU/L ALT 27 (<35) IU/L Alkaline Phosphatase 143 H (38-126) U/L Total Creatine Kinase 128 (30-135) U/L Troponin I < 0.012 < 0.012 (0.01-0.034) ng/mL NT-Pro-B Natriuret Pep 733 H (<125) pg/mL Total Protein 7.4 (6.3-8.2) g/dL Albumin 4.5 (3.5-5.0) g/dL Globulin 2.9 (1.7-4.1) g/dL Albumin/Globulin Ratio 1.6 (1.0-2.8) Lipase 99 (23-300) U/L Imaging Data Chest abdomen and pelvis CT angiogram to rule out dissection: Radiologist's Impression: PROCEDURE: CT ANGIO CHEST ABDOMEN PELVIS INDICATIONS: concern for dissection TECHNIQUE: Precontrast 5 mm thick sections acquired from the lung apices to the iliac crests. After the administration of intravenous contrast, 2.5 mm thick sections again acquired from the lung apices to the iliac crests. Maximum intensity projection (MIP) oblique sagittal and coronal reformats were then acquired. For radiation dose reduction, the following was used: automated exposure control. COMPARISON: [facility], CT, CT SOFT TISSUE NECK W CON, 10/28/2023, 12:47. [facility], CT, CT ANGIO CHEST ABDOMEN PELVIS, 09/22/2023, 13:03. [facility], CR, XR CHEST 1V, 11/22/2023, 10:13. [facility], CT, CT ANGIO CHEST PE, 04/21/2023, 1:06. FINDINGS: Image quality: There is artifact associated with the metallic hardware. AORTA: On precontrast images, no mural hematoma is seen. On postcontrast images, no dissection flap can be seen. The ascending thoracic aorta measures 3.5 cm, which is within normal limits. The remainder of the thoracic aorta is likewise within normal limits. There is abdominal aortic aneurysm seen, measuring 4.2 cm AP. Mural thrombus can be seen. CHEST: Lower Neck: No enlarged lymph nodes. Thyroid: No thyroid nodules which require sonographic evaluation. Axillae: No enlarged lymph nodes. Chest Wall: Unremarkable. Lungs and Pleura: No pneumothorax or pleural effusions. Emphysematous changes are seen, with subpleural bleb formation. No consolidation or suspicious nodules. Heart: Heart size is normal. No pericardial effusion. There is an LAD stent. There is again seen prominent fat along the interatrial septum. Thoracic Vessels: Pulmonary arteries demonstrate normal size. Mediastinum and [place]: No enlarged lymph nodes. Esophagus: No wall thickening. No hiatal hernia. ABDOMEN: Liver: No solid mass. Gallbladder: No radiopaque gallstones or wall thickening. Biliary ducts: No biliary dilation. Pancreas: No ductal dilation. Spleen: Size is within normal limits. Adrenal Glands: No adrenal nodules. Kidneys and Ureters: No hydronephrosis. No solid mass. No complex renal cystic lesion which requires follow up. Stomach and Bowel: Normal colonic caliber, without significant wall thickening. A few distal colonic diverticula can be seen. Peritoneum: No abnormal intraperitoneal fluid. No free air. Ventral Wall: No hernia. Abdominal Nodes: No retroperitoneal or mesenteric adenopathy by size criteria. Vessels: Inferior vena cava is normal in size. PELVIS: Pelvic Organs: This patient is status post hysterectomy. No adnexal masses are seen. Bladder: Unremarkable. Pelvic Nodes: No enlarged lymph nodes. Miscellaneous: No inguinal hernias are seen. Bones: Left shoulder arthroplasty hardware is seen, with associated streak artifact. Multiple levels of degenerative change can be seen, which are overall worst within the thoracolumbar junction and at L5-S1. IMPRESSION: No acute abnormality is seen. No dissection flap. There is a stable abdominal aortic aneurysm seen measuring 4.2 cm AP. Normal thoracic aorta. Abnormal lungs, with emphysematous change and subpleural bleb formation. Additional findings: LAD stent Apparent lipomatous hypertrophy of the interatrial septum Diverticulosis, without active diverticulitis Hysterectomy Spinal degenerative change Dictated by: Raudel García M.D. on 11/22/2023 at 11:10 MDM Narrative Medical decision making narrative: CC: Chest pain, confusion, significantly elevated blood pressure Complicating co-morbidities: Coronary artery disease, post stenting, hypertension not currently on medications, recent DVT on Xarelto, history of alcohol use Data collected from: patient, partner Social determinants of health that may influence the patients condition: Move to the area in May of 2022. This beginning to establish care with physicians. Has an appointment with [facility] cardiology scheduled but has not yet been seen Medical records reviewed: H& P from March 2023 with admission for similar complaints is reviewed. In March she did have a normal stress and my her ideal perfusion scan. Differential considered: Acute coronary syndrome, hypertensive crisis, Exam documented above, pertinent findings include: Benign exam. Pain is not reproducible with palpation Lab Test results independently reviewed as above. Pertinent findings: CBC is unremarkable Chemistries show minimally elevated calcium at 10.5. Alkaline phosphatase slightly elevated at 143. First and 2nd troponins are undetectable ProBNP is minimally elevated at 733 Lipase is unremarkable Independently reviewed EKG: EKG on presentation shows sinus rhythm with a PAC at a rate of 90. No obvious ischemic changes. EKG repeated at 10:35 a.m. for increased chest pain shows flipped T-waves across the precordium and inferiorly with no ST elevation, this is a change from initial presentation Imaging studies independently reviewed: Chest x-ray is unable CT chest abdomen and pelvis to rule out dissection does not fact rule out dissection. She is noted to have emphysematous lung changes. Lad stent is a appreciated. She has a stable abdominal aortic aneurysm measuring 4.2 cm Treatments: With the increased pain the slight evolving EKG and the significant hypertension with reports of significant allergies to multiple hypertensive medications, we will begin nitroglycerin drip along with heparin until remainder of clinical presentation is more fully evaluated Discussion: 73-year-old woman presents with chest pain similar to that that led to LAD stent in 2020. Additional problems include alcohol use, she states she has been drinking more these past couple of days. She also has a history of reflux with an upper endoscopy within the last 3 months and was told that she had esophagitis. She finds that she very much does not like taking medications. It sounds like she took proton pump inhibitor briefly until some of the burning pain resolved but has since stopped. She has not been taking any hypertensive medications. Significantly hypertensive on arrival. No evidence dissection or abdominal aneurysm rupture. First and 2nd troponins were unremarkable. Because of her complaints and original concern she was started on heparin, with a nitroglycerin blood pressure has been much better controlled and is currently at 139/78 and she is essentially pain-free. She was admitted for cardiac rule out in March of this year and did have a normal myocardial perfusion study at that time with no wall motion abnormalities In evaluating her EKGs, she has had some subtle ST inversions that have seemed to improved as her blood pressures come down and she is on the nitroglycerin. She is not meeting STEMI criteria At this time I believe that her blood pressure was causing her chest pain, perhaps exacerbated by recent alcohol use in light of recent diagnosis of esophagitis and not taking a proton pump inhibitor. Will leave her on heparin and nitroglycerin at this time. We will leave the discussion of which antihypertensives might be most helpful for her to the medicine team, patient is adamant the metoprolol will not be a medication she is taking. We will likely benefit from continued treatment of her esophagitis and surveillance for potential for alcohol withdrawal symptoms. We will review care with the hospitalist service Critical Care Time Critical Care Time Critical Care Time: Yes Total Critical Care Time: 41 Attestation: Critical care time is separate from other billable procedures. There is a high probability of a significant, sudden or life-threatening deterioration that requires my full and direct attention, intervention and personal management. This critical care time includes consultation with family and other consulting doctors, review of records, and interpretation of data from labs, EKGs and imaging as well as managements of hypertensive crisis with IV medications, chest pain with hospital admission Discharge Plan Departure Patient Disposition: Home Clinical Impression: Hypertensive crisis Chest pain Qualifiers: Chest pain type: unspecified Qualified Code(s): R07.9 - Chest pain, unspecified Prescriptions: No Action phenazopyridine [Pyridium] 200 mg tablet 200 mg PO TID 0 Days Qty: 6 0RF fluticasone propionate 50 mcg/actuation spray,suspension 1 spray intranasal DAILY Rx Instructions: administer into each nostril rivaroxaban 15 mg (42)- 20 mg (9) tablets,dose pack See Rx Instructions .ROUTE .COMPLEX Qty: 51 0RF Rx Instructions: take one-15 mg tablet twice daily for 21 days, then one-20 mg tablet once daily; must take with meal/food oxycodone 5 mg tablet 5 mg PO Q6H PRN (Reason: pain) Qty: 7 0RF hydroxyzine HCl 25 mg tablet 25 mg PO TID PRN (Reason: nausea and vomiting) Qty: 10 0RF acetaminophen 325 mg Tablet 650 mg PO Q6H PRN (Reason: Fever/Mild Pain (1-10) Qty: 30 0RF estradiol 0.025 mg/24 hr patch weekly 1 patch transdermal WEEKLY sucralfate 1 gram Tablet 1 gm PO ACHS Qty: 30 0RF valsartan [Diovan] 80 mg Tablet 20 mg PO BID Qty: 30 3RF aspirin 81 mg Tablet,Delayed Release (Dr/Ec) 81 mg PO DAILY Qty: 30 3RF hydroxyzine pamoate 25 mg Capsule 25 mg PO Q4HR PRN (Reason: Pain, Mild (1-3)) Qty: 30 1RF Patient Comments: patient states she takes for a skin rash and when it is bad she takes 100mg lorazepam [Ativan] 1 mg tablet 1 mg PO TID PRN (Reason: anxiety) Qty: 20 0RF pantoprazole [Protonix] 20 mg tablet,delayed release (DR/EC) 20 mg PO DAILY Qty: 30 2RF hydroxyzine HCl 25 mg tablet 25 mg PO TID PRN (Reason: itching) Qty: 14 0RF hydrocodone-acetaminophen 5-325 mg tablet 1 tab PO Q4-6H PRN (Reason: pain) Qty: 10 0RF cephalexin 500 mg capsule 500 mg PO QID Qty: 20 0RF Referrals: Shan Barrera DO [Primary Care Provider] - Admit Date/Time: 11/22/23 13:58 Admit Provider: Sha Quiñones V Stand Alone Forms: Patient Portal/API
[2023-11-22 10:23] LABS: Add Manual Diff / Slide Review NO; Basophils Absolute Auto 0 /uL (0-100); Basophils Percent Auto 0.5 % (0-2); Eosinophils Absolute Auto 200 /uL (0-450); Eosinophils Percent Auto 2.2 % (2-4); Hematocrit 43.1 % (36-46); Hemoglobin 14.6 g/dL (12.0-16.0); Lymphocytes Absolute Auto 2300 /uL (1100-4500); Lymphocytes Percent Auto 28.4 % (25-40); Mean Corpuscular HGB Conc 33.9 % (30-36); Mean Corpuscular Hemoglobin 31.4 PG (26-34); Mean Corpuscular Volume 92.5 fL (80-100); Monocytes Absolute Auto 700 /uL (0-900); Monocytes Percent Auto 8.9 % (3-14); Neutrophils Absolute Auto 4900 /uL (1500-7000); Platelet Count 314 X10^3/uL (150-400); Red Blood Cell Count 4.66 X10^6/uL (4.0-5.2); Red Cell Distribution Width 14.1 % (11.6-14.8); White Blood Cell Count 8.1 X10^3/uL (4.5-11.0)
--- NOTE | 2023-11-22 10:28 | DI.CT.S_ITS ---
PROCEDURE: CT ANGIO CHEST ABDOMEN PELVIS INDICATIONS: concern for dissection TECHNIQUE: Precontrast 5 mm thick sections acquired from the lung apices to the iliac crests. After the administration of intravenous contrast, 2.5 mm thick sections again acquired from the lung apices to the iliac crests. Maximum intensity projection (MIP) oblique sagittal and coronal reformats were then acquired. For radiation dose reduction, the following was used: automated exposure control. COMPARISON: [facility], CT, CT SOFT TISSUE NECK W CON, 10/28/2023, 12:47. [facility], CT, CT ANGIO CHEST ABDOMEN PELVIS, 09/22/2023, 13:03. [facility], CR, XR CHEST 1V, 11/22/2023, 10:13. [facility], CT, CT ANGIO CHEST PE, 04/21/2023, 1:06. FINDINGS: Image quality: There is artifact associated with the metallic hardware. AORTA: On precontrast images, no mural hematoma is seen. On postcontrast images, no dissection flap can be seen. The ascending thoracic aorta measures 3.5 cm, which is within normal limits. The remainder of the thoracic aorta is likewise within normal limits. There is abdominal aortic aneurysm seen, measuring 4.2 cm AP. Mural thrombus can be seen. CHEST: Lower Neck: No enlarged lymph nodes. Thyroid: No thyroid nodules which require sonographic evaluation. Axillae: No enlarged lymph nodes. Chest Wall: Unremarkable. Lungs and Pleura: No pneumothorax or pleural effusions. Emphysematous changes are seen, with subpleural bleb formation. No consolidation or suspicious nodules. Heart: Heart size is normal. No pericardial effusion. There is an LAD stent. There is again seen prominent fat along the interatrial septum. Thoracic Vessels: Pulmonary arteries demonstrate normal size. Mediastinum and Hansa: No enlarged lymph nodes. Esophagus: No wall thickening. No hiatal hernia. ABDOMEN: Liver: No solid mass. Gallbladder: No radiopaque gallstones or wall thickening. Biliary ducts: No biliary dilation. Pancreas: No ductal dilation. Spleen: Size is within normal limits. Adrenal Glands: No adrenal nodules. Kidneys and Ureters: No hydronephrosis. No solid mass. No complex renal cystic lesion which requires follow up. Stomach and Bowel: Normal colonic caliber, without significant wall thickening. A few distal colonic diverticula can be seen. Peritoneum: No abnormal intraperitoneal fluid. No free air. Ventral Wall: No hernia. Abdominal Nodes: No retroperitoneal or mesenteric adenopathy by size criteria. Vessels: Inferior vena cava is normal in size. PELVIS: Pelvic Organs: This patient is status post hysterectomy. No adnexal masses are seen. Bladder: Unremarkable. Pelvic Nodes: No enlarged lymph nodes. Miscellaneous: No inguinal hernias are seen. Bones: Left shoulder arthroplasty hardware is seen, with associated streak artifact. Multiple levels of degenerative change can be seen, which are overall worst within the thoracolumbar junction and at L5-S1. IMPRESSION: No acute abnormality is seen. No dissection flap. There is a stable abdominal aortic aneurysm seen measuring 4.2 cm AP. Normal thoracic aorta. Abnormal lungs, with emphysematous change and subpleural bleb formation. Additional findings: LAD stent Apparent lipomatous hypertrophy of the interatrial septum Diverticulosis, without active diverticulitis Hysterectomy Spinal degenerative change Dictated by: Raudel García M.D. on 11/22/2023 at 11:10 Approved by: Raudel García M.D. on 11/22/2023 at 11:16
[2023-11-22] MEDS: ASPIRIN 81 MG CHEW TAB 324 MG PO (10:30)
[2023-11-22 10:34] LABS: Prothrombin Time 11.5 SECONDS (9.4-12.5)
[2023-11-22] MEDS: NITROGLYCERIN 0.4 MG SL TAB SL ×3 (10:35→10:54)
--- NOTE | 2023-11-22 10:35 | EKG_ITS ---
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
[2023-11-22 10:36] LABS: PTT Partial Thromboplastin Tim 37 SECONDS (25.1-36.5)
[2023-11-22 10:39] LABS: Alanine Aminotransferase 27 IU/L (<35); Albumin 4.5 g/dL (3.5-5.0); Albumin Globulin Ratio 1.6 (1.0-2.8); Alkaline Phosphatase 143 U/L (38-126); Aspartate Aminotransferase 34 IU/L (14-36); BUN Creatinine Ratio 19.5 (6-22); Bilirubin Total 0.8 mg/dL (0.2-1.3); Blood Urea Nitrogen 17 mg/dL (7-17); Calcium 10.5 mg/dL (8.4-10.2); Carbon Dioxide 26 mmol/L (22-32); Chloride 101 mmol/L (98-107); Creatine Kinase 128 U/L (30-135); Estimated Glomerular Filt Rate > 60 mL/min (>60); Globulin 2.9 g/dL (1.7-4.1); Glucose 129 mg/dL (80-110); HEMOLYSIS < 15 (0-50); Lipase 99 U/L (23-300); Magnesium 2.1 mg/dL (1.6-2.3); Potassium 4.2 mmol/L (3.4-5.1); Sodium 134 mmol/L (137-145); Total Protein 7.4 g/dL (6.3-8.2)
[2023-11-22] MEDS: HEPARIN 5,000 UNIT/ML VIAL 5000 UNIT IV (10:42)
[2023-11-22] MEDS: HEPARIN DRIP 25,000 UNIT/500 ML IV.SOLN 19.051 UNIT IV (10:43)
[2023-11-22] MEDS: NITROGLYCERIN 50 MG/250 ML INFUS..BTL IV (10:46)
[2023-11-22 10:50] LABS: NT-proBNP (BNP-Adult 18+) 733 pg/mL (<125); Troponin I < 0.012 ng/mL (0.01-0.034)
[2023-11-22] MEDS: MAG HYDROX/ALUMINUM/SIMETH SUS 20 ML, LIDOCAINE VISCOUS 2% 15 ML PO (12:03)
[2023-11-22] MEDS: MORPHINE 2 MG/ML INJ IV (12:03)
--- NOTE | 2023-11-22 12:19 | PC.NURSE ---
about every 20 min pt having nausea episode, heaving into emesis bag, diaphoretic. lasts about 5 min and passes. having continued chest pain about 5/10 with NTG gtt 15mcg/min. Dr Garg made aware. order for morphine and GI cocktail.
--- NOTE | 2023-11-22 13:01 | EKG_ITS ---
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
[2023-11-22 13:10] LABS: Troponin I < 0.012 ng/mL (0.01-0.034)
--- NOTE | 2023-11-22 15:23 | P.HP_ITS ---
History of Present Illness History of Present Illness Date Patient Seen: 11/22/23 Time Patient Seen: 15:30 Date of Onset of Symptoms: 11/22/23 Chief complaint: thinks she's having heart attack, high bp Narrative: 73 year old woman under the primary care of Dr. Leon of [facility] with history of coronary disease status post LAD stenting while living in [place] in 2020, longstanding hypertension treated without medications, and a recently diagnosed right leg DVT treated with Xarelto experienced lower chest heaviness and tightness. This occurred after taking doxycycline for a skin condition. She experienced nausea and emesis. She tried drinking wine but found that symptoms worsened. Symptoms improved and she was able to get get some rest last night but experienced severe right-sided chest pain with a feeling of palpitations. She states that she has a longstanding history of hypertension and has not tolerated antihypertensives, those being losartan and metoprolol, with blood pressures mostly in the 140s over 70s at home. However she notes she can go up to 220 systolic at times, mostly associated with pain or stress. The chest discomfort that she experienced is very similar to that that she experienced at the time of her LAD stenting. In the emergency department she had a presenting blood pressure of 259/129 and was started on nitroglycerin and heparin infusions with improvement in chest pain and blood pressures. She currently has 3/10 chest pain. She had normal cardiac enzymes and unremarkable EKG. She is admitted for further management and evaluation. [facility] Medical History [place]'s disease Shoulder injury History of alcohol use History of tobacco abuse Hyperlipidemia Essential hypertension Surgical History History of ankle surgery Family History Father Hypertension Mother Hypertension CVA (cerebral vascular accident) Son Diabetes mellitus Social History marital status: unmarried,living together details: Life partner household members: significant other housing: house Smoking Status: Former smoker alcohol intake: former substance use type: does not use well-balanced diet: daily or most days Meds Home Medications and Allergies Home Medications Medication Instructions Recorded Confirmed Type fluticasone propionate 50 1 spray intranasal DAILY 08/08/22 10/24/23 History mcg/actuation nasal spray,suspension acetaminophen 325 mg tablet 650 mg (2 x 325 mg) PO Q6H PRN 08/24/22 10/24/23 Rx Fever/Mild Pain (1-10 #30 tabs aspirin 81 mg tablet,delayed 81 mg PO DAILY #30 tabs 04/21/23 10/24/23 Rx release estradiol 0.025 mg/24 hr weekly 1 patch transdermal WEEKLY 04/21/23 10/24/23 History transdermal patch hydroxyzine pamoate 25 mg capsule 25 mg PO Q4HR PRN Pain, Mild (1-3) 04/21/23 10/24/23 Rx #30 caps lorazepam 1 mg tablet (Ativan) 1 mg PO TID PRN anxiety #20 tabs 04/21/23 10/24/23 Rx pantoprazole 20 mg tablet,delayed 20 mg PO DAILY #30 tabs 04/21/23 10/24/23 Rx release (Protonix) sucralfate 1 gram tablet 1 gm PO ACHS #30 tabs 04/21/23 10/24/23 Rx valsartan 80 mg tablet (Diovan) 20 mg (1/4 x 80 mg) PO BID #30 tabs 04/21/23 10/24/23 Rx phenazopyridine 200 mg tablet 200 mg PO TID 6 doses #6 tabs 09/03/23 10/24/23 Rx (Pyridium) hydroxyzine HCl 25 mg tablet 25 mg PO TID PRN nausea and 10/24/23 Rx vomiting #10 tabs oxycodone 5 mg tablet 5 mg PO Q6H PRN pain #7 tabs 10/24/23 Rx rivaroxaban 15 mg (42)-20 mg (9) See Rx Instructions PO .COMPLEX 10/24/23 Rx tablets in a starter pack #51 ea cephalexin 500 mg capsule 500 mg PO QID #20 caps 10/28/23 Rx hydrocodone 5 mg-acetaminophen 325 1 tab PO Q4-6H PRN pain #10 tabs 10/28/23 Rx mg tablet hydroxyzine HCl 25 mg tablet 25 mg PO TID PRN itching #14 tabs 10/28/23 Rx Allergies Allergy/AdvReac Type Severity Reaction Status Date / Time hydrocodone Allergy Intermediate Hives Verified 10/28/23 11:14 hydrochlorothiazide Allergy Mild Hives Verified 10/28/23 11:14 metoprolol Allergy Mild Hives Verified 10/28/23 11:14 Sulfa (Sulfonamide Allergy Mild Hives Verified 10/28/23 11:14 Antibiotics) acetaminophen [From Tylenol] Allergy Hives Verified 10/28/23 11:14 doxycycline Allergy Hives Verified 10/28/23 11:14 amoxicillin AdvReac Mild Verified 10/28/23 11:14 cephalexin AdvReac Mild Verified 10/28/23 11:14 Review of Systems Review of Systems ROS: Yes All systems reviewed with the patient and are negative except as otherwise documented Exam Vital Signs (past 8 hours): - 11/22/23 10:01 11/22/23 10:20 11/22/23 10:30 Temperature 98.1 F Pulse Rate 93 H 81 79 Respiratory Rate 20 21 27 H Blood Pressure 259/129 H Pulse Oximetry 100 100 98 Oxygen Delivery Method Room Air 11/22/23 10:31 11/22/23 10:31 11/22/23 10:35 Temperature Pulse Rate 78 80 Respiratory Rate 24 Blood Pressure 191/107 H 191/107 H Pulse Oximetry 98 Oxygen Delivery Method 11/22/23 10:45 11/22/23 10:46 11/22/23 10:46 Temperature Pulse Rate 81 88 Respiratory Rate Blood Pressure 186/95 H 186/95 H 186/95 H Pulse Oximetry Oxygen Delivery Method 11/22/23 10:46 11/22/23 10:51 11/22/23 10:51 Temperature Pulse Rate 85 87 Respiratory Rate 13 19 Blood Pressure 158/73 H Pulse Oximetry 96 95 Oxygen Delivery Method 11/22/23 10:54 11/22/23 10:54 11/22/23 10:54 Temperature Pulse Rate 84 84 Respiratory Rate 22 Blood Pressure 168/79 H 168/79 H Pulse Oximetry 96 Oxygen Delivery Method 11/22/23 11:00 11/22/23 11:00 11/22/23 11:05 Temperature Pulse Rate 90 81 Respiratory Rate 24 25 H Blood Pressure 144/78 H Pulse Oximetry 94 96 Oxygen Delivery Method 11/22/23 11:10 11/22/23 11:10 11/22/23 11:15 Temperature Pulse Rate 80 83 Respiratory Rate 19 20 Blood Pressure 138/76 Pulse Oximetry 94 97 Oxygen Delivery Method 11/22/23 11:20 11/22/23 11:20 11/22/23 11:25 Temperature Pulse Rate 82 82 Respiratory Rate 34 H 17 Blood Pressure 149/91 H Pulse Oximetry 96 98 Oxygen Delivery Method 11/22/23 11:27 11/22/23 11:27 11/22/23 11:30 Temperature Pulse Rate 79 Respiratory Rate 22 Blood Pressure 147/80 H 182/81 H Pulse Oximetry 98 Oxygen Delivery Method 11/22/23 11:30 11/22/23 11:32 11/22/23 11:32 Temperature Pulse Rate 76 78 Respiratory Rate 47 H 22 Blood Pressure 178/94 H Pulse Oximetry 97 98 Oxygen Delivery Method 11/22/23 11:35 11/22/23 11:36 11/22/23 11:36 Temperature Pulse Rate 75 78 Respiratory Rate 26 H 21 Blood Pressure 149/79 H Pulse Oximetry 99 99 Oxygen Delivery Method 11/22/23 11:40 11/22/23 11:40 11/22/23 11:45 Temperature Pulse Rate 82 Respiratory Rate 31 H Blood Pressure 158/74 H 154/80 H Pulse Oximetry 98 Oxygen Delivery Method 11/22/23 11:45 11/22/23 11:50 11/22/23 11:50 Temperature Pulse Rate 80 80 Respiratory Rate 20 14 Blood Pressure 148/85 H Pulse Oximetry 98 97 Oxygen Delivery Method 11/22/23 11:55 11/22/23 11:55 11/22/23 12:00 Temperature Pulse Rate 81 Respiratory Rate 27 H Blood Pressure 152/84 H 150/88 H Pulse Oximetry 94 Oxygen Delivery Method 11/22/23 12:00 11/22/23 12:05 11/22/23 12:05 Temperature Pulse Rate 84 86 Respiratory Rate 23 32 H Blood Pressure 138/83 Pulse Oximetry 94 92 Oxygen Delivery Method 11/22/23 12:09 11/22/23 12:10 11/22/23 12:10 Temperature Pulse Rate 94 H 92 H Respiratory Rate 67 H 20 Blood Pressure 139/78 Pulse Oximetry 97 95 Oxygen Delivery Method 11/22/23 12:15 11/22/23 12:15 11/22/23 12:20 Temperature Pulse Rate 86 85 Respiratory Rate 24 Blood Pressure 143/88 H Pulse Oximetry 96 96 Oxygen Delivery Method Room Air 11/22/23 12:21 11/22/23 12:21 11/22/23 12:25 Temperature Pulse Rate 85 87 Respiratory Rate 38 H 27 H Blood Pressure 138/72 Pulse Oximetry 96 94 Oxygen Delivery Method 11/22/23 12:25 11/22/23 12:30 11/22/23 12:30 Temperature Pulse Rate 86 Respiratory Rate 25 H Blood Pressure 135/73 126/67 Pulse Oximetry 95 Oxygen Delivery Method 11/22/23 12:35 11/22/23 12:35 11/22/23 12:40 Temperature Pulse Rate 84 83 Respiratory Rate 20 19 Blood Pressure 125/73 Pulse Oximetry 95 94 Oxygen Delivery Method 11/22/23 12:40 11/22/23 12:45 11/22/23 12:45 Temperature Pulse Rate 82 Respiratory Rate 24 Blood Pressure 127/74 121/72 Pulse Oximetry 94 Oxygen Delivery Method 11/22/23 12:50 11/22/23 12:50 11/22/23 12:55 Temperature Pulse Rate 82 Respiratory Rate 20 Blood Pressure 138/76 127/77 Pulse Oximetry 94 Oxygen Delivery Method 11/22/23 12:55 11/22/23 13:00 11/22/23 13:00 Temperature Pulse Rate 80 78 Respiratory Rate 20 21 Blood Pressure 127/81 Pulse Oximetry 92 97 Oxygen Delivery Method 11/22/23 13:05 11/22/23 13:05 11/22/23 13:10 Temperature Pulse Rate 81 Respiratory Rate 14 Blood Pressure 145/79 H 156/81 H Pulse Oximetry 96 Oxygen Delivery Method 11/22/23 13:10 11/22/23 13:15 11/22/23 13:15 Temperature Pulse Rate 80 83 Respiratory Rate 25 H 19 Blood Pressure 148/82 H Pulse Oximetry 94 96 Oxygen Delivery Method 11/22/23 13:20 11/22/23 13:20 11/22/23 13:25 Temperature Pulse Rate 84 84 Respiratory Rate 22 37 H Blood Pressure 149/83 H Pulse Oximetry 95 95 Oxygen Delivery Method 11/22/23 13:25 11/22/23 13:30 11/22/23 13:30 Temperature Pulse Rate 83 Respiratory Rate 24 Blood Pressure 158/89 H 139/80 Pulse Oximetry 95 Oxygen Delivery Method 11/22/23 13:38 11/22/23 13:38 11/22/23 13:40 Temperature Pulse Rate 83 84 Respiratory Rate 23 37 H Blood Pressure 135/84 Pulse Oximetry 96 94 Oxygen Delivery Method 11/22/23 13:40 11/22/23 13:45 11/22/23 13:45 Temperature Pulse Rate 83 Respiratory Rate 36 H Blood Pressure 157/85 H 153/90 H Pulse Oximetry 97 Oxygen Delivery Method 11/22/23 13:50 11/22/23 13:50 11/22/23 13:55 Temperature Pulse Rate 86 77 Respiratory Rate 28 H 30 H Blood Pressure 137/82 Pulse Oximetry 96 97 Oxygen Delivery Method 11/22/23 13:55 11/22/23 14:00 11/22/23 14:00 Temperature Pulse Rate 79 Respiratory Rate 25 H Blood Pressure 146/84 H 150/74 H Pulse Oximetry 96 Oxygen Delivery Method 11/22/23 14:05 11/22/23 14:05 Temperature Pulse Rate 78 Respiratory Rate 32 H Blood Pressure 148/80 H Pulse Oximetry 96 Oxygen Delivery Method Oxygen Delivery Method Room Air Narrative Exam Narrative: GENERAL: This is a well-nourished, well-developed patient, in no apparent distress. HEAD: Atraumatic. Normocephalic. No temporal or scalp tenderness. EYES: Pupils equal round and reactive. Extraocular motions intact. No scleral icterus. No injection or drainage. ENT: Mucous membranes pink and moist. NECK: Trachea midline. No JVD, bruits or lymphadenopathy. Supple, nontender, no meningeal signs. CARDIOVASCULAR: Regular rate and rhythm without murmurs, gallops, or rubs. RESPIRATORY: Clear to auscultation. GASTROINTESTINAL: Abdomen soft, non-tender, nondistended. EXTREMITIES: No clubbing, cyanosis, or edema. BACK: Nontender without deformity or crepitance. No flank tenderness. NEUROLOGIC: Alert, oriented, speech fluent, full upper and lower motor strength, no focal deficits evident. DERMATOLOGIC: No rashes or skin lesions. Objective ECG Impression: Normal sinus rhythm at 80 beats per minute Moderate voltage criteria for LVH, may be normal variant ( R in aVL , Casimiro product ) Anteroseptal infarct , age undetermined Imaging Chest x-ray: Radiologist's impression: Low lung volumes, without an acute abnormality seen by plain film. Chest abdomen pelvis CTA: Radiologist's impression: No acute abnormality is seen. No dissection flap. There is a stable abdominal aortic aneurysm seen measuring 4.2 cm AP. Normal thoracic aorta. Abnormal lungs, with emphysematous change and subpleural bleb formation. Labs 11/22/23 10:15 11/22/23 10:15 Labs: Laboratory Results - last 24 hr 11/22/23 11/22/23 10:15 12:33 WBC 8.1 RBC 4.66 Hgb 14.6 Hct 43.1 MCV 92.5 MCH 31.4 MCHC 33.9 RDW 14.1 Plt Count 314 Neut % (Auto) 60.0 Lymph % (Auto) 28.4 Caswell % (Auto) 8.9 Eos % (Auto) 2.2 Baso % (Auto) 0.5 Neut # (Auto) 4900 Lymph # (Auto) 2300 [place] # (Auto) 700 Eos # (Auto) 200 Baso # (Auto) 0 PT 11.5 INR 1.0 APTT 37 H Sodium 134 L Potassium 4.2 Chloride 101 Carbon Dioxide 26 BUN 17 Creatinine 0.87 Estimated GFR > 60 BUN/Creatinine Ratio 19.5 Glucose 129 H Calcium 10.5 H Magnesium 2.1 Total Bilirubin 0.8 AST 34 ALT 27 Alkaline Phosphatase 143 H Total Creatine Kinase 128 Troponin I < 0.012 < 0.012 NT-Pro-B Natriuret Pep 733 H Total Protein 7.4 Albumin 4.5 Globulin 2.9 Albumin/Globulin Ratio 1.6 Lipase 99 Assessment & Plan Assessment & Plan narrative: 1. Severe chest pain, rule out hypertensive emergency versus acute coronary syndrome. EKG is reassuring. Monitor serial cardiac enzymes in the intensive care unit setting on heparin and nitroglycerin infusions. If she rules out this likely represents pill esophagitis from doxycycline. 2. Hypertension. Start amlodipine 5 mg daily. 3. Abdominal aortic aneurysm. This was noted as an incidental finding on a 09/22/2023 CT abdomen pelvis at 4.1 cm, and stable on imaging today. She was unaware of this finding. She will need follow-up imaging in 6 months. 4. Coronary artery disease. She had a normal myocardial perfusion scan on 04/21/2023. Continue current medications. 5. Superficial venous thrombosis. Recent diagnosis with greater saphenous vein thrombosis on 10/24/2023 ultrasound. Low suspicion for pulmonary embolism. Resume Xarelto when heparin infusion. 6. History of alcohol use disorder. She states this is in remission and she drinks infrequently at this point. 7. DVT prophylaxis. Adequately addressed on Xarelto. 8. Code status: Full code. This is reviewed on admission. The patient has advanced directives. Plan: -admit to ICU -IV nitroglycerin infusion -IV heparin infusion -serial cardiac enzymes -amlodipine 5 mg daily -outpatient follow-up of AAA advised in 6 months -resume Xarelto when heparin stopped Disposition: The patient is admitted to the ICU for close monitoring and evaluation. If she rules out and has resolution of pain and good blood pressure control, she may be discharged. She has plans to travel to a cabin near [facility] for the weekend with her life partner if medically cleared. Time-Based Coding :: [TOTAL MINUTES] spent with patient and on the chart (including review of chart, obtaining history, exam, reviewing outside data, placing orders, documenting exam and treatment plan, and counseling patient) on [DATE]. Quality MIPS - Admit I confirm the patient?s Advance Care Plan is present, Code status is documented, Surrogate decision maker is in patient?s record [If Yes, STOP here]: Yes [facility] - Meds 'Current medications' to include all prescriptions, [id number] products, herbals, cannabis/cannabidiol products, and vitamin/mineral/dietary (nutritional) supplements. I have utilized all available resources to obtain, update, or review the patient?s current medications. [If Yes, STOP here]: Yes [facility] Charge Codes Initial inpatient/observation care: [id number]
[2023-11-22] MEDS: MORPHINE 4 MG/ML INJ 3 MG IV ×2 (16:11→22:34)
[2023-11-22] MEDS: LORazepam 1 MG TABLET PO ×2 (16:11→22:28)
[2023-11-22 16:58] LABS: MRSA (Nasal) PCR NOT DETECTED (Not Detect)
[2023-11-22] MEDS: AMLODIPINE 5 MG TABLET PO (17:18)
[2023-11-22 20:36] LABS: Troponin I < 0.012 ng/mL (0.01-0.034)
[2023-11-23] VITALS (15 sets, daily range): BP systolic 140–236; BP diastolic 63–105; PULSE 65–81; RESP 11–37; TEMP 36.2–36.6; O2SAT 92–100
[2023-11-23 05:30] LABS: Add Manual Diff / Slide Review NO; Basophils Absolute Auto 100 /uL (0-100); Basophils Percent Auto 0.7 % (0-2); Eosinophils Absolute Auto 300 /uL (0-450); Eosinophils Percent Auto 3.8 % (2-4); Hematocrit 38.8 % (36-46); Hemoglobin 13.1 g/dL (12.0-16.0); Lymphocytes Absolute Auto 2400 /uL (1100-4500); Lymphocytes Percent Auto 34.9 % (25-40); Mean Corpuscular HGB Conc 33.8 % (30-36); Mean Corpuscular Hemoglobin 31.4 PG (26-34); Monocytes Absolute Auto 600 /uL (0-900); Monocytes Percent Auto 8.7 % (3-14); Neutrophils Absolute Auto 3600 /uL (1500-7000); Neutrophils Percent Auto 51.9 % (50-75); Platelet Count 247 X10^3/uL (150-400); Red Blood Cell Count 4.17 X10^6/uL (4.0-5.2); Red Cell Distribution Width 14.2 % (11.6-14.8); White Blood Cell Count 6.9 X10^3/uL (4.5-11.0)
[2023-11-23 05:45] LABS: Blood Urea Nitrogen 17 mg/dL (7-17); Calcium 9.4 mg/dL (8.4-10.2); Carbon Dioxide 28 mmol/L (22-32); Chloride 104 mmol/L (98-107); Estimated Glomerular Filt Rate > 60 mL/min (>60); Glucose 109 mg/dL (80-110); HEMOLYSIS < 15 (0-50); Potassium 4.2 mmol/L (3.4-5.1); Sodium 135 mmol/L (137-145)
[2023-11-23 05:56] LABS: Troponin I < 0.012 ng/mL (0.01-0.034)
--- NOTE | 2023-11-23 07:06 | PC.NURSE ---
pt had one episode of mid chest discomfort last night which was relieved w/ Morphine 3mg iv; she was placed on 3l/nc for o2 sat dropping as low as 83%; she is scheduled for a sleep study for sleep apnea; she does snore
[2023-11-23] MEDS: AMLODIPINE 5 MG TABLET PO (08:23)
[2023-11-23] MEDS: PANTOPRAZOLE DR 20 MG TABLET PO (08:23)
--- NOTE | 2023-11-23 08:49 | DI.ECHO.S_ITS ---
[facility]+ [facility] : : [address] : : [place] : : [id number] : : Phone: [phone] Echocardiogram Report + + :Name: STERLING GARCIA Study Date: 11/23/2023 Height: 63 in : :[facility] ReadingLocation: Weight: 175 lb : : Gender: Female BSA: 1.8 m2 : :: 1950 Age: 73 yrs BP: 169/78 mmHg: :Reason For Study: CHEST PAIN : :Ordering Physician: CODY, : :CHESTER Pettit Performed By: Richard Pulliam : :Referring: CHESTER ROSS : + + Interpretation Summary Normal left ventricle size with ejection fraction 60-65%. Diastolic parameters suggest a relaxation abnormality of the left ventricle, consistent with probable normal filling pressures. The aortic valve is mildly calcified. Mild mitral annular calcification. Comparison is made with the echocardiogram of 01/09/2023, no significant change. Procedure: A two-dimensional transthoracic echocardiogram with color flow and Doppler was performed. The study quality was technically adequate. Comparison is made with the echocardiogram of 01/09/2023. The patient was in sinus rhythm with heart rates between 66-74 bpm during the exam. Left Ventricle: The left ventricle is normal in size and wall thickness. The ejection fraction is estimated to be 60-65%. There are no focal wall motion abnormalities. Diastolic parameters suggest a relaxation abnormality of the left ventricle, consistent with probable normal filling pressures. Right Ventricle: The right ventricle is normal in size and function. Atria: The left atrial size is normal. Right atrial size is normal. The interatrial septum grossly appears intact with no obvious evidence for an atrial septal defect. Mitral Valve: The mitral valve is normal. There is mild mitral annular calcification. There is no mitral valve stenosis. There is trace mitral regurgitation. Aortic Valve: The aortic valve is trileaflet. The aortic valve is mildly calcified. The aortic valve opens well. There is no aortic valve stenosis. No aortic regurgitation is present. Tricuspid Valve: The tricuspid valve is normal. There is no tricuspid stenosis. No tricuspid regurgitation. Pulmonic Valve: The pulmonic valve is not well visualized. There is no pulmonic valvular stenosis. There is no pulmonic valvular regurgitation. Great Vessels: The aortic root is normal size. The ascending aorta is at the upper limits of normal in size. The IVC is of normal diameter and collapses greater than 50% with a sniff. This suggests a low right atrial pressure of 3 mm Hg. Pericardium/ Pleura There is no pericardial effusion. There is no pleural effusion. MMode/2D Measurements & Calculations LVIDd: 5.4 cm LVOT diam: 2.0 cm LVIDs: 3.8 cm Ao root diam: 3.0 cm FS: 29.5 % asc Aorta Diam: 3.7 cm IVSd: 1.0 cm LVPWd: 1.0 cm LV martinez. diameter/BSA (cm/m^2): 3.0 LV sys. diameter/BSA (cm/m^2): 2.1 LA A2 area: 20.1 cm2 RA long axis: 4.6 cm LA A4 area: 18.5 cm2 RA area: 13.4 cm2 LA length (vol): 6.1 cm RA vol: 33.6 ml LA vol: 51.8 ml RA : 18.4 ml/m2 LA vol index: 28.3 ml/m2 IVC diam: 1.5 cm RVD1 (basal): 3.5 cm RVD2 (mid): 3.2 cm Doppler Measurements & Calculations Ao V2 max: 198.2 cm/sec LVOT Max Aravind: 150.0 cm/sec Ao V2 mean: 137.5 cm/sec LV V1 max P.0 mmHg Ao max P.7 mmHg LV V1 VTI: 32.6 cm Ao mean P.7 mmHg SERA(I,D): 2.3 cm2 Ao V2 VTI: 43.4 cm SERA(V,D): 2.3 cm2 sev ratio: 0.75 SERA indexed to BSA (cm^2/m^2): 1.2 MV E max aravind: 89.7 cm/sec PA V2 max: 132.9 cm/sec MV A max aravind: 108.0 cm/sec PA V2 mean: 94.2 cm/sec MV E/A: 0.83 PA mean P.9 mmHg Med Peak E' Aravind: 6.4 cm/sec PA pr(Accel): 43.0 mmHg E/E' med: 14.1 Lat Peak E' Aravind: 8.4 cm/sec E/E' lat: 10.6 E/e' average: 12.4 MV dec time: 0.26 sec SV(LVOT): 98.6 ml Electronically signed by: Azalea Holcomb on Reading Physician:11/23/2023 11:24 AM
[2023-11-23] MEDS: LORazepam 1 MG TABLET PO (10:24)
--- NOTE | 2023-11-23 11:22 | CM.DANOTE ---
DCP Assessment note Pt is a 73yo F here following chest pain/high blood pressure PCP Shan Marceloer Medicare and Sujit STOCK HOLDER reviewed EMR. Per hospitalist in morning rounds, dc either today vs tomorrow. Echo pending. likely need a stress test. Per RN, pt pain better, BP remains high, and pt is hopeful for home. STOCK HOLDER met with pt in room and introduced self and role. Pt lives with partner Leigh in [place] and is indep at baseline. Pt eager to dc home because she has vacation plans for cabin on [address] starting today. Pt denies any CM/DCP needs at this time. P: dc home when medically stable. No CM needs identified at this time. Transport with partner in POV. CM team will follow as needed KENNEDI Burch Discharge Planning/Care Management CM Discharge Assessment Start: 11/23/23 11:21 Freq: Status: Active Protocol: Document 11/23/23 11:21 (Rec: 11/23/23 11:22 [id number]) Discharge Planning Assessment Assigned Therapy Tech KENNEDI Campbell DPOA/Assigned Designee Name dorene Abraham Contact Information [phone] Advance Directives? Yes Advance Directives on File No History Provided By Patient,Medical Record Prior Living Arrangements House Household Members significant other Type of transporation used prior to Drives own vehicle admit Independent with ADL's Yes Is patient alert and oriented? Yes Discharge Plan Home Transportation Arrangement life partner will transport in POV Referrals Initiated None needed Whiteboard Updated in Patient Room with No name and ext. # of Therapy Tech Review Status In Process Please Provide Date Initial DC 11/23/23 Assessment Was Performed Next Review Type Continued Stay Review
[2023-11-23] MEDS: RIVAROXABAN 10 MG TABLET 20 MG PO (11:28)
--- NOTE | 2023-11-23 12:24 | PM.DS.1 ---
History of Present Illness History of Present Illness Chief complaint: thinks she's having heart attack, high bp Narrative: From H&P: 73 year old woman under the primary care of Dr. Leon of [facility] with history of coronary disease status post LAD stenting while living in [place] in 2020, longstanding hypertension treated without medications, and a recently diagnosed right leg DVT treated with Xarelto experienced lower chest heaviness and tightness. This occurred after taking doxycycline for a skin condition. She experienced nausea and emesis. She tried drinking wine but found that symptoms worsened. Symptoms improved and she was able to get get some rest last night but experienced severe right-sided chest pain with a feeling of palpitations. She states that she has a longstanding history of hypertension and has not tolerated antihypertensives, those being losartan and metoprolol, with blood pressures mostly in the 140s over 70s at home. However she notes she can go up to 220 systolic at times, mostly associated with pain or stress. The chest discomfort that she experienced is very similar to that that she experienced at the time of her LAD stenting. In the emergency department she had a presenting blood pressure of 259/129 and was started on nitroglycerin and heparin infusions with improvement in chest pain and blood pressures. She currently has 3/10 chest pain. She had normal cardiac enzymes and unremarkable EKG. She is admitted for further management and evaluation. Discharge Providers Provider Date of admission: 11/22/23 13:58 Discharge Date: 11/23/23 Primary care physician: Shan Barrera DO Consults: None Discharge provider: Salvatore Castanon MD Summary Hospital Course Discharge Diagnosis: 1. Severe chest pain from hypertensive emergency, present on admission and improved 2. Hypertensive urgency, present on admission and improved. Start amlodipine 5 mg daily. 3. Abdominal aortic aneurysm, present on admission and active. This was noted as an incidental finding on a 09/22/2023 CT abdomen pelvis at 4.1 cm, and stable on imaging today. She was unaware of this finding. She will need follow-up imaging in 6 months. 4. Coronary artery disease, present on admission and active. She had a normal myocardial perfusion scan on 04/21/2023. Continue current medications. 5. Superficial venous thrombosis, present on admission and active. Recent diagnosis with greater saphenous vein thrombosis on 10/24/2023 ultrasound. Low suspicion for pulmonary embolism. Resume Xarelto when heparin infusion. 6. History of alcohol use disorder. She states this is in remission and she drinks infrequently at this point. Code status: Full code. This is reviewed on admission. The patient has advanced directives. Hospital Course: She was admitted chest pain and hypertensive urgency. She was started on amlodipine and her nitroglycerin drip was able to wean off. Her heparin drip was also weaned off and she was placed back on Xarelto. ECG was reassuring, echo is pending, and serial cardiac enzymes are normal. She does have a pending appointment with [facility] cardiology over the next several weeks and is being followed by Dr. Leon at [facility]. She did tolerate amlodipine in his agreeable to taking this. We will continue the dose at 1 5 mg tablet a day. Her blood pressure is 170/79, which is much improved from her admission blood pressure. She also notes rib pain in the left anterior thorax which is reproducible with palpation in the lower ribs. She requests a small supply of Ativan for her ongoing persistent anxiety. She did have her LAD stenting in 2020 at [facility] in [place]. She otherwise appears to be stable for discharge and close follow up with better blood pressure control. Blood pressure control appeared to be likely the primary cause of most or all of her symptoms. Status at Discharge Cognitive/behavioral status at discharge: at baseline, oriented Functional status at discharge: independent ambulation Overall status at discharge: patient is back to baseline Time Spent with Patient Time spent: Greater than 30 minutes Exam Vital Signs (past 8 hours): - 11/23/23 05:00 11/23/23 05:00 11/23/23 06:00 Temperature Pulse Rate 68 71 Respiratory Rate 16 16 Blood Pressure 175/79 H Pulse Oximetry 99 92 Oxygen Flow Rate 3 11/23/23 06:00 11/23/23 07:00 11/23/23 08:01 Temperature Pulse Rate 75 73 Respiratory Rate 26 H 31 H Blood Pressure 169/79 H 163/79 H 189/97 H Pulse Oximetry 97 95 Oxygen Flow Rate 3 11/23/23 09:00 11/23/23 09:01 11/23/23 09:01 Temperature 97.6 F Pulse Rate 81 Respiratory Rate 26 H Blood Pressure 162/69 H Pulse Oximetry 96 Oxygen Flow Rate 11/23/23 10:00 11/23/23 10:00 11/23/23 11:00 Temperature Pulse Rate 70 70 75 Respiratory Rate 18 18 26 H Blood Pressure 169/78 H Pulse Oximetry 96 96 97 Oxygen Flow Rate 11/23/23 11:00 Temperature Pulse Rate Respiratory Rate Blood Pressure 170/79 H Pulse Oximetry Oxygen Flow Rate Oxygen Delivery Method Room Air Oxygen Flow Rate 3 Narrative Exam Narrative: NAD, alert and oriented. Fluent speech. Lungs are clear, normal rate and effort. Heart is regular, no murmur gallop or rub. Abdomen is soft, non distended. Extremities are free of edema. Objective ECG Impression: Normal sinus rhythm with sinus arrhythmia Moderate voltage criteria for LVH, may be normal variant ( R in aVL , Casimiro product ) Anteroseptal infarct , age undetermined Imaging Multiple studies:: Radiologist's impression: Cardiac echo: Normal left ventricle size with ejection fraction 60-65%. Diastolic parameters suggest a relaxation abnormality of the left ventricle, consistent with probable normal filling pressures. The aortic valve is mildly calcified. Mild mitral annular calcification. Comparison is made with the echocardiogram of 01/09/2023, no significant change. Chest abdomen pelvis CTA: No acute abnormality is seen. No dissection flap. There is a stable abdominal aortic aneurysm seen measuring 4.2 cm AP. Normal thoracic aorta. Abnormal lungs, with emphysematous change and subpleural bleb formation. Additional findings: LAD stent Apparent lipomatous hypertrophy of the interatrial septum Diverticulosis, without active diverticulitis Hysterectomy Spinal degenerative change Chest x-ray: Low lung volumes, without an acute abnormality seen by plain film. Labs 11/23/23 04:54 11/23/23 04:54 Labs: Laboratory Results - last 24 hr 11/22/23 11/22/23 11/22/23 12:33 15:30 16:45 WBC RBC Hgb Hct MCV MCH MCHC RDW Plt Count Neut % (Auto) Lymph % (Auto) Winn % (Auto) Eos % (Auto) Baso % (Auto) Neut # (Auto) Lymph # (Auto) Winn # (Auto) Eos # (Auto) Baso # (Auto) APTT Cancelled Sodium Potassium Chloride Carbon Dioxide BUN Creatinine Estimated GFR BUN/Creatinine Ratio Glucose Calcium Troponin I < 0.012 Nasal Screen MRSA (PCR) Not detected 11/22/23 11/23/23 20:08 04:54 WBC 6.9 RBC 4.17 Hgb 13.1 Hct 38.8 MCV 93.0 MCH 31.4 MCHC 33.8 RDW 14.2 Plt Count 247 Neut % (Auto) 51.9 Lymph % (Auto) 34.9 Winn % (Auto) 8.7 Eos % (Auto) 3.8 Baso % (Auto) 0.7 Neut # (Auto) 3600 Lymph # (Auto) 2400 Winn # (Auto) 600 Eos # (Auto) 300 Baso # (Auto) 100 APTT Sodium 135 L Potassium 4.2 Chloride 104 Carbon Dioxide 28 BUN 17 Creatinine 0.85 Estimated GFR > 60 BUN/Creatinine Ratio 20.0 Glucose 109 Calcium 9.4 Troponin I < 0.012 < 0.012 Nasal Screen MRSA (PCR) [facility] Medical History Lakewood's disease Shoulder injury History of alcohol use History of tobacco abuse Hyperlipidemia Essential hypertension Surgical History History of ankle surgery Family History Father Hypertension Mother Hypertension CVA (cerebral vascular accident) Son Diabetes mellitus Social History marital status: unmarried,living together details: Life partner household members: significant other housing: house Smoking Status: Former smoker alcohol intake: current substance use type: does not use well-balanced diet: daily or most days Discharge Assessment & Plan Assessment and Plan Assessment: 1. Severe chest pain from hypertensive emergency, present on admission and improved 2. Hypertensive urgency, present on admission and improved. Start amlodipine 5 mg daily. 3. Abdominal aortic aneurysm, present on admission and active. This was noted as an incidental finding on a 09/22/2023 CT abdomen pelvis at 4.1 cm, and stable on imaging today. She was unaware of this finding. She will need follow-up imaging in 6 months. 4. Coronary artery disease, present on admission and active. She had a normal myocardial perfusion scan on 04/21/2023. Continue current medications. 5. Superficial venous thrombosis, present on admission and active. Recent diagnosis with greater saphenous vein thrombosis on 10/24/2023 ultrasound. Low suspicion for pulmonary embolism. Resume Xarelto when heparin infusion. 6. History of alcohol use disorder. She states this is in remission and she drinks infrequently at this point. Plan of Treatment: Discharge home on amlodipine 5 daily. She was also given a small supply of Ativan, 14. Tablets. She was also given refills for hydroxyzine. She will follow up with her PCP, Dr. Leon within the next week as well as maintain her follow up appointment with [facility] as scheduled. Discharge Plan Discharge Plan Patient Disposition: Home Provider Discharge Comment: Stable for discharge home with close follow up. Discharge orders & Medications Prescriptions: New amlodipine [Norvasc] 5 mg Tablet 5 mg PO DAILY Qty: 30 1RF Continued phenazopyridine [Pyridium] 200 mg tablet 200 mg PO TID 0 Days Qty: 6 0RF fluticasone propionate 50 mcg/actuation spray,suspension 1 spray intranasal DAILY Rx Instructions: administer into each nostril rivaroxaban 15 mg (42)- 20 mg (9) tablets,dose pack See Rx Instructions .ROUTE .COMPLEX Qty: 51 0RF Rx Instructions: take one-15 mg tablet twice daily for 21 days, then one-20 mg tablet once daily; must take with meal/food oxycodone 5 mg tablet 5 mg PO Q6H PRN (Reason: pain) Qty: 7 0RF acetaminophen 325 mg Tablet 650 mg PO Q6H PRN (Reason: Fever/Mild Pain (1-10) Qty: 30 0RF estradiol 0.025 mg/24 hr patch weekly 1 patch transdermal WEEKLY sucralfate 1 gram Tablet 1 gm PO ACHS Qty: 30 0RF valsartan [Diovan] 80 mg Tablet 20 mg PO BID Qty: 30 3RF aspirin 81 mg Tablet,Delayed Release (Dr/Ec) 81 mg PO DAILY Qty: 30 3RF cephalexin 500 mg capsule 500 mg PO QID Qty: 20 0RF doxycycline hyclate 100 mg capsule 100 mg PO BID pantoprazole 40 mg tablet,delayed release (DR/EC) 40 mg PO DAILY hydroxyzine HCl 25 mg tablet 25 mg PO TID PRN (Reason: itching) Qty: 30 1RF lorazepam 1 mg tablet 1 mg PO TID PRN (Reason: anxiety) Qty: 20 0RF Discontinued hydroxyzine HCl 25 mg tablet 25 mg PO TID PRN (Reason: nausea and vomiting) Qty: 10 0RF hydroxyzine pamoate 25 mg Capsule 25 mg PO Q4HR PRN (Reason: Pain, Mild (1-3)) Qty: 30 1RF Patient Comments: patient states she takes for a skin rash and when it is bad she takes 100mg pantoprazole [Protonix] 20 mg tablet,delayed release (DR/EC) 20 mg PO DAILY Qty: 30 2RF hydrocodone-acetaminophen 5-325 mg tablet 1 tab PO Q4-6H PRN (Reason: pain) Qty: 10 0RF Medication counseling provided by Pharmacist: No Follow up/Referrals: Shan Barrera DO [Primary Care Provider] - Activity Restrictions/Additional Instructions: None. Discharge Health Status Multidrug resistant organism: No MDRO Diet/Activity/Treatments Diet: Diet as Tolerated Visit Report/Discharge Packet Instructions: DI for Malignant Hypertension Stand Alone Forms: Patient Portal/API Discharge Data Primary Care Provider: Shan Barrera Quality VTE Deep Vein Thrombosis/Pulmonary Embolism Present on Admission: No MIPS - DC The patient has a history of heart transplant or Left Ventricular Assist Device (LVAD). If yes, STOP here.: No The patient has current or prior documentation of left ventricular ejection fraction (LVEF) less than or equal to 40%, or moderate or severely depressed left ventricular systolic function.: No
== END 2023-11-23 13:10 | disposition home or self-care (01) | DRG 305 ==
LOC: ED 10:16 → AC 14:00 → ICU 11-23 08:37 → AC 11-23 09:07
PROVIDERS: Admitting Provider Internal Medicine; Emergency Provider Emergency Medicine; PCP Family Medicine; Referring Provider Emergency Medicine; Visit Provider Internal Medicine
DX: I16.1 Hypertensive emergency (principal); I82.811 Embolism and thrombosis of superficial veins of right lower extremity; I71.40 Abdominal aortic aneurysm, without rupture, unspecified; I25.10 Atherosclerotic heart disease of native coronary artery without angina pectoris; I10 Essential (primary) hypertension; I16.0 Hypertensive urgency; F10.91 Alcohol use, unspecified, in remission; Z95.5 Presence of coronary angioplasty implant and graft; Z79.01 Long term (current) use of anticoagulants; Z87.891 Personal history of nicotine dependence
CPT/HCPCS: 36415; 71045; 71275; 74174; 80048; 80053; 82550; 83690; 83735; 83880; 84484; 85025; 85610; 85730; 87797; 93005; 93306; 96365; 96366; 96368; 96375; 99285; 99291; J1644; J2270; Q9967

== ENCOUNTER 2024-07-12 14:48 | Observation (INO) | payer MEDICARE, OTHER, SELFPAY ==
[2023-11-22 14:14] VITALS: BMI 31.0
[2024-07-12] VITALS (41 sets, daily range): BP systolic 168–240; BP diastolic 92–147; PULSE 70–112; RESP 14–73; TEMP 36.8; O2SAT 88–100; BMI 31.1
--- NOTE | 2024-07-12 15:03 | DI.RAD.S_ITS ---
PROCEDURE: XR CHEST 1V INDICATIONS: chest pain TECHNIQUE: One view of the chest was acquired. COMPARISON: [facility], CR, XR CHEST 1V, 11/22/2023, 10:13. FINDINGS: Surgical changes and devices: Left shoulder arthroplasty. Lungs and pleura: Lungs are clear. No pleural effusions or pneumothorax. Mediastinum: Mediastinal contours appear normal. Heart size is enlarged. Bones and chest wall: No suspicious bony lesions. Overlying soft tissues appear unremarkable. IMPRESSION: No acute pulmonary process. Dictated by: Bruna Rene M.D. on 07/12/2024 at 15:43 Approved by: Bruna Rene M.D. on 07/12/2024 at 15:48
--- NOTE | 2024-07-12 15:05 | EKG_ITS ---
[address] [address] Test Date: 2024-07-12 Pat Name: Isaura Castro Department: Room: Gender: Female Outsole Splicer: DOMENICO : 1950 Requested By: Order Number: [id number] Reading MD: Hermes Campo MD Measurements Intervals Margie Rate: 81 P: 18 MO: 188 QRS: -19 QRSD: 96 T: 21 QT: 358 QTc: 415 Interpretive Statements Sinus rhythm with premature atrial complexes Moderate voltage criteria for LVH, may be normal variant ( R in aVL , Casimiro product ) Inferior infarct , age undetermined Anterolateral infarct , age undetermined Electronically Signed On 07-12-2024 15:22:36 PDT by Hermes Campo MD
[2024-07-12] MEDS: ASPIRIN 81 MG CHEW TAB 324 MG PO (16:05)
--- NOTE | 2024-07-12 16:05 | PC.NURSE ---
Pt reports chest pain, substernal, 06/06, ED physician advised, repeat EKG performed.
--- NOTE | 2024-07-12 16:06 | EKG_ITS ---
[address] [address] Test Date: 2024-07-12 Pat Name: Isaura Castro Department: Room: Gender: Female Goring Cutter: QUIANA : 1950 Requested By: Order Number: [id number] Reading MD: Misbah Epperson Measurements Intervals [place] Rate: 72 P: 55 DE: 196 QRS: -6 QRSD: 90 T: 18 QT: 396 QTc: 433 Interpretive Statements Sinus rhythm with premature atrial complexes with aberrant conduction Inferior infarct , age undetermined Anteroseptal infarct , age undetermined Electronically Signed On 07-12-2024 20:12:11 PDT by Misbah Epperson
[2024-07-12 16:19] LABS: COVID19 -Nasal RAPID Negative (Negative)
--- NOTE | 2024-07-12 17:54 | PC.NURSE ---
Addendum entered by Bhavani Rollins R.N. 07/12/24 17:56: Physician aware pt HTN, no new orders. Pt upsets herself continuously, difficult to manage her emotions. Original Note: Pt HTN since arrival, pt very anxious and easily upset. Pt laughing and crying in the same moment. Friend at the bedside. Pt calm, then crying, then happy, then sad, then mad, then happy.
[2024-07-12 17:58] LABS: Add Manual Diff / Slide Review NO; Basophils Absolute Auto 0 /uL (0-100); Basophils Percent Auto 0.7 % (0-2); Eosinophils Absolute Auto 100 /uL (0-450); Eosinophils Percent Auto 1.5 % (2-4); Hematocrit 43.6 % (36-46); Hemoglobin 14.7 g/dL (12.0-16.0); Lymphocytes Absolute Auto 1600 /uL (1100-4500); Lymphocytes Percent Auto 24.8 % (25-40); Mean Corpuscular HGB Conc 33.7 % (30-36); Mean Corpuscular Hemoglobin 32.4 PG (26-34); Mean Corpuscular Volume 96.3 fL (80-100); Monocytes Absolute Auto 700 /uL (0-900); Monocytes Percent Auto 10.5 % (3-14); Neutrophils Absolute Auto 4100 /uL (1500-7000); Neutrophils Percent Auto 62.5 % (50-75); Platelet Count 255 X10^3/uL (150-400); Red Blood Cell Count 4.52 X10^6/uL (4.0-5.2); Red Cell Distribution Width 14.8 % (11.6-14.8); White Blood Cell Count 6.5 X10^3/uL (4.5-11.0)
[2024-07-12 18:06] LABS: INR 0.9 (0.9-1.3); Prothrombin Time 10.7 SECONDS (9.4-12.5)
[2024-07-12 18:08] LABS: PTT Partial Thromboplastin Tim 32 SECONDS (25.1-36.5)
[2024-07-12 18:17] LABS: Alanine Aminotransferase 64 IU/L (<35); Albumin Globulin Ratio 1.5 (1.0-2.8); Alkaline Phosphatase 143 U/L (38-126); Aspartate Aminotransferase 84 IU/L (14-36); BUN Creatinine Ratio 21.3 (6-22); Bilirubin Total 0.5 mg/dL (0.2-1.3); Blood Urea Nitrogen 17 mg/dL (7-17); Calcium 9.3 mg/dL (8.4-10.2); Carbon Dioxide 24 mmol/L (22-32); Chloride 106 mmol/L (98-107); Creatine Kinase 71 U/L (30-135); Estimated Glomerular Filt Rate > 60 mL/min (>60); Globulin 2.7 g/dL (1.7-4.1); Glucose 98 mg/dL (80-110); HEMOLYSIS < 15 (0-50); Lipase 128 U/L (23-300); Magnesium 1.9 mg/dL (1.6-2.3); Potassium 3.6 mmol/L (3.4-5.1); Sodium 140 mmol/L (137-145); Total Protein 6.7 g/dL (6.3-8.2)
[2024-07-12 18:28] LABS: NT-proBNP (BNP-Adult 18+) 642 pg/mL (<125); Troponin I < 0.012 ng/mL (0.01-0.034)
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
[2024-07-12 19:05] LABS: Appearance Urine UA CLEAR; Bilirubin Urine UA NEGATIVE (NEGATIVE); Color Urine UA YELLOW; Glucose Urine UA NEGATIVE (Negative); Ketones Urine UA NEGATIVE (NEGATIVE); Leukocyte Esterase Urine UA NEGATIVE (NEGATIVE); Nitrite Urine UA NEGATIVE (Negative); Occult Blood Urine UA NEGATIVE (Negative); Protein Urine UA NEGATIVE (Negative); Urobilinogen Urine UA 0.2 E.U./dL (0.2)
[2024-07-12 19:06] LABS: pH Urine UA 5.5 (4.5-8.0)
[2024-07-12 19:08] LABS: Ur Creatinine Normal (Normal); Ur Specific Gravity Normal (Normal); Urine pH Normal (Normal)
[2024-07-12 19:09] LABS: UR Morphine/Opiate cutoff 300 Negative (Negative); Urine Amphetamines Negative (Negative); Urine Barbiturates Negative (Negative); Urine Benzodiazepines Negative (Negative); Urine Cocaine Negative (Negative); Urine MDMA Negative (Negative); Urine Methadone Negative (Negative); Urine Methamphetamines Negative (Negative); Urine Oxycodone Negative (Negative); Urine Phencyclidine Negative (Negative); Urine Tetrahydrocannabinol Positive (Negative); Urine Tricyclic Antidepressant Negative (Negative)
[2024-07-12 19:12] LABS: Bacteria Urine Occasional (0-1); Culture Indicated Urine Cult Not Indicated; RBC Urine 0-1/HPF (0-5/HPF); Squamous Epithelial Cell Urine 1-5 /HPF (0-5/HPF); Urine Volume 10mL (spun); WBC Urine 1-5/HPF (0-5/HPF)
--- NOTE | 2024-07-12 19:43 | ED_ITS ---
HPI - Chest Pain General Chief Complaint: Chest Pain Stated Complaint: SI, no plan Time Seen by Provider: 07/12/24 19:41 Mode of arrival: EMS History of Present Illness HPI narrative: Patient is a 73-year-old female history of hypertension without medications, stent in LAD, was diagnosed with a DVT supposed to be on Xarelto presenting today with variety of symptoms. She was found to have extremely elevated blood pressure greater than 230/110. She was very anxious. Reports that she has been having chest pain unclear if it is any worse today. She was lot of stress happening in her life. There was mention of suicidal ideations however social work spoke with her in his not significant risk. She denies suicidal ideations at this time to me. Denies any kind of shortness of breath. She does have repeatedly elevated blood pressures in his not taking her medications. She was ongoing chest pain. Related Data Home Medications Medication Instructions Recorded Confirmed fluticasone propionate 50 1 spray intranasal DAILY 08/08/22 07/12/24 mcg/actuation nasal spray,suspension doxycycline hyclate 100 mg capsule 100 mg PO BID 11/23/23 07/12/24 ivermectin 1 % topical cream 1 applic topical QAM 07/12/24 07/12/24 nitroglycerin 0.4 mg sublingual 0.4 mg sublingual PRN PRN Chest 07/12/24 07/12/24 tablet Pain selenium sulfide 2.5 % lotion 1 applic topical QAM 07/12/24 07/12/24 Previous Rx's Medication Instructions Recorded aspirin 81 mg tablet,delayed 81 mg PO DAILY #30 tabs 04/21/23 release hydroxyzine HCl 25 mg tablet 25 mg PO TID PRN itching #30 tabs 11/23/23 Allergies Allergy/AdvReac Type Severity Reaction Status Date / Time hydrocodone Allergy Intermediate Hives Verified 07/12/24 14:53 hydrochlorothiazide Allergy Mild Hives Verified 07/12/24 14:53 metoprolol Allergy Mild Hives Verified 07/12/24 14:53 Sulfa (Sulfonamide Allergy Mild Hives Verified 07/12/24 14:53 Antibiotics) acetaminophen [From Tylenol] Allergy Hives Verified 07/12/24 14:53 doxycycline Allergy Hives Verified 07/12/24 14:53 amoxicillin AdvReac Mild body aches Verified 07/12/24 14:53 cephalexin AdvReac Mild Verified 07/12/24 14:53 Patient History Medical History [place]'s disease Shoulder injury History of alcohol use History of tobacco abuse Hyperlipidemia Essential hypertension Surgical History History of ankle surgery Family History Father Hypertension Mother Hypertension CVA (cerebral vascular accident) Son Diabetes mellitus Social History marital status: unmarried,living together details: Life partner household members: none housing: house Smoking Status: Unknown if ever smoked alcohol intake: current substance use type: does not use well-balanced diet: daily or most days Smoking Status: Unknown if ever smoked alcohol intake frequency: a few times a week Exam Initial Vital Signs Initial Vital Signs: Vital Signs Temperature 98.2 F 07/12/24 14:53 GENERAL: Alert anxious 73-year-old female and in no acute distress. HEENT: Head atraumatic,EOMI, pupils reactive, face symmetric, moist mucous membranes CARDIOVASCULAR: Regular rate and rhythm without murmurs, rubs or gallops. RESPIRATORY: Breath sounds equal bilaterally, no wheezes rales or rhonchi. ABDOMEN: Soft, nontender. Normoactive bowel sounds all 4 quadrants. No guarding or rebound. EXTREMITIES: Normal range of motion, no clubbing or edema. Neurovascularly intact NEUROLOGICAL: Alert and oriented x4.Normal gait and speech. Cranial nerves II through XII grossly intact. SKIN: Warm, dry, no laceration, no petechiae, no rashes or lesions. Course Orders Ordered: ED Orders 07/12/24 17:48 Complete Blood Count AUTO DIFF Stat Comprehensive Metabolic Panel Stat Lipase Stat Magnesium Stat NT-proBNP (BNP-Adult 18+) Stat PTT Partial Thromboplastin Adrian Stat Prothrombin Time INR Stat Troponin & CK Cardiac Panel Stat 07/12/24 18:49 Urinalysis and Microscopic Stat Urine Drug Screen, Rapid Stat 07/12/24 20:11 CT angio chest abdomen pelvis Stat Calcium Carbonate (Calcium Carbonate 500 Mg Tab) 1,000 mg PO Q4HR PRN PRN Reason: Dyspepsia Ibuprofen (Ibuprofen 400 Mg Tablet) 400 mg PO Q4H PRN PRN Reason: Pain, Mild (1-3) Labetalol HCl (Labetalol 20 Mg/4 Ml Syringe) 10 mg IV Q4HR PRN PRN Reason: SBP>200 Labetalol HCl (Labetalol 100 Mg Tablet) 100 mg PO BID [facility] Last Admin: 07/12/24 22:31 Dose: 100 mg Documented By: RUBÉN Naloxone HCl (Naloxone 0.4 Mg/Ml Vial) 0.2 mg IV Q2MIN PRN PRN Reason: Opiate Reversal Ondansetron HCl (Ondansetron 4 Mg Odt) 4 mg PO Q8HR PRN PRN Reason: Nausea And Vomiting Sodium Chloride (Sodium Chloride 0.9% Flush) 10 ml IV PRN PRN PRN Reason: Flush Sodium Chloride (Sodium Chloride 0.9% Flush) 10 ml IV BID [facility] Discontinued Medications Aspirin (Aspirin 81 Mg Chew Tab) 324 mg PO NOW ONE Stop: 07/12/24 15:04 Last Admin: 07/12/24 16:05 Dose: 324 mg Documented By: RASHEEDA Labetalol HCl (Labetalol 20 Mg/4 Ml Syringe) 5 mg IV NOW ONE Stop: 07/12/24 20:08 Last Admin: 07/12/24 20:41 Dose: 5 mg Documented By: DYAN Lorazepam (Lorazepam 2 Mg/Ml Inj) 0.5 mg IV NOW ONE Stop: 07/12/24 22:00 Last Admin: 07/12/24 22:33 Dose: 0.5 mg Documented By: RUBÉN Nitroglycerin (Nitroglycerin 0.4 Mg Sl Tab) 0.4 mg SL NOW ONE Stop: 07/12/24 20:11 Last Admin: 07/12/24 20:44 Dose: 0.4 mg Documented By: DYAN Vital Signs Vital signs: Vital Signs - 8 hr 07/12/24 18:00 07/12/24 18:16 07/12/24 18:16 Pulse Rate 99 H 84 Respiratory Rate 49 H 44 H Blood Pressure 225/116 H Pulse Oximetry 99 99 Oxygen Delivery Method 07/12/24 18:30 07/12/24 18:30 07/12/24 19:00 Pulse Rate 80 82 Respiratory Rate 35 H 25 H Blood Pressure 224/112 H 217/112 H Pulse Oximetry 99 97 Oxygen Delivery Method 07/12/24 19:15 07/12/24 19:30 07/12/24 19:45 Pulse Rate 75 82 87 Respiratory Rate 22 24 28 H Blood Pressure 211/120 H 237/112 H 228/126 H Pulse Oximetry 100 99 98 Oxygen Delivery Method Room Air 07/12/24 20:00 Pulse Rate 91 H Respiratory Rate 34 H Blood Pressure Pulse Oximetry 98 Oxygen Delivery Method MDM - Chest Pain Lab Data 07/12/24 17:48 07/12/24 17:48 Labs: Lab Results 07/12/24 07/12/24 07/12/24 Range/Units 15:46 17:48 18:49 WBC 6.5 (4.5-11.0) X10^3/uL RBC 4.52 (4.0-5.2) X10^6/uL Hgb 14.7 (12.0-16.0) g/dL Hct 43.6 (36-46) % MCV 96.3 (80-100) fL MCH 32.4 (26-34) PG MCHC 33.7 (30-36) % RDW 14.8 (11.6-14.8) % Plt Count 255 (150-400) X10^3/uL Neut % (Auto) 62.5 (50-75) % Lymph % (Auto) 24.8 L (25-40) % Stokes % (Auto) 10.5 (3-14) % Eos % (Auto) 1.5 L (2-4) % Baso % (Auto) 0.7 (0-2) % Neut # (Auto) 4100 (1014-9906) /uL Lymph # (Auto) 1600 (1865-2234) /uL Stokes # (Auto) 700 (0-900) /uL Eos # (Auto) 100 (0-450) /uL Baso # (Auto) 0 (0-100) /uL PT 10.7 (9.4-12.5) SECONDS INR 0.9 (0.9-1.3) APTT 32 (25.1-36.5) SECONDS Sodium 140 (137-145) mmol/L Potassium 3.6 (3.4-5.1) mmol/L Chloride 106 (98-107) mmol/L Carbon Dioxide 24 (22-32) mmol/L BUN 17 (7-17) mg/dL Creatinine 0.80 (0.52-1.04) mg/dL Estimated GFR > 60 (>60) mL/min BUN/Creatinine Ratio 21.3 (6-22) Glucose 98 (80-110) mg/dL Calcium 9.3 (8.4-10.2) mg/dL Magnesium 1.9 (1.6-2.3) mg/dL Total Bilirubin 0.5 (0.2-1.3) mg/dL AST 84 H (14-36) IU/L ALT 64 H (<35) IU/L Alkaline Phosphatase 143 H (38-126) U/L Total Creatine Kinase 71 (30-135) U/L Troponin I < 0.012 (0.01-0.034) ng/mL NT-Pro-B Natriuret Pep 642 H (<125) pg/mL Total Protein 6.7 (6.3-8.2) g/dL Albumin 4.0 (3.5-5.0) g/dL Globulin 2.7 (1.7-4.1) g/dL Albumin/Globulin Ratio 1.5 (1.0-2.8) Lipase 128 (23-300) U/L Urine Color Yellow Urine Appearance Clear Urine pH 5.5 (4.5-8.0) Ur Specific [place] 1.020 (1.000-1.035) Urine Protein Negative (Negative) Urine Glucose (UA) Negative (Negative) g/dL Urine Ketones Negative (NEGATIVE) Urine Occult Blood Negative (Negative) Urine Nitrate Negative (Negative) Urine Bilirubin Negative (NEGATIVE) Urine Urobilinogen 0.2 (0.2) E.U./dL Ur Leukocyte Esterase Negative (NEGATIVE) Urine RBC 0-1/hpf (0-5/HPF) Urine WBC 1-5/hpf (0-5/HPF) Ur Squamous Epith Cells 1-5 /hpf (0-5/HPF) Urine Bacteria Occasional (0-1) (None) Ur Culture Indicated? Cult not indicated Vol Urine Centrifuged 10ml (spun) U Opiates 300ng/mL cut Negative (Negative) Ur Oxycodone Screen Negative (Negative) Urine Methadone Screen Negative (Negative) Ur Barbiturates Screen Negative (Negative) U Tricyclic Antidepress Negative (Negative) Ur Phencyclidine Scrn Negative (Negative) Ur Amphetamines Screen Negative (Negative) U Methamphetamines Scrn Negative (Negative) Ur MDMA Scrn (Ecstasy) Negative (Negative) U Benzodiazepines Scrn Negative (Negative) Urine Cocaine Screen Negative (Negative) U Marijuana (THC) Screen Positive H (Negative) Urine Specific Row[place] (Normal) Ur Creatinine (Normal) SARS-CoV-2 (PCR) Negative (Negative) 07/12/24 Range/Units 18:49 WBC (4.5-11.0) X10^3/uL RBC (4.0-5.2) X10^6/uL Hgb (12.0-16.0) g/dL Hct (36-46) % MCV (80-100) fL MCH (26-34) PG MCHC (30-36) % RDW (11.6-14.8) % Plt Count (150-400) X10^3/uL Neut % (Auto) (50-75) % Lymph % (Auto) (25-40) % Stokes % (Auto) (3-14) % Eos % (Auto) (2-4) % Baso % (Auto) (0-2) % Neut # (Auto) (2231-4465) /uL Lymph # (Auto) (4549-1530) /uL Stokes # (Auto) (0-900) /uL Eos # (Auto) (0-450) /uL Baso # (Auto) (0-100) /uL PT (9.4-12.5) SECONDS INR (0.9-1.3) APTT (25.1-36.5) SECONDS Sodium (137-145) mmol/L Potassium (3.4-5.1) mmol/L Chloride (98-107) mmol/L Carbon Dioxide (22-32) mmol/L BUN (7-17) mg/dL Creatinine (0.52-1.04) mg/dL Estimated GFR (>60) mL/min BUN/Creatinine Ratio (6-22) Glucose (80-110) mg/dL Calcium (8.4-10.2) mg/dL Magnesium (1.6-2.3) mg/dL Total Bilirubin (0.2-1.3) mg/dL AST (14-36) IU/L ALT (<35) IU/L Alkaline Phosphatase (38-126) U/L Total Creatine Kinase (30-135) U/L Troponin I (0.01-0.034) ng/mL NT-Pro-B Natriuret Pep (<125) pg/mL Total Protein (6.3-8.2) g/dL Albumin (3.5-5.0) g/dL Globulin (1.7-4.1) g/dL Albumin/Globulin Ratio (1.0-2.8) Lipase (23-300) U/L Urine Color Urine Appearance Urine pH Normal (4.5-8.0) Ur Specific [place] (1.000-1.035) Urine Protein (Negative) Urine Glucose (UA) (Negative) g/dL Urine Ketones (NEGATIVE) Urine Occult Blood (Negative) Urine Nitrate (Negative) Urine Bilirubin (NEGATIVE) Urine Urobilinogen (0.2) E.U./dL Ur Leukocyte Esterase (NEGATIVE) Urine RBC (0-5/HPF) Urine WBC (0-5/HPF) Ur Squamous Epith Cells (0-5/HPF) Urine Bacteria (None) Ur Culture Indicated? Vol Urine Centrifuged U Opiates 300ng/mL cut (Negative) Ur Oxycodone Screen (Negative) Urine Methadone Screen (Negative) Ur Barbiturates Screen (Negative) U Tricyclic Antidepress (Negative) Ur Phencyclidine Scrn (Negative) Ur Amphetamines Screen (Negative) U Methamphetamines Scrn (Negative) Ur MDMA Scrn (Ecstasy) (Negative) U Benzodiazepines Scrn (Negative) Urine Cocaine Screen (Negative) U Marijuana (THC) Screen (Negative) Urine Specific [place] Normal (Normal) Ur Creatinine Normal (Normal) SARS-CoV-2 (PCR) (Negative) Imaging Data Chest x-ray: Radiologist's Impression: PROCEDURE: XR CHEST 1V INDICATIONS: chest pain TECHNIQUE: One view of the chest was acquired. COMPARISON: [facility], , XR CHEST 1V, 11/22/2023, 10:13. FINDINGS: Surgical changes and devices: Left shoulder arthroplasty. Lungs and pleura: Lungs are clear. No pleural effusions or pneumothorax. Mediastinum: Mediastinal contours appear normal. Heart size is enlarged. Bones and chest wall: No suspicious bony lesions. Overlying soft tissues appear unremarkable. IMPRESSION: No acute pulmonary process. Dictated by: Bruna Rene M.D. on 07/12/2024 at 15:43 CT scan - abdomen/pelvis: Radiologist's Impression: PROCEDURE: CT ANGIO CHEST ABDOMEN PELVIS INDICATIONS: chest pain TECHNIQUE: Precontrast 5 mm thick sections acquired from the lung apices to the iliac crests. After the administration of intravenous contrast, 2.5 mm thick sections again acquired from the lung apices to the iliac crests. Maximum intensity projection (MIP) oblique sagittal and coronal reformats were then acquired. For radiation dose reduction, the following was used: automated exposure control. COMPARISON: [facility], CT, CT ANGIO CHEST ABDOMEN PELVIS, 11/22/2023, 10:31. [facility], CT, CT ANGIO CHEST ABDOMEN PELVIS, 09/22/2023, 13:03. FINDINGS: Image quality: Diagnostic. AORTA: Thoracic aorta is normal in size with mild atherosclerotic calcifications. Mild atherosclerotic disease at the left subclavian origin without significant stenosis. Arch vessels are otherwise patent. Descending thoracic aorta is normal in size. Infrarenal abdominal aortic aneurysm again seen measuring up to 4.4 cm in diameter, compared to 4.[address] from 11/22/2023 when remeasured in a similar manner. Mildly increased mural thrombus is present. The celiac trunk, superior mesenteric artery, and inferior mesenteric artery are patent. Bilateral renal arteries demonstrate mild atherosclerotic calcifications without hemodynamically significant stenosis. 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 Left common iliac artery ectasia measuring up to 1.7 cm in diameter, unchanged. Atherosclerotic calcifications are seen in the internal external iliac arteries bilaterally without hemodynamically significant stenosis. Mild atherosclerotic calcifications in the included bilateral common femoral and superficial femoral arteries. CHEST: Lower Neck: No enlarged lymph nodes. Thyroid: No thyroid nodules which require sonographic evaluation. Axillae: No enlarged lymph nodes. Chest Wall: Unremarkable. Lungs and Pleura: No pneumothorax or pleural effusions. Prominent paraseptal emphysema bilaterally. 5 mm juxtapleural nodule in the anterior right middle lobe (6/145) appears unchanged and is considered benign. No consolidation or suspicious nodules. Heart: Heart size is mildly enlarged. Lipomatous hypertrophy of the interatrial septum does not appear significantly changed. Lad stent again seen. No pericardial effusion. Thoracic Vessels: Pulmonary arteries demonstrate normal size. Mediastinum and Hans[place]: No enlarged lymph nodes. Esophagus: No wall thickening. ABDOMEN: Liver: No solid mass. Liver is hypoattenuating, compatible with diffuse fatty infiltration. Gallbladder: No radiopaque gallstones or wall thickening. Biliary ducts: No biliary dilation. Pancreas: No ductal dilation. Spleen: Size is within normal limits. Adrenal Glands: No adrenal nodules. Kidneys and Ureters: No hydronephrosis. No solid mass. No complex renal cystic lesion which requires follow up. Stomach and Bowel: Tiny hiatal hernia. Colonic diverticulosis without signs of acute diverticulitis. Small bowel loops and stomach are unremarkable. Peritoneum: No abnormal intraperitoneal fluid. No free air. Ventral Wall: No hernia. Abdominal Nodes: No retroperitoneal or mesenteric adenopathy by size criteria. Vessels: Inferior vena cava is normal in size. PELVIS: Pelvic Organs: Status post hysterectomy. Bladder: Unremarkable. Pelvic Nodes: No enlarged lymph nodes. Miscellaneous: No inguinal hernias are seen. Bones: Multilevel degenerative changes in the spine. Left reversed total shoulder arthroplasty. Subacute or chronic left anterior rib fractures. Unilateral spondylolysis of L5. Grade 1 anterolisthesis of L5 on S1. IMPRESSION: 1. Infrarenal abdominal aortic aneurysm again seen measuring up to 4.4 cm, stable to minimally increased. No signs of acute aortic syndrome. Stable common iliac artery aneurysms. 2. No acute abnormality identified in the chest, abdomen, or pelvis. 3. Colonic diverticulosis without acute diverticulitis. 4. Mild hepatic steatosis. Approved by: Jass Leary M.D. on 07/12/2024 at 21:10 ECG Data Attestation: I personally reviewed and interpreted this ECG as follows: Prior ECG tracings: available for review Interpretation: EKGs 1. Sinus rhythm rate 81 MO interval 188 QRS [address] changes similar to previous EKGs EKG 2. Shows a sinus rhythm ray 72 with PVC MDM Narrative Medical decision making narrative: Patient is 73-year-old female history of coronary artery disease with an LAD stent noncompliant with hypertension presenting today with variety of symptoms. Noted to be persistently hypertensive with chest discomfort was previously admitted with hypertensive urgency back in October. Blood work has been reviewed No leukocytosis no anemia PT INR within normal limits CMP shows normal electrolytes creatinine 0.80 Troponin 0.5 AST 84 ALT 64 alk-phos 143 lipase 128 Troponin negative BNP 642 EKGs sinus rhythm no ST changes no ischemia Imaging reviewed: Chest x-ray no acute cardiopulmonary process CT angio chest abdomen and pelvis no dissection slight increase in AAA size 4.4 cm previously 6 months ago was 4.2 cm Consults: 20:03 , cardiology updated on patient's symptoms test results reports that patient could be placed in observation for blood pressure control and monitoring no need for transferring. Dr. Evans, updated on patient's symptoms test results agrees he was observation Patient 73-year-old female with known LAD stent uncontrolled hypertension presenting today with variety of complaints. She was persistently very hypertensive noncompliant with medications complaining of chest pain. Cardiology was consulted recommended observation for better blood pressure control. Patient has been a allergies to blood pressure medications Patient given 5 mg labetalol and nitroglycerin here in the ED. after medications she had very nauseous and threw up but no evidence of angioedema rash. Discharge Plan Departure Patient Disposition: Admitted as Observation Clinical Impression: Hypertensive urgency, Chest pain, Abdominal aortic aneurysm Admit Date/Time: 07/12/24 20:33 Admit Provider: Juan Carlos Toth
--- NOTE | 2024-07-12 20:11 | DI.CT.S_ITS ---
PROCEDURE: CT ANGIO CHEST ABDOMEN PELVIS INDICATIONS: chest pain TECHNIQUE: Precontrast 5 mm thick sections acquired from the lung apices to the iliac crests. After the administration of intravenous contrast, 2.5 mm thick sections again acquired from the lung apices to the iliac crests. Maximum intensity projection (MIP) oblique sagittal and coronal reformats were then acquired. For radiation dose reduction, the following was used: automated exposure control. COMPARISON: [facility], CT, CT ANGIO CHEST ABDOMEN PELVIS, 11/22/2023, 10:31. [facility], CT, CT ANGIO CHEST ABDOMEN PELVIS, 09/22/2023, 13:03. FINDINGS: Image quality: Diagnostic. AORTA: Thoracic aorta is normal in size with mild atherosclerotic calcifications. Mild atherosclerotic disease at the left subclavian origin without significant stenosis. Arch vessels are otherwise patent. Descending thoracic aorta is normal in size. Infrarenal abdominal aortic aneurysm again seen measuring up to 4.4 cm in diameter, compared to 4.[address] from 11/22/2023 when remeasured in a similar manner. Mildly increased mural thrombus is present. The celiac trunk, superior mesenteric artery, and inferior mesenteric artery are patent. Bilateral renal arteries demonstrate mild atherosclerotic calcifications without hemodynamically significant stenosis. 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 Left common iliac artery ectasia measuring up to 1.7 cm in diameter, unchanged. Atherosclerotic calcifications are seen in the internal external iliac arteries bilaterally without hemodynamically significant stenosis. Mild atherosclerotic calcifications in the included bilateral common femoral and superficial femoral arteries. CHEST: Lower Neck: No enlarged lymph nodes. Thyroid: No thyroid nodules which require sonographic evaluation. Axillae: No enlarged lymph nodes. Chest Wall: Unremarkable. Lungs and Pleura: No pneumothorax or pleural effusions. Prominent paraseptal emphysema bilaterally. 5 mm juxtapleural nodule in the anterior right middle lobe (6/145) appears unchanged and is considered benign. No consolidation or suspicious nodules. Heart: Heart size is mildly enlarged. Lipomatous hypertrophy of the interatrial septum does not appear significantly changed. Lad stent again seen. No pericardial effusion. Thoracic Vessels: Pulmonary arteries demonstrate normal size. Mediastinum and Hansa: No enlarged lymph nodes. Esophagus: No wall thickening. ABDOMEN: Liver: No solid mass. Liver is hypoattenuating, compatible with diffuse fatty infiltration. Gallbladder: No radiopaque gallstones or wall thickening. Biliary ducts: No biliary dilation. Pancreas: No ductal dilation. Spleen: Size is within normal limits. Adrenal Glands: No adrenal nodules. Kidneys and Ureters: No hydronephrosis. No solid mass. No complex renal cystic lesion which requires follow up. Stomach and Bowel: Tiny hiatal hernia. Colonic diverticulosis without signs of acute diverticulitis. Small bowel loops and stomach are unremarkable. Peritoneum: No abnormal intraperitoneal fluid. No free air. Ventral Wall: No hernia. Abdominal Nodes: No retroperitoneal or mesenteric adenopathy by size criteria. Vessels: Inferior vena cava is normal in size. PELVIS: Pelvic Organs: Status post hysterectomy. Bladder: Unremarkable. Pelvic Nodes: No enlarged lymph nodes. Miscellaneous: No inguinal hernias are seen. Bones: Multilevel degenerative changes in the spine. Left reversed total shoulder arthroplasty. Subacute or chronic left anterior rib fractures. Unilateral spondylolysis of L5. Grade 1 anterolisthesis of L5 on S1. IMPRESSION: 1. Infrarenal abdominal aortic aneurysm again seen measuring up to 4.4 cm, stable to minimally increased. No signs of acute aortic syndrome. Stable common iliac artery aneurysms. 2. No acute abnormality identified in the chest, abdomen, or pelvis. 3. Colonic diverticulosis without acute diverticulitis. 4. Mild hepatic steatosis. Approved by: Jass Leary M.D. on 07/12/2024 at 21:10
[2024-07-12] MEDS: LABETALOL 20 MG/4 ML SYRINGE 5 MG IV (20:41)
[2024-07-12] MEDS: NITROGLYCERIN 0.4 MG SL TAB SL (20:44)
--- NOTE | 2024-07-12 22:06 | PM.HP.1 ---
History of Present Illness History of Present Illness Date Patient Seen: 07/12/24 Time Patient Seen: 22:00 Chief complaint: SI, no plan Narrative: 73 y/o, under the primary care of Dr. Leon of [facility], with PMH of HTN, CAD, s/p LAD stent in 2020 ([place]), anxiety, leg DVT, prior brief hospitalization at [place] for chest pain and HTN (October 2023), who presented with chest pain and anxiety. On admission she did not have chest pain or pressure. She was very anxious and hypertensive. Initial workup negative for ACS, placed in observation with hypertensive urgency and chest pain. FOR[facility]LY [facility] Medical History Johnathan's disease Shoulder injury History of alcohol use History of tobacco abuse Hyperlipidemia Essential hypertension Surgical History History of ankle surgery Family History Father Hypertension Mother Hypertension CVA (cerebral vascular accident) Son Diabetes mellitus Social History marital status: unmarried,living together details: Life partner household members: none housing: house Smoking Status: Unknown if ever smoked alcohol intake: current substance use type: does not use well-balanced diet: daily or most days Meds Home Medications and Allergies Home Medications Medication Instructions Recorded Confirmed Type fluticasone propionate 50 1 spray intranasal DAILY 08/08/22 07/12/24 History mcg/actuation nasal spray,suspension aspirin 81 mg tablet,delayed 81 mg PO DAILY #30 tabs 04/21/23 07/12/24 Rx release doxycycline hyclate 100 mg capsule 100 mg PO BID 11/23/23 07/12/24 History hydroxyzine HCl 25 mg tablet 25 mg PO TID PRN itching #30 tabs 11/23/23 07/12/24 Rx ivermectin 1 % topical cream 1 applic topical QAM 07/12/24 07/12/24 History nitroglycerin 0.4 mg sublingual 0.4 mg sublingual PRN PRN Chest 07/12/24 07/12/24 History tablet Pain selenium sulfide 2.5 % lotion 1 applic topical QAM 07/12/24 07/12/24 History Allergies Allergy/AdvReac Type Severity Reaction Status Date / Time hydrocodone Allergy Intermediate Hives Verified 07/12/24 14:53 hydrochlorothiazide Allergy Mild Hives Verified 07/12/24 14:53 metoprolol Allergy Mild Hives Verified 07/12/24 14:53 Sulfa (Sulfonamide Allergy Mild Hives Verified 07/12/24 14:53 Antibiotics) acetaminophen [From Tylenol] Allergy Hives Verified 07/12/24 14:53 doxycycline Allergy Hives Verified 07/12/24 14:53 amoxicillin AdvReac Mild body aches Verified 07/12/24 14:53 cephalexin AdvReac Mild Verified 07/12/24 14:53 Review of Systems Review of Systems Narrative: General - w/o fever or chills CVS - palpitations, chest pain Psych - anxioety, depression. NOT SUICIDAL. GI - negative UG - negative Exam Vital Signs (past 8 hours): - 07/12/24 14:53 07/12/24 15:35 07/12/24 15:35 Temperature 98.2 F Pulse Rate 92 H 91 H Respiratory Rate 14 58 H Blood Pressure 237/119 H Pulse Oximetry 98 98 Oxygen Delivery Method Room Air 07/12/24 15:35 07/12/24 15:39 07/12/24 15:39 Temperature Pulse Rate 83 Respiratory Rate 47 H Blood Pressure 237/119 H 199/115 H Pulse Oximetry 99 Oxygen Delivery Method 07/12/24 16:00 07/12/24 16:00 07/12/24 16:19 Temperature Pulse Rate 75 96 H Respiratory Rate 25 H 40 H Blood Pressure 205/100 H Pulse Oximetry 100 Oxygen Delivery Method 07/12/24 16:19 07/12/24 16:43 07/12/24 16:44 Temperature Pulse Rate 91 H Respiratory Rate 35 H Blood Pressure 212/104 H 221/147 H Pulse Oximetry 98 Oxygen Delivery Method 07/12/24 16:44 07/12/24 17:00 07/12/24 17:10 Temperature Pulse Rate 93 H 82 89 Respiratory Rate 28 H 19 29 H Blood Pressure Pulse Oximetry 97 98 99 Oxygen Delivery Method 07/12/24 17:10 07/12/24 17:16 07/12/24 17:23 Temperature Pulse Rate 99 H 87 Respiratory Rate 48 H 44 H Blood Pressure 240/110 H Pulse Oximetry 97 98 Oxygen Delivery Method 07/12/24 17:23 07/12/24 17:30 07/12/24 17:30 Temperature Pulse Rate 95 H Respiratory Rate 58 H Blood Pressure 220/124 H 220/110 H Pulse Oximetry 97 Oxygen Delivery Method 07/12/24 17:45 07/12/24 17:45 07/12/24 18:00 Temperature Pulse Rate 81 99 H Respiratory Rate 29 H 49 H Blood Pressure 212/117 H Pulse Oximetry 98 99 Oxygen Delivery Method 07/12/24 18:16 07/12/24 18:16 07/12/24 18:30 Temperature Pulse Rate 84 80 Respiratory Rate 44 H 35 H Blood Pressure 225/116 H Pulse Oximetry 99 99 Oxygen Delivery Method 07/12/24 18:30 07/12/24 19:00 07/12/24 19:15 Temperature Pulse Rate 82 75 Respiratory Rate 25 H 22 Blood Pressure 224/112 H 217/112 H 211/120 H Pulse Oximetry 97 100 Oxygen Delivery Method 07/12/24 19:30 07/12/24 19:45 07/12/24 20:00 Temperature Pulse Rate 82 87 91 H Respiratory Rate 24 28 H 34 H Blood Pressure 237/112 H 228/126 H Pulse Oximetry 99 98 98 Oxygen Delivery Method Room Air 07/12/24 20:41 07/12/24 20:43 07/12/24 20:44 Temperature Pulse Rate 82 83 82 Respiratory Rate 22 Blood Pressure 222/112 H 222/112 H 222/112 H Pulse Oximetry 98 Oxygen Delivery Method 07/12/24 20:45 07/12/24 20:45 07/12/24 20:50 Temperature Pulse Rate 79 76 Respiratory Rate 27 H 33 H Blood Pressure 220/116 H Pulse Oximetry 98 96 Oxygen Delivery Method 07/12/24 20:50 07/12/24 20:55 07/12/24 20:55 Temperature Pulse Rate 81 Respiratory Rate 43 H Blood Pressure 180/97 H 208/106 H Pulse Oximetry 97 Oxygen Delivery Method 07/12/24 21:00 07/12/24 21:05 07/12/24 21:10 Temperature Pulse Rate 71 74 75 Respiratory Rate 29 H 24 28 H Blood Pressure 218/94 H 205/98 H 187/97 H Pulse Oximetry 98 88 L 90 L Oxygen Delivery Method 07/12/24 21:15 07/12/24 21:17 07/12/24 21:30 Temperature Pulse Rate 75 82 80 Respiratory Rate 32 H 34 H Blood Pressure 195/92 H 195/92 H 218/95 H Pulse Oximetry 96 98 Oxygen Delivery Method Oxygen Delivery Method Room Air Narrative Exam Narrative: General - visibly anxious Psych - lucid, not delusional, not suicidal CVS - RRR RS - CTA GI - not distended or tender Objective ECG Impression: NSR 72, old inferior AL Imaging CT scan - abdomen: Radiologist's impression: 1. Infrarenal abdominal aortic aneurysm again seen measuring up to 4.4 cm, stable to minimally increased. No signs of acute aortic syndrome. Stable common iliac artery aneurysms. 2. No acute abnormality identified in the chest, abdomen, or pelvis. 3. Colonic diverticulosis without acute diverticulitis. 4. Mild hepatic steatosis. Labs 07/12/24 17:48 07/12/24 17:48 Labs: Laboratory Results - last 24 hr 07/12/24 07/12/24 07/12/24 15:46 17:48 18:49 WBC 6.5 RBC 4.52 Hgb 14.7 Hct 43.6 MCV 96.3 MCH 32.4 MCHC 33.7 RDW 14.8 Plt Count 255 Neut % (Auto) 62.5 Lymph % (Auto) 24.8 L Barron % (Auto) 10.5 Eos % (Auto) 1.5 L Baso % (Auto) 0.7 Neut # (Auto) 4100 Lymph # (Auto) 1600 Barron # (Auto) 700 Eos # (Auto) 100 Baso # (Auto) 0 PT 10.7 INR 0.9 APTT 32 Sodium 140 Potassium 3.6 Chloride 106 Carbon Dioxide 24 BUN 17 Creatinine 0.80 Estimated GFR > 60 BUN/Creatinine Ratio 21.3 Glucose 98 Calcium 9.3 Magnesium 1.9 Total Bilirubin 0.5 AST 84 H ALT 64 H Alkaline Phosphatase 143 H Total Creatine Kinase 71 Troponin I < 0.012 NT-Pro-B Natriuret Pep 642 H Total Protein 6.7 Albumin 4.0 Globulin 2.7 Albumin/Globulin Ratio 1.5 Lipase 128 Urine Color Yellow Urine Appearance Clear Urine pH 5.5 Ur Specific [place] 1.020 Urine Protein Negative Urine Glucose (UA) Negative Urine Ketones Negative Urine Occult Blood Negative Urine Nitrate Negative Urine Bilirubin Negative Urine Urobilinogen 0.2 Ur Leukocyte Esterase Negative Urine RBC 0-1/hpf Urine WBC 1-5/hpf Ur Squamous Epith Cells 1-5 /hpf Urine Bacteria Occasional (0-1) Ur Culture Indicated? Cult not indicated Vol Urine Centrifuged 10ml (spun) U Opiates 300ng/mL cut Negative Ur Oxycodone Screen Negative Urine Methadone Screen Negative Ur Barbiturates Screen Negative U Tricyclic Antidepress Negative Ur Phencyclidine Scrn Negative Ur Amphetamines Screen Negative U Methamphetamines Scrn Negative Ur MDMA Scrn (Ecstasy) Negative U Benzodiazepines Scrn Negative Urine Cocaine Screen Negative U Marijuana (THC) Screen Positive H Urine Specific [place] Ur Creatinine SARS-CoV-2 (PCR) Negative 07/12/24 18:49 WBC RBC Hgb Hct MCV MCH MCHC RDW Plt Count Neut % (Auto) Lymph % (Auto) Barron % (Auto) Eos % (Auto) Baso % (Auto) Neut # (Auto) Lymph # (Auto) Barron # (Auto) Eos # (Auto) Baso # (Auto) PT INR APTT Sodium Potassium Chloride Carbon Dioxide BUN Creatinine Estimated GFR BUN/Creatinine Ratio Glucose Calcium Magnesium Total Bilirubin AST ALT Alkaline Phosphatase Total Creatine Kinase Troponin I NT-Pro-B Natriuret Pep Total Protein Albumin Globulin Albumin/Globulin Ratio Lipase Urine Color Urine Appearance Urine pH Normal Ur Specific [place] Urine Protein Urine Glucose (UA) Urine Ketones Urine Occult Blood Urine Nitrate Urine Bilirubin Urine Urobilinogen Ur Leukocyte Esterase Urine RBC Urine WBC Ur Squamous Epith Cells Urine Bacteria Ur Culture Indicated? Vol Urine Centrifuged U Opiates 300ng/mL cut Ur Oxycodone Screen Urine Methadone Screen Ur Barbiturates Screen U Tricyclic Antidepress Ur Phencyclidine Scrn Ur Amphetamines Screen U Methamphetamines Scrn Ur MDMA Scrn (Ecstasy) U Benzodiazepines Scrn Urine Cocaine Screen U Marijuana (THC) Screen Urine Specific [place] Normal Ur Creatinine Normal SARS-CoV-2 (PCR) Assessment & Plan Assessment and plan (1) Hypertensive urgency: Status: Acute (2) Anxiety: Status: Acute (3) CAD (coronary artery disease): Status: Acute Assessment & Plan narrative: Hypertension - uncontrolled - does not take medications - labetalol, lasix Anxiety - lorazepam prn CAD / Chest Pain - w/o evidence of ACS - ASA, prn NTG - telemetry monitoring AAA - 4.4 cm - needs surveillance DVT prophylaxis - SCDs Patient consented to a real time, audio-video telemedicine visit with electronic stethoscope and RN assisting during the exam. Patient located at [place], [place]. Provider located in [place]. Time-Based Coding :: [TOTAL MINUTES] spent with patient and on the chart (including review of chart, obtaining history, exam, reviewing outside data, placing orders, documenting exam and treatment plan, and counseling patient) on [DATE].
[2024-07-12] MEDS: LABETALOL 100 MG TABLET PO (22:31)
[2024-07-12] MEDS: LORazepam 2 MG/ML INJ 0.5 MG IV (22:33)
[2024-07-13] VITALS (31 sets, daily range): BP systolic 93–188; BP diastolic 58–93; PULSE 59–88; RESP 16–46; TEMP 36.2–36.8; O2SAT 89–99
[2024-07-13 01:49] LABS: MRSA (Nasal) PCR NOT DETECTED (Not Detect)
--- NOTE | 2024-07-13 04:57 | PC.NURSE ---
Patient was admitted by Luis F Mei RN. Did not C/O pain when admitted, B/P was still elevated on admit. Labetalol 100 mg. PO admin. B/P now 188/88, will monitor.
[2024-07-13 05:46] LABS: Add Manual Diff / Slide Review NO; Basophils Absolute Auto 0 /uL (0-100); Basophils Percent Auto 0.7 % (0-2); Eosinophils Absolute Auto 100 /uL (0-450); Hematocrit 39.5 % (36-46); Hemoglobin 13.6 g/dL (12.0-16.0); Lymphocytes Absolute Auto 1700 /uL (1100-4500); Lymphocytes Percent Auto 24.4 % (25-40); Mean Corpuscular HGB Conc 34.4 % (30-36); Mean Corpuscular Hemoglobin 32.8 PG (26-34); Mean Corpuscular Volume 95.3 fL (80-100); Monocytes Absolute Auto 900 /uL (0-900); Monocytes Percent Auto 12.4 % (3-14); Neutrophils Absolute Auto 4200 /uL (1500-7000); Neutrophils Percent Auto 61.5 % (50-75); Platelet Count 212 X10^3/uL (150-400); Red Blood Cell Count 4.15 X10^6/uL (4.0-5.2); Red Cell Distribution Width 14.5 % (11.6-14.8); White Blood Cell Count 6.9 X10^3/uL (4.5-11.0)
[2024-07-13] MEDS: NITROGLYCERIN 0.4 MG SL TAB SL ×2 (05:51→09:53)
[2024-07-13] MEDS: LORazepam 0.5 MG TABLET PO ×2 (05:55→11:00)
[2024-07-13 05:56] LABS: Blood Urea Nitrogen 18 mg/dL (7-17); Calcium 8.9 mg/dL (8.4-10.2); Carbon Dioxide 26 mmol/L (22-32); Chloride 103 mmol/L (98-107); Estimated Glomerular Filt Rate > 60 mL/min (>60); Glucose 101 mg/dL (80-110); HEMOLYSIS < 15 (0-50); Magnesium 1.8 mg/dL (1.6-2.3); Potassium 3.6 mmol/L (3.4-5.1); Sodium 134 mmol/L (137-145)
[2024-07-13] MEDS: ASPIRIN EC 81 MG TABLET PO (08:11)
[2024-07-13] MEDS: LABETALOL 100 MG TABLET PO (08:11)
[2024-07-13] MEDS: POTASSIUM CHLORIDE 20 MEQ TAB PO (08:11)
[2024-07-13] MEDS: FUROSEMIDE 40 MG TABLET PO (08:11)
[2024-07-13] MEDS: SODIUM CHLORIDE 0.9% FLUSH 10 ML IV (08:12)
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
[2024-07-13] MEDS: FUROSEMIDE 20 MG TABLET PO (12:17)
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
--- NOTE | 2024-07-13 16:36 | PC.NURSE ---
Patient is transferred from ICU to room 202 this a.m. at approximately 11 a.m. She is able to ambulate with SBA to chair and to the bed. She is given nitro x1 per request for mild chest pain, with good effect. MD at bedside evaluating patient. She is cleared for discharge this a.m. and she is given lorazepam and lasix 2nd dose for c/o swollen ankles, SOB and anxiety.BP is labile on monitor but after patient settles SBP 150's-160's. HR 50's-60's. She is able to tolerate lunch well and shower independently. She verbalizes understanding of discharge medications, as well as plan for staying with a friend. SW met at length to discuss patient situation, and provided resources to patient. She is escorted to private vehicle with friend via w/ch with all of hr belongings including green purse and clothing at [place] [id number].
== END 2024-07-13 15:25 | disposition home or self-care (01) ==
LOC: ED 19:48 → AC 20:33 → ICU 22:03 → AC 07-13 09:12
PROVIDERS: Emergency Medicine; Admitting Provider Internal Medicine; Emergency Provider Emergency Medicine; PCP Physician Assistant; Referring Provider Emergency Medicine; Visit Provider Internal Medicine
DX: I16.0 Hypertensive urgency (principal); R07.89 Other chest pain; I71.40 Abdominal aortic aneurysm, without rupture, unspecified; F41.9 Anxiety disorder, unspecified; I25.10 Atherosclerotic heart disease of native coronary artery without angina pectoris; Z91.148 Patient's other noncompliance with medication regimen for other reason; Z86.718 Personal history of other venous thrombosis and embolism
CPT/HCPCS: 36415; 71045; 71275; 74174; 80048; 80053; 80305; 81001; 82550; 83690; 83735; 83880; 84484; 85025; 85610; 85730; 87635; 87797; 93005; 93010; 96374; 96375; 99284; G0378; J2060; Q9967

== ENCOUNTER 2024-09-16 21:21 | Emergency (ER) | payer MEDICARE, OTHER, SELFPAY ==
[2024-07-12 22:29] VITALS: BMI 31.1
--- NOTE | 2024-09-16 21:31 | ED.PSYCH ---
HPI - Psych General Stated Complaint: ETOH/SI Time Seen by Provider: 09/16/24 21:30 History of Present Illness HPI Narrative: Patient is a 74-year-old female with a past medical history of CAD status post LAD stenting in [place], hypertension, DVT on Xarelto presenting with the police for evaluation of possible suicidal ideation. According to the police they were called due to the fact that patient was expressing thoughts of suicidal ideation, however at time of evaluation here in the emergency department patient adamantly denies this. She states that she just drank some wine due to the fact that she had a ?rough day. She states that she is not having any current thoughts of hurting herself or others. She states that she does have a history of high blood pressure, she states that she knows it is going to be high due the fact that she did not want to be brought in however police at bedside states that they did MARYANNE her which is the reason why she presents. She states that she would like to go home she feels safe going home. Patient states that she just wants to go home and rest due to the fact that she is tired. Related Data Home Medications ?Medication ?Instructions ?Recorded ?Confirmed fluticasone propionate 50 1 spray intranasal DAILY 08/08/22 07/12/24 mcg/actuation nasal spray,suspension doxycycline hyclate 100 mg capsule 100 mg PO BID 11/23/23 07/12/24 nitroglycerin 0.4 mg sublingual 0.4 mg sublingual PRN PRN Chest 07/12/24 07/12/24 tablet Pain selenium sulfide 2.5 % lotion 1 applic topical QAM 07/12/24 07/12/24 Previous Rx's ?Medication ?Instructions ?Recorded aspirin 81 mg tablet,delayed 81 mg PO DAILY #30 tabs 04/21/23 release hydroxyzine HCl 25 mg tablet 25 mg PO TID PRN itching #30 tabs 11/23/23 furosemide 20 mg tablet (Lasix) 20 mg PO DAILY #14 tabs 07/13/24 lorazepam 0.5 mg tablet (Ativan) 0.5 mg PO BID PRN anxiety #14 tabs 07/13/24 metoprolol succinate 25 mg 12.5 mg (1/2 x 25 mg) PO DAILY #14 07/13/24 tablet,extended release 24 hr tabs Allergies Allergy/AdvReac Type Severity Reaction Status Date / Time hydrocodone Allergy Intermediate Hives Verified 07/12/24 14:53 hydrochlorothiazide Allergy Mild Hives Verified 07/12/24 14:53 metoprolol Allergy Mild Hives Verified 07/12/24 14:53 Sulfa (Sulfonamide Allergy Mild Hives Verified 07/12/24 14:53 Antibiotics) acetaminophen (From Tylenol) Allergy Hives Verified 07/12/24 14:53 doxycycline Allergy Hives Verified 07/12/24 14:53 amoxicillin AdvReac Mild body aches Verified 07/12/24 14:53 cephalexin AdvReac Mild Verified 07/12/24 14:53 Review of Systems Review of Systems Narrative: General: Denies fever, chills, weight loss HEENT: Denies headache, eye drainage, eye irritation, head trauma, sore throat, voice change Cardiovascular: Denies any chest pain, palpitations, tachycardia Respiratory: Denies any shortness of breath, cough, wheeze, stridor GI/: Denies any abdominal pain, nausea, vomiting, diarrhea, bright red blood per rectum, melanotic stools, urinary frequency, urinary retention, dysuria, hematuria MSK: Denies any joint pain, muscle pains, swelling Skin: Denies any rashes, lesions, discoloration Neuro: Denies any headache, lightheadedness, dizziness, fainting, weakness Psych: Positive SI, denies HI Patient History Medical History Johnathan's disease Shoulder injury History of alcohol use History of tobacco abuse Hyperlipidemia Essential hypertension Surgical History History of ankle surgery Family History Father Hypertension Mother Hypertension CVA (cerebral vascular accident) Son Diabetes mellitus Social History marital status: unmarried,living together details: Life partner household members: friend(s) and none housing: house alcohol intake: current substance use type: does not use well-balanced diet: daily or most days alcohol intake frequency: a few times a week Exam Narrative Exam Narrative: General: Cooperative, well-developed, not in acute distress HEENT: Normocephalic, atraumatic, PERRLA, normal sclera, eyelids normal Neck: Active full range of motion, atraumatic Chest: Normal to inspection, negative crepitus, no overlying erythema ecchymosis Respiratory: Normal respiratory effort, not in acute respiratory distress, clear to auscultation bilaterally negative cough, wheeze, tachypnea, rhonchi, rales Cardiology: Regular rate rhythm negative gallop, murmur, rubs GI/: No tenderness to palpation, soft, non rigid, normal to inspection, exam deferred MSK: Full active range of motion in all 4 extremities, atraumatic, no tenderness to palpation of any bony prominences Skin: No rashes or lesions noted Neuro: Alert awake oriented x3, moves all 4 extremities spontaneously, cranial nerves intact, able to answer all questions appropriately follows commands appropriately Psych: Cooperative, negative suicidal or homicidal ideations MDM - Psych Differential Diagnosis Differential diagnosis: Likely acute psychosis, suicidal ideation, bipolar disorder and depression MDM Narrative Medical decision making narrative: Patient is a 74-year-old female with a past medical history of hypertension, DVT on Xarelto, hyperlipidemia, presenting to the emergency department with police for evaluation of suicidal ideation. According to the patient she had a ?rough day did drink some alcohol according to police at bedside they state that she had admitted suicidal ideation to them, however at time of evaluation here patient is adamantly denying this. She states that she just wants to go home and sleep, she states that she does not have any suicidal homicidal ideation, she states that she is not having any symptoms such as headache visual disturbances chest pain shortness breath fever chills nausea vomiting abdominal pain or any other GI/ symptoms time. Patient is A&O x3, she is clinically sober, she states that she just wants to go home she states that she we will follow up with her primary care doctor and her nuclear radiation engineer, patient was given strict return precautions she verbalized understanding of this and agrees to being discharged home with outpatient follow up. Discharge Plan Departure Patient Disposition: Home Clinical Impression: Asymptomatic hypertension, Acute stress reaction Activity Restrictions/Additional Instructions: Please follow up with the primary care doctor Please read the discharge instructions sheet carefully and bring all papers to all doctor follow-up visits, as it may contain information that your doctor may want to see. Disease processes change and evolve, if your symptoms worsen or if you develop any new symptoms that are concerning to you please return for evaluation. Your evaluation today does not show any evidence of any life-threatening/serious illnesses requiring admission to the hospital or surgery. Please follow-up with your doctor for re-evaluation in approximately 1 day. Seek immediate medical attention for any worrisome symptoms. *If you do not have a primary care provider please contact the [facility] Resource line at [phone]. They will ask some questions about your medical history and help get you set up with a doctor in the community. Prescriptions: No Action fluticasone propionate 50 mcg/actuation spray,suspension 1 spray intranasal DAILY Rx Instructions: administer into each nostril aspirin 81 mg Tablet,Delayed Release (Dr/Ec) 81 mg PO DAILY Qty: 30 3RF doxycycline hyclate 100 mg capsule 100 mg PO BID hydroxyzine HCl 25 mg tablet 25 mg PO TID PRN (Reason: itching) Qty: 30 1RF nitroglycerin 0.4 mg tablet, sublingual 0.4 mg sublingual PRN PRN (Reason: Chest Pain) selenium sulfide 2.5 % lotion 1 applic topical QAM furosemide [Lasix] 20 mg tablet 20 mg PO DAILY Qty: 14 0RF metoprolol succinate 25 mg tablet extended release 24 hr 12.5 mg PO DAILY Qty: 14 0RF lorazepam [Ativan] 0.5 mg tablet 0.5 mg PO BID PRN (Reason: anxiety) Qty: 14 0RF Referrals: Livia Kinney PA-C [Primary Care Provider, Medical] Stand Alone Forms: Patient Portal/API
[2024-09-16 21:34] VITALS: PULSE 95; RESP 16; TEMP 36.8; O2SAT 98; BMI 31.1
--- NOTE | 2024-09-16 21:36 | PC.NURSE ---
Shortly after pt arrived to ED I asked her if she wanted to kill herself. She responded no. I asked her can you tell me why the police believe that you are suicidal? Pt stated I am a 74 year old woman and do I sometimes wish that I would go to sleep peacefully and not wake up,yes but I do not want to and I do not want to kill myself.
--- NOTE | 2024-09-16 21:49 | PC.NURSE ---
Pt refused to answer assessment questions. Multiple attempts were made by this RN to de-escalate pt w/o success. Pt DC w/o education home to self care. Pt was given a courtesy ride home by PD [place].
== END 2024-09-16 21:53 | disposition home or self-care (01) ==
PROVIDERS: Emergency Provider Student in an Organized Health Care Education/Training Program; PCP Physician Assistant
DX: I10 Essential (primary) hypertension (principal); F43.0 Acute stress reaction; Z79.01 Long term (current) use of anticoagulants
CPT/HCPCS: 99281